=== PATIENT | female | born 1980 | race Caucasian/White ===

== ENCOUNTER 2020-03-20 11:45 | Emergency (ER) | payer OTHER ==
[2020-03-20 12:39] VITALS: BP 147/91; PULSE 81; RESP 18; TEMP 97.9
--- NOTE | 2020-03-20 13:10 | ED ---
General Adult HPI - General Chief complaint: Fall Stated complaint: fall, rib/chest pain Time Seen by Provider: 03/20/20 12:45 Source: patient, RN notes reviewed Mode of arrival: ambulatory Limitations: no limitations - History of Present Illness Initial comments: Patient is a pleasant 39-year-old female presenting to the emergency department following a fall. Incident occurred 2 days ago. Patient states she was walking her dog he went to chasing a squirrel and pulled her. Patient then fell down on her left lateral chest and anterior shoulder. Patient has discomfort since that time. No shortness of breath. Patient states she does not think she can work secondary to the discomfort. No history of chronic pain in these areas. Discomfort is moderate to severe at this time. - Related Data Allergies Allergy/AdvReac Type Severity Reaction Status Date / Time No Known Allergies Allergy Verified 03/20/20 12:39 Review of Systems ROS Statement: Those systems with pertinent positive or pertinent negative responses have been documented in the HPI. ROS Other: All systems not noted in ROS Statement are negative. Constitutional: Denies: fever Eyes: Denies: eye pain ENT: Denies: ear pain Respiratory: Denies: cough, dyspnea Cardiovascular: Reports: as per HPI Endocrine: Denies: fatigue Gastrointestinal: Denies: abdominal pain Genitourinary: Denies: dysuria Musculoskeletal: Reports: as per HPI Skin: Denies: rash Neurological: Denies: weakness Past Medical History Past Medical History: GERD/Reflux Additional Past Medical History / Comment(s): anemia History of Any Multi-Drug Resistant Organisms: None Reported Past Surgical History: No Surgical Hx Reported Past Psychological History: Anxiety, Depression Smoking Status: Current every day smoker Past Alcohol Use History: Occasional Past Drug Use History: None Reported General Exam Limitations: no limitations General appearance: alert, in no apparent distress Head exam: Present: normocephalic Eye exam: Present: normal appearance, PERRL ENT exam: Present: normal oropharynx Neck exam: Present: normal inspection. Absent: tenderness Respiratory exam: Present: normal lung sounds bilaterally, chest wall tenderness (Left lateral mid ribs, lateral to the breast) Cardiovascular Exam: Present: regular rate, normal rhythm GI/Abdominal exam: Present: soft. Absent: tenderness Extremities exam: Present: full ROM, tenderness (Left anterior shoulder. Distally the extremity is neurovascular intact.). Absent: pedal edema, calf tenderness Neurological exam: Present: alert. Absent: motor sensory deficit Psychiatric exam: Present: normal affect, normal mood Skin exam: Present: normal color Course Vital Signs 03/20/20 12:36 Temperature 97.9 F Pulse Rate 81 Respiratory 18 Rate Blood Pressure 147/91 O2 Sat by Pulse 98 Oximetry Medical Decision Making - Medical Decision Making Patient reevaluated and updated. Patient explained limitations of rib x-rays. - Radiology Data Radiology results: image reviewed (X-rays left shoulder and ribs and chest show no acute abnormality) Disposition Clinical Impression: Fall, Rib contusion Disposition: HOME SELF-CARE Condition: Stable Instructions (If sedation given, give patient instructions): Rib Contusion (ED) Additional Instructions: Please follow-up with primary care physician in the next couple days for recheck. Return for difficulty breathing, uncontrolled pain, worsening symptoms or other concerns. Is patient prescribed a controlled substance at d/c from ED?: No Referrals: Raul Patel MD [Primary Care Provider] - 1-2 days Time of Disposition: 13:46
--- NOTE | 2020-03-20 13:31 | XR ---
Chest x-ray and left RIBS HISTORY: Trauma and pain Frontal view of the chest and 4 views of the left ribs There is no pneumothorax or pleural effusion. Cardiac mediastinal silhouette is within normal limits. There is mild spinal curvature. Degenerative disc changes present in the visualized spine. No eviden t displaced rib fracture. IMPRESSION: No acute abnormality. Bone scan may be of benefit to assess for occult fracture should it be suspected clinically.
--- NOTE | 2020-03-20 13:34 | XR ---
Left shoulder HISTORY: Trauma and pain 3 views left shoulder There is overlying artifact. Left lung apex as visualized is normal. Bone mineralization, joint space s and alignment are maintained. IMPRESSION: No fracture or dislocation.
[2020-03-20] MEDS ORDERED: ACET/COD 300 MG/30 MG STARTER PACK 6 TAB BTL PO STA (13:45)
== END 2020-03-20 13:55 | disposition home or self-care (01) ==
LOC: EC 11:45
DX: S20.212A Contusion of left front wall of thorax, initial encounter (principal); F17.200 Nicotine dependence, unspecified, uncomplicated; W19.XXXA Unspecified fall, initial encounter; Y93.K1 Activity, walking an animal
CPT/HCPCS: 99283

== ENCOUNTER 2020-06-26 14:48 | Emergency (ER) | payer OTHER ==
[2020-06-26 14:59] VITALS: RESP 18; TEMP 98.9
[2020-06-26] MEDS ORDERED: HYDROmorphone 0.5 MG/0.5 ML SYRINGE IVP STA (15:25)
--- NOTE | 2020-06-26 15:28 | ED ---
General Adult HPI - General Chief complaint: Fall Stated complaint: IHS, Head injury Time Seen by Provider: 06/26/20 14:55 Source: patient, RN notes reviewed, old records reviewed Mode of arrival: EMS Limitations: no limitations - History of Present Illness Initial comments: This is a 39-year-old female presents emergency Department stating that she wal ked into a machine hit the right side of her head on the machine. Patient states she did lose consciousness. Patient complains of right-sided temporal pain as well as pain on the left side of her neck. Patient also complains of slight upper right-sided back pain. Patient denies any difficulty breathing first breath per patient denies any chest pain. Patient denies any abdominal pain patient denies nausea vomiting diarrhea per patient has any extremity pain. - Related Data Home Medications Medication Instructions Recorded Confirmed Aspirin/Caffeine [Anacin 400-32 mg 2 tab PO ONCE PRN 06/26/20 06/26/20 Tablet] FLUoxetine HCL [PROzac] 20 mg PO DAILY 06/26/20 06/26/20 Famotidine [Pepcid] 20 mg PO BID 06/26/20 06/26/20 Ferrous Sulfate [Feosol] 325 mg PO DAILY 06/26/20 06/26/20 Multivitamins, Thera [Multivitamin 1 tab PO DAILY 06/26/20 06/26/20 (formulary)] Venlafaxine HCl [Effexor XR] 150 mg PO DAILY 06/26/20 06/26/20 Allergies Allergy/AdvReac Type Severity Reaction Status Date / Time No Known Allergies Allergy Verified 06/26/20 16:13 Review of Systems ROS Statement: Those systems with pertinent positive or pertinent negative responses have been documented in the HPI. ROS Other: All systems not noted in ROS Statement are negative. Past Medical History Past Medical History: GERD/Reflux Additional Past Medical History / Comment(s): anemia History of Any Multi-Drug Resistant Organisms: None Reported Past Surgical History: No Surgical Hx Reported Past Psychological History: Anxiety, Depression Smoking Status: Current every day smoker Past Alcohol Use History: Occasional Past Drug Use History: None Reported General Exam - General Exam Comments Initial Comments: GENERAL: Patient is well-developed and well-nourished. Patient is nontoxic and well- hydrated and is in mild distress. Patient has tenderness in the right temporal region ENT: Neck is soft and supple. No significant lymphadenopathy is noted. Oropharynx is clear. Moist mucous membranes. Neck has full range of motion without eliciting any pain. EYES: The sclera were anicteric and conjunctiva were pink and moist. Extraocular movements were intact and pupils were equal round and reactive to light. Eyelids were unremarkable. PULMONARY: Unlabored respirations. Good breath sounds bilaterally. No audible rales rhonchi or wheezing was noted. CARDIOVASCULAR: There is a regular rate and rhythm without any murmurs gallops or rubs. Patient has slight tenderness in the right upper thoracic region ABDOMEN: Soft and nontender with normal bowel sounds. SKIN: Skin is clear with no lesions or rashes and otherwise unremarkable. NEUROLOGIC: Patient is alert and oriented x3. Cranial nerves II through XII are grossly intact. Motor and sensory are also intact. Normal speech, volume and content. Symmetrical smile. MUSCULOSKELETAL: Normal extremities with adequate strength and full range of motion. Patient has slight tenderness in the right upper thoracic region LYMPHATICS: No significant lymphadenopathy is noted PSYCHIATRIC: Normal psychiatric evaluation. Limitations: no limitations Course Vital Signs 06/26/20 14:55 Temperature 98.9 F Pulse Rate 85 Respiratory 18 Rate Blood Pressure 147/96 O2 Sat by Pulse 98 Oximetry Medical Decision Making - Medical Decision Making EKG shows normal sinus rhythm at 80 bpm [place] interval is on a 46 QRS 106 QT interval 422 QTC is 510. Patient's EKG shows no ST segment elevation or depression. CT of the head and C-spine showed no acute abnormality. Patient was feeling better after she had a shot of Dilaudid. Patient will follow-up with primary medical care doctor. Disposition Clinical Impression: Head trauma, Concussion with brief loss of consciousness Disposition: HOME SELF-CARE Instructions (If sedation given, give patient instructions): Concussion (ED) Is patient prescribed a controlled substance at d/c from ED?: No Referrals: Raul Patel MD [Primary Care Provider] - 1-2 days Time of Disposition: 17:38
--- NOTE | 2020-06-26 16:05 | CT ---
EXAMINATION TYPE: CT brain pauloine wo con DATE OF EXAM: 06/26/2020 COMPARISON: NONE HISTORY: Injury with headache and neck pain. CT DLP: 1334.3 mGycm. Automated Exposure Control for Dose Reduction was Utilized. TECHNIQUE: CT scan of the head and cervical spine are performed without contrast. FINDINGS: There is no acute intracranial hemorrhage, mass effect, or midline shift identified. The ventricles and sulci are within normal limits in size. Beltran-white matter differentiation is maintai valerie. The calvarium is intact. Mild to moderate mucosal thickening involving ethmoid sinuses bilateral ly. Small mucous retention cyst or polyp in the medial right frontal sinus. Globes are intact bilater ally. Cervical spine is visualized in its entirety from C1 through upper thoracic levels and demonstrates s atisfactory alignment without evidence of acute fracture or dislocation. Prevertebral soft tissue ap pears within normal limits. The C1-C2 articulation is within normal limits on the coronal images. V ertebral body heights and disc space heights are fairly well-maintained. Nonspecific tiny sclerotic l esion T1 vertebral coronal image 50 favored benign bone island in patient this age. Spinal canal laci sly preserved. Thyroid gland is within normal limits. Lung apices show no pneumothorax . IMPRESSION: 1. There is no acute fracture or dislocation evident in the cervical spine. 2. No acute intracranial hemorrhage or midline shift is seen.
--- NOTE | 2020-06-26 17:18 | XR ---
EXAMINATION TYPE: XR chest 2V DATE OF EXAM: 06/26/2020 COMPARISON: NONE HISTORY: Pain and dizziness. TECHNIQUE: Frontal and lateral views of the chest are obtained. FINDINGS: There is no focal air space opacity, pleural effusion, or pneumothorax seen. The cardiac silhouette size is within normal limits. The osseous structures are intact. IMPRESSION: No acute cardiopulmonary process.
[2020-06-26 18:24] VITALS: BP 124/68; PULSE 78
== END 2020-06-26 18:24 | disposition home or self-care (01) ==
LOC: EC 14:48
DX: S06.0X1A Concussion with loss of consciousness of 30 minutes or less, initial encounter (principal); K21.9 Gastro-esophageal reflux disease without esophagitis; F32.9 Major depressive disorder, single episode, unspecified; F41.9 Anxiety disorder, unspecified; F17.200 Nicotine dependence, unspecified, uncomplicated; Z79.82 Long term (current) use of aspirin; Z79.899 Other long term (current) drug therapy; W19.XXXA Unspecified fall, initial encounter
CPT/HCPCS: 93005; 71046; 72125; 70450; 99284; 96374; J1170

== ENCOUNTER → 2020-06-28 | Outpatient (CLI) | payer OTHER ==
--- NOTE | 2020-06-28 10:53 | XR ---
EXAMINATION TYPE: XR lumbar spine 2 or 3V DATE OF EXAM: 06/28/2020 CLINICAL HISTORY: Chronic low back pain. TECHNIQUE: Frontal and lateral images of the lumbar spine are obtained. COMPARISON: None. FINDINGS: There are 5 lumbar type vertebral bodies identified. The lumbar spine shows satisfactory alignment without evidence of acute fracture or dislocation. Mild to moderate disc space narrowing L5 -S1 level with mild anterior spurring. Vertebral body heights and disc space heights are otherwise wi thin normal limits. The overlying soft tissue appears unremarkable. IMPRESSION: As above.
== END | disposition home or self-care (01) ==
LOC: RADXRMAIN 10:04
PROVIDERS: ATTEND Emergency Medicine
DX: M51.37 Other intervertebral disc degeneration, lumbosacral region (principal)
CPT/HCPCS: 72100

== ENCOUNTER 2020-10-08 15:49 | Emergency (ER) | payer OTHER ==
[2020-10-08 15:57] VITALS: RESP 18
[2020-10-08] MEDS ORDERED: SODIUM CHLORIDE 0.9% 1,000 ML IV STA (16:06)
[2020-10-08] MEDS ORDERED: IPRATROPIUM-ALBUTEROL 3 ML NEB INHALATION STA ×2 (16:07→17:23)
[2020-10-08] MEDS ORDERED: methylPREDNISolone SOD SUCCI 125 MG/2 ML VIAL IV STA (16:07)
[2020-10-08] MEDS ORDERED: ONDANSETRON 4 MG/2 ML VIAL IVP STA (16:07)
[2020-10-08 16:17] LABS: Glucose,Whole Blood 93 mg/dL (75-99)
--- NOTE | 2020-10-08 16:17 | ED ---
General Adult HPI - General Chief complaint: Syncope Stated complaint: syncope Time Seen by Provider: 10/08/20 15:57 Source: patient, EMS, RN notes reviewed, old records reviewed Mode of arrival: EMS Limitations: no limitations - History of Present Illness Initial comments: Patient is a 39-year-old female with past medical history remarkable for asthma, GERD, acid reflux, iron deficiency anemia who presents emergency Department following a syncopal episode while at work. Patient states that she has been feeling fatigued all day. She also has been complaining of mild shortness of breath over this time as well. She denies any chest pain, headache, numbness, abdominal pain. She does endorse nausea without any episodes of emesis. She is currently on her menstrual cycle which she stated is heavier than normal. She denies . She denies any dysuria or hematuria. Denies any other vaginal discharge. Denies any change in bowel movements. Patient states that while at work, she stood from a seated position which is when she expenses syncopal episode. Per coworkers, she slowly collapsed to the ground. She was uninjured after falling. She denies any neck pain, back pain, headache. She states when she awoke, there was no confusion. She presents in the department for evaluation. She does state that she has a brother who has early onset cardiac disease. She has no known history but it is positive and family members. Denies any hemoptysis or hormonal therapies. Denies any history of pulmonary embolisms and DVTs. She states for asthma she rarely uses her inhaler. She is no other acute complaints at this time. She denies any known sick contacts, fevers, chills. She denies any cough. She is not acute complaints. The patient states she does have a history of syncopal episodes,, however it is been multiple months since this last occurred. - Related Data Home Medications Medication Instructions Recorded Confirmed FLUoxetine HCL [PROzac] 40 mg PO DAILY 06/26/20 10/08/20 Famotidine [Pepcid] 20 mg PO BID PRN 06/26/20 10/08/20 Ferrous Sulfate [Feosol] 325 mg PO DAILY 06/26/20 10/08/20 Venlafaxine HCl [Effexor XR] 150 mg PO DAILY 06/26/20 10/08/20 ALPRAZolam [Xanax] 0.5 mg PO BID PRN 10/08/20 10/08/20 Ibuprofen [Motrin] 800 mg PO TID PRN 10/08/20 10/08/20 amLODIPine [Norvasc] 2.5 mg PO DAILY 10/08/20 10/08/20 Previous Rx's Medication Instructions Recorded Albuterol Inhaler [Ventolin Hfa 2 puff INHALATION RT-TID #1 inhaler 10/08/20 Inhaler] predniSONE [Deltasone] 40 mg PO DAILY 5 Days #10 tab 10/08/20 Allergies Allergy/AdvReac Type Severity Reaction Status Date / Time No Known Allergies Allergy Verified 10/08/20 17:09 Review of Systems ROS Statement: Those systems with pertinent positive or pertinent negative responses have been documented in the HPI. Review of Systems: CONST: Denies fever EYES: Denies blurry vision ENT: Denies nasal congestion C/V: Denies Chest pain RESP: Endorses mild shortness of breath GI: Denies abdominal pain : Denies dysuria SKIN: Denies rash. MSK: Denies joint pain. NEURO: Denies headache ROS Other: All systems not noted in ROS Statement are negative. Past Medical History Past Medical History: GERD/Reflux Additional Past Medical History / Comment(s): anemia History of Any Multi-Drug Resistant Organisms: None Reported Past Surgical History: No Surgical Hx Reported Past Psychological History: Anxiety, Depression Smoking Status: Current every day smoker Past Alcohol Use History: Occasional Past Drug Use History: Marijuana General Exam - General Exam Comments Initial Comments: General: Appears in no acute distress. HEAD: Normal with no signs of head trauma. EYES: PERRLA, EOMI, conjunctiva normal, no discharge. Pupils are 3 mm bilaterally and equal. ENT: Hearing grossly intact, normal oropharynx. RESPIRATORY: Patient has bilateral end expiratory wheezing without any obvious rales or rhonchi. There is no tachypnea. No retractions. C/V: Regular rate and rhythm. S1 and S2 auscultated, no edema, peripheral pulses 2+ and intact throughout ABD: Abd is soft, nontender, nondistended EXT: Normal range of motion, no obvious deformity SKIN: No rashes or lesions observed on exposed skin. NEURO: Alert and oriented 4. Cranial nerves II-12 intact. No focal sensory strength deficits. Patient's cerebellar function is intact as evident by normal finger to nose testing. Patient is able to ambulate. Limitations: no limitations Course Vital Signs 10/08/20 10/08/20 10/08/20 15:52 15:57 16:38 Temperature 97.5 F L Pulse Rate 81 87 95 Respiratory 18 18 18 Rate Blood Pressure 147/95 141/87 O2 Sat by Pulse 97 99 Oximetry 10/08/20 10/08/20 10/08/20 16:45 16:57 17:00 Temperature Pulse Rate 87 90 90 Respiratory 18 18 18 Rate Blood Pressure 134/84 134/84 O2 Sat by Pulse 99 99 Oximetry 10/08/20 10/08/20 10/08/20 18:00 18:05 18:12 Temperature Pulse Rate 90 88 90 Respiratory 18 18 18 Rate Blood Pressure O2 Sat by Pulse Oximetry 10/08/20 10/08/20 18:46 18:51 Temperature 97.6 F 97.6 F Pulse Rate 94 94 Respiratory 18 18 Rate Blood Pressure 153/89 153/89 O2 Sat by Pulse 99 99 Oximetry Medical Decision Making - Medical Decision Making Based on the patient's presentation and physical exam, I'm concerned for possible cardiac etiology for the patient's syncopal episode. She does have a family member with early onset cardiac disease, a brother who has been diagnosed with heart problems at age 40. I cannot rule out a pulmonary embolism as the cause either. Patient's well's score is low so screening D-dimer will be obtained in addition to cardiac workup including troponin, EKG, chest x-ray and basic laboratory studies. She will be connected to continuous cardiac monitoring will she is here in the department. Patient may be dehydrated, can also not rule out the possibly of anemia for the patient. She does appear to have a mild asthma exacerbation as will be treated with steroids as well as duoneb breathing treatments. The patient was in agreement this plan. Patient's EKG shows no signs of acute ischemia. Was read as prolonged QT, however I believe this is miscalculated by the machine and correct calculation is in my EKG interpretation.Patient's chest xray shows no acute cardiopulmonary process. Laboratory studies are remarkable for a normal d-dimer. Patient is hypokalemic to 2.9. Patient also has mild hypomagnesemia of 1.6. Troponin is negative. COVID-19 swab is negative. Remainder of his labs are unremarkable. Patient received supplementation for hypo-kalemia and hypomagnesemia. On repeat evaluation, patient states that her breathing is improved and she is no longer short of breath after 2 breathing treatments. She otherwise has no acute complaints at this time and requests to go home. Patient is able to ambulate and stand without difficulty. Patient's heart score is 1. Patient's [place] syncope rules are is also low risk. I do believe it is safe for her to be discharged home at this time. She will be discharged home with a prescription of prednisone as well as albuterol for her asthma exacerbation. I will provide the patient with a prescription for prednisone 40 mg daily for 5 days, albuterol inhaler. I instructed the patient to follow up with their PCP in the next 3 days . I explained that the patient should return to the emergency department if they experience any worsening symptoms. Strict return precautions were discussed with the patient. The patient expressed understanding of these instructions. I answered all questions that the patient had. The patient was discharged home in good condition with their prescriptions and follow up information. - Lab Data Result diagrams: 10/08/20 16:23 10/08/20 16:23 Lab Results 10/08/20 10/08/20 10/08/20 Range/Units 16:15 16:23 16:23 WBC 6.9 (3.8-10.6) k/uL RBC 4.42 (3.80-5.40) m/uL Hgb 14.6 (11.4-16.0) gm/dL Hct 42.8 (34.0-46.0) % MCV 96.9 (80.0-100.0) fL MCH 33.1 (25.0-35.0) pg MCHC 34.1 (31.0-37.0) g/dL RDW 13.3 (11.5-15.5) % Plt Count 203 (150-450) k/uL MPV 9.0 Neutrophils % 68 % Lymphocytes % 23 % Monocytes % 6 % Eosinophils % 2 % Basophils % 0 % Neutrophils # 4.7 (1.3-7.7) k/uL Lymphocytes # 1.6 (1.0-4.8) k/uL Monocytes # 0.4 (0-1.0) k/uL Eosinophils # 0.2 (0-0.7) k/uL Basophils # 0.0 (0-0.2) k/uL PT 10.1 (9.0-12.0) sec INR 0.9 (<1.2) APTT 21.1 L (22.0-30.0) sec D-Dimer 0.25 (<0.60) mg/L FEU Sodium (137-145) mmol/L Potassium (3.5-5.1) mmol/L Chloride (98-107) mmol/L Carbon Dioxide (22-30) mmol/L Anion Gap mmol/L BUN (7-17) mg/dL Creatinine (0.52-1.04) mg/dL Est GFR (CKD-EPI)AfAm (>60 ml/min/1.73 sqM) Est GFR (CKD-EPI)NonAf (>60 ml/min/1.73 sqM) Glucose (74-99) mg/dL POC Glucose (mg/dL) 93 (75-99) mg/dL POC Glu Tube Room Supervisor ID Juan, Tamanna Calcium (8.4-10.2) mg/dL Magnesium (1.6-2.3) mg/dL Troponin I (0.000-0.034) ng/mL Coronavirus (PCR) (Not Detectd) 10/08/20 10/08/20 10/08/20 Range/Units 16:23 16:23 16:23 WBC (3.8-10.6) k/uL RBC (3.80-5.40) m/uL Hgb (11.4-16.0) gm/dL Hct (34.0-46.0) % MCV (80.0-100.0) fL MCH (25.0-35.0) pg MCHC (31.0-37.0) g/dL RDW (11.5-15.5) % Plt Count (150-450) k/uL MPV Neutrophils % % Lymphocytes % % Monocytes % % Eosinophils % % Basophils % % Neutrophils # (1.3-7.7) k/uL Lymphocytes # (1.0-4.8) k/uL Monocytes # (0-1.0) k/uL Eosinophils # (0-0.7) k/uL Basophils # (0-0.2) k/uL PT (9.0-12.0) sec INR (<1.2) APTT (22.0-30.0) sec D-Dimer (<0.60) mg/L FEU Sodium 135 L (137-145) mmol/L Potassium 2.9 L (3.5-5.1) mmol/L Chloride 103 (98-107) mmol/L Carbon Dioxide 26 (22-30) mmol/L Anion Gap 6 mmol/L BUN 11 (7-17) mg/dL Creatinine 0.60 (0.52-1.04) mg/dL Est GFR (CKD-EPI)AfAm >90 (>60 ml/min/1.73 sqM) Est GFR (CKD-EPI)NonAf >90 (>60 ml/min/1.73 sqM) Glucose 94 (74-99) mg/dL POC Glucose (mg/dL) (75-99) mg/dL POC Glu Tube Room Supervisor ID Calcium 9.0 (8.4-10.2) mg/dL Magnesium 1.6 (1.6-2.3) mg/dL Troponin I <0.012 (0.000-0.034) ng/mL Coronavirus (PCR) Not Detected (Not Detectd) - EKG Data -: EKG Interpreted by Me EKG Comments: 12-lead Electrocardiogram Interpretation Note EKG was reviewed and interpreted by myself. 12-lead ECG performed at 1557 is interpreted by me as revealing normal sinus rhythm at a rate of 74 beats per minute. [place] is normal. DC interval is undetectable 6 ms, [place] is 104 ms. QTC listed on the EKG is 510, however believe this is incorrectly calc ulated. QT interval measured by the machine is 460, however based on my measurements appears closer to 400-420, which equates to a QTC of approx 444. There were no ST or T wave abnormalities to suggest myocardial ischemia or injury. R wave progression across the precordium was satisfactory. By my interpretation this EKG is non-diagnostic for acute ischemia. The corrected QTc measurement is within normal limits. Disposition Clinical Impression: Syncope, Asthma exacerbation, Hypokalemia, Hypomagnesemia Disposition: HOME SELF-CARE Condition: Good Instructions (If sedation given, give patient instructions): Asthma (ED), Syncope (ED) Prescriptions: predniSONE [Deltasone] 40 mg PO DAILY 5 Days #10 tab Albuterol Inhaler [Ventolin Hfa Inhaler] 2 puff INHALATION RT-TID #1 inhaler Is patient prescribed a controlled substance at d/c from ED?: No Referrals: Raul Patel MD [Primary Care Provider] - 1-2 days
[2020-10-08 16:30] LABS: Basophils % (A) 0 %; Eosinophils # (A) 0.2 k/uL (0-0.7); Eosinophils % (A) 2 %; HCT 42.8 % (34.0-46.0); HGB 14.6 gm/dL (11.4-16.0); Lymphocytes # (A) 1.6 k/uL (1.0-4.8); Lymphocytes % (A) 23 %; MCH 33.1 pg (25.0-35.0); MCHC 34.1 g/dL (31.0-37.0); MCV 96.9 fL (80.0-100.0); Monocytes # (A) 0.4 k/uL (0-1.0); Monocytes % (A) 6 %; Neutrophils # (A) 4.7 k/uL (1.3-7.7); Neutrophils % (A) 68 %; Platelet Count 203 k/uL (150-450); RBC 4.42 m/uL (3.80-5.40); RDW 13.3 % (11.5-15.5); WBC 6.9 k/uL (3.8-10.6)
[2020-10-08 16:42] LABS: African American GFR (CKD) >90 (>60 ml/min/1.73 sqM); Anion Gap 6 mmol/L; Blood Urea Nitrogen 11 mg/dL (7-17); Carbon Dioxide 26 mmol/L (22-30); Chloride 103 mmol/L (98-107); Glucose 94 mg/dL (74-99); Magnesium 1.6 mg/dL (1.6-2.3); Non-African American GFR(CKD) >90 (>60 ml/min/1.73 sqM); Potassium 2.9 mmol/L (3.5-5.1); Sodium 135 mmol/L (137-145)
--- NOTE | 2020-10-08 16:43 | XR ---
EXAMINATION TYPE: XR chest 2V DATE OF EXAM: 10/08/2020 COMPARISON: 06/26/2020 HISTORY: Syncope TECHNIQUE: FINDINGS: Heart and mediastinum are normal. Lungs are clear. Diaphragm is normal. Bony thorax is inta ct. IMPRESSION: Normal chest. No adverse change.
[2020-10-08 16:54] LABS: INR 0.9 (<1.2); Partial Thromboplastin Time 21.1 sec (22.0-30.0); Prothrombin Time 10.1 sec (9.0-12.0)
[2020-10-08] MEDS ORDERED: POTASSIUM CHLORIDE ER 20 MEQ TAB.ER PO STA (17:08)
[2020-10-08] MEDS ORDERED: MAGNESIUM SULFATE-D5W PMX 1 GM in DEXTROSE/WATER 1 100ML.BAG IVPB ONE (17:09)
[2020-10-08 18:47] VITALS: BP 153/89; PULSE 94; TEMP 97.6
== END 2020-10-08 18:51 | disposition home or self-care (01) ==
LOC: EC 15:49
DX: E87.6 Hypokalemia (principal); E83.42 Hypomagnesemia; J45.901 Unspecified asthma with (acute) exacerbation; F32.9 Major depressive disorder, single episode, unspecified; F41.9 Anxiety disorder, unspecified; K21.9 Gastro-esophageal reflux disease without esophagitis; F17.200 Nicotine dependence, unspecified, uncomplicated; F12.90 Cannabis use, unspecified, uncomplicated; Z20.822 Contact with and (suspected) exposure to COVID-19; Z79.1 Long term (current) use of non-steroidal anti-inflammatories (NSAID); Z79.52 Long term (current) use of systemic steroids; Z79.899 Other long term (current) drug therapy
CPT/HCPCS: 36415; 94640 ×2; 93005; 85379; 80048; 83735; 84484; 85025; 85610; 85730; 87635; 71046; 99285; 96365; 96375 ×2; 96361; J2930; J2405; J3475

== ENCOUNTER 2021-01-17 08:29 | Emergency (ER) | payer OTHER ==
[2021-01-17 08:51] VITALS: BP 154/92; PULSE 82; RESP 18; TEMP 98.1
--- NOTE | 2021-01-17 09:12 | ED ---
General Adult HPI - General Chief complaint: ENT Stated complaint: Eye Inflammation Time Seen by Provider: 01/17/21 08:57 Source: patient, RN notes reviewed, old records reviewed Mode of arrival: ambulatory Limitations: no limitations - History of Present Illness Initial comments: 40-year-old female otherwise healthy woke with swelling of her right upper eyelid. She noticed some minimal pain and erythema. She had no symptoms yesterday. No vision changes. No fever. She is a nondiabetic otherwise healthy. - Related Data Home Medications Medication Instructions Recorded Confirmed FLUoxetine HCL [PROzac] 40 mg PO DAILY 06/26/20 10/08/20 Famotidine [Pepcid] 20 mg PO BID PRN 06/26/20 10/08/20 Ferrous Sulfate [Feosol] 325 mg PO DAILY 06/26/20 10/08/20 Venlafaxine HCl [Effexor XR] 150 mg PO DAILY 06/26/20 10/08/20 ALPRAZolam [Xanax] 0.5 mg PO BID PRN 10/08/20 10/08/20 Ibuprofen [Motrin] 800 mg PO TID PRN 10/08/20 10/08/20 amLODIPine [Norvasc] 2.5 mg PO DAILY 10/08/20 10/08/20 Previous Rx's Medication Instructions Recorded Albuterol Inhaler [Ventolin Hfa 2 puff INHALATION RT-TID #1 inhaler 10/08/20 Inhaler] predniSONE [Deltasone] 40 mg PO DAILY 5 Days #10 tab 10/08/20 Erythromycin Ophth Oint [Romycin 1 applic RIGHT EYE QID #3.5 gm 01/17/21 Ophth Oint] Allergies Allergy/AdvReac Type Severity Reaction Status Date / Time No Known Allergies Allergy Verified 01/17/21 08:51 Review of Systems ROS Statement: Those systems with pertinent positive or pertinent negative responses have been documented in the HPI. ROS Other: All systems not noted in ROS Statement are negative. Past Medical History Past Medical History: GERD/Reflux Additional Past Medical History / Comment(s): anemia History of Any Multi-Drug Resistant Organisms: None Reported Past Surgical History: No Surgical Hx Reported Past Psychological History: Anxiety, Depression Smoking Status: Current every day smoker Past Alcohol Use History: Occasional Past Drug Use History: None Reported General Exam Limitations: no limitations General appearance: alert, in no apparent distress Head exam: Present: atraumatic, normocephalic Eye exam: Present: PERRL, EOMI, other (Soft tissue swelling and mild erythema of the upper lid, pustule on the lid margin). Absent: scleral icterus, conjunctival injection, nystagmus, periorbital swelling ENT exam: Present: normal exam Neck exam: Present: normal inspection. Absent: tenderness, meningismus Respiratory exam: Present: normal lung sounds bilaterally. Absent: respiratory distress, wheezes Cardiovascular Exam: Present: regular rate, normal rhythm GI/Abdominal exam: Present: soft. Absent: distended Course Vital Signs 01/17/21 08:49 Temperature 98.1 F Pulse Rate 82 Respiratory 18 Rate Blood Pressure 154/92 O2 Sat by Pulse 98 Oximetry Medical Decision Making - Medical Decision Making 40-year-old female with stye of the right upper eyelid. Patient is instructed on warm compresses. She is prescribed erythromycin ointment. Strict return pa rameters were discussed. She's given ophthalmology follow-up if symptoms persist. Disposition Clinical Impression: Hordeolum externum (stye) Disposition: HOME SELF-CARE Condition: Good Instructions (If sedation given, give patient instructions): Stye (ED) Additional Instructions: If symptoms do not improve within one week. Please follow up with ophthalmology. Prescriptions: Erythromycin Ophth Oint [Romycin Ophth Oint] 1 applic RIGHT EYE QID #3.5 gm Is patient prescribed a controlled substance at d/c from ED?: No Referrals: Raul Patel MD [Primary Care Provider] - 1-2 days Nicolas Justice MD [STAFF PHYSICIAN] - 1-2 days Time of Disposition: 09:11
== END 2021-01-17 09:34 | disposition home or self-care (01) ==
LOC: EC 08:29
DX: H00.011 Hordeolum externum right upper eyelid (principal); K21.9 Gastro-esophageal reflux disease without esophagitis; F41.9 Anxiety disorder, unspecified; F32.A Depression, unspecified; F17.200 Nicotine dependence, unspecified, uncomplicated
CPT/HCPCS: 99283

== ENCOUNTER 2021-01-26 14:34 | Emergency (ER) | payer OTHER ==
[2021-01-26] MEDS ORDERED: SODIUM CHLORIDE 0.9% 1,000 ML IV STA (15:15)
--- NOTE | 2021-01-26 15:39 | XR ---
EXAMINATION TYPE: XR chest 2V DATE OF EXAM: 01/26/2021 COMPARISON: 10/08/2020 TECHNIQUE: PA and lateral views submitted. HISTORY: Syncopal episode FINDINGS: The lungs are clear and there is no pneumothorax, pleural effusion, or focal pneumonia. Heart is en larged and there is prominence of the thoracic aortic arch. Coarsened interstitium likely in the basi s of chronic interstitial lung disease. Hypertrophic and degenerative change of the spine. IMPRESSION: 1. Cardiomegaly with findings suggestive of chronic interstitial pulmonary fibrosis. 2. Prominence of the ascending aorta short-term follow-up CT of the chest could be obtained.
--- NOTE | 2021-01-26 16:42 | ED ---
Dizziness HPI - General Source: EMS, RN notes reviewed Mode of arrival: EMS Limitations: no limitations <Frankei Maldonado - Last Filed: 01/26/21 16:39> <Butch Larose - Last Filed: 01/26/21 19:13> - General Chief Complaint: Syncope Stated Complaint: syncope Time Seen by Provider: 01/26/21 14:48 - History of Present Illness Initial Comments: Patient is a 40-year-old female that presents to the emergency department complaining of dizziness and a syncopal episode at work. Patient notes that she does have a history of syncope. 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 Patient notes that she'll he drinks approximately 8 ounces of water per day while working in a hot environment. Patient was otherwise well-appearing. She denied any specialist. She denied any chest pain shortness of breath headache nausea vomiting diarrhea constipation fever fatigue chills change in vision decreased vision. (Frankie Maldonado) - Related Data Home Medications Medication Instructions Recorded Confirmed FLUoxetine HCL [PROzac] 20 mg PO BID 06/26/20 01/26/21 Famotidine [Pepcid] 20 mg PO BID 06/26/20 01/26/21 Venlafaxine HCl [Effexor XR] 150 mg PO DAILY 06/26/20 01/26/21 amLODIPine [Norvasc] 2.5 mg PO DAILY 10/08/20 01/26/21 Allergies Allergy/AdvReac Type Severity Reaction Status Date / Time No Known Allergies Allergy Verified 01/26/21 15:16 Review of Systems ROS Other: All systems not noted in ROS Statement are negative. <Frankie Maldonado - Last Filed: 01/26/21 16:39> ROS Other: All systems not noted in ROS Statement are negative. <Butch Larose - Last Filed: 01/26/21 19:13> ROS Statement: Those systems with pertinent positive or pertinent negative responses have been documented in the HPI. Past Medical History Past Medical History: GERD/Reflux Additional Past Medical History / Comment(s): anemia History of Any Multi-Drug Resistant Organisms: None Reported Past Surgical History: No Surgical Hx Reported Past Psychological History: Anxiety, Depression Smoking Status: Current every day smoker Past Alcohol Use History: Occasional Past Drug Use History: None Reported <Frankie Maldonado - Last Filed: 01/26/21 16:39> General Exam Limitations: no limitations General appearance: alert, in no apparent distress, obese Head exam: Present: atraumatic, normocephalic, normal inspection Eye exam: Present: normal appearance, PERRL, EOMI. Absent: scleral icterus, conjunctival injection, periorbital swelling ENT exam: Present: normal exam, mucous membranes moist Neck exam: Present: normal inspection Respiratory exam: Present: normal lung sounds bilaterally. Absent: respiratory distress, wheezes, rales, rhonchi, stridor Cardiovascular Exam: Present: regular rate, normal rhythm, normal heart sounds. Absent: systolic murmur, diastolic murmur, rubs, gallop, clicks GI/Abdominal exam: Present: soft, normal bowel sounds. Absent: distended, tenderness, guarding, rebound, rigid Extremities exam: Present: normal inspection, full ROM, normal capillary refill. Absent: tenderness, pedal edema, joint swelling, calf tenderness Neurological exam: Present: alert, oriented X3 Expanded Patient oriented to: Present: person, place, time Speech: Present: fluid speech Cranial nerves: EOM's Intact: Normal, Tongue Deviation: Normal, Facial Sensation: Normal Cerebellar function: Finger to Nose: Normal Motor strength exam: RUE: 5, LUE: 5, RLE: 5, LLE: 5 Psychiatric exam: Present: normal affect, normal mood Skin exam: Present: warm, dry, intact, normal color. Absent: rash <Frankie Maldonado - Last Filed: 01/26/21 16:39> Course Vital Signs 01/26/21 01/26/21 01/26/21 14:37 14:43 15:00 Temperature 97.6 F Pulse Rate 84 Respiratory 20 Rate Blood Pressure 142/94 142/94 142/94 O2 Sat by Pulse 100 97 95 Oximetry 01/26/21 01/26/21 01/26/21 15:20 16:00 17:00 Temperature Pulse Rate 66 Respiratory Rate Blood Pressure 145/101 151/114 O2 Sat by Pulse 98 98 Oximetry 01/26/21 18:27 Temperature Pulse Rate 68 Respiratory 18 Rate Blood Pressure 156/96 O2 Sat by Pulse 100 Oximetry EKG Findings - EKG Comments: EKG Findings:: Ventricular rate 82 bpm, RI interval 136 ms, QRS duration 104 ms, QTC 504 ms, PRT axes 58/68/26. Normal sinus rhythm, possible left atrial enlargement, prolonged QT, abnormal ECG. <Frankie Maldonado - Last Filed: 01/26/21 16:39> Medical Decision Making - EKG Data -: EKG Interpreted by Me EKG shows normal: sinus rhythm Rate: normal When compared to previous EKG there are: no significant change - Radiology Data Radiology results: report reviewed, image reviewed <Frankie Maldonado - Last Filed: 01/26/21 16:39> - Lab Data Result diagrams: 01/26/21 15:20 01/26/21 15:20 <Butch Larose - Last Filed: 01/26/21 19:13> - Medical Decision Making 40-year-old female with a syncopal episode at work. Labs, EKG, gambling monitor, chest x-ray, 1 L normal saline ordered. X-ray shows a more prominent aortic arch. This changes new compared to old x- rays. CT angio of the chest was ordered. (Frankie Maldonado) CT angiogram of the chest is negative. I did perform CT of the brain with CT angiography as well given the headache complaint and syncope. This was negative for intracranial hemorrhage or mass effect. Patient feeling better on reevaluation. Laboratory studies unremarkable. (Butch Larose) - Lab Data Lab Results 01/26/21 01/26/21 01/26/21 Range/Units 14:55 14:55 14:55 WBC (3.8-10.6) k/uL RBC (3.80-5.40) m/uL Hgb (11.4-16.0) gm/dL Hct (34.0-46.0) % MCV (80.0-100.0) fL MCH (25.0-35.0) pg MCHC (31.0-37.0) g/dL RDW (11.5-15.5) % Plt Count (150-450) k/uL MPV Neutrophils % % Lymphocytes % % Monocytes % % Eosinophils % % Basophils % % Neutrophils # (1.3-7.7) k/uL Lymphocytes # (1.0-4.8) k/uL Monocytes # (0-1.0) k/uL Eosinophils # (0-0.7) k/uL Basophils # (0-0.2) k/uL PT (9.0-12.0) sec INR (<1.2) APTT (22.0-30.0) sec Sodium (137-145) mmol/L Potassium (3.5-5.1) mmol/L Chloride (98-107) mmol/L Carbon Dioxide (22-30) mmol/L Anion Gap mmol/L BUN (7-17) mg/dL Creatinine (0.52-1.04) mg/dL Est GFR (CKD-EPI)AfAm (>60 ml/min/1.73 sqM) Est GFR (CKD-EPI)NonAf (>60 ml/min/1.73 sqM) Glucose (74-99) mg/dL Calcium (8.4-10.2) mg/dL Magnesium 1.9 (1.6-2.3) mg/dL Total Bilirubin (0.2-1.3) mg/dL AST (14-36) U/L ALT (4-34) U/L Alkaline Phosphatase (38-126) U/L Troponin I (0.000-0.034) ng/mL Total Protein (6.3-8.2) g/dL Albumin (3.5-5.0) g/dL Urine Color Light Yellow Urine Appearance Clear (Clear) Urine pH 7.0 (5.0-8.0) Ur Specific [place] 1.022 (1.001-1.035) Urine Protein Negative (Negative) Urine Glucose (UA) Negative (Negative) Urine Ketones Negative (Negative) Urine Blood Negative (Negative) Urine Nitrite Negative (Negative) Urine Bilirubin Negative (Negative) Urine Urobilinogen <2.0 (<2.0) mg/dL Ur Leukocyte Esterase Negative (Negative) Urine HCG, Qual Not Detected (Not Detectd) 01/26/21 01/26/21 01/26/21 Range/Units 15:20 15:20 15:20 WBC 9.1 (3.8-10.6) k/uL RBC 4.28 (3.80-5.40) m/uL Hgb 13.8 (11.4-16.0) gm/dL Hct 39.7 (34.0-46.0) % MCV 92.7 (80.0-100.0) fL MCH 32.3 (25.0-35.0) pg MCHC 34.9 (31.0-37.0) g/dL RDW 12.3 (11.5-15.5) % Plt Count 187 (150-450) k/uL MPV 8.8 Neutrophils % 70 % Lymphocytes % 21 % Monocytes % 5 % Eosinophils % 3 % Basophils % 0 % Neutrophils # 6.4 (1.3-7.7) k/uL Lymphocytes # 2.0 (1.0-4.8) k/uL Monocytes # 0.4 (0-1.0) k/uL Eosinophils # 0.3 (0-0.7) k/uL Basophils # 0.0 (0-0.2) k/uL PT 9.9 (9.0-12.0) sec INR 0.9 (<1.2) APTT 23.3 (22.0-30.0) sec Sodium 136 L (137-145) mmol/L Potassium 3.5 (3.5-5.1) mmol/L Chloride 105 (98-107) mmol/L Carbon Dioxide 24 (22-30) mmol/L Anion Gap 7 mmol/L BUN 13 (7-17) mg/dL Creatinine 0.62 (0.52-1.04) mg/dL Est GFR (CKD-EPI)AfAm >90 (>60 ml/min/1.73 sqM) Est GFR (CKD-EPI)NonAf >90 (>60 ml/min/1.73 sqM) Glucose 91 (74-99) mg/dL Calcium 9.0 (8.4-10.2) mg/dL Magnesium (1.6-2.3) mg/dL Total Bilirubin 0.2 (0.2-1.3) mg/dL AST 23 (14-36) U/L ALT 20 (4-34) U/L Alkaline Phosphatase 77 (38-126) U/L Troponin I (0.000-0.034) ng/mL Total Protein 6.9 (6.3-8.2) g/dL Albumin 3.9 (3.5-5.0) g/dL Urine Color Urine Appearance (Clear) Urine pH (5.0-8.0) Ur Specific [place] (1.001-1.035) Urine Protein (Negative) Urine Glucose (UA) (Negative) Urine Ketones (Negative) Urine Blood (Negative) Urine Nitrite (Negative) Urine Bilirubin (Negative) Urine Urobilinogen (<2.0) mg/dL Ur Leukocyte Esterase (Negative) Urine HCG, Qual (Not Detectd) 01/26/21 Range/Units 15:20 WBC (3.8-10.6) k/uL RBC (3.80-5.40) m/uL Hgb (11.4-16.0) gm/dL Hct (34.0-46.0) % MCV (80.0-100.0) fL MCH (25.0-35.0) pg MCHC (31.0-37.0) g/dL RDW (11.5-15.5) % Plt Count (150-450) k/uL MPV Neutrophils % % Lymphocytes % % Monocytes % % Eosinophils % % Basophils % % Neutrophils # (1.3-7.7) k/uL Lymphocytes # (1.0-4.8) k/uL Monocytes # (0-1.0) k/uL Eosinophils # (0-0.7) k/uL Basophils # (0-0.2) k/uL PT (9.0-12.0) sec INR (<1.2) APTT (22.0-30.0) sec Sodium (137-145) mmol/L Potassium (3.5-5.1) mmol/L Chloride (98-107) mmol/L Carbon Dioxide (22-30) mmol/L Anion Gap mmol/L BUN (7-17) mg/dL Creatinine (0.52-1.04) mg/dL Est GFR (CKD-EPI)AfAm (>60 ml/min/1.73 sqM) Est GFR (CKD-EPI)NonAf (>60 ml/min/1.73 sqM) Glucose (74-99) mg/dL Calcium (8.4-10.2) mg/dL Magnesium (1.6-2.3) mg/dL Total Bilirubin (0.2-1.3) mg/dL AST (14-36) U/L ALT (4-34) U/L Alkaline Phosphatase (38-126) U/L Troponin I <0.012 (0.000-0.034) ng/mL Total Protein (6.3-8.2) g/dL Albumin (3.5-5.0) g/dL Urine Color Urine Appearance (Clear) Urine pH (5.0-8.0) Ur Specific [place] (1.001-1.035) Urine Protein (Negative) Urine Glucose (UA) (Negative) Urine Ketones (Negative) Urine Blood (Negative) Urine Nitrite (Negative) Urine Bilirubin (Negative) Urine Urobilinogen (<2.0) mg/dL Ur Leukocyte Esterase (Negative) Urine HCG, Qual (Not Detectd) - EKG Data EKG Comments: Ventricular rate 82 bpm, RI interval 136 ms, QRS duration 104 ms, QTC 504 ms, PRT axes 58/68/26. Normal sinus rhythm, possible left atrial enlargement, prolonged QT, abnormal ECG. (Frankie Maldonado) - Radiology Data Chest x-ray: Cardiomegaly with findings suggestive of chronic interstitial pulmonary fibrosis. Prominence of the ascending aorta short-term follow-up CT of the chest could be obtained. (Frankie Maldonado) Disposition <Frankie Maldonado - Last Filed: 01/26/21 16:39> Is patient prescribed a controlled substance at d/c from ED?: No Time of Disposition: 19:13 <Butch Larose - Last Filed: 01/26/21 19:13> Clinical Impression: Syncope Disposition: HOME SELF-CARE Condition: Fair Instructions (If sedation given, give patient instructions): Syncope (ED) Referrals: Raul Patel MD [Primary Care Provider] - 1-2 days
--- NOTE | 2021-01-26 17:07 | CT ---
EXAMINATION TYPE: CT angio chest DATE OF EXAM: 01/26/2021 COMPARISON: None HISTORY: Syncope, chest pain, difficulty breathing. CT DLP: 390.8 mGycm CONTRAST: CT chest with contrast and 3D reconstruction with MIP imaging is performed with IV Contrast, patient injected with 100 mL of Isovue 370. Contrast-enhanced CT of the chest was performed through the course of the pulmonary arteries with abdiaziz g and mediastinal window settings submitted. 3D reconstruction with MIP imaging was also performed. PULMONARY ARTERIES: The pulmonary arteries and their major tributaries are patent. I do not see sheyla dence for sizable filling defect to suggest pulmonary embolic process. LUNGS: The lungs are clear and free of infiltrate. No evidence for atelectasis. No pulmonary nodule or mass is detected. No pleural effusion. MEDIASTINUM: Thoracic aorta is of normal caliber. Azygous continuation of the IVC. The heart is not enlarged. No evidence for mediastinal mass. No mediastinal lymph nodes greater than 1cm. HILAR STRUCTURES: No evidence for mass. No hilar lymph nodes greater than 1 cm. UPPER ABDOMEN: No significant abnormality is seen. IMPRESSION: 1. No evidence for Pulmonary embolism at this time.
[2021-01-26 17:27] LABS: Basophils % (A) 0 %; Eosinophils # (A) 0.3 k/uL (0-0.7); Eosinophils % (A) 3 %; HCT 39.7 % (34.0-46.0); HGB 13.8 gm/dL (11.4-16.0); Lymphocytes % (A) 21 %; MCH 32.3 pg (25.0-35.0); MCHC 34.9 g/dL (31.0-37.0); MCV 92.7 fL (80.0-100.0); Mean Platelet Volume 8.8; Monocytes # (A) 0.4 k/uL (0-1.0); Monocytes % (A) 5 %; Neutrophils # (A) 6.4 k/uL (1.3-7.7); Neutrophils % (A) 70 %; Platelet Count 187 k/uL (150-450); RBC 4.28 m/uL (3.80-5.40); RDW 12.3 % (11.5-15.5); WBC 9.1 k/uL (3.8-10.6)
[2021-01-26 17:29] LABS: Appearance,Urine Clear (Clear); Bilirubin,Urine Negative (Negative); Blood,Urine Negative (Negative); Color,Urine Light Yellow; Glucose,Urine (UA) Negative (Negative); Ketones,Urine Negative (Negative); Leukocyte Esterase,Urine Negative (Negative); Nitrite,Urine Negative (Negative); Protein,Urine Negative (Negative); Specific Gravity,Urine 1.022 (1.001-1.035); Urobilinogen,Urine <2.0 mg/dL (<2.0)
[2021-01-26 17:38] LABS: ALT 20 U/L (4-34); AST 23 U/L (14-36); African American GFR (CKD) >90 (>60 ml/min/1.73 sqM); Albumin 3.9 g/dL (3.5-5.0); Alkaline Phosphatase 77 U/L (38-126); Anion Gap 7 mmol/L; Blood Urea Nitrogen 13 mg/dL (7-17); Carbon Dioxide 24 mmol/L (22-30); Chloride 105 mmol/L (98-107); Glucose 91 mg/dL (74-99); Non-African American GFR(CKD) >90 (>60 ml/min/1.73 sqM); Potassium 3.5 mmol/L (3.5-5.1); Sodium 136 mmol/L (137-145); Total Bilirubin 0.2 mg/dL (0.2-1.3); Total Protein 6.9 g/dL (6.3-8.2)
[2021-01-26 17:44] LABS: INR 0.9 (<1.2); Partial Thromboplastin Time 23.3 sec (22.0-30.0); Prothrombin Time 9.9 sec (9.0-12.0)
[2021-01-26 18:29] VITALS: RESP 18
--- NOTE | 2021-01-26 18:43 | CT ---
EXAMINATION TYPE: CT brain wo con DATE OF EXAM: 01/26/2021 COMPARISON: None HISTORY: DURÁN, concern for brain bleed CT DLP: 1146.[address] of the brain was performed. The ventricles, basal cisterns and sulci overlying the cerebral convexities demonstrate a normal appe arance. There is no evidence for intracranial hemorrhage or sulcal effacement. No mass effects are seen. Osseous calvarium is intact. If symptoms persist consider MRI as clinically warranted. IMPRESSION: 1. No acute intracranial process is seen at this time.
[2021-01-26] MEDS ORDERED: SODIUM CHLORIDE 0.9% 1,000 ML IV ONE (18:54)
--- NOTE | 2021-01-26 19:03 | CT ---
EXAMINATION TYPE: CT angio COW [place] DATE OF EXAM: 01/26/2021 COMPARISON: HISTORY: Sudden DURÁN CT DLP: 961.6 mGycm CONTRAST: CTA [place] with 3-D reconstruction is performed and with IV Contrast, patient injected with 100 mL of Isovue 370. Contrast CTA of the [place] was performed 3-D reconstruction imaging obtained at a separate workstation. Vertebrobasilar system as well as intracranial portions of the internal carotid arterie s and their major tributaries are patent. I do not see evidence for sizable aneurysm or vascular mal formation. Please note MRI provides greater sensitivity and specificity. Visualized brain appears g rossly unremarkable. IMPRESSION: No evidence for sizable aneurysm or vascular malformation.
[2021-01-26 19:27] VITALS: BP 142/97; PULSE 67; TEMP 97.9
== END 2021-01-26 19:27 | disposition home or self-care (01) ==
LOC: EC 14:34
DX: R55 Syncope and collapse (principal); K21.9 Gastro-esophageal reflux disease without esophagitis; F41.9 Anxiety disorder, unspecified; F32.A Depression, unspecified; F17.200 Nicotine dependence, unspecified, uncomplicated
CPT/HCPCS: 99285; 96360; 36415; 93005; 80053; 83735; 84484; 85025; 85610; 85730; 81003; 81025; 71046; 70496; 70450; 71275; Q9967

== ENCOUNTER 2021-08-13 13:34 | Emergency (ER) | payer OTHER ==
[2021-08-13 14:07] VITALS: BP 143/93; PULSE 82; RESP 18; TEMP 97.9
== END 2021-08-13 16:11 | disposition left against medical advice (07) ==
LOC: EC 13:34
DX: I20.9 Angina pectoris, unspecified (principal); R06.02 Shortness of breath; R11.10 Vomiting, unspecified; Z53.21 Procedure and treatment not carried out due to patient leaving prior to being seen by health care provider
CPT/HCPCS: 93005

== ENCOUNTER 2021-08-31 11:38 | Inpatient (IN) | payer OTHER ==
[2021-08-31] MEDS ORDERED: IPRATROPIUM-ALBUTEROL 3 ML NEB INHALATION STA (11:45)
--- NOTE | 2021-08-31 11:48 | ED ---
General Adult HPI - General Stated complaint: SHAYNA Time Seen by Provider: 08/31/21 11:39 Source: patient, EMS, RN notes reviewed Mode of arrival: EMS Limitations: no limitations - History of Present Illness Initial comments: Patient is a pleasant 40-year-old female presenting to the emergency department with difficulty breathing. Patient states she started with cold symptoms a couple of days ago. Patient does have history of asthma. Patient has had some chills and fatigue. Patient does have cough and dyspnea. Patient does have nasal congestion. Patient does have some improvement with symptoms with DuoNeb and Solu-Medrol by EMS. Patient was having some increased difficulty breathing at work today and did become unresponsive. - Related Data Home Medications Medication Instructions Recorded Confirmed FLUoxetine HCL [PROzac] 20 mg PO BID 06/26/20 05/08/21 Famotidine [Pepcid] 20 mg PO BID 06/26/20 05/08/21 Venlafaxine HCl [Effexor XR] 150 mg PO DAILY 06/26/20 05/08/21 amLODIPine [Norvasc] 2.5 mg PO DAILY 10/08/20 05/08/21 Cholecalciferol [Vitamin D3 (125 125 mcg PO DAILY 05/08/21 05/08/21 Mcg = 5000 Iu)] Ibuprofen [Motrin] 800 mg PO Q8H PRN 05/08/21 05/08/21 methocarbamoL [Robaxin] 500 mg PO TID 05/08/21 05/08/21 Allergies Allergy/AdvReac Type Severity Reaction Status Date / Time No Known Allergies Allergy Verified 05/08/21 20:05 Review of Systems ROS Statement: Those systems with pertinent positive or pertinent negative responses have been documented in the HPI. ROS Other: All systems not noted in ROS Statement are negative. Constitutional: Reports: as per HPI, chills Eyes: Denies: eye pain ENT: Reports: congestion. Denies: ear pain Respiratory: Reports: as per HPI, cough, dyspnea Cardiovascular: Denies: chest pain Endocrine: Reports: fatigue Gastrointestinal: Denies: abdominal pain Genitourinary: Denies: dysuria Musculoskeletal: Denies: back pain Skin: Denies: rash Neurological: Denies: weakness Past Medical History Past Medical History: GERD/Reflux Additional Past Medical History / Comment(s): anemia History of Any Multi-Drug Resistant Organisms: None Reported Past Surgical History: No Surgical Hx Reported Past Anesthesia/Blood Transfusion Reactions: No Reported Reaction Additional Past Anesthesia/Blood Transfusion Reaction / Comment(s): unknown Past Psychological History: Anxiety, Depression Smoking Status: Current every day smoker Past Alcohol Use History: Occasional Past Drug Use History: None Reported General Exam Limitations: no limitations General appearance: alert Head exam: Present: normocephalic Eye exam: Present: normal appearance ENT exam: Present: normal oropharynx Neck exam: Present: normal inspection Respiratory exam: Present: wheezes, decreased breath sounds Cardiovascular Exam: Present: regular rate, normal rhythm GI/Abdominal exam: Present: soft. Absent: tenderness Extremities exam: Present: normal inspection. Absent: pedal edema, calf tende rness Neurological exam: Present: alert, oriented X3, CN II-XII intact. Absent: motor sensory deficit Psychiatric exam: Present: normal affect, normal mood Skin exam: Present: normal color Course Vital Signs 08/31/21 08/31/21 08/31/21 11:41 12:09 12:17 Temperature 98.3 F Pulse Rate 94 79 84 Respiratory 24 Rate Blood Pressure 141/87 O2 Sat by Pulse 95 Oximetry - Reevaluation(s) Reevaluation #1: 08/31/21 12:58 Patient meet sepsis criteria diagnosed at 1258. Blood culture and lactic acid and IV antibiotics will be ordered. Medical Decision Making - Medical Decision Making Patient reevaluated and resting comfortably in bed. Patient no longer in respiratory distress. Lung sounds still with significant wheezing. Patient and family updated on results and plan. Dr. Emerson has been paged for admission covering for Dr. Patel. - Lab Data Result diagrams: 08/31/21 11:30 08/31/21 11:30 Lab Results 08/31/21 08/31/21 08/31/21 Range/Units 11:30 11:30 11:30 WBC 8.3 (3.8-10.6) k/uL RBC 3.82 (3.80-5.40) m/uL Hgb 12.1 (11.4-16.0) gm/dL Hct 35.7 (34.0-46.0) % MCV 93.5 (80.0-100.0) fL MCH 31.8 (25.0-35.0) pg MCHC 34.0 (31.0-37.0) g/dL RDW 12.5 (11.5-15.5) % Plt Count 190 (150-450) k/uL MPV 9.1 Neutrophils % 75 % Lymphocytes % 14 % Monocytes % 4 % Eosinophils % 4 % Basophils % 1 % Neutrophils # 6.2 (1.3-7.7) k/uL Lymphocytes # 1.2 (1.0-4.8) k/uL Monocytes # 0.4 (0-1.0) k/uL Eosinophils # 0.3 (0-0.7) k/uL Basophils # 0.1 (0-0.2) k/uL PT 10.1 (9.0-12.0) sec INR 0.9 (<1.2) APTT 22.2 (22.0-30.0) sec D-Dimer 0.37 (<0.60) mg/L FEU Sodium 136 L (137-145) mmol/L Potassium 2.7 L* (3.5-5.1) mmol/L Chloride 105 (98-107) mmol/L Carbon Dioxide 23 (22-30) mmol/L Anion Gap 8 mmol/L BUN 11 (7-17) mg/dL Creatinine 0.62 (0.52-1.04) mg/dL Est GFR (CKD-EPI)AfAm >90 (>60 ml/min/1.73 sqM) Est GFR (CKD-EPI)NonAf >90 (>60 ml/min/1.73 sqM) Glucose 96 (74-99) mg/dL Plasma Lactic Acid Ottoniel (0.7-2.0) mmol/L Calcium 8.8 (8.4-10.2) mg/dL Magnesium 1.7 (1.6-2.3) mg/dL Total Bilirubin 0.4 (0.2-1.3) mg/dL AST 22 (14-36) U/L ALT 20 (4-34) U/L Alkaline Phosphatase 88 (38-126) U/L Troponin I (0.000-0.034) ng/mL Total Protein 6.7 (6.3-8.2) g/dL Albumin 3.7 (3.5-5.0) g/dL HCG, Qual Not Detected Coronavirus (PCR) (Not Detectd) Influenza Type A RNA (Not Detectd) Influenza Type B (PCR) (Not Detectd) 07/08/22 07/08/22 07/08/22 Range/Units 11:30 11:30 11:30 WBC (3.8-10.6) k/uL RBC (3.80-5.40) m/uL Hgb (11.4-16.0) gm/dL Hct (34.0-46.0) % MCV (80.0-100.0) fL MCH (25.0-35.0) pg MCHC (31.0-37.0) g/dL RDW (11.5-15.5) % Plt Count (150-450) k/uL MPV Neutrophils % % Lymphocytes % % Monocytes % % Eosinophils % % Basophils % % Neutrophils # (1.3-7.7) k/uL Lymphocytes # (1.0-4.8) k/uL Monocytes # (0-1.0) k/uL Eosinophils # (0-0.7) k/uL Basophils # (0-0.2) k/uL PT (9.0-12.0) sec INR (<1.2) APTT (22.0-30.0) sec D-Dimer (<0.60) mg/L FEU Sodium (137-145) mmol/L Potassium (3.5-5.1) mmol/L Chloride (98-107) mmol/L Carbon Dioxide (22-30) mmol/L Anion Gap mmol/L BUN (7-17) mg/dL Creatinine (0.52-1.04) mg/dL Est GFR (CKD-EPI)AfAm (>60 ml/min/1.73 sqM) Est GFR (CKD-EPI)NonAf (>60 ml/min/1.73 sqM) Glucose (74-99) mg/dL Plasma Lactic Acid Ottoniel 1.1 (0.7-2.0) mmol/L Calcium (8.4-10.2) mg/dL Magnesium (1.6-2.3) mg/dL Total Bilirubin (0.2-1.3) mg/dL AST (14-36) U/L ALT (4-34) U/L Alkaline Phosphatase (38-126) U/L Troponin I <0.012 (0.000-0.034) ng/mL Total Protein (6.3-8.2) g/dL Albumin (3.5-5.0) g/dL HCG, Qual Coronavirus (PCR) (Not Detectd) Influenza Type A RNA Not Detected (Not Detectd) Influenza Type B (PCR) Not Detected (Not Detectd) 08/31/21 Range/Units 11:30 WBC (3.8-10.6) k/uL RBC (3.80-5.40) m/uL Hgb (11.4-16.0) gm/dL Hct (34.0-46.0) % MCV (80.0-100.0) fL MCH (25.0-35.0) pg MCHC (31.0-37.0) g/dL RDW (11.5-15.5) % Plt Count (150-450) k/uL MPV Neutrophils % % Lymphocytes % % Monocytes % % Eosinophils % % Basophils % % Neutrophils # (1.3-7.7) k/uL Lymphocytes # (1.0-4.8) k/uL Monocytes # (0-1.0) k/uL Eosinophils # (0-0.7) k/uL Basophils # (0-0.2) k/uL PT (9.0-12.0) sec INR (<1.2) APTT (22.0-30.0) sec D-Dimer (<0.60) mg/L FEU Sodium (137-145) mmol/L Potassium (3.5-5.1) mmol/L Chloride (98-107) mmol/L Carbon Dioxide (22-30) mmol/L Anion Gap mmol/L BUN (7-17) mg/dL Creatinine (0.52-1.04) mg/dL Est GFR (CKD-EPI)AfAm (>60 ml/min/1.73 sqM) Est GFR (CKD-EPI)NonAf (>60 ml/min/1.73 sqM) Glucose (74-99) mg/dL Plasma Lactic Acid Ottoniel (0.7-2.0) mmol/L Calcium (8.4-10.2) mg/dL Magnesium (1.6-2.3) mg/dL Total Bilirubin (0.2-1.3) mg/dL AST (14-36) U/L ALT (4-34) U/L Alkaline Phosphatase (38-126) U/L Troponin I (0.000-0.034) ng/mL Total Protein (6.3-8.2) g/dL Albumin (3.5-5.0) g/dL HCG, Qual Coronavirus (PCR) Not Detected (Not Detectd) Influenza Type A RNA (Not Detectd) Influenza Type B (PCR) (Not Detectd) - Radiology Data Radiology results: image reviewed (Chest x-ray does show new multifocal bilateral opacities.) Critical Care Time Critical Care Time: Yes Total Critical Care Time: 32 Disposition Clinical Impression: Syncope, Multifocal pneumonia, Sepsis, Hypokalemia Disposition: ADMITTED IP TO THIS [facility] Condition: Serious Is patient prescribed a controlled substance at d/c from ED?: No Referrals: Raul Patel MD [Primary Care Provider] - 1-2 days Time of Disposition: 12:57
[2021-08-31 12:09] LABS: Basophils # (A) 0.1 k/uL (0-0.2); Basophils % (A) 1 %; Eosinophils # (A) 0.3 k/uL (0-0.7); Eosinophils % (A) 4 %; HCT 35.7 % (34.0-46.0); HGB 12.1 gm/dL (11.4-16.0); Lymphocytes # (A) 1.2 k/uL (1.0-4.8); Lymphocytes % (A) 14 %; MCH 31.8 pg (25.0-35.0); MCV 93.5 fL (80.0-100.0); Mean Platelet Volume 9.1; Monocytes # (A) 0.4 k/uL (0-1.0); Monocytes % (A) 4 %; Neutrophils # (A) 6.2 k/uL (1.3-7.7); Neutrophils % (A) 75 %; Platelet Count 190 k/uL (150-450); RBC 3.82 m/uL (3.80-5.40); RDW 12.5 % (11.5-15.5); WBC 8.3 k/uL (3.8-10.6)
[2021-08-31 12:20] LABS: HCG,Qualitative Serum Not Detected
[2021-08-31 12:21] LABS: ALT 20 U/L (4-34); AST 22 U/L (14-36); African American GFR (CKD) >90 (>60 ml/min/1.73 sqM); Albumin 3.7 g/dL (3.5-5.0); Alkaline Phosphatase 88 U/L (38-126); Anion Gap 8 mmol/L; Blood Urea Nitrogen 11 mg/dL (7-17); Calcium 8.8 mg/dL (8.4-10.2); Carbon Dioxide 23 mmol/L (22-30); Chloride 105 mmol/L (98-107); Glucose 96 mg/dL (74-99); Magnesium 1.7 mg/dL (1.6-2.3); Non-African American GFR(CKD) >90 (>60 ml/min/1.73 sqM); Sodium 136 mmol/L (137-145); Total Bilirubin 0.4 mg/dL (0.2-1.3); Total Protein 6.7 g/dL (6.3-8.2)
[2021-08-31 12:33] LABS: INR 0.9 (<1.2); Partial Thromboplastin Time 22.2 sec (22.0-30.0); Prothrombin Time 10.1 sec (9.0-12.0)
[2021-08-31 12:36] LABS: Potassium 2.7 mmol/L (3.5-5.1)
--- NOTE | 2021-08-31 12:37 | XR ---
EXAMINATION TYPE: XR chest 2V DATE OF EXAM: 08/31/2021 COMPARISON: Chest x-ray January 08, 2022. CTA chest January 26, 2021. HISTORY: Difficulty in breathing. TECHNIQUE: Frontal and lateral views of the chest are obtained. FINDINGS: There are new bilateral multifocal areas of opacities. Diminished inspiration is present. No pleural effusion or pneumothorax is seen The cardiac silhouette size is upper limits of normal on current study. The osseous structures are intact. IMPRESSION: There are new bilateral multifocal opacities, covid-19 infection needs to be considered.
[2021-08-31] MEDS ORDERED: POTASSIUM CHLORIDE ER 20 MEQ TAB.ER PO STA ×2 (12:45→15:16)
[2021-08-31] MEDS ORDERED: POTASSIUM CHLORIDE 10 MEQ in WATER FOR INJECTION 1 100ML.BAG IVPB STA ×2 (12:46→15:16)
[2021-08-31] MEDS ORDERED: IPRATROPIUM-ALBUTEROL 3 ML NEB INHALATION PRN (13:00)
[2021-08-31] MEDS ORDERED: PNEUMONIA PROTOCOL UTILIZED 1 EACH MISC PO PRN (13:00)
[2021-08-31] MEDS ORDERED: AZITHROMYCIN 500 MG in SODIUM CHLORIDE 0.9% 250 ML IVPB STA (13:00)
[2021-08-31] MEDS ORDERED: NALOXONE 0.4 MG/ML 1 ML VIAL IV PRN (15:04)
[2021-08-31] MEDS: IPRATROPIUM-ALBUTEROL 3 ML NEB INHALATION SCH ×2 (15:06→19:38)
--- NOTE | 2021-08-31 15:15 | CT ---
EXAMINATION TYPE: CT chest wo con DATE OF EXAM: 08/31/2021 COMPARISON: None HISTORY: Bilateral pneumonia CT DLP: 359.4 mGycm. Automated Exposure Control for Dose Reduction was Utilized. TECHNIQUE: CT scan of the thorax is performed without IV contrast. FINDINGS: There are moderate diffuse groundglass densities scattered throughout both lungs greatest in the righ t upper lobe and in the bilateral lower lobes. There is no pleural effusion, pleural thickening or pneumothorax. The great vessels the chest are normal and there is no mediastinal, hilar or axillary adenopathy. Limited scanning through the upper abdomen reveals no gross abnormality. The osseous structures are intact. IMPRESSION: Diffuse scattered bilateral groundglass opacities suspicious for acute pneumonia possibly Covid pneum onia. Clinical correlation is recommended.
--- NOTE | 2021-08-31 15:15 | P.HPIM ---
History of Present Illness H&P Date: 08/31/21 Chief Complaint: sob 40-year-old female with hx of asthma and hypokalemia presenting to the emergency department with difficulty breathing. Patient states she started with cold symptoms, nasal congestion a couple of days ago. Patient does have cough productive of green and yellow phlegm. Patient was having some increased difficulty breathing at work today, then felt dizzy and passed out in front of her coworker. States that she fell onto her right side. No head trauma, she is not sure how long she passed out for. Denied focal weakness or numbness. No fevers or chills. No n/v/d. In the emergency department she tested negative for covid and influenza. Chest x-ray showed bilateral infiltrates consistent with pneumonia. Labs showed hypokalemia with potassium 2.7. Review of Systems Complete review of system performed, pertinent positives per HPI, otherwise negative Past Medical History Past Medical History: GERD/Reflux Additional Past Medical History / Comment(s): Irregular heart beat at times, past syncope, hypokalemia, orthostatic hypotension, bronchitis, anemia, vitamin D deficiency, UTIs, R shoulder pain d/t tendonitis R rotator cuff. History of Any Multi-Drug Resistant Organisms: None Reported Past Surgical History: Tubal Ligation Additional Past Surgical History / Comment(s): TTT, cyst removed from L knee Past Anesthesia/Blood Transfusion Reactions: No Reported Reaction Additional Past Anesthesia/Blood Transfusion Reaction / Comment(s): unknown Past Psychological History: Anxiety, Depression Additional Psychological History / Comment(s): Pt resides with her significant other. She is independent. Smoking Status: Current every day smoker Past Alcohol Use History: None Reported Additional Past Alcohol Use History / Comment(s): Pt started smoking in 2003 and is a half a ppd smoker. Past Drug Use History: Marijuana Additional Drug Use History / Comment(s): Pt states she smokes 3-4 joints a day. - Past Family History Mother Family Medical History: No Reported History Additional Family Medical History / Comment(s): Mother is healthy Father Additional Family Medical History / Comment(s): Vitamin D deficiency. Medications and Allergies Home Medications Medication Instructions Recorded Confirmed Type FLUoxetine HCL [PROzac] 40 mg PO DAILY 06/26/20 08/31/21 History Famotidine [Pepcid] 20 mg PO BID 06/26/20 08/31/21 History Venlafaxine HCl [Effexor XR] 150 mg PO DAILY 06/26/20 08/31/21 History amLODIPine [Norvasc] 2.5 mg PO DAILY 10/08/20 08/31/21 History Ibuprofen [Motrin] 800 mg PO Q8H PRN 05/08/21 08/31/21 History Cholecalciferol [Vitamin D3 (25 25 mcg PO DAILY 08/31/21 08/31/21 History Mcg = 1000 Iu)] Allergies Allergy/AdvReac Type Severity Reaction Status Date / Time No Known Allergies Allergy Verified 08/31/21 13:26 Physical Exam Vitals: Vital Signs Temp Pulse Resp BP Pulse Ox 08/31/21 12:17 84 08/31/21 12:09 79 08/31/21 11:41 98.3 F 94 24 141/87 95 Intake and Output 08/30/21 08/31/21 08/31/21 22:59 06:59 14:59 Other: Weight 114.759 kg Constitutional: No acute distress, conversant, pleasant Eyes:Anicteric sclerae, moist conjunctiva, no lid-lag, PERRLA, ENMT: Oropharynx clear, no erythema, exudates Neck: Supple, FROM, no masses, or JVD, No carotid bruits, No thyromegaly Lungs: Bilateral rhonchi and wheezes, Clear to percussion, Normal respiratory effort, no accessory muscle use Cardiovascular: Heart regular in rate and rhythm, No murmurs, gallops, or rubs, No peripheral edema Abdominal: Soft, Nontender, no guarding, rebound or rigidity, Normoactive bowel sounds, No hepatomegaly, No splenomegaly, No palpable mass Skin: Normal temperature, tone, texture, turgor, no induration, No subcutaneous nodules, No rash, lesions, No ulcers Extremities: No digital cyanosis, No clubbing, Pedal pulses intact and symmetrical, Radial pulses intact and symmetrical, No calf tenderness Psychiatric: Alert and oriented to person, place and time, appropriate affect, intact judgement Neuro: Muscles Strength 5/5 in all 4 extremities, Sensation to light touch grossly present throughout, Cranial nerves II-XII grossly intact, no focal sensory deficits Results CBC & Chem 7: 08/31/21 11:30 08/31/21 11:30 Labs: Abnormal Lab Results - Last 24 Hours (Table) 08/31/21 Range/Units 11:30 Sodium 136 L (137-145) mmol/L Potassium 2.7 L* (3.5-5.1) mmol/L Assessment and Plan Plan: Acute hypoxic respiratory failure Acute asthma exacerbation Community-acquired pneumonia Blood cultures Start bronchodilators, O2 as needed, antibiotics ceftriaxone and azithromycin as well as steroids. Pulmonary consult Monitor O2 sats Hypokalemia Replace and monitor. HTN Depression/anxiety Stable resume meds DVT prophylaxis Lovenox Admit to inpatient expected length of stay more than 2 midnights.
--- NOTE | 2021-08-31 15:20 | P.CNPUL ---
History of Present Illness Consult date: 08/31/21 Requesting physician: Delfina Curtis Reason for consult: dyspnea, pneumonia, abnormal CXR/CT Chief complaint: Shortness of breath, cough, congestion History of present illness: This is a very pleasant 40-year-old female patient who follows with Dr. Patel as her primary care provider. She has a history of anxiety/depression, gastroesophageal reflux disease, hypertension, obesity, chronic and ongoing tobacco dependence, recent vaping. Approximately 6 days ago she developed increasing shortness of breath cough congestion runny nose and night sweats. As the past several days and gone on she her symptoms have been getting worse. She had been using DayQuil [id number] medication without much improvement. She presented here to the emergency room this morning with worsening symptoms. Chest x-ray revealed bilateral multifocal opacities suspicious for COVID-19 pneumonia however her PCR test today is negative. Influenza screen negative. White count 8.3. Hemoglobin 12.1. D-dimer 0.37. Sodium 136. Potassium 2.7. Chloride 105. BUN 11. Creatinine 0.62. AST 22. ALT 20. She was initiated on ceftriaxone and azithromycin. Maintaining O2 saturations in the 90s on 2 L/m per nasal cannula. She's afebrile. Hemodynamically stable. Review of Systems REVIEW OF SYSTEMS: CONSTITUTIONAL: Denies any recent significant weight loss or weight gain. EYES: Denies change in vision. EARS, NOSE, MOUTH, THROAT: Positive for rhinitis. CARDIOVASCULAR: Denies chest pain, palpitations or syncopal episodes. RESPIRATORY: Positive for shortness of breath, cough, congestion no hemoptysis. GASTROINTESTINAL: Denies change in appetite, denies abdominal pain GENITOURINARY: Denies hematuria, denies infections. MUSKULOSKELETAL: Denies pain, denies swelling. INTEGUMENTARY: Denies rash, denies eczema. NEUROLOGICAL: Denies recent memory loss, no recent seizure activity. PSYCHIATRIC: Denies anxiety, denies depression. HEMATOLOGIC/LYMPHATIC: Denies anemia, denies enlarged lymph nodes. Past Medical History Past Medical History: GERD/Reflux Additional Past Medical History / Comment(s): Irregular heart beat at times, past syncope, hypokalemia, orthostatic hypotension, bronchitis, anemia, vitamin D deficiency, UTIs, R shoulder pain d/t tendonitis R rotator cuff. History of Any Multi-Drug Resistant Organisms: None Reported Past Surgical History: Tubal Ligation Additional Past Surgical History / Comment(s): TTT, cyst removed from L knee Past Anesthesia/Blood Transfusion Reactions: No Reported Reaction Additional Past Anesthesia/Blood Transfusion Reaction / Comment(s): unknown Past Psychological History: Anxiety, Depression Additional Psychological History / Comment(s): Pt resides with her significant other. She is independent. Smoking Status: Current every day smoker Past Alcohol Use History: None Reported Additional Past Alcohol Use History / Comment(s): Pt started smoking in 2003 and is a half a ppd smoker. Past Drug Use History: Marijuana Additional Drug Use History / Comment(s): Pt states she smokes 3-4 joints a day. - Past Family History Mother Family Medical History: No Reported History Additional Family Medical History / Comment(s): Mother is healthy Father Additional Family Medical History / Comment(s): Vitamin D deficiency. Medications and Allergies Home Medications Medication Instructions Recorded Confirmed Type FLUoxetine HCL [PROzac] 40 mg PO DAILY 06/26/20 08/31/21 History Famotidine [Pepcid] 20 mg PO BID 06/26/20 08/31/21 History Venlafaxine HCl [Effexor XR] 150 mg PO DAILY 06/26/20 08/31/21 History amLODIPine [Norvasc] 2.5 mg PO DAILY 10/08/20 08/31/21 History Ibuprofen [Motrin] 800 mg PO Q8H PRN 05/08/21 08/31/21 History Cholecalciferol [Vitamin D3 (25 25 mcg PO DAILY 08/31/21 08/31/21 History Mcg = 1000 Iu)] Allergies Allergy/AdvReac Type Severity Reaction Status Date / Time No Known Allergies Allergy Verified 08/31/21 13:26 Physical Exam Vitals: Vital Signs Temp Pulse Resp BP Pulse Ox 08/31/21 13:50 97.7 F 88 20 136/84 97 08/31/21 12:17 84 08/31/21 12:09 79 08/31/21 11:41 98.3 F 94 24 141/87 95 Intake and Output 08/31/21 08/31/21 08/31/21 06:59 14:59 22:59 Other: Weight 114.759 kg GENERAL EXAM: Alert, pleasant obese 40-year-old female patient, on 2 L nasal cannula, fairly comfortable in no apparent distress. HEAD: Normocephalic. EYES: Normal reaction of pupils, equal size. NOSE: Clear with pink turbinates. THROAT: No erythema or exudates. NECK: No masses, no JVD. CHEST: No chest wall deformity. LUNGS: Equal air entry with bilateral scattered rhonchi, crackles and wheeze. CVS: S1 and S2 normal with no audible murmur, regular rhythm. ABDOMEN: No hepatosplenomegaly, normal bowel sounds, no guarding or rigidity. SPINE: No scoliosis or deformity SKIN: No rashes CENTRAL NERVOUS SYSTEM: No focal deficits, tone is normal in all 4 extremities. EXTREMITIES: There is no peripheral edema. No clubbing, no cyanosis. Peripheral pulses are intact. Results - Laboratory Findings CBC and BMP: 08/31/21 11:30 08/31/21 11:30 PT/INR, D-dimer PT 10.1 sec (9.0-12.0) 08/31/21 11:30 INR 0.9 (<1.2) 08/31/21 11:30 D-Dimer 0.37 mg/L FEU (<0.60) 08/31/21 11:30 Abnormal lab findings: Abnormal Labs 08/31/21 11:30 Sodium 136 L Potassium 2.7 L* - Diagnostic Findings Chest x-ray: image reviewed Assessment and Plan Assessment: 1 Acute hypoxemic respiratory failure secondary to acute bilateral multifocal pneumonia. Possible COVID-19 pneumonia however PCR is negative. She is not vaccinated. 2 Chronic and ongoing tobacco dependence, as well as vaping 2 days ago 3 Hypokalemia 4 Obesity 5 History of anxiety/depression 6 Hypertension 7 Gastroesophageal reflux disease Plan: The patient was seen and evaluated Chest x-ray, labs and medications reviewed Obtain a high-resolution computed tomography scan without contrast Continue DuoNeb inhalations, add Symbicort Check for CoVID antibodies Obtain a sputum culture Check for legionella antigen Continue antibiotics Check pro calcitonin Educated regarding the importance of complete smoking cessation Educated regarding the importance of vaping cessation Titrate the FiO2 as tolerated We will continue to follow and make further recommendations based on her clinical status I have personally seen and examined the patient, performed the documentation and the assessment and plan as written. Number of minutes spent on the visit: 20.
[2021-08-31] MEDS: SODIUM CHLORIDE 0.9% 1,000 ML IV SCH (15:44)
[2021-08-31] MEDS: methylPREDNISolone SOD SUCCI 125 MG/2 ML VIAL IV SCH (17:34)
[2021-08-31] MEDS: SYMBICORT 160-4.5 MCG INHALER INHALATION SCH (19:37)
[2021-08-31] MEDS: FAMOTIDINE 20 MG TAB PO SCH (20:09)
[2021-08-31] MEDS ORDERED: SODIUM CHLORIDE 0.9% 1,000 ML IV ONE (22:24)
[2021-09-01] MEDS: methylPREDNISolone SOD SUCCI 125 MG/2 ML VIAL IV SCH ×4 (00:07→17:45)
[2021-09-01] MEDS: SODIUM CHLORIDE 0.9% 1,000 ML IV SCH ×3 (00:08→20:03)
--- NOTE | 2021-09-01 06:51 | XR ---
EXAMINATION TYPE: XR chest 2V DATE OF EXAM: 09/01/2021 COMPARISON: Chest x-ray and CT chest from 1 day earlier HISTORY: Pneumonia progress study. TECHNIQUE: Frontal and lateral views of the chest are obtained. FINDINGS: Bilateral multifocal groundglass opacities remain present. No pleural effusion or pneumotho rax seen bilaterally. Cardiac silhouette size is stable and upper limits of normal. Osseous structure s are intact. IMPRESSION: Stable bilateral multifocal opacities. Correlate to exclude covid-19 infection. No signi ficant change from one day earlier.
[2021-09-01] MEDS: ENOXAPARIN 40 MG/0.4 ML SYRINGE SQ SCH (07:20)
[2021-09-01] MEDS: FLUoxetine HCL 20 MG CAP PO SCH (07:21)
[2021-09-01] MEDS: FAMOTIDINE 20 MG TAB PO SCH ×2 (07:22→20:03)
[2021-09-01] MEDS: VENLAFAXINE HCL ER 150 MG CAP PO SCH (07:22)
[2021-09-01] MEDS: AZITHROMYCIN 500 MG TAB PO SCH (08:23)
[2021-09-01] MEDS: SYMBICORT 160-4.5 MCG INHALER INHALATION SCH ×2 (08:39→19:54)
[2021-09-01] MEDS: IPRATROPIUM-ALBUTEROL 3 ML NEB INHALATION SCH ×4 (08:39→19:54)
[2021-09-01 08:41] LABS: Basophils # (A) 0 X 10*3/uL (0.00-0.10); Basophils % (A) 0 %; Eosinophils # (A) 0 X 10*3/uL (0.04-0.35); Eosinophils % (A) 0 %; HCT 35.5 % (37.2-46.3); HGB 11.7 g/dL (12.0-15.0); Immature Grans, Automated 0.4 %; Lymphocytes # (A) 0.59 X 10*3/uL (0.90-5.00); Lymphocytes % (A) 7.6 %; MCH 30.8 pg (27.0-32.0); MCV 93.4 fL (80.0-97.0); Mean Platelet Volume 12.3 fL (9.5-12.2); Monocytes # (A) 0.13 X 10*3/uL (0.20-1.00); Monocytes % (A) 1.7 %; NRBC Per 100 WBC 0 /100 WBCS (0.0-0.0); Neutrophils # (A) 7.05 X 10*3/uL (1.80-7.70); Neutrophils % (A) 90.3 %; Platelet Count 182 X 10*3/uL (140-440)
[2021-09-01] MEDS ORDERED: amLODIPine 2.5 MG TAB PO SCH (09:00)
[2021-09-01] MEDS: guaiFENesin-DM 100-10MG/5ML 10 ML CUP PO PRN ×2 (09:16→17:47)
[2021-09-01 09:26] LABS: ALT 19 U/L (8-44); AST 14 U/L (13-35); African American GFR (CKD) 139.3 (60.0-200.0); Albumin 3.5 g/dL (3.8-4.9); Albumin/Globulin Ratio 1.33 (1.60-3.17); Alkaline Phosphatase 79 U/L (41-126); BUN/Creat Ratio 11.76 Ratio (12.00-20.00); Blood Urea Nitrogen 5.8 mg/dL (9.0-27.0); Calcium 9.1 mg/dL (8.7-10.3); Carbon Dioxide 21.9 mmol/L (20.0-27.5); Chloride 107 mmol/L (96-109); Globulin 2.7 g/dL (1.6-3.3); Glucose 144 mg/dL (70-110); Magnesium 1.9 mg/dL (1.5-2.4); Non-African American GFR(CKD) 120.2 (60.0-200.0); Phosphorus 3.2 mg/dL (2.4-5.1); Potassium 3.9 mmol/L (3.5-5.5); Sodium 140 mmol/L (135-145); Total Bilirubin <0.15 mg/dL (0.30-1.20); Total Protein 6.2 g/dL (6.2-8.2)
--- NOTE | 2021-09-01 10:00 | P.NPCON ---
History of Present Illness - Reason for Consult hypokalemia - History of Present Illness Reason for consultation: Hypokalemia History of present illness: Patient is a 40-year-old female seen in consultation for hypokalemia. Patient presented to the hospital with worsening shortness of breath. Patient states she has history of asthma and shortness of breath was worsening over the last few days. Potassium was 2.7 on admission and was replaced. This morning it is 3.9. Patient does have a history of hypertension and is maintained on low-dose amlodipine. Her blood pressure has been fairly well controlled this admission. No evidence of alkalosis. She does admit to diarrhea for the last 3 days. Oral intake has been poor and she hasn't been feeling well. Patient states she was also using pro-air due to her shortness of breath on an hourly basis. She denies use of nonsteroidals. No vomiting. Denies any family history of hemorrhagic stroke. Denies chest pain or palpitations. Denies family history of hypokalemia. No history of kidney disease. No gross hematuria. Vital signs are stable. General: Awake. No acute distress. HEENT: Head exam is unremarkable. LUNGS: Breath sounds decreased. HEART: Rate and Rhythm are regular. ABDOMEN: Soft, no distention. Obese. EXTREMITITES: No edema. Past Medical History Past Medical History: GERD/Reflux Additional Past Medical History / Comment(s): Irregular heart beat at times, past syncope, hypokalemia, orthostatic hypotension, bronchitis, anemia, vitamin D deficiency, UTIs, R shoulder pain d/t tendonitis R rotator cuff. History of Any Multi-Drug Resistant Organisms: None Reported Past Surgical History: Tubal Ligation Additional Past Surgical History / Comment(s): TTT, cyst removed from L knee Past Anesthesia/Blood Transfusion Reactions: No Reported Reaction Additional Past Anesthesia/Blood Transfusion Reaction / Comment(s): unknown Past Psychological History: Anxiety, Depression Additional Psychological History / Comment(s): Pt resides with her significant other. She is independent. Smoking Status: Current every day smoker Past Alcohol Use History: None Reported Additional Past Alcohol Use History / Comment(s): Pt started smoking in 2003 and is a half a ppd smoker. Past Drug Use History: Marijuana Additional Drug Use History / Comment(s): Pt states she smokes 3-4 joints a day. - Past Family History Mother Family Medical History: No Reported History Additional Family Medical History / Comment(s): Mother is healthy Father Additional Family Medical History / Comment(s): Vitamin D deficiency. Medications and Allergies Home Medications Medication Instructions Recorded Confirmed Type FLUoxetine HCL [PROzac] 40 mg PO DAILY 06/26/20 08/31/21 History Famotidine [Pepcid] 20 mg PO BID 06/26/20 08/31/21 History Venlafaxine HCl [Effexor XR] 150 mg PO DAILY 06/26/20 08/31/21 History amLODIPine [Norvasc] 2.5 mg PO DAILY 10/08/20 08/31/21 History Ibuprofen [Motrin] 800 mg PO Q8H PRN 05/08/21 08/31/21 History Cholecalciferol [Vitamin D3 (25 25 mcg PO DAILY 08/31/21 08/31/21 History Mcg = 1000 Iu)] Allergies Allergy/AdvReac Type Severity Reaction Status Date / Time No Known Allergies Allergy Verified 08/31/21 13:26 Physical Exam Vitals: Vital Signs Temp Pulse Pulse Resp BP BP Pulse Ox 09/01/21 08:50 84 09/01/21 08:39 88 09/01/21 07:00 97.6 F 79 16 155/90 96 09/01/21 02:00 98.1 F 85 22 135/79 96 08/31/21 20:00 97.9 F 103 H 20 125/77 95 08/31/21 19:49 102 H 08/31/21 19:39 99 08/31/21 16:07 90 18 132/81 95 08/31/21 15:18 90 08/31/21 15:07 87 94 L 08/31/21 15:00 98.9 F 98 18 162/78 94 L 08/31/21 13:50 97.7 F 88 20 136/84 97 08/31/21 13:00 20 08/31/21 12:17 84 08/31/21 12:09 79 08/31/21 11:41 98.3 F 94 24 141/87 95 Intake and Output 08/31/21 09/01/21 09/01/21 22:59 06:59 14:59 Other: Voiding Method Toilet # Voids 2 5 Results - Lab Results Most recent lab results Calcium 9.1 mg/dL (8.7-10.3) 09/01/21 05:49 Phosphorus 3.2 mg/dL (2.4-5.1) 09/01/21 05:49 Magnesium 1.9 mg/dL (1.5-2.4) 09/01/21 05:49 09/01/21 05:49 09/01/21 05:49 Assessment and Plan Plan: Assessment: 1. Hypokalemia from poor intake, intracellular shifting from beta agonist as well as GI losses. Replace. Better. Doubt hyperaldosteronism state as patient's blood pressure is fairly stable on low-dose amlodipine. 2. Benign hypertension. Blood pressure higher this morning. Partially due to steroids. 3. Pneumonia on antibiotics. Pulmonology following. 4. Obesity. Plan: Encourage oral intake. Decrease rate of normal saline to 70 mL an hour. I will order renin and aldosterone as well as plasma metanephrines; doubt hyperaldosteronism state. Check cortisol level as well. Increase dose of amlodipine to 5 mg once daily. Thank you for the consultation. I will continue to follow the patient with you during her hospital stay.
--- NOTE | 2021-09-01 11:56 | P.PN ---
Subjective Progress Note Date: 09/01/21 Principal diagnosis: Shortness of breath, cough This is a very pleasant 40-year-old female patient who follows with Dr. Patel as her primary care provider. She has a history of anxiety/depression, gastroesophageal reflux disease, hypertension, obesity, chronic and ongoing tob acco dependence, recent vaping. Approximately 6 days ago she developed increasing shortness of breath cough congestion runny nose and night sweats. As the past several days and gone on she her symptoms have been getting worse. She had been using DayQuil [id number] medication without much improvement. She presented here to the emergency room this morning with worsening symptoms. Chest x-ray revealed bilateral multifocal opacities suspicious for COVID-19 pneumonia however her PCR test today is negative. Influenza screen negative. White count 8.3. Hemoglobin 12.1. D-dimer 0.37. Sodium 136. Potassium 2.7. Chloride 105. BUN 11. Creatinine 0.62. AST 22. ALT 20. She was initiated on ceftriaxone and azithromycin. Maintaining O2 saturations in the 90s on 2 L/m per nasal cannula. She's afebrile. Hemodynamically stable. On 09/01/2021 patient is seen in follow-up. She is awake and alert, still has a congested cough, exertional dyspnea, but no acute distress, room air pulse ox is 96%, she remains on IV Solu-Medrol, azithromycin and Rocephin for empiric antibiotic coverage, her COVID 19 PCR was negative however the antibiotic test came back positive suggesting possibility of recent COVID-19 infection. Room air pulse ox is 96%, afebrile, hemodynamically stable. Chest x-ray today show stable bilateral multifocal opacities. No significant change compared to previo us chest x-ray. Today's labs have been reviewed, white blood cell count 7.8, hemoglobin is 11.7, d-dimer on yesterday's labs was 0.37, electrolytes were within normal limits, B1 is 5.8, creatinine 0.5, progesterone level was negative at 0.12, test was negative, repeat COVID-19 PCR was again negative, influenza A and B test was negative Objective - Vital Signs Vital signs: Vital Signs Temp 97.6 F 09/01/21 07:00 Pulse 100 09/01/21 11:37 Resp 18 09/01/21 08:30 BP 155/90 09/01/21 07:00 Pulse Ox 96 09/01/21 07:00 FiO2 Intake & Output 08/31/21 09/01/21 09/01/21 18:59 06:59 18:59 Weight 114.759 kg Other: Voiding Method Toilet Toilet # Voids 2 5 - Exam GENERAL EXAM: Alert, very pleasant, 40-year-old white female on room air with pulse ox of 96% comfortable in no apparent distress. HEAD: Normocephalic/atraumatic. EYES: Normal reaction of pupils, equal size. Conjunctiva pink, sclera white. NOSE: Clear with pink turbinates. THROAT: No erythema or exudates. NECK: No masses, no JVD, no thyroid enlargement, no adenopathy. CHEST: No chest wall deformity. Symmetrical expansion. LUNGS: Equal air entry with scattered rhonchi and wheezing CVS: Regular rate and rhythm, normal S1 and S2, no gallops, no murmurs, no rubs ABDOMEN: Soft, nontender. No hepatosplenomegaly, normal bowel sounds, no guarding or rigidity. EXTREMITIES: No clubbing, no edema, no cyanosis, 2+ pulses and upper and lower extremities. MUSCULOSKELETAL: Muscle strength and tone normal. SPINE: No scoliosis or deformity SKIN: No rashes CENTRAL NERVOUS SYSTEM: Alert and oriented -3. No focal deficits, tone is normal in all 4 extremities. PSYCHIATRIC: Alert and oriented -3. Appropriate affect. Intact judgment and insight. - Labs CBC & Chem 7: 09/01/21 05:49 09/01/21 05:49 Labs: Abnormal Lab Results - Last 24 Hours (Table) 08/31/21 08/31/21 08/31/21 Range/Units 11:30 11:30 11:30 RBC (4.10-5.20) X 10*6/uL Hgb (12.0-15.0) g/dL Hct (37.2-46.3) % MPV (9.5-12.2) fL Lymphocytes # (0.90-5.00) X 10*3/uL Monocytes # (0.20-1.00) X 10*3/uL Eosinophils # (0.04-0.35) X 10*3/uL Sodium 136 L (137-145) mmol/L Potassium 2.7 L* (3.5-5.1) mmol/L BUN (9.0-27.0) mg/dL Creatinine (0.6-1.5) mg/dL BUN/Creatinine Ratio (12.00-20.00) Ratio Glucose (70-110) mg/dL Plasma Lactic Acid Ottoniel (0.7-2.0) mmol/L Total Bilirubin (0.30-1.20) mg/dL Albumin (3.8-4.9) g/dL Albumin/Globulin Ratio (1.60-3.17) g/dL Procalcitonin 0.12 H (0.02-0.09) ng/mL SARS-CoV-2 Ab,Total Positive A (Negative) 08/31/21 09/01/21 09/01/21 Range/Units 19:00 05:49 05:49 RBC 3.80 L (4.10-5.20) X 10*6/uL Hgb 11.7 L (12.0-15.0) g/dL Hct 35.5 L (37.2-46.3) % MPV 12.3 H (9.5-12.2) fL Lymphocytes # 0.59 L (0.90-5.00) X 10*3/uL Monocytes # 0.13 L (0.20-1.00) X 10*3/uL Eosinophils # 0 L (0.04-0.35) X 10*3/uL Sodium (137-145) mmol/L Potassium (3.5-5.1) mmol/L BUN 5.8 L (9.0-27.0) mg/dL Creatinine 0.5 L (0.6-1.5) mg/dL BUN/Creatinine Ratio 11.76 L (12.00-20.00) Ratio Glucose 144 H (70-110) mg/dL Plasma Lactic Acid Ottoniel 2.5 H* (0.7-2.0) mmol/L Total Bilirubin <0.15 L (0.30-1.20) mg/dL Albumin 3.5 L (3.8-4.9) g/dL Albumin/Globulin Ratio 1.33 L (1.60-3.17) g/dL Procalcitonin (0.02-0.09) ng/mL SARS-CoV-2 Ab,Total (Negative) Microbiology - Last 24 Hours (Table) 08/31/21 19:50 Gram Stain - Preliminary Sputum Sputum Culture - Preliminary Assessment and Plan Plan: Assessment: #1. Acute hypoxic respiratory failure secondary to acute bilateral multifocal pneumonia, likely related to recent history of COVID-19 infection, patient had 2 negative COVID-19 test via PCR, and antibiotic test was positive #2. Chronic and ongoing tobacco dependence, as well as vaping a few days ago #3. Hypokalemia, corrected #4. Mild lactic acidosis, corrected #5. Marijuana use #6. History of anxiety and depression #7. Obesity with BMI of 39.6 kg/m #8. Hypertension Plan: Continue current medical treatment COVID 19 Antibody test was positive with 2 negative COVID-19 PCR test suggesting recent infection with COVID-19 virus Continue with IV steroids, empiric antibiotics and nebulized bronchodilators D-dimer and inflammatory markers have been noted Continue prophylactic anticoagulation I have personally seen and examined the patient, performed the documentation and the assessment and plan as written. Number of minutes spent on the visit: [10] Time with Patient: Less than 30
--- NOTE | 2021-09-01 14:55 | P.PN ---
Subjective Progress Note Date: 09/01/21 Principal diagnosis: sob sob is improved but still there. Has cough that is productive. No fevers. Objective - Vital Signs Vital signs: Vital Signs Temp 97.7 F 09/01/21 14:44 Pulse 104 H 09/01/21 14:44 Resp 18 09/01/21 14:44 BP 132/68 09/01/21 14:44 Pulse Ox 96 09/01/21 14:44 FiO2 Intake & Output 08/31/21 09/01/21 09/01/21 18:59 06:59 18:59 Intake Total 300 Balance 300 Weight 114.759 kg Intake: Oral 300 Other: Voiding Method Toilet Toilet # Voids 2 5 2 - Exam Constitutional: No acute distress, conversant, pleasant Eyes:Anicteric sclerae, moist conjunctiva, no lid-lag, PERRLA, ENMT: Oropharynx clear, no erythema, exudates Neck: Supple, FROM, no masses, or JVD, No carotid bruits, No thyromegaly Lungs: Bilateral rhonchi and wheezes, Clear to percussion, Normal respiratory effort, no accessory muscle use Cardiovascular: Heart regular in rate and rhythm, No murmurs, gallops, or rubs, No peripheral edema Abdominal: Soft, Nontender, no guarding, rebound or rigidity, Normoactive bowel sounds, No hepatomegaly, No splenomegaly, No palpable mass Skin: Normal temperature, tone, texture, turgor, no induration, No subcutaneous nodules, No rash, lesions, No ulcers Extremities: No digital cyanosis, No clubbing, Pedal pulses intact and symmetrical, Radial pulses intact and symmetrical, No calf tenderness Psychiatric: Alert and oriented to person, place and time, appropriate affect, intact judgement Neuro: Muscles Strength 5/5 in all 4 extremities, Sensation to light touch grossly present throughout, Cranial nerves II-XII grossly intact, no focal sensory deficits - Labs CBC & Chem 7: 09/01/21 05:49 09/01/21 05:49 Labs: Abnormal Lab Results - Last 24 Hours (Table) 08/31/21 08/31/21 08/31/21 Range/Units 11:30 11:30 19:00 RBC (4.10-5.20) X 10*6/uL Hgb (12.0-15.0) g/dL Hct (37.2-46.3) % MPV (9.5-12.2) fL Lymphocytes # (0.90-5.00) X 10*3/uL Monocytes # (0.20-1.00) X 10*3/uL Eosinophils # (0.04-0.35) X 10*3/uL BUN (9.0-27.0) mg/dL Creatinine (0.6-1.5) mg/dL BUN/Creatinine Ratio (12.00-20.00) Ratio Glucose (70-110) mg/dL Plasma Lactic Acid Ottoniel 2.5 H* (0.7-2.0) mmol/L Total Bilirubin (0.30-1.20) mg/dL Albumin (3.8-4.9) g/dL Albumin/Globulin Ratio (1.60-3.17) g/dL Procalcitonin 0.12 H (0.02-0.09) ng/mL SARS-CoV-2 Ab,Total Positive A (Negative) 09/01/21 09/01/21 Range/Units 05:49 05:49 RBC 3.80 L (4.10-5.20) X 10*6/uL Hgb 11.7 L (12.0-15.0) g/dL Hct 35.5 L (37.2-46.3) % MPV 12.3 H (9.5-12.2) fL Lymphocytes # 0.59 L (0.90-5.00) X 10*3/uL Monocytes # 0.13 L (0.20-1.00) X 10*3/uL Eosinophils # 0 L (0.04-0.35) X 10*3/uL BUN 5.8 L (9.0-27.0) mg/dL Creatinine 0.5 L (0.6-1.5) mg/dL BUN/Creatinine Ratio 11.76 L (12.00-20.00) Ratio Glucose 144 H (70-110) mg/dL Plasma Lactic Acid Ottoniel (0.7-2.0) mmol/L Total Bilirubin <0.15 L (0.30-1.20) mg/dL Albumin 3.5 L (3.8-4.9) g/dL Albumin/Globulin Ratio 1.33 L (1.60-3.17) g/dL Procalcitonin (0.02-0.09) ng/mL SARS-CoV-2 Ab,Total (Negative) Microbiology - Last 24 Hours (Table) 08/31/21 19:50 Gram Stain - Preliminary Sputum Sputum Culture - Preliminary Assessment and Plan Plan: Acute hypoxic respiratory failure Acute asthma exacerbation Community-acquired pneumonia with recent covid based on positive antibody test Blood cultures NGTD Continue bronchodilators, O2 as needed, antibiotics ceftriaxone and azithromycin as well as steroids. Pulmonary consulted Monitor O2 sats Hypokalemia Replaced D/w nephro, don't feel she has hyperaldosteronism based on aldosterone level done few months ago. Syncope Likely sec to hypoxia Treat pneumonia as above HTN Depression/anxiety Stable resume meds DVT prophylaxis Lovenox
[2021-09-01] MEDS: ACETAMINOPHEN TAB 325 MG TAB PO PRN (20:02)
[2021-09-01] MEDS: amLODIPine 2.5 MG TAB PO SCH (20:03)
[2021-09-02] MEDS: methylPREDNISolone SOD SUCCI 125 MG/2 ML VIAL IV SCH ×4 (00:32→17:32)
[2021-09-02 07:30] LABS: African American GFR (CKD) >90 (>60 ml/min/1.73 sqM); Anion Gap 10 mmol/L; Blood Urea Nitrogen 13 mg/dL (7-17); Calcium 9.3 mg/dL (8.4-10.2); Carbon Dioxide 27 mmol/L (22-30); Chloride 102 mmol/L (98-107); Glucose 115 mg/dL (74-99); LDH 473 U/L (313-618); Magnesium 1.9 mg/dL (1.6-2.3); Non-African American GFR(CKD) >90 (>60 ml/min/1.73 sqM); Potassium 4.1 mmol/L (3.5-5.1); Sodium 139 mmol/L (137-145)
[2021-09-02] MEDS: AZITHROMYCIN 500 MG TAB PO SCH (07:40)
[2021-09-02] MEDS: FAMOTIDINE 20 MG TAB PO SCH ×2 (07:40→21:58)
[2021-09-02] MEDS: VENLAFAXINE HCL ER 150 MG CAP PO SCH (07:41)
[2021-09-02] MEDS: FLUoxetine HCL 20 MG CAP PO SCH (07:41)
[2021-09-02] MEDS: amLODIPine 2.5 MG TAB PO SCH ×2 (07:41→21:58)
[2021-09-02] MEDS: ENOXAPARIN 40 MG/0.4 ML SYRINGE SQ SCH (07:46)
[2021-09-02 08:18] LABS: C Reactive Protein 5.9 mg/dL (<1.0)
[2021-09-02] MEDS: SYMBICORT 160-4.5 MCG INHALER INHALATION SCH ×2 (08:23→20:17)
[2021-09-02] MEDS: IPRATROPIUM-ALBUTEROL 3 ML NEB INHALATION SCH ×4 (08:23→20:17)
[2021-09-02] MEDS: guaiFENesin-DM 100-10MG/5ML 10 ML CUP PO PRN (08:36)
--- NOTE | 2021-09-02 12:05 | P.PN ---
Subjective Progress Note Date: 09/02/21 Principal diagnosis: sob Doing well overall, still wheezing according to her. She is feeling about 50% better compared to when she came in. No fevers or chills. No pain. Objective - Vital Signs Vital signs: Vital Signs Temp 97.5 F L 09/02/21 07:00 Pulse 92 09/02/21 08:36 Resp 18 09/02/21 08:00 BP 147/94 09/02/21 07:00 Pulse Ox 95 09/02/21 07:00 FiO2 Intake & Output 09/01/21 09/02/21 09/02/21 18:59 06:59 18:59 Intake Total 300 Balance 300 Intake: Oral 300 Other: Voiding Method Toilet Toilet Toilet # Voids 2 1 # Bowel Movements 2 - Exam Constitutional: No acute distress, conversant, pleasant Eyes:Anicteric sclerae, moist conjunctiva, no lid-lag, PERRLA, ENMT: Oropharynx clear, no erythema, exudates Neck: Supple, FROM, no masses, or JVD, No carotid bruits, No thyromegaly Lungs: Bilateral rhonchi and wheezes, Clear to percussion, Normal respiratory effort, no accessory muscle use Cardiovascular: Heart regular in rate and rhythm, No murmurs, gallops, or rubs, No peripheral edema Abdominal: Soft, Nontender, no guarding, rebound or rigidity, Normoactive bowel sounds, No hepatomegaly, No splenomegaly, No palpable mass Skin: Normal temperature, tone, texture, turgor, no induration, No subcutaneous nodules, No rash, lesions, No ulcers Extremities: No digital cyanosis, No clubbing, Pedal pulses intact and symmetrical, Radial pulses intact and symmetrical, No calf tenderness Psychiatric: Alert and oriented to person, place and time, appropriate affect, intact judgement Neuro: Muscles Strength 5/5 in all 4 extremities, Sensation to light touch grossly present throughout, Cranial nerves II-XII grossly intact, no focal sensory deficits - Labs CBC & Chem 7: 09/01/21 05:49 09/02/21 06:33 Labs: Abnormal Lab Results - Last 24 Hours (Table) 09/02/21 Range/Units 06:33 Glucose 115 H (74-99) mg/dL C-Reactive Protein 5.9 H (<1.0) mg/dL Microbiology - Last 24 Hours (Table) 08/31/21 19:50 Gram Stain - Final Sputum Sputum Culture - Final 08/31/21 12:30 Blood Culture - Preliminary Blood No Growth after 24 hours 08/31/21 12:45 Blood Culture - Preliminary Blood No Growth after 24 hours Assessment and Plan Plan: Acute hypoxic respiratory failure Acute asthma exacerbation Community-acquired pneumonia with recent covid based on positive antibody test Blood cultures NGTD Continue bronchodilators, O2 as needed, antibiotics ceftriaxone and azithromycin as well as steroids. Pulmonary consulted Monitor O2 sats Hypokalemia Replaced D/w nephro, don't feel she has hyperaldosteronism based on aldosterone level done few months ago. Syncope Likely sec to hypoxia Treat pneumonia as above HTN Depression/anxiety Stable resume meds DVT prophylaxis Lovenox Dispo: home in 1-2 days
--- NOTE | 2021-09-02 12:34 | P.PN ---
Subjective Progress Note Date: 09/02/21 Principal diagnosis: Shortness of breath, cough This is a very pleasant 40-year-old female patient who follows with Dr. Patel as her primary care provider. She has a history of anxiety/depression, gastroesophageal reflux disease, hypertension, obesity, chronic and ongoing tob acco dependence, recent vaping. Approximately 6 days ago she developed increasing shortness of breath cough congestion runny nose and night sweats. As the past several days and gone on she her symptoms have been getting worse. She had been using DayQuil [id number] medication without much improvement. She presented here to the emergency room this morning with worsening symptoms. Chest x-ray revealed bilateral multifocal opacities suspicious for COVID-19 pneumonia however her PCR test today is negative. Influenza screen negative. White count 8.3. Hemoglobin 12.1. D-dimer 0.37. Sodium 136. Potassium 2.7. Chloride 105. BUN 11. Creatinine 0.62. AST 22. ALT 20. She was initiated on ceftriaxone and azithromycin. Maintaining O2 saturations in the 90s on 2 L/m per nasal cannula. She's afebrile. Hemodynamically stable. On 09/01/2021 patient is seen in follow-up. She is awake and alert, still has a congested cough, exertional dyspnea, but no acute distress, room air pulse ox is 96%, she remains on IV Solu-Medrol, azithromycin and Rocephin for empiric antibiotic coverage, her COVID 19 PCR was negative however the antibiotic test came back positive suggesting possibility of recent COVID-19 infection. Room air pulse ox is 96%, afebrile, hemodynamically stable. Chest x-ray today show stable bilateral multifocal opacities. No significant change compared to previo us chest x-ray. Today's labs have been reviewed, white blood cell count 7.8, hemoglobin is 11.7, d-dimer on yesterday's labs was 0.37, electrolytes were within normal limits, B1 is 5.8, creatinine 0.5, progesterone level was negative at 0.12, test was negative, repeat COVID-19 PCR was again negative, influenza A and B test was negative On 09/02/2021 patient seen in follow-up on medical surgical floor. She is still quite congested, bronchospastic, her cough is becoming productive. No complaints of hemoptysis no chest pain, continues on IV Solu-Medrol 60 mg every 6 hours, continues on empiric antibiotics with Rocephin, she is on Symbicort and nebulized DuoNeb. She is awake and alert, oriented 3. She tested negative for legionella urine antigen, COVID-19 PCR was negative 2, however antibiotic test for COVID-19 was positive suggesting recent history of COVID-19 infection. His labs have been reviewed, electrolytes and renal profile are within normal limits. LDH i is within normal limits at 473, and CRP is 5.9. Patient remains on cough syrup, and she is also receiving prophylactic anticoagulation with Lovenox. Objective - Vital Signs Vital signs: Vital Signs Temp 97.5 F L 09/02/21 07:00 Pulse 96 09/02/21 12:26 Resp 18 09/02/21 08:00 BP 147/94 09/02/21 07:00 Pulse Ox 95 09/02/21 07:00 FiO2 Intake & Output 09/01/21 09/02/21 09/02/21 18:59 06:59 18:59 Intake Total 300 Balance 300 Intake: Oral 300 Other: Voiding Method Toilet Toilet Toilet # Voids 2 1 # Bowel Movements 2 - Exam GENERAL EXAM: Alert, very pleasant, 40-year-old white female on room air with pulse ox of 96% comfortable in no apparent distress. HEAD: Normocephalic/atraumatic. EYES: Normal reaction of pupils, equal size. Conjunctiva pink, sclera white. NOSE: Clear with pink turbinates. THROAT: No erythema or exudates. NECK: No masses, no JVD, no thyroid enlargement, no adenopathy. CHEST: No chest wall deformity. Symmetrical expansion. LUNGS: Equal air entry with scattered rhonchi and wheezing CVS: Regular rate and rhythm, normal S1 and S2, no gallops, no murmurs, no rubs ABDOMEN: Soft, nontender. No hepatosplenomegaly, normal bowel sounds, no guarding or rigidity. EXTREMITIES: No clubbing, no edema, no cyanosis, 2+ pulses and upper and lower extremities. MUSCULOSKELETAL: Muscle strength and tone normal. SPINE: No scoliosis or deformity SKIN: No rashes CENTRAL NERVOUS SYSTEM: Alert and oriented -3. No focal deficits, tone is normal in all 4 extremities. PSYCHIATRIC: Alert and oriented -3. Appropriate affect. Intact judgment and insight. - Labs CBC & Chem 7: 09/01/21 05:49 09/02/21 06:33 Labs: Abnormal Lab Results - Last 24 Hours (Table) 09/02/21 Range/Units 06:33 Glucose 115 H (74-99) mg/dL C-Reactive Protein 5.9 H (<1.0) mg/dL Microbiology - Last 24 Hours (Table) 08/31/21 19:50 Gram Stain - Final Sputum Sputum Culture - Final 08/31/21 12:30 Blood Culture - Preliminary Blood No Growth after 24 hours 08/31/21 12:45 Blood Culture - Preliminary Blood No Growth after 24 hours Assessment and Plan Plan: Assessment: #1. Acute hypoxic respiratory failure secondary to acute bilateral multifocal pneumonia, likely related to recent history of COVID-19 infection, patient had 2 negative COVID-19 test via PCR, and SARS COVID-19 antibody test was positive #2. Chronic and ongoing tobacco dependence, as well as vaping a few days ago #3. Hypokalemia, corrected #4. Mild lactic acidosis, corrected #5. Marijuana use #6. History of anxiety and depression #7. Obesity with BMI of 39.6 kg/m #8. Hypertension Plan: Continue current medical treatment Continue current antibiotic coverage Continue IV steroids and nebulized bronchodilators Increase activity as tolerated We'll continue to follow I have personally seen and examined the patient, performed the documentation and the assessment and plan as written. Number of minutes spent on the visit: [10] Time with Patient: Less than 30
[2021-09-02] MEDS: SODIUM CHLORIDE 0.9% 1,000 ML IV SCH (13:45)
[2021-09-02] MEDS: guaiFENesin-Coden 100-10MG/5ML 10 ML CUP PO PRN ×2 (14:03→21:58)
[2021-09-02] MEDS: ACETAMINOPHEN TAB 325 MG TAB PO PRN (18:20)
[2021-09-03] MEDS: methylPREDNISolone SOD SUCCI 125 MG/2 ML VIAL IV SCH ×4 (01:13→18:12)
[2021-09-03] MEDS: SODIUM CHLORIDE 0.9% 1,000 ML IV SCH ×2 (01:15→18:12)
[2021-09-03] MEDS: SYMBICORT 160-4.5 MCG INHALER INHALATION SCH (07:59)
[2021-09-03] MEDS: IPRATROPIUM-ALBUTEROL 3 ML NEB INHALATION SCH ×4 (07:59→20:31)
[2021-09-03] MEDS: FLUoxetine HCL 20 MG CAP PO SCH (08:01)
[2021-09-03] MEDS: VENLAFAXINE HCL ER 150 MG CAP PO SCH (08:01)
[2021-09-03] MEDS: ENOXAPARIN 40 MG/0.4 ML SYRINGE SQ SCH (08:01)
[2021-09-03] MEDS: FAMOTIDINE 20 MG TAB PO SCH ×2 (08:02→21:54)
[2021-09-03] MEDS: amLODIPine 2.5 MG TAB PO SCH ×2 (08:02→21:54)
[2021-09-03] MEDS: guaiFENesin-Coden 100-10MG/5ML 10 ML CUP PO PRN (11:29)
--- NOTE | 2021-09-03 13:01 | P.PN ---
Subjective Progress Note Date: 09/03/21 Principal diagnosis: Shortness of breath, cough This is a very pleasant 40-year-old female patient who follows with Dr. Patel as her primary care provider. She has a history of anxiety/depression, gastroesophageal reflux disease, hypertension, obesity, chronic and ongoing tob acco dependence, recent vaping. Approximately 6 days ago she developed increasing shortness of breath cough congestion runny nose and night sweats. As the past several days and gone on she her symptoms have been getting worse. She had been using DayQuil [id number] medication without much improvement. She presented here to the emergency room this morning with worsening symptoms. Chest x-ray revealed bilateral multifocal opacities suspicious for COVID-19 pneumonia however her PCR test today is negative. Influenza screen negative. White count 8.3. Hemoglobin 12.1. D-dimer 0.37. Sodium 136. Potassium 2.7. Chloride 105. BUN 11. Creatinine 0.62. AST 22. ALT 20. She was initiated on ceftriaxone and azithromycin. Maintaining O2 saturations in the 90s on 2 L/m per nasal cannula. She's afebrile. Hemodynamically stable. On 09/01/2021 patient is seen in follow-up. She is awake and alert, still has a congested cough, exertional dyspnea, but no acute distress, room air pulse ox is 96%, she remains on IV Solu-Medrol, azithromycin and Rocephin for empiric antibiotic coverage, her COVID 19 PCR was negative however the antibiotic test came back positive suggesting possibility of recent COVID-19 infection. Room air pulse ox is 96%, afebrile, hemodynamically stable. Chest x-ray today show stable bilateral multifocal opacities. No significant change compared to previo us chest x-ray. Today's labs have been reviewed, white blood cell count 7.8, hemoglobin is 11.7, d-dimer on yesterday's labs was 0.37, electrolytes were within normal limits, B1 is 5.8, creatinine 0.5, progesterone level was negative at 0.12, test was negative, repeat COVID-19 PCR was again negative, influenza A and B test was negative On 09/02/2021 patient seen in follow-up on medical surgical floor. She is still quite congested, bronchospastic, her cough is becoming productive. No complaints of hemoptysis no chest pain, continues on IV Solu-Medrol 60 mg every 6 hours, continues on empiric antibiotics with Rocephin, she is on Symbicort and nebulized DuoNeb. She is awake and alert, oriented 3. She tested negative for legionella urine antigen, COVID-19 PCR was negative 2, however antibiotic test for COVID-19 was positive suggesting recent history of COVID-19 infection. His labs have been reviewed, electrolytes and renal profile are within normal limits. LDH i is within normal limits at 473, and CRP is 5.9. Patient remains on cough syrup, and she is also receiving prophylactic anticoagulation with Lovenox. On 09/03/2021 patient seen in follow-up on medical surgical floor. She continues to sound quite congested, bronchospastic, and short of breath with exertion. She is on 2 L of oxygen pulse ox is 95%, afebrile, blood pressure stable. Her last chest x-ray from 09/01/2021 showed stable bilateral multifocal opacities. Patient is suspected to have recent COVID-19 pneumonia with post viral cough, and postviral exacerbation of COPD. Legionella urine antigen is negative, blood and sputum cultures have been negative. Procalcitonin level was low at 0.12, patient continues on Rocephin for empiric antibiotic coverage, she is on Symbicort, cough syrup, and IV steroids in the form of Solu-Medrol 60 g every 6 hours Objective - Vital Signs Vital signs: Vital Signs Temp 98.0 F 09/03/21 07:00 Pulse 82 09/03/21 12:08 Resp 16 09/03/21 07:00 BP 132/68 09/03/21 07:00 Pulse Ox 95 09/03/21 08:00 FiO2 Intake & Output 09/02/21 09/03/21 09/03/21 18:59 06:59 18:59 Intake Total 2610 Balance 2610 Intake: Oral 2610 Other: Voiding Method Toilet Toilet # Voids 4 - Exam GENERAL EXAM: Alert, very pleasant, 40-year-old white female on room air with pulse ox of 96% comfortable in no apparent distress. HEAD: Normocephalic/atraumatic. EYES: Normal reaction of pupils, equal size. Conjunctiva pink, sclera white. NOSE: Clear with pink turbinates. THROAT: No erythema or exudates. NECK: No masses, no JVD, no thyroid enlargement, no adenopathy. CHEST: No chest wall deformity. Symmetrical expansion. LUNGS: Equal air entry with scattered rhonchi and wheezing CVS: Regular rate and rhythm, normal S1 and S2, no gallops, no murmurs, no rubs ABDOMEN: Soft, nontender. No hepatosplenomegaly, normal bowel sounds, no guarding or rigidity. EXTREMITIES: No clubbing, no edema, no cyanosis, 2+ pulses and upper and lower extremities. MUSCULOSKELETAL: Muscle strength and tone normal. SPINE: No scoliosis or deformity SKIN: No rashes CENTRAL NERVOUS SYSTEM: Alert and oriented -3. No focal deficits, tone is normal in all 4 extremities. PSYCHIATRIC: Alert and oriented -3. Appropriate affect. Intact judgment and insight. - Labs CBC & Chem 7: 09/01/21 05:49 09/02/21 06:33 Labs: Abnormal Lab Results - Last 24 Hours (Table) 09/01/21 Range/Units 05:49 C-Reactive Protein 12.00 H (0.00-0.80) mg/dL Microbiology - Last 24 Hours (Table) 08/31/21 12:45 Blood Culture - Preliminary Blood No Growth after 48 hours 08/31/21 12:30 Blood Culture - Preliminary Blood No Growth after 48 hours 08/31/21 19:50 Gram Stain - Final Sputum Sputum Culture - Final Assessment and Plan Plan: Assessment: #1. Acute hypoxic respiratory failure secondary to acute bilateral multifocal pneumonia, likely related to recent history of COVID-19 infection, patient had 2 negative COVID-19 test via PCR, and SARS COVID-19 antibody test was positive #2. Post viral cough, and acute exacerbation of COPD #3. Chronic and ongoing tobacco dependence, as well as vaping a few days ago #4. Hypokalemia, corrected #5. Mild lactic acidosis, corrected #6. Marijuana use #7. History of anxiety and depression #8. Obesity with BMI of 39.6 kg/m #9. Hypertension Plan: Continue current medical treatment Continue IV Solu-Medrol at 60 mg every 6 hours We'll switch Symbicort to nebulized Pulmicort and Perforomist Patient is on prophylactic Lovenox Cultures remain negative Patient's COPD is active We will continue with current treatment, patient is not ready for discharge I have personally seen and examined the patient, performed the documentation and the assessment and plan as written. Number of minutes spent on the visit: [10] Time with Patient: Less than 30
--- NOTE | 2021-09-03 13:33 | P.PN ---
Subjective Progress Note Date: 09/03/21 Principal diagnosis: sob Still patient having severe cough with sob as well as wheezing. No fevers or chills. No chest pain. Objective - Vital Signs Vital signs: Vital Signs Temp 98.0 F 09/03/21 07:00 Pulse 82 09/03/21 12:08 Resp 16 09/03/21 07:00 BP 132/68 09/03/21 07:00 Pulse Ox 95 09/03/21 08:00 FiO2 Intake & Output 09/02/21 09/03/21 09/03/21 18:59 06:59 18:59 Intake Total 2610 Balance 2610 Intake: Oral 2610 Other: Voiding Method Toilet Toilet # Voids 4 - Exam Constitutional: No acute distress, conversant, pleasant Eyes:Anicteric sclerae, moist conjunctiva, no lid-lag, PERRLA, ENMT: Oropharynx clear, no erythema, exudates Neck: Supple, FROM, no masses, or JVD, No carotid bruits, No thyromegaly Lungs: Bilateral rhonchi and wheezes, Clear to percussion, Normal respiratory effort, no accessory muscle use Cardiovascular: Heart regular in rate and rhythm, No murmurs, gallops, or rubs, No peripheral edema Abdominal: Soft, Nontender, no guarding, rebound or rigidity, Normoactive bowel sounds, No hepatomegaly, No splenomegaly, No palpable mass Skin: Normal temperature, tone, texture, turgor, no induration, No subcutaneous nodules, No rash, lesions, No ulcers Extremities: No digital cyanosis, No clubbing, Pedal pulses intact and symmetrical, Radial pulses intact and symmetrical, No calf tenderness Psychiatric: Alert and oriented to person, place and time, appropriate affect, intact judgement Neuro: Muscles Strength 5/5 in all 4 extremities, Sensation to light touch grossly present throughout, Cranial nerves II-XII grossly intact, no focal sensory deficits - Labs CBC & Chem 7: 09/01/21 05:49 09/02/21 06:33 Labs: Abnormal Lab Results - Last 24 Hours (Table) 09/01/21 Range/Units 05:49 C-Reactive Protein 12.00 H (0.00-0.80) mg/dL Microbiology - Last 24 Hours (Table) 08/31/21 12:45 Blood Culture - Preliminary Blood No Growth after 48 hours 08/31/21 12:30 Blood Culture - Preliminary Blood No Growth after 48 hours 08/31/21 19:50 Gram Stain - Final Sputum Sputum Culture - Final Assessment and Plan Plan: Acute hypoxic respiratory failure Acute asthma exacerbation Community-acquired pneumonia with recent covid based on positive antibody test Blood cultures NGTD Continue bronchodilators, O2 as needed, antibiotics ceftriaxone and azithromycin as well as steroids. Pulmonary following. Monitor O2 sats Hypokalemia Replaced D/w nephro, don't feel she has hyperaldosteronism based on aldosterone level done few months ago. Syncope Likely sec to hypoxia Treat pneumonia as above HTN Depression/anxiety Stable resume meds DVT prophylaxis Lovenox Dispo: home in 1-2 days
[2021-09-03] MEDS: BUDESONIDE 1 MG/2 ML NEBU INHALATION SCH (20:31)
[2021-09-03] MEDS: FORMOTEROL FUMARATE 20 MCG/2 ML NEBU INHALATION SCH (20:31)
[2021-09-04] MEDS: methylPREDNISolone SOD SUCCI 125 MG/2 ML VIAL IV SCH ×4 (00:05→18:00)
[2021-09-04] MEDS: IPRATROPIUM-ALBUTEROL 3 ML NEB INHALATION SCH ×4 (08:07→19:34)
[2021-09-04] MEDS: BUDESONIDE 1 MG/2 ML NEBU INHALATION SCH ×2 (08:07→19:34)
[2021-09-04] MEDS: FORMOTEROL FUMARATE 20 MCG/2 ML NEBU INHALATION SCH ×2 (08:07→19:47)
[2021-09-04] MEDS: guaiFENesin-Coden 100-10MG/5ML 10 ML CUP PO PRN (08:28)
[2021-09-04] MEDS: ENOXAPARIN 40 MG/0.4 ML SYRINGE SQ SCH (09:36)
[2021-09-04] MEDS: FAMOTIDINE 20 MG TAB PO SCH ×2 (09:36→21:00)
[2021-09-04] MEDS: VENLAFAXINE HCL ER 150 MG CAP PO SCH (09:37)
[2021-09-04] MEDS: amLODIPine 2.5 MG TAB PO SCH ×2 (09:37→21:00)
[2021-09-04] MEDS: FLUoxetine HCL 20 MG CAP PO SCH (09:37)
--- NOTE | 2021-09-04 09:57 | XR ---
EXAMINATION TYPE: XR chest 1V portable DATE OF EXAM: 09/04/2021 9:44 AM COMPARISON: Chest radiographs from 09/01/2021 TECHNIQUE: XR chest 1V portable Frontal view of the chest. CLINICAL INDICATION:Female, 40 years old with history of dyspnea; FINDINGS: Lungs/Pleura: Scattered subtle reticular and hazy opacities. No evidence of pneumothorax, focal conso lidation or pleural effusion. Pulmonary vascularity: Unremarkable. Heart/mediastinum: Cardiomediastinal silhouette is unremarkable. Musculoskeletal: No acute osseous pathology. IMPRESSION: Persistent subtle scattered opacities which may represent an atypical pneumonia.
--- NOTE | 2021-09-04 12:18 | P.PN ---
Subjective Progress Note Date: 09/04/21 Principal diagnosis: Shortness of breath. On 09/02/2021 patient seen in follow-up on medical surgical floor. She is still quite congested, bronchospastic, her cough is becoming productive. No complaints of hemoptysis no chest pain, continues on IV Solu-Medrol 60 mg every 6 hours, continues on empiric antibiotics with Rocephin, she is on Symbicort and nebulized DuoNeb. She is awake and alert, oriented 3. She tested negative for legionella urine antigen, COVID-19 PCR was negative 2, however antibiotic test for COVID-19 was positive suggesting recent history of COVID-19 infection. His labs have been reviewed, electrolytes and renal profile are within normal limits. LDH i is within normal limits at 473, and CRP is 5.9. Patient remains on cough syrup, and she is also receiving prophylactic anticoagulation with Lovenox. On 09/03/2021 patient seen in follow-up on medical surgical floor. She continues to sound quite congested, bronchospastic, and short of breath with exertion. She is on 2 L of oxygen pulse ox is 95%, afebrile, blood pressure stable. Her last chest x-ray from 09/01/2021 showed stable bilateral multifocal opacities. Patient is suspected to have recent COVID-19 pneumonia with post viral cough, and postviral exacerbation of COPD. Legionella urine antigen is negative, blood and sputum cultures have been negative. Procalcitonin level was low at 0.12, patient continues on Rocephin for empiric antibiotic coverage, she is on Symbicort, cough syrup, and IV steroids in the form of Solu-Medrol 60 g every 6 hours Progress note dated 09/04/2021. The patient is again seen today in room or 56. She's now been in the hospital for 4 days. She's currently on 2 L nasal cannula. She's not receiving any IV fluids. We did order a chest x-ray for today. The patient states that she is feeling better, and is less short of breath. She is still bronchospastic though. Not quite ready for discharge. No new labs today. The patient's chest x-ray shows persistent subtle scattered opacities. Objective - Vital Signs Vital signs: Vital Signs Temp 97.9 F 09/04/21 08:00 Pulse 85 09/04/21 12:03 Resp 16 09/04/21 11:24 BP 135/82 09/04/21 08:00 Pulse Ox 94 L 09/04/21 08:07 FiO2 21 09/04/21 08:07 Intake & Output 09/03/21 09/04/21 09/04/21 18:59 06:59 18:59 Intake Total 0 Balance 0 Intake: Intake, IV Titration 0 Amount cefTRIAXone 2 gm In 0 Sodium Chloride 0.9% 50 ml @ 100 mls/hr IVPB Q24HR [facility] Rx#:[id number] Other: Voiding Method Toilet # Voids 5 - Exam No acute distress, oriented 3. Currently on 2 L nasal cannula. No conversational dyspnea. Her cough is quite bronchospastic. HEENT examination is grossly unremarkable. Neck supple. Full range of motion. No adenopathy thyromegaly or neck vein distention. Cardiovascular examination reveals regular rhythm rate. S1-S2 normal. No S3 or S4. No discernible murmur noted. Heart rate 85 bpm. Lungs reveal bilateral coarse rhonchi and expiratory wheezes. No crackles. Breath sounds are equal bilaterally. Breath sounds are improved. Abdomen soft bowel sounds are heard. No masses or tenderness. Extremities are intact. No cyanosis clubbing or edema. Skin is without rash or lesion. Neurologic examination is brief but nonfocal. - Labs CBC & Chem 7: 09/01/21 05:49 09/02/21 06:33 Labs: Abnormal Lab Results - Last 24 Hours (Table) 09/02/21 Range/Units 06:33 Renin Direct <2.1 L (3.1 - 57.1) pg/mL Microbiology - Last 24 Hours (Table) 08/31/21 12:45 Blood Culture - Preliminary Blood No Growth after 72 hours 08/31/21 12:30 Blood Culture - Preliminary Blood No Growth after 72 hours Assessment and Plan Assessment: Acute hypoxemic respiratory failure secondary to acute bilateral pneumonia, likely related to underlying coronavirus infection. COPD exacerbation, with ongoing tobacco and nicotine dependence. Hypokalemia, corrected. Mild lactic acidosis, resolved. Chronic marijuana use. History of anxiety/depression. Obesity. History of hypertension. Plan: Plan dated 09/04/2021. The patient is on appropriate medications. She remains on systemic corticosteroids, Pulmicort, formoterol, and duo nebs. We will continue to f caroline. The patient's overall prognosis remains guarded. No additional recommendations are made. The patient is counseled about the importance of smoking cessation. We will continue to follow and make recommendations. Time with Patient: Less than 30
[2021-09-04] MEDS: SODIUM CHLORIDE 0.9% 1,000 ML IV SCH ×2 (12:22→22:09)
--- NOTE | 2021-09-04 12:48 | P.PN ---
Subjective Progress Note Date: 09/04/21 Principal diagnosis: sob Patient still having cough, with purulent phlegm production as well as shortness of breath. She is feeling better overall compared to admission. Objective - Vital Signs Vital signs: Vital Signs Temp 97.9 F 09/04/21 08:00 Pulse 85 09/04/21 12:03 Resp 16 09/04/21 11:24 BP 135/82 09/04/21 08:00 Pulse Ox 94 L 09/04/21 08:07 FiO2 21 09/04/21 08:07 Intake & Output 09/03/21 09/04/21 09/04/21 18:59 06:59 18:59 Intake Total 0 Balance 0 Intake: Intake, IV Titration 0 Amount cefTRIAXone 2 gm In 0 Sodium Chloride 0.9% 50 ml @ 100 mls/hr IVPB Q24HR [facility] Rx#:[id number] Other: Voiding Method Toilet # Voids 5 - Exam Constitutional: No acute distress, conversant, pleasant Eyes:Anicteric sclerae, moist conjunctiva, no lid-lag, PERRLA, ENMT: Oropharynx clear, no erythema, exudates Neck: Supple, FROM, no masses, or JVD, No carotid bruits, No thyromegaly Lungs: Bilateral rhonchi and wheezes, Clear to percussion, Normal respiratory effort, no accessory muscle use Cardiovascular: Heart regular in rate and rhythm, No murmurs, gallops, or rubs, No peripheral edema Abdominal: Soft, Nontender, no guarding, rebound or rigidity, Normoactive bowel sounds, No hepatomegaly, No splenomegaly, No palpable mass Skin: Normal temperature, tone, texture, turgor, no induration, No subcutaneous nodules, No rash, lesions, No ulcers Extremities: No digital cyanosis, No clubbing, Pedal pulses intact and symmetrical, Radial pulses intact and symmetrical, No calf tenderness Psychiatric: Alert and oriented to person, place and time, appropriate affect, intact judgement Neuro: Muscles Strength 5/5 in all 4 extremities, Sensation to light touch grossly present throughout, Cranial nerves II-XII grossly intact, no focal sensory deficits - Labs CBC & Chem 7: 09/01/21 05:49 09/02/21 06:33 Labs: Abnormal Lab Results - Last 24 Hours (Table) 09/02/21 Range/Units 06:33 Renin Direct <2.1 L (3.1 - 57.1) pg/mL Microbiology - Last 24 Hours (Table) 08/31/21 12:45 Blood Culture - Preliminary Blood No Growth after 72 hours 08/31/21 12:30 Blood Culture - Preliminary Blood No Growth after 72 hours Assessment and Plan Plan: Acute hypoxic respiratory failure Acute asthma exacerbation Community-acquired pneumonia with recent covid based on positive antibody test Blood cultures NGTD Continue bronchodilators, O2 as needed, antibiotics ceftriaxone and azithromycin as well as steroids. Pulmonary following. Monitor O2 sats Hypokalemia Replaced D/w nephro, don't feel she has hyperaldosteronism based on aldosterone level done few months ago. Syncope Likely sec to hypoxia Treat pneumonia as above HTN Depression/anxiety Stable resume meds DVT prophylaxis Lovenox Dispo: home tomorrow
--- NOTE | 2021-09-04 14:13 | P.PN ---
Subjective Patient is seen for follow-up for hypokalemia. Serum potassium has improved to about 4.1. No concern for hyperaldosteronism. Blood pressure has not been significantly uncontrolled. Patient is maintained on one antihypertensive medication which is Norvasc. Patient is maintained on steroids Serum aldosterone was less than 3 with direct renin less than 2.1 on 09/02/2021. Cortisone was noted to be low however patient is maintained on Solu-Medrol. Objective - Vital Signs Vital signs: Vital Signs Temp 97.9 F 09/04/21 08:00 Pulse 85 09/04/21 12:03 Resp 16 09/04/21 11:24 BP 135/82 09/04/21 08:00 Pulse Ox 94 L 09/04/21 08:07 FiO2 21 09/04/21 08:07 Intake & Output 09/03/21 09/04/21 09/04/21 18:59 06:59 18:59 Intake Total 0 Balance 0 Intake: Intake, IV Titration 0 Amount cefTRIAXone 2 gm In 0 Sodium Chloride 0.9% 50 ml @ 100 mls/hr IVPB Q24HR [facility] Rx#:[id number] Other: Voiding Method Toilet # Voids 5 - Exam Awake, comfortable, not in any acute distress Examination of the heart S1 and S2 Examination of the lungs bilateral breath sounds are heard Abdomen is soft nontender Examination of the lower extremities shows no evidence of edema HAND CLERICAL VERIFIER exam is grossly intact - Labs CBC & Chem 7: 09/01/21 05:49 09/02/21 06:33 Labs: Abnormal Lab Results - Last 24 Hours (Table) 09/02/21 Range/Units 06:33 Renin Direct <2.1 L (3.1 - 57.1) pg/mL Microbiology - Last 24 Hours (Table) 08/31/21 12:45 Blood Culture - Preliminary Blood No Growth after 72 hours 08/31/21 12:30 Blood Culture - Preliminary Blood No Growth after 72 hours Assessment and Plan Assessment: 1. Hypokalemia secondary to intracellular shifting with beta agonists as well as some degree of GI fluid loss. Status post replacement. No evidence of hyperaldosteronism. 2. Pneumonia maintained on antibiotics 3. Obesity 4. Mild hypertension mostly secondary to steroids maintained on low-dose Norvasc. Plan: No evidence of hyperaldosteronism. Continue to monitor potassium and replace especially while patient is maintained on beta agonists We will sign off
[2021-09-05] MEDS: methylPREDNISolone SOD SUCCI 125 MG/2 ML VIAL IV SCH ×2 (00:30→05:31)
[2021-09-05] MEDS: FORMOTEROL FUMARATE 20 MCG/2 ML NEBU INHALATION SCH (08:18)
[2021-09-05] MEDS: IPRATROPIUM-ALBUTEROL 3 ML NEB INHALATION SCH ×4 (08:18→19:30)
[2021-09-05] MEDS: BUDESONIDE 1 MG/2 ML NEBU INHALATION SCH (08:18)
[2021-09-05] MEDS: predniSONE 20 MG TAB PO SCH (09:01)
[2021-09-05] MEDS: guaiFENesin-Coden 100-10MG/5ML 10 ML CUP PO PRN ×2 (09:01→20:58)
[2021-09-05] MEDS: amLODIPine 2.5 MG TAB PO SCH ×2 (09:01→20:55)
[2021-09-05] MEDS: FLUoxetine HCL 20 MG CAP PO SCH (09:01)
[2021-09-05] MEDS: FAMOTIDINE 20 MG TAB PO SCH ×2 (09:01→20:55)
[2021-09-05] MEDS: VENLAFAXINE HCL ER 150 MG CAP PO SCH (09:01)
[2021-09-05] MEDS: ENOXAPARIN 40 MG/0.4 ML SYRINGE SQ SCH (09:01)
--- NOTE | 2021-09-05 12:38 | P.PN ---
Subjective Progress Note Date: 09/05/21 Principal diagnosis: Shortness of breath, cough This is a very pleasant 40-year-old female patient who follows with Dr. Patel as her primary care provider. She has a history of anxiety/depression, gastroesophageal reflux disease, hypertension, obesity, chronic and ongoing tob acco dependence, recent vaping. Approximately 6 days ago she developed increasing shortness of breath cough congestion runny nose and night sweats. As the past several days and gone on she her symptoms have been getting worse. She had been using DayQuil [id number] medication without much improvement. She presented here to the emergency room this morning with worsening symptoms. Chest x-ray revealed bilateral multifocal opacities suspicious for COVID-19 pneumonia however her PCR test today is negative. Influenza screen negative. White count 8.3. Hemoglobin 12.1. D-dimer 0.37. Sodium 136. Potassium 2.7. Chloride 105. BUN 11. Creatinine 0.62. AST 22. ALT 20. She was initiated on ceftriaxone and azithromycin. Maintaining O2 saturations in the 90s on 2 L/m per nasal cannula. She's afebrile. Hemodynamically stable. On 09/01/2021 patient is seen in follow-up. She is awake and alert, still has a congested cough, exertional dyspnea, but no acute distress, room air pulse ox is 96%, she remains on IV Solu-Medrol, azithromycin and Rocephin for empiric antibiotic coverage, her COVID 19 PCR was negative however the antibiotic test came back positive suggesting possibility of recent COVID-19 infection. Room air pulse ox is 96%, afebrile, hemodynamically stable. Chest x-ray today show stable bilateral multifocal opacities. No significant change compared to previo us chest x-ray. Today's labs have been reviewed, white blood cell count 7.8, hemoglobin is 11.7, d-dimer on yesterday's labs was 0.37, electrolytes were within normal limits, B1 is 5.8, creatinine 0.5, progesterone level was negative at 0.12, test was negative, repeat COVID-19 PCR was again negative, influenza A and B test was negative On 09/02/2021 patient seen in follow-up on medical surgical floor. She is still quite congested, bronchospastic, her cough is becoming productive. No complaints of hemoptysis no chest pain, continues on IV Solu-Medrol 60 mg every 6 hours, continues on empiric antibiotics with Rocephin, she is on Symbicort and nebulized DuoNeb. She is awake and alert, oriented 3. She tested negative for legionella urine antigen, COVID-19 PCR was negative 2, however antibiotic test for COVID-19 was positive suggesting recent history of COVID-19 infection. His labs have been reviewed, electrolytes and renal profile are within normal limits. LDH i is within normal limits at 473, and CRP is 5.9. Patient remains on cough syrup, and she is also receiving prophylactic anticoagulation with Lovenox. On 09/03/2021 patient seen in follow-up on medical surgical floor. She continues to sound quite congested, bronchospastic, and short of breath with exertion. She is on 2 L of oxygen pulse ox is 95%, afebrile, blood pressure stable. Her last chest x-ray from 09/01/2021 showed stable bilateral multifocal opacities. Patient is suspected to have recent COVID-19 pneumonia with post viral cough, and postviral exacerbation of COPD. Legionella urine antigen is negative, blood and sputum cultures have been negative. Procalcitonin level was low at 0.12, patient continues on Rocephin for empiric antibiotic coverage, she is on Symbicort, cough syrup, and IV steroids in the form of Solu-Medrol 60 g every 6 hours On 09/05/2021 patient seen in follow-up on medical surgical floor, patient is on room air, pulse ox is 98%, she is still coughing, has a congested cough, no hemoptysis. Clinically she is improving, although does have persistent cough, and exertional dyspnea. She remains on IV Solu-Medrol at 60 mg every 6 hours, she is on Symbicort, DuoNeb, and GI and DVT prophylaxis, prophylactic dose Lovenox 40 mg daily. No new labs or chest x-ray. Today's chest x-ray was done yesterday showing persistent scattered opacities representing atypical pneumonia likely recent history of COVID-19 pneumonia based on positive antibody test and negative PCR test Objective - Vital Signs Vital signs: Vital Signs Temp 98.0 F 09/05/21 07:00 Pulse 84 09/05/21 11:48 Resp 18 09/05/21 07:00 BP 153/92 09/05/21 07:00 Pulse Ox 98 09/05/21 07:00 FiO2 21 09/04/21 08:07 Intake & Output 09/04/21 09/05/21 09/05/21 18:59 06:59 18:59 Other: Voiding Method Toilet # Voids 5 1 - Exam GENERAL EXAM: Alert, very pleasant, 40-year-old white female on room air with pulse ox of 96% comfortable in no apparent distress. HEAD: Normocephalic/atraumatic. EYES: Normal reaction of pupils, equal size. Conjunctiva pink, sclera white. NOSE: Clear with pink turbinates. THROAT: No erythema or exudates. NECK: No masses, no JVD, no thyroid enlargement, no adenopathy. CHEST: No chest wall deformity. Symmetrical expansion. LUNGS: Equal air entry with scattered rhonchi and wheezing CVS: Regular rate and rhythm, normal S1 and S2, no gallops, no murmurs, no rubs ABDOMEN: Soft, nontender. No hepatosplenomegaly, normal bowel sounds, no guarding or rigidity. EXTREMITIES: No clubbing, no edema, no cyanosis, 2+ pulses and upper and lower extremities. MUSCULOSKELETAL: Muscle strength and tone normal. SPINE: No scoliosis or deformity SKIN: No rashes CENTRAL NERVOUS SYSTEM: Alert and oriented -3. No focal deficits, tone is normal in all 4 extremities. PSYCHIATRIC: Alert and oriented -3. Appropriate affect. Intact judgment and insight. - Labs CBC & Chem 7: 09/01/21 05:49 09/02/21 06:33 Labs: Microbiology - Last 24 Hours (Table) 08/31/21 12:45 Blood Culture - Preliminary Blood No Growth after 96 hours 08/31/21 12:30 Blood Culture - Preliminary Blood No Growth after 96 hours Assessment and Plan Plan: Assessment: #1. Acute hypoxic respiratory failure secondary to acute bilateral multifocal pneumonia, likely related to recent history of COVID-19 infection, patient had 2 negative COVID-19 test via PCR, and SARS COVID-19 antibody test was positive #2. Post viral cough, and acute exacerbation of COPD #3. Chronic and ongoing tobacco dependence, as well as vaping a few days ago #4. Hypokalemia, corrected #5. Mild lactic acidosis, corrected #6. Marijuana use #7. History of anxiety and depression #8. Obesity with BMI of 39.6 kg/m #9. Hypertension Plan: Clinical patient is improving Still has a persistent cough and exertional dyspnea Vital signs stable Maintaining stable O2 saturations on room air We'll transition IV Solu-Medrol to oral prednisone Continue DuoNeb, and Symbicort Yesterday chest x-ray showed no significant change in the appearance of scat tered opacities likely representing recent history of COVID-19 related pneumonia Sputum blood cultures have been negative Patient has completed course of antibiotics From pulmonary perspective she could be considered for discharge home tomorrow I have personally seen and examined the patient, performed the documentation and the assessment and plan as written. Number of minutes spent on the visit: [10] Time with Patient: Less than 30
--- NOTE | 2021-09-05 14:49 | P.PN ---
Subjective Progress Note Date: 09/05/21 Principal diagnosis: Atypical PNA Patient was seen and examined. No acute events overnight. Currently not on supplemental oxygen. Patient reports continued improvement in her breathing. Reports occasional cough. Denies any chest pain or palpitations. No nausea or vomiting. No fever or chills. Objective - Vital Signs Vital signs: Vital Signs Temp 98.1 F 09/05/21 14:22 Pulse 81 09/05/21 14:22 Resp 17 09/05/21 14:22 BP 127/80 09/05/21 14:22 Pulse Ox 96 09/05/21 14:22 FiO2 21 09/04/21 08:07 Intake & Output 09/04/21 09/05/21 09/05/21 18:59 06:59 18:59 Other: Voiding Method Toilet # Voids 5 1 - Exam General: [non toxic], [no distress], [appears at stated age] Derm: [warm], [dry] Head: [atraumatic], [normocephalic], [symmetric] Eyes: [EOMI], [no lid lag], [anicteric sclera] Mouth: [no lip lesion], [mucus membranes moist] Cardiovascular: [S1S2 reg], [no murmur] Lungs: [CTA bilateral], [no rhonchi, no rales] , [no accessory muscle use] Ext: [no gross muscle atrophy], [no edema], [no contractures] Neuro: [no focal neuro deficits] Psych: [Alert], [oriented], [appropriate affect] - Labs CBC & Chem 7: 09/01/21 05:49 09/02/21 06:33 Labs: Microbiology - Last 24 Hours (Table) 08/31/21 12:45 Blood Culture - Preliminary Blood No Growth after 96 hours 08/31/21 12:30 Blood Culture - Preliminary Blood No Growth after 96 hours Assessment and Plan Assessment: Acute hypoxic respiratory failure Acute asthma exacerbation Community-acquired pneumonia with recent COVID based on positive antibody test Blood and sputum cultures negative Continue DuoNeb scheduled and as needed for shortness of breath and wheezing. Continue Symbicort. Continue prednisone. Pulmonary following Monitor O2 sats Syncope Likely secondary to hypoxia Treat pneumonia as above HTN Depression/anxiety History of smoking Obesity Stable resume meds Resolved: Hypokalemia, Lactic acidosis DVT prophylaxis Lovenox Dispo: home tomorrow
[2021-09-05] MEDS: SYMBICORT 160-4.5 MCG INHALER INHALATION SCH (19:30)
[2021-09-06] MEDS: FAMOTIDINE 20 MG TAB PO SCH (07:38)
[2021-09-06] MEDS: amLODIPine 2.5 MG TAB PO SCH (07:38)
[2021-09-06] MEDS: FLUoxetine HCL 20 MG CAP PO SCH (07:38)
[2021-09-06] MEDS: VENLAFAXINE HCL ER 150 MG CAP PO SCH (07:38)
[2021-09-06] MEDS: predniSONE 20 MG TAB PO SCH (07:38)
[2021-09-06] MEDS: ENOXAPARIN 40 MG/0.4 ML SYRINGE SQ SCH (07:39)
[2021-09-06] MEDS: SYMBICORT 160-4.5 MCG INHALER INHALATION SCH (07:43)
[2021-09-06] MEDS: IPRATROPIUM-ALBUTEROL 3 ML NEB INHALATION SCH ×2 (07:43→11:11)
[2021-09-06 07:54] VITALS: BP 143/95; RESP 17; TEMP 98.4
--- NOTE | 2021-09-06 10:48 | P.DS ---
Providers Date of admission: 08/31/21 15:04 Expected date of discharge: 09/06/21 Attending physician: Delfina Curtis MD Consults: 08/31/21 13:00 Consult Physician Routine Consulting Provider: Hiram Yeh Consult Reason/Comments: Multifocal pneumonia with syncope Do you want consulting provider notified?: Yes 08/31/21 13:54 Consult Physician Routine Consulting Provider: Serg Winter Consult Reason/Comments: hypokalemia Do you want consulting provider notified?: Yes Primary care physician: Raul Hicks [facility] Course: 40-year-old female with hx of asthma and hypokalemia presenting to the emergency department with difficulty breathing. Patient states she started with cold symptoms, nasal congestion a couple of days ago. Patient does have cough product mary of green and yellow phlegm. Patient was having some increased difficulty breathing at work today, then felt dizzy and passed out in front of her coworker. States that she fell onto her right side. No head trauma, she is not sure how long she passed out for. Denied focal weakness or numbness. No fevers or chills. No n/v/d. In the emergency department she tested negative for COVID19 and influenza. Chest x-ray showed bilateral infiltrates consistent with pneumonia. Labs showed hypokalemia with potassium 2.7. Her syncope was thought to be related to hypoxia from pneumonia. Nephrology was consulted with regard to her hypokalemia. Hyperaldosteronism was ruled out. Her hypokalemia was thought to be related to poor intake and intracellular shifting from beta agonist as well as GI loss. Her potassium was replaced and was within normal limits at the time of discharge. With regard to her atypical pneumonia, COVID-19 was negative, though her antibodies were positive. Influenza was negative. Chest CT showed diffuse scattered bilateral groundglass opacities. She completed a course of Rocephin and azithromycin. Sputum culture was negative. Legionella antigen was negative. Pro-calcitonin was elevated at 0.12. Her lactic acidosis resolved with IV hydration. She was continued on DuoNeb scheduled and as needed along with Symbicort during her hospitalization. Prednisone was also added to her medication regimen. She was initially on supplemental O2 to maintain O2 saturation greater than 92%. Oxygen was weaned off and she was discharged on room air. Patient was seen and examined on 09/06/2021. She reported considerable improvement in her symptoms. She denies any chest pain, shortness of breath, palpitations or lightheadedness. She was saturating mid to high 90s on room air. Patient was requesting to be discharged home. She was cleared from a pulmonology standpoint. She was advised to follow-up with her PCP within 1-2 days of discharge. She was advised follow-up with pulmonology within 1 week of discharge. She was discharged home on Medrol Dosepak, Robitussin-DM as needed, albuterol and Symbicort inhaler. Patient verbalized understanding of the plan. General: [non toxic], [no distress], [appears at stated age] Derm: [warm], [dry] Head: [atraumatic], [normocephalic], [symmetric] Eyes: [EOMI], [no lid lag], [anicteric sclera] Mouth: [no lip lesion], [mucus membranes moist] Cardiovascular: [S1S2 reg], [no murmur], [positive DP pulse bilateral] Lungs: [CTA bilateral], [no rhonchi, no rales] , [no accessory muscle use] Ext: [no gross muscle atrophy], [no edema], [no contractures] Neuro: [no focal neuro deficits] Psych: [Alert], [oriented], [appropriate affect] Discharge diagnosis: Acute hypoxic respiratory failure Atypical pneumonia Syncopal episode Lactic acidosis, resolved Hypokalemia, resolved Chronic conditions: Hypertension, depression/anxiety, history of smoking, obesity This complex discharge took about 45 minutes to complete. Pertinent Studies: Chest XRay Chest CT Patient Condition at Discharge: Stable Plan - Discharge Summary Discharge Rx Participant: No New Discharge Prescriptions: New methylPREDNISolone Dose Pack [Medrol Dose Pack] 4 mg PO DIRECTED #1 packet guaiFENesin-DM 100-10MG/5ML [Robitussin DM] 10 ml PO Q4H PRN #120 ml PRN Reason: Cough Budesonide-Formot 160-4.5 Mcg [Symbicort 160-4.5 Mcg Inhaler] 2 puff INHALATION RT-BID #1 each Albuterol Inhaler [Ventolin Hfa Inhaler] 1 - 2 puff INHALATION RT-Q6H PRN #1 PRN Reason: Shortness Of Breath Continue Ibuprofen [Motrin] 800 mg PO Q8H PRN PRN Reason: Pain FLUoxetine HCL [PROzac] 40 mg PO DAILY Famotidine [Pepcid] 20 mg PO BID Venlafaxine HCl [Effexor XR] 150 mg PO DAILY amLODIPine [Norvasc] 2.5 mg PO DAILY Cholecalciferol [Vitamin D3 (25 Mcg = 1000 Iu)] 25 mcg PO DAILY Discharge Medication List FLUoxetine HCL [PROzac] 40 mg PO DAILY 06/26/20 [History] Famotidine [Pepcid] 20 mg PO BID 06/26/20 [History] Venlafaxine HCl [Effexor XR] 150 mg PO DAILY 06/26/20 [History] amLODIPine [Norvasc] 2.5 mg PO DAILY 10/08/20 [History] Ibuprofen [Motrin] 800 mg PO Q8H PRN 05/08/21 [History] Cholecalciferol [Vitamin D3 (25 Mcg = 1000 Iu)] 25 mcg PO DAILY 08/31/21 [History] Albuterol Inhaler [Ventolin Hfa Inhaler] 1 - 2 puff INHALATION RT-Q6H PRN #1 09/06/21 [Rx] Budesonide-Formot 160-4.5 Mcg [Symbicort 160-4.5 Mcg Inhaler] 2 puff INHALATION RT-BID #1 each 09/06/21 [Rx] guaiFENesin-DM 100-10MG/5ML [Robitussin DM] 10 ml PO Q4H PRN #120 ml 09/06/21 [Rx] methylPREDNISolone Dose Pack [Medrol Dose Pack] 4 mg PO DIRECTED #1 packet 09/06/21 [Rx] Follow up Appointment(s)/Referral(s): Raul Patel MD [Primary Care Provider] - 1-2 days Hiram Yeh MD [STAFF PHYSICIAN] - 1 Week Activity/Diet/Wound Care/Special Instructions: Diet: Regular Follow-up with your PCP within 1-2 days of discharge. Follow-up with pulmonology within 1 week of discharge. Take all medications as advised. Come back to the ED for worsening chest pain, shortness of breath, palpitations or lightheadedness. Discharge Disposition: HOME SELF-CARE
[2021-09-06 11:13] VITALS: PULSE 86
--- NOTE | 2021-09-06 11:57 | P.PN ---
Subjective Progress Note Date: 09/06/21 Principal diagnosis: Shortness of breath. On 09/02/2021 patient seen in follow-up on medical surgical floor. She is still quite congested, bronchospastic, her cough is becoming productive. No complaints of hemoptysis no chest pain, continues on IV Solu-Medrol 60 mg every 6 hours, continues on empiric antibiotics with Rocephin, she is on Symbicort and nebulized DuoNeb. She is awake and alert, oriented 3. She tested negative for legionella urine antigen, COVID-19 PCR was negative 2, however antibiotic test for COVID-19 was positive suggesting recent history of COVID-19 infection. His labs have been reviewed, electrolytes and renal profile are within normal limits. LDH i is within normal limits at 473, and CRP is 5.9. Patient remains on cough syrup, and she is also receiving prophylactic anticoagulation with Lovenox. On 09/03/2021 patient seen in follow-up on medical surgical floor. She continues to sound quite congested, bronchospastic, and short of breath with exertion. She is on 2 L of oxygen pulse ox is 95%, afebrile, blood pressure stable. Her last chest x-ray from 09/01/2021 showed stable bilateral multifocal opacities. Patient is suspected to have recent COVID-19 pneumonia with post viral cough, and postviral exacerbation of COPD. Legionella urine antigen is negative, blood and sputum cultures have been negative. Procalcitonin level was low at 0.12, patient continues on Rocephin for empiric antibiotic coverage, she is on Symbicort, cough syrup, and IV steroids in the form of Solu-Medrol 60 g every 6 hours Progress note dated 09/04/2021. The patient is again seen today in room or 56. She's now been in the hospital for 4 days. She's currently on 2 L nasal cannula. She's not receiving any IV fluids. We did order a chest x-ray for today. The patient states that she is feeling better, and is less short of breath. She is still bronchospastic though. Not quite ready for discharge. No new labs today. The patient's chest x-ray shows persistent subtle scattered opacities. Progress note dated 09/06/2021. The patient is again seen today in room 456. Patient is doing much better and is ready for discharge in my opinion. She is currently on room air. Wheezing, and coughing is much improved. She will need outpatient follow-up. No new laboratory data today. Objective - Vital Signs Vital signs: Vital Signs Temp 98.4 F 09/06/21 07:00 Pulse 86 09/06/21 11:23 Resp 17 09/06/21 07:00 BP 143/95 09/06/21 07:00 Pulse Ox 95 09/06/21 07:00 FiO2 21 09/04/21 08:07 Intake & Output 09/05/21 09/06/21 09/06/21 18:59 06:59 18:59 Output Total 1350 Balance -1350 Output: Urine 1350 Other: Voiding Method Toilet # Voids 4 - Exam No acute distress, oriented 3. Currently on room air. Saturations are 96%. No respiratory distress. HEENT examination is grossly unremarkable. Neck supple. Full range of motion. No adenopathy thyromegaly or neck vein distention. Cardiovascular examination reveals regular rhythm rate. S1-S2 normal. No S3 or S4. No discernible murmur noted. Heart rate 86 bpm. Lungs reveal much improved bilateral breath sounds. Mild scattered rhonchi. Minimal wheezes. No crackles. Breath sounds are equal bilaterally. Abdomen soft bowel sounds are heard. No masses or tenderness. Extremities are intact. No cyanosis clubbing or edema. Skin is without rash or lesion. Neurologic examination is brief but nonfocal. - Labs CBC & Chem 7: 09/01/21 05:49 09/02/21 06:33 Labs: Microbiology - Last 24 Hours (Table) 08/31/21 12:30 Blood Culture - Preliminary Blood No Growth after 120 hours 08/31/21 12:45 Blood Culture - Preliminary Blood No Growth after 120 hours Assessment and Plan Assessment: Acute hypoxemic respiratory failure secondary to acute bilateral pneumonia, likely related to underlying coronavirus infection. COPD exacerbation, with ongoing tobacco and nicotine dependence. Hypokalemia, corrected. Mild lactic acidosis, resolved. Chronic marijuana use. History of anxiety/depression. Obesity. History of hypertension. Plan: Plan dated 09/04/2021. The patient is on appropriate medications. She remains on systemic corticosteroids, Pulmicort, formoterol, and duo nebs. We will continue to follow. The patient's overall prognosis remains guarded. No additional recommendations are made. The patient is counseled about the importance of smoking cessation. We will continue to follow and make recommendations. Plan dated 09/06/2021. The patient's doing much better. She's been weaned down to room air. Addit ional recommendations and suggestions are forthcoming. The patient could be considered for possible discharge today. We'll leave that up to the primary service. We will be happy to see her in the office, for outpatient follow-up. Time with Patient: Less than 30
[2021-09-06 13:05] VITALS: BMI 39.6
== END 2021-09-06 12:55 | disposition home or self-care (01) | DRG 177 ==
LOC: EC 11:38 → 6NMEDSUR 13:00 → OBSVTOIN 15:04 → 4SSUR 15:21
PROVIDERS: ADMIT Internal Medicine; ATTEND Internal Medicine
DX: U07.1 COVID-19 (principal); J12.82 Pneumonia due to coronavirus disease 2019; J96.01 Acute respiratory failure with hypoxia; E87.2 Acidosis; J45.901 Unspecified asthma with (acute) exacerbation; J44.0 Chronic obstructive pulmonary disease with (acute) lower respiratory infection; J44.1 Chronic obstructive pulmonary disease with (acute) exacerbation; E66.9 Obesity, unspecified; Z68.39 Body mass index [BMI] 39.0-39.9, adult; T38.0X5A Adverse effect of glucocorticoids and synthetic analogues, initial encounter; K21.9 Gastro-esophageal reflux disease without esophagitis; R19.7 Diarrhea, unspecified; R55 Syncope and collapse; I10 Essential (primary) hypertension; E55.9 Vitamin D deficiency, unspecified; D64.9 Anemia, unspecified; E87.6 Hypokalemia; E86.9 Volume depletion, unspecified; F17.210 Nicotine dependence, cigarettes, uncomplicated; F17.290 Nicotine dependence, other tobacco product, uncomplicated; F32.A Depression, unspecified; F41.9 Anxiety disorder, unspecified; Z87.440 Personal history of urinary (tract) infections; Z79.899 Other long term (current) drug therapy
CPT/HCPCS: 36415; 71045; 71046; 71250; 80048; 80053; 82088; 82533; 82570; 83605; 83615; 83735; 83835; 84100; 84133; 84145; 84244; 84484; 84703; 85025; 85379; 85610; 85730; 86140; 86403; 86769; 87040; 87070; 87205; 87449; 87502; 87635; 94640; 94760; 96361; 96365; 99291

== ENCOUNTER → 2022-05-16 | Outpatient (CLI) | payer OTHER ==
--- NOTE | 2022-05-16 12:26 | MR ---
EXAMINATION TYPE: MR knee LT wo con DATE OF EXAM: 05/16/2022 COMPARISON: NONE HISTORY: Left knee outer pain with locking and swelling TECHNIQUE: Multiplanar, multisequence images of the knee is performed without IV contrast. FINDINGS: MEDIAL MENISCUS: Triangular-shaped increased signal posterior horn does not definitively extend to ar ticular surface. LATERAL MENISCUS: Anterior and posterior horns are intact without tear. CRUCIATE LIGAMENTS: The anterior and posterior cruciate ligaments are intact and unremarkable. COLLATERAL LIGAMENTS: The medial collateral ligament and lateral collateral ligament complex are inta ct and unremarkable. EXTENSOR MECHANISM: Visualized quadriceps and patellar tendons are intact. EFFUSION: No significant suprapatellar joint effusion. POPLITEAL CYST: There is moderate size multiseptated popliteal/shelley cyst measuring 5.5 cm long axis sagittal image 27. TRICOMPARTMENT SPACES: Mild/moderate narrowing and mild spurring patellofemoral compartment. Mild to minimal narrowing and spurring medial and lateral tibiofemoral compartments. CARTILAGE: Some chondromalacia patella with thinning of articular cartilage along the superior latera l aspect of the posterior patellar pole. BONE MARROW SIGNAL: Focus of increased signal posterior aspect of the distal medial femur over roughl y 1.5 cm rounded area. Adjacent medial knee gastrocnemius muscle shows increased signal and focal par tial tear sagittal image 31 and axial image 20 for reference involving the most medial fibers. OTHER: No additional significant abnormality is appreciated. IMPRESSION: 1. Partial tear of the proximal insertion of the medial head gastrocnemius muscle posterior distal me dial femur level with adjacent osseous contusion injury. 2. Intrasubstance tear posterior horn medial meniscus, no definitive full-thickness meniscal tear. 3. Mild to moderate patellofemoral joint arthropathy as detailed above. 4. Moderate size multiseptated popliteal cyst.
== END | disposition home or self-care (01) ==
LOC: RADMRIMAIN 08:22
PROVIDERS: ATTEND Family Medicine
DX: S80.02XA Contusion of left knee, initial encounter (principal); S83.242A Other tear of medial meniscus, current injury, left knee, initial encounter; M17.12 Unilateral primary osteoarthritis, left knee; M71.22 Synovial cyst of popliteal space [Baker], left knee; X58.XXXA Exposure to other specified factors, initial encounter

== ENCOUNTER 2022-09-20 00:11 | Emergency (ER) | payer OTHER ==
[2022-09-20] MEDS ORDERED: KETOROLAC 15 MG/ML 1 ML VIAL IVP STA (01:04)
--- NOTE | 2022-09-20 01:08 | ED ---
Extremity Problem HPI - General Chief complaint: Syncope Stated complaint: Syncope Time Seen by Provider: 09/20/22 00:15 Source: patient, EMS, RN notes reviewed, old records reviewed Mode of arrival: EMS Limitations: no limitations - History of Present Illness Initial comments: This is a 41-year-old female to the ER today. Patient prior to arrival did have a syncopal event. Patient presents complaining of right shoulder pain. Patient got stuck in her camper between the bed and the wall. Patient states when it did show closed on her and she was between the bed and the wall she may have lost consciousness unsure of how long. Did not hit her head or had no significant injury to her head but had some significant right shoulder pain and presents with right shoulder pain right now. Patient has no other complaints no headache chest pain shortness breath or abdominal pain. MD Complaint: extremity pain, joint pain, other (Right shoulder pain) -: hour(s) Location: right, upper extremity History of Same: Yes -: Yes arthralgia Radiation: proximal Severity scale (1-10): 4 Quality: stabbing Consistency: constant Improves with: nothing Worsens with: nothing Associated Symptoms: denies other symptoms - Related Data Home Medications Medication Instructions Recorded Confirmed FLUoxetine HCL [PROzac] 40 mg PO DAILY 06/26/20 08/31/21 Famotidine [Pepcid] 20 mg PO BID 06/26/20 08/31/21 Venlafaxine HCl [Effexor XR] 150 mg PO DAILY 06/26/20 08/31/21 amLODIPine [Norvasc] 2.5 mg PO DAILY 10/08/20 08/31/21 Ibuprofen [Motrin] 800 mg PO Q8H PRN 05/08/21 08/31/21 Cholecalciferol [Vitamin D3 (25 25 mcg PO DAILY 08/31/21 08/31/21 Mcg = 1000 Iu)] Previous Rx's Medication Instructions Recorded Albuterol Inhaler [Ventolin Hfa 1 - 2 puff INHALATION RT-Q6H PRN #1 09/06/21 Inhaler] Budesonide-Formot 160-4.5 Mcg 2 puff INHALATION RT-BID #1 each 09/06/21 [Symbicort 160-4.5 Mcg Inhaler] guaiFENesin-DM 100-10MG/5ML 10 ml PO Q4H PRN #120 ml 09/06/21 [Robitussin DM] methylPREDNISolone Dose Pack 4 mg PO DIRECTED #1 packet 09/06/21 [Medrol Dose Pack] Azithromycin [Zithromax Z Pack] 1 tab PO DIRECTED #6 tab 04/12/22 methylPREDNISolone Dose Pack 4 mg PO DIRECTED #21 tab 04/12/22 [Medrol Dose Pack] Allergies Allergy/AdvReac Type Severity Reaction Status Date / Time No Known Allergies Allergy Verified 04/12/22 06:44 Review of Systems ROS Statement: Those systems with pertinent positive or pertinent negative responses have been documented in the HPI. ROS Other: All systems not noted in ROS Statement are negative. Past Medical History Past Medical History: Asthma, GERD/Reflux Additional Past Medical History / Comment(s): Irregular heart beat at times, past syncope, hypokalemia, orthostatic hypotension, bronchitis, anemia, vitamin D deficiency, UTIs, R shoulder pain d/t tendonitis R rotator cuff. History of Any Multi-Drug Resistant Organisms: None Reported Past Surgical History: Tubal Ligation Additional Past Surgical History / Comment(s): TTT, cyst removed from L knee Past Anesthesia/Blood Transfusion Reactions: No Reported Reaction Additional Past Anesthesia/Blood Transfusion Reaction / Comment(s): unknown Past Psychological History: Anxiety, Depression Smoking Status: Current every day smoker Past Alcohol Use History: None Reported Past Drug Use History: Marijuana - Past Family History Mother Family Medical History: No Reported History Additional Family Medical History / Comment(s): Mother is healthy Father Additional Family Medical History / Comment(s): Vitamin D deficiency. General Exam Limitations: no limitations General appearance: alert, in no apparent distress Head exam: Present: atraumatic, normocephalic, normal inspection Eye exam: Present: normal appearance, PERRL, EOMI. Absent: scleral icterus, conjunctival injection, periorbital swelling ENT exam: Present: normal exam, mucous membranes moist Neck exam: Present: normal inspection. Absent: tenderness, meningismus, lymphadenopathy Respiratory exam: Present: normal lung sounds bilaterally. Absent: respiratory distress, wheezes, rales, rhonchi, stridor Cardiovascular Exam: Present: regular rate, normal rhythm, normal heart sounds. Absent: systolic murmur, diastolic murmur, rubs, gallop, clicks GI/Abdominal exam: Present: soft, normal bowel sounds. Absent: distended, tenderness, guarding, rebound, rigid Extremities exam: Present: normal inspection, full ROM, normal capillary refill. Absent: tenderness, pedal edema, joint swelling, calf tenderness Back exam: Present: normal inspection Neurological exam: Present: alert, oriented X3, CN II-XII intact Psychiatric exam: Present: normal affect, normal mood Skin exam: Present: warm, dry, intact, normal color. Absent: rash Course Vital Signs 09/20/22 09/20/22 09/20/22 00:17 01:20 03:51 Temperature 98.3 F 98.4 F Pulse Rate 93 82 82 Respiratory 16 14 16 Rate Blood Pressure 147/98 129/88 135/86 O2 Sat by Pulse 98 94 L 98 Oximetry - Reevaluation(s) Reevaluation #1: 09/20/22 01:07 Medical record is reviewed Reevaluation #2: 09/20/22 01:07 Patient symptoms are improved Patient has no recurrent syncope here in the ER Reevaluation #3: Patient informed results and questions have been answered Reevaluation #4: 09/20/22 01:08 Was pt. sent in by a medical professional or institution (, PA, THERAPIST RRT, urgent care, hospital, or [place] [facility]...) When possible be specific @ -no Did you speak to anyone other than the patient for history (EMS, parent, family, police, friend...)? What history was obtained from this source @ -no Did you review nursing and triage notes (agree or disagree)? Why? @ -agree Are old charts reviewed (outside hosp., previous admission, EMS record, old EKG, old radiological studies, urgent care reports/EKG's, [place] [facility] records)? Report findings @ -yes Differential Diagnosis (chest pain, altered mental status, abdominal pain women, abdominal pain men, vaginal bleeding, weakness, fever, dyspnea, syncope, headache, dizziness, GI bleed, back pain, seizure, CVA, palpatations, mental health, musculoskeletal)? @ -prior EKG interpreted by me (3pts min.). @ -no X-rays interpreted by me (1pt min.). @ -yes CT interpreted by me (1pt min.). @ -no U/S interpreted by me (1pt. min.). @ -no What testing was considered but not performed or refused? (CT, X-rays, U/S, labs)? Why? @ -none What meds were considered but not given or refused? Why? @ -none Did you discuss the management of the patient with other professionals (professionals i.e. , PA, THERAPIST RRT, lab, RT, psych nurse, high school social studies teacher, product support technician, teacher, loan officer, case picker)? Give summary @ -no Was smoking cessation discussed for >3mins.? @ -no Was critical care preformed (if so, how long)? @ -no Were there social determinants of health that impacted care today? How? (Homelessness, low income, unemployed, alcoholism, drug addiction, transportation, low edu. Level, literacy, decrease access to med. care, [facility]pc, rehab)? @ -none Was there de-escalation of care discussed even if they declined (Discuss DNR or withdrawal of care, Hospice)? DNR status @ -no What co-morbidities impacted this encounter? (DM, HTN, Smoking, COPD, CAD, Cancer, CVA, ARF, Chemo, Hep., AIDS, mental health diagnosis, sleep apnea, morbid obesity)? @ -none Was patient admitted / discharged? Hospital course, mention meds given and route, prescriptions, significant lab abnormalities, going to OR and other pertinent info. @ - 41 female to the emergency department for evaluation of right shoulder pain and right shoulder strain after will could've been a possible syncopal event and getting stuck in between her bed and the wall. No acute findings here in the ER patient feels well and feels good for discharge home Discharge Undiagnosed new problem with uncertain prognosis? @ -no Drug Therapy requiring intensive monitoring for toxicity (Heparin, Nitro, Insulin, Cardizem)? @ -no Were any procedures done? @ -no Diagnosis/symptom? @ -Syncope, right shoulder strain pain Acute, or Chronic, or Acute on Chronic? @ -Acute Uncomplicated (without systemic symptoms) or Complicated (systemic symptoms)? @ -Complicated Side effects of treatment? @ -no Exacerbation, Progression, or Severe Exacerbation? @ -exacerbation Poses a threat to life or bodily function? How? (Chest pain, [place], [place], pneumonia, PE, COPD, DKA, ARF, appy, cholecystitis, CVA, Diverticulitis, Homicidal, Suicidal, threat to staff... and all critical care pts) @ -no Medical Decision Making - Medical Decision Making 41 female to the emergency department for evaluation of right shoulder pain and right shoulder strain after will could've been a possible syncopal event and getting stuck in between her bed and the wall. No acute findings here in the ER patient feels well and feels good for discharge home - Radiology Data Radiology results: report reviewed (chest x-ray shoulder x-ray right is negative for traumatic injury), image reviewed Disposition Clinical Impression: Syncope, Right shoulder pain, Right shoulder strain Disposition: HOME SELF-CARE Condition: Good Instructions (If sedation given, give patient instructions): Shoulder Sprain ( ED) Is patient prescribed a controlled substance at d/c from ED?: No Referrals: Raul Patel MD [Primary Care Provider] - 1-2 days Time of Disposition: 03:35
[2022-09-20 01:32] VITALS: PULSE 82
--- NOTE | 2022-09-20 03:40 | XR ---
EXAM: XR Chest, 1 View CLINICAL HISTORY: XR Reason: pain TECHNIQUE: Frontal view of the chest. COMPARISON: April 12, 2022 FINDINGS: Lungs: Unremarkable. No consolidation. Pleural space: Unremarkable. No pneumothorax. Heart: The cardiac silhouette is upper normal in size. Mediastinum: Unremarkable. Bones/joints: Unremarkable. Upper abdomen: There is no pneumoperitoneum under the diaphragm. Other findings: There is a large body habitus. IMPRESSION: No acute findings in the chest.
--- NOTE | 2022-09-20 03:40 | XR ---
EXAM: XR Right Shoulder Complete, 2 or More Views CLINICAL HISTORY: XR Reason: pain TECHNIQUE: Two or more views of the right shoulder. COMPARISON: No relevant prior studies available. FINDINGS: Bones/joints: Unremarkable. No acute fracture. No dislocation. Soft tissues: Unremarkable. IMPRESSION: Normal right shoulder x-rays.
[2022-09-20 03:52] VITALS: BP 135/86; RESP 16; TEMP 98.4
== END 2022-09-20 04:07 | disposition home or self-care (01) ==
LOC: EC 00:11
DX: S46.911A Strain of unspecified muscle, fascia and tendon at shoulder and upper arm level, right arm, initial encounter (principal); R55 Syncope and collapse; J45.909 Unspecified asthma, uncomplicated; F41.9 Anxiety disorder, unspecified; F32.A Depression, unspecified; K21.9 Gastro-esophageal reflux disease without esophagitis; F17.200 Nicotine dependence, unspecified, uncomplicated; F12.90 Cannabis use, unspecified, uncomplicated; Z79.899 Other long term (current) drug therapy; W22.8XXA Striking against or struck by other objects, initial encounter
CPT/HCPCS: 73030; 71045; 99285; 96374; J1885

== ENCOUNTER 2022-10-03 13:38 | Emergency (ER) | payer OTHER ==
[2022-10-03 13:43] VITALS: BP 124/80; PULSE 83; RESP 20; TEMP 98.3
--- NOTE | 2022-10-03 13:54 | ED ---
General Adult HPI - General Chief complaint: Animal Bite Stated complaint: allergic reaction bee Time Seen by Provider: 10/03/22 13:43 Source: patient, RN notes reviewed Mode of arrival: ambulatory Limitations: no limitations - History of Present Illness Initial comments: 41-year-old female presents emergency Department with chief complaint of bee sting to her left leg. She states that she was stung twice. Patient states never any issues his happened 2 days ago and there is increasing redness and irritation. He states is very itchy. She denies any difficulty breathing from her baseline with her asthma. Patient states she has not taken any medications for this other than applying topical steroid cream. - Related Data Home Medications Medication Instructions Recorded Confirmed FLUoxetine HCL [PROzac] 40 mg PO DAILY 06/26/20 08/31/21 Famotidine [Pepcid] 20 mg PO BID 06/26/20 08/31/21 Venlafaxine HCl [Effexor XR] 150 mg PO DAILY 06/26/20 08/31/21 amLODIPine [Norvasc] 2.5 mg PO DAILY 10/08/20 08/31/21 Ibuprofen [Motrin] 800 mg PO Q8H PRN 05/08/21 08/31/21 Cholecalciferol [Vitamin D3 (25 25 mcg PO DAILY 08/31/21 08/31/21 Mcg = 1000 Iu)] Previous Rx's Medication Instructions Recorded Albuterol Inhaler [Ventolin Hfa 1 - 2 puff INHALATION RT-Q6H PRN #1 09/06/21 Inhaler] Budesonide-Formot 160-4.5 Mcg 2 puff INHALATION RT-BID #1 each 09/06/21 [Symbicort 160-4.5 Mcg Inhaler] guaiFENesin-DM 100-10MG/5ML 10 ml PO Q4H PRN #120 ml 09/06/21 [Robitussin DM] methylPREDNISolone Dose Pack 4 mg PO DIRECTED #1 packet 09/06/21 [Medrol Dose Pack] Azithromycin [Zithromax Z Pack] 1 tab PO DIRECTED #6 tab 04/12/22 methylPREDNISolone Dose Pack 4 mg PO DIRECTED #21 tab 04/12/22 [Medrol Dose Pack] predniSONE 50 mg PO DAILY #5 tab 10/03/22 Allergies Allergy/AdvReac Type Severity Reaction Status Date / Time No Known Allergies Allergy Verified 10/03/22 13:43 Review of Systems ROS Statement: Those systems with pertinent positive or pertinent negative responses have been documented in the HPI. ROS Other: All systems not noted in ROS Statement are negative. Past Medical History Past Medical History: Asthma, GERD/Reflux Additional Past Medical History / Comment(s): Irregular heart beat at times, past syncope, hypokalemia, orthostatic hypotension, bronchitis, anemia, vitamin D deficiency, UTIs, R shoulder pain d/t tendonitis R rotator cuff. History of Any Multi-Drug Resistant Organisms: None Reported Past Surgical History: Tubal Ligation Additional Past Surgical History / Comment(s): TTT, cyst removed from L knee Past Anesthesia/Blood Transfusion Reactions: No Reported Reaction Additional Past Anesthesia/Blood Transfusion Reaction / Comment(s): unknown Past Psychological History: Anxiety, Depression Smoking Status: Current every day smoker Past Alcohol Use History: None Reported Past Drug Use History: Marijuana - Past Family History Mother Family Medical History: No Reported History Additional Family Medical History / Comment(s): Mother is healthy Father Additional Family Medical History / Comment(s): Vitamin D deficiency. General Exam Limitations: no limitations General appearance: alert, in no apparent distress Head exam: Present: atraumatic, normocephalic, normal inspection Eye exam: Present: normal appearance, PERRL, EOMI. Absent: scleral icterus, conjunctival injection, periorbital swelling ENT exam: Present: normal exam, mucous membranes moist Neck exam: Present: normal inspection. Absent: tenderness, meningismus, lymphadenopathy Respiratory exam: Present: normal lung sounds bilaterally. Absent: respiratory distress, wheezes, rales, rhonchi, stridor Cardiovascular Exam: Present: regular rate, normal rhythm, normal heart sounds. Absent: systolic murmur, diastolic murmur, rubs, gallop, clicks Extremities exam: Present: other (Left leg there is erythema of the left thigh) Course Vital Signs 10/03/22 13:39 Temperature 98.3 F Pulse Rate 83 Respiratory 20 Rate Blood Pressure 124/80 O2 Sat by Pulse 99 Oximetry Medical Decision Making - Medical Decision Making Was pt. sent in by a medical professional or institution (, PA, SENIOR DIRECTOR MARKETING, urgent care, hospital, or care home...) When possible be specific @ -No Did you speak to anyone other than the patient for history (EMS, parent, family, police, friend...)? What history was obtained from this source @ -No Did you review nursing and triage notes (agree or disagree)? Why? @ -I reviewed and agree with nursing and triage notes Were old charts reviewed (outside hosp., previous admission, EMS record, old EKG, old radiological studies, urgent care reports/EKG's, care home records)? Report findings @ -No old charts were reviewed Differential Diagnosis (chest pain, altered mental status, abdominal pain women, abdominal pain men, vaginal bleeding, weakness, fever, dyspnea, syncope, headache, dizziness, GI bleed, back pain, seizure, CVA, palpatations, mental health, musculoskeletal)? @ -Bee sting, localized reaction, anaphylaxis EKG interpreted by me (3pts min.). @ -None X-rays interpreted by me (1pt min.). @ -None done CT interpreted by me (1pt min.). @ -None done U/S interpreted by me (1pt. min.). @ -None done What testing was considered but not performed or refused? (CT, X-rays, U/S, labs)? Why? @ -None What meds were considered but not given or refused? Why? @ -None Did you discuss the management of the patient with other professionals (professionals i.e. , PA, SENIOR DIRECTOR MARKETING, lab, RT, psych nurse, oncology social worker, documentation consultant, teacher, operations officer afloat, case management manager)? Give summary @ -No Was smoking cessation discussed for >3mins.? @ -No Was critical care preformed (if so, how long)? @ -No Were there social determinants of health that impacted care today? How? (Homelessness, low income, unemployed, alcoholism, drug addiction, transportation, low edu. Level, literacy, decrease access to med. care, [place] [facility], rehab)? @ -No Was there de-escalation of care discussed even if they declined (Discuss DNR or withdrawal of care, Hospice)? DNR status @ -No What co-morbidities impacted this encounter? (DM, HTN, Smoking, COPD, CAD, Cancer, CVA, ARF, Chemo, Hep., AIDS, mental health diagnosis, sleep apnea, morbid obesity)? @ -None Was patient admitted / discharged? Hospital course, mention meds given and route, prescriptions, significant lab abnormalities, going to OR and other pertinent info. @ -Discharged Patient has localized reaction to bee sting patient will continue antihistamines as home along with prednisone. Return parameters discussed. Undiagnosed new problem with uncertain prognosis? @ -No Drug Therapy requiring intensive monitoring for toxicity (Heparin, Nitro, Insulin, Cardizem)? @ -No Were any procedures done? @ -No Diagnosis/symptom? @ -Localized bee sting reaction Acute, or Chronic, or Acute on Chronic? @ -Acute Uncomplicated (without systemic symptoms) or Complicated (systemic symptoms)? @ -Uncomplicated Side effects of treatment? @ -No Exacerbation, Progression, or Severe Exacerbation? @ -No Poses a threat to life or bodily function? How? (Chest pain, USA, [place], pneumonia, PE, COPD, DKA, ARF, appy, cholecystitis, CVA, Diverticulitis, Homicidal, Suicidal, threat to staff... and all critical care pts) @ -No Disposition Clinical Impression: Local reaction to bee sting Disposition: HOME SELF-CARE Condition: Stable Instructions (If sedation given, give patient instructions): Insect Bite or Sting (ED) Additional Instructions: Please return to the Emergency Department if symptoms worsen or any other concerns. Prescriptions: predniSONE 50 mg PO DAILY #5 tab Is patient prescribed a controlled substance at d/c from ED?: No Referrals: Raul Patel MD [Primary Care Provider] - 1-2 days Time of Disposition: 13:54
== END 2022-10-03 14:05 | disposition home or self-care (01) ==
LOC: EC 13:38
DX: T63.441A Toxic effect of venom of bees, accidental (unintentional), initial encounter (principal); J45.909 Unspecified asthma, uncomplicated; F41.9 Anxiety disorder, unspecified; F32.A Depression, unspecified; F12.90 Cannabis use, unspecified, uncomplicated; F17.200 Nicotine dependence, unspecified, uncomplicated; Z79.899 Other long term (current) drug therapy
CPT/HCPCS: 99283

== ENCOUNTER 2022-12-04 10:10 | Emergency (ER) | payer OTHER ==
[2022-12-04 10:25] VITALS: TEMP 97.4
[2022-12-04 10:42] VITALS: RESP 18
--- NOTE | 2022-12-04 10:53 | ED ---
URI HPI - General Chief Complaint: Upper Respiratory Infection Stated Complaint: congestion Time Seen by Provider: 12/04/22 10:33 Source: patient Mode of arrival: ambulatory Limitations: no limitations - History of Present Illness Initial Comments: Patient is a 42-year-old female history of asthma in was a past smoker presents emergency room with complaints of upper respiratory symptoms. She complains of a cough, congestion and nasal drainage that started 3 days ago. She's been taking [id number] medications without improvement. Patient states she has had multiple coworkers who have been out sick as well. She states that she had coughed so much that a few time she had blood in the sputum. Patient denies any fevers. She denies any vomiting or diarrhea. - Related Data Home Medications Medication Instructions Recorded Confirmed FLUoxetine HCL [PROzac] 40 mg PO DAILY 06/26/20 08/31/21 Famotidine [Pepcid] 20 mg PO BID 06/26/20 08/31/21 Venlafaxine HCl [Effexor XR] 150 mg PO DAILY 06/26/20 08/31/21 amLODIPine [Norvasc] 2.5 mg PO DAILY 10/08/20 08/31/21 Ibuprofen [Motrin] 800 mg PO Q8H PRN 05/08/21 08/31/21 Cholecalciferol [Vitamin D3 (25 25 mcg PO DAILY 08/31/21 08/31/21 Mcg = 1000 Iu)] Previous Rx's Medication Instructions Recorded Albuterol Inhaler [Ventolin Hfa 1 - 2 puff INHALATION RT-Q6H PRN #1 09/06/21 Inhaler] Budesonide-Formot 160-4.5 Mcg 2 puff INHALATION RT-BID #1 each 09/06/21 [Symbicort 160-4.5 Mcg Inhaler] guaiFENesin-DM 100-10MG/5ML 10 ml PO Q4H PRN #120 ml 09/06/21 [Robitussin DM] methylPREDNISolone Dose Pack 4 mg PO DIRECTED #1 packet 09/06/21 [Medrol Dose Pack] Azithromycin [Zithromax Z Pack] 1 tab PO DIRECTED #6 tab 04/12/22 methylPREDNISolone Dose Pack 4 mg PO DIRECTED #21 tab 04/12/22 [Medrol Dose Pack] predniSONE 50 mg PO DAILY #5 tab 10/03/22 Albuterol Inhaler [Ventolin Hfa 1 puff INHALATION QID #8 gm 12/04/22 Inhaler] guaiFENesin-Coden 100-10MG/5ML 5 ml PO Q6H PRN 3 Days #60 ml 12/04/22 [Robitussin AC] predniSONE 10 mg PO DIRECTED #12 tab 12/04/22 Allergies Allergy/AdvReac Type Severity Reaction Status Date / Time No Known Allergies Allergy Verified 12/04/22 10:15 Review of Systems ROS Statement: Those systems with pertinent positive or pertinent negative responses have been documented in the HPI. ROS Other: All systems not noted in ROS Statement are negative. Past Medical History Past Medical History: Asthma, GERD/Reflux Additional Past Medical History / Comment(s): Irregular heart beat at times, past syncope, hypokalemia, orthostatic hypotension, bronchitis, anemia, vitamin D deficiency, UTIs, R shoulder pain d/t tendonitis R rotator cuff. History of Any Multi-Drug Resistant Organisms: None Reported Past Surgical History: Tubal Ligation Additional Past Surgical History / Comment(s): TTT, cyst removed from L knee Past Anesthesia/Blood Transfusion Reactions: No Reported Reaction Additional Past Anesthesia/Blood Transfusion Reaction / Comment(s): unknown Past Psychological History: Anxiety, Depression Smoking Status: Current every day smoker Past Alcohol Use History: None Reported Past Drug Use History: Marijuana - Past Family History Mother Family Medical History: No Reported History Additional Family Medical History / Comment(s): Mother is healthy Father Additional Family Medical History / Comment(s): Vitamin D deficiency. General Exam Limitations: no limitations General appearance: alert, in no apparent distress Head exam: Present: atraumatic Eye exam: Present: normal appearance ENT exam: Present: normal exam Respiratory exam: Present: normal lung sounds bilaterally, respiratory distress Cardiovascular Exam: Present: regular rate, normal rhythm GI/Abdominal exam: Present: soft Extremities exam: Present: full ROM Back exam: Present: full ROM Neurological exam: Present: alert, oriented X3, CN II-XII intact Psychiatric exam: Present: normal affect, normal mood Skin exam: Present: warm, dry Course Vital Signs 12/04/22 12/04/22 10:15 10:24 Temperature 97.4 F L Pulse Rate 71 Respiratory 16 18 Rate Blood Pressure 134/89 O2 Sat by Pulse 97 Oximetry - Reevaluation(s) Reevaluation #1: 12/04/22 12:10 Patient's well appearing in the emergency room. She is in no respiratory distress. Lungs are clear to auscultation no wheezing rales or rhonchi heard. Discussed lab and imaging results with patient. Patient's labs are negative for Covid, flu or RSV. Chest x-ray shows some inflammation but no pneumonia or pneumothorax or other acute changes. I discussed management with symptomatic management. She understands and agrees to treatment disrespect. Medical Decision Making - Medical Decision Making Was pt. sent in by a medical professional or institution (, [facility], [employer]PA EXPERIENCE COORDINATOR, urgent care, hospital, or shelter...) When possible be specific @ -[No] Did you speak to anyone other than the patient for history (EMS, parent, family, police, friend...)? What history was obtained from this source @ -[No] Did you review nursing and triage notes (agree or disagree)? Why? @ -[I reviewed and agree with nursing and triage notes] Were old charts reviewed (outside hosp., previous admission, EMS record, old EKG, old radiological studies, urgent care reports/EKG's, shelter records)? Report findings @ -[No old charts were reviewed] Differential Diagnosis (chest pain, altered mental status, abdominal pain women, abdominal pain men, vaginal bleeding, weakness, fever, dyspnea, syncope, headache, dizziness, GI bleed, back pain, seizure, CVA, palpatations, mental health, musculoskeletal)? @ -Bronchitis, URI, pneumonia, COVID-19, influenza, RSV EKG interpreted by me (3pts min.). @ -[As above] X-rays interpreted by me (1pt min.). @ -Mild inflammation no obvious pneumonia pneumothorax or other acute changes. Radiology report pending for confirmation of changes. CT interpreted by me (1pt min.). @ -[None done] U/S interpreted by me (1pt. min.). @ -[None done] What testing was considered but not performed or refused? (CT, X-rays, U/S, labs)? Why? @ -[None] What meds were considered but not given or refused? Why? @ -[None] Did you discuss the management of the patient with other professionals (professionals i.e. , PA, [employer] EXPERIENCE COORDINATOR, lab, RT, psych nurse, social insurance specialist, custom ski maker, teacher, air control/anti air warfare officer, manager case)? Give summary @ -Discussed patient's symptoms are Management with attending ED physician Dr. Rose today. Was smoking cessation discussed for >3mins.? @ -[No] Was critical care preformed (if so, how long)? @ -[No] Were there social determinants of health that impacted care today? How? (Homelessness, low income, unemployed, alcoholism, drug addiction, transportation, low edu. Level, literacy, decrease access to med. care, assisted, rehab)? @ -[No] Was there de-escalation of care discussed even if they declined (Discuss DNR or withdrawal of care, Hospice)? DNR status @ -[No] What co-morbidities impacted this encounter? (DM, HTN, Smoking, COPD, CAD, Cancer, CVA, ARF, Chemo, Hep., AIDS, mental health diagnosis, sleep apnea, morbid obesity)? @ -[None] Was patient admitted / discharged? Hospital course, mention meds given and route, prescriptions, significant lab abnormalities, going to OR and other pertinent info. @ -Patient is in no respiratory distress. Vital signs are stable. She is stable to follow up as an outpatient in the continue [id number] symptomatic management for the upper respiratory infection. Undiagnosed new problem with uncertain prognosis? @ -[No] Drug Therapy requiring intensive monitoring for toxicity (Heparin, Nitro, Insulin, Cardizem)? @ -[No] Were any procedures done? @ -[No] Diagnosis/symptom? @ -[URI, Bronchitis Acute, or Chronic, or Acute on Chronic? @ -[Acute Uncomplicated (without systemic symptoms) or Complicated (systemic symptoms)? @ -[Uncomplicated Side effects of treatment? @ -[No] Exacerbation, Progression, or Severe Exacerbation? @ -[No] Poses a threat to life or bodily function? How? (Chest pain, [place], [place], pneumonia, PE, COPD, DKA, ARF, appy, cholecystitis, CVA, Diverticulitis, Homicidal, Suicidal, threat to staff... and all critical care pts) @ -[No] - Lab Data Lab Results 12/04/22 Range/Units 10:45 Influenza Type A (PCR) Not Detected (Not Detectd) Influenza Type B (PCR) Not Detected (Not Detectd) RSV (PCR) Not Detected (Not Detectd) SARS-CoV-2 (PCR) Not Detected (Not Detectd) - Radiology Data Radiology results: report reviewed, image reviewed Disposition Clinical Impression: Bronchitis, URI (upper respiratory infection) Disposition: HOME SELF-CARE Condition: Good Is patient prescribed a controlled substance at d/c from ED?: No If prescribed controlled substance>3 days was MAPS reviewed?: No Referrals: Raul Patel MD [Primary Care Provider] - 1-2 days Time of Disposition: 12:16
--- NOTE | 2022-12-04 11:39 | XR ---
EXAMINATION TYPE: XR chest 2V DATE OF EXAM: 12/04/2022 COMPARISON: 09/20/2022 HISTORY: 42-year-old female cough and congestion TECHNIQUE: PA and lateral views FINDINGS: Heart normal size. Aorta and pulmonary vasculature within normal limits. Mild interstitial prominence without consolidation or pleural effusion. IMPRESSION: Mild interstitial prominence could reflect bronchitis or asthma. No focal infiltrate seen.
[2022-12-04 12:49] VITALS: BP 156/75; PULSE 66
== END 2022-12-04 12:33 | disposition home or self-care (01) ==
LOC: EC 10:10
DX: J40 Bronchitis, not specified as acute or chronic (principal); J06.9 Acute upper respiratory infection, unspecified; F41.9 Anxiety disorder, unspecified; F32.A Depression, unspecified; F12.90 Cannabis use, unspecified, uncomplicated; F17.200 Nicotine dependence, unspecified, uncomplicated; Z79.899 Other long term (current) drug therapy; Z20.822 Contact with and (suspected) exposure to COVID-19
CPT/HCPCS: 71046; 87636; 99283

== ENCOUNTER 2023-01-21 12:56 | Emergency (ER) | payer OTHER ==
[2023-01-21] MEDS ORDERED: DIPH,PERTUS(ACELL)TETVAC-LF 0.5 ML VIAL IM ONE (13:02)
--- NOTE | 2023-01-21 13:02 | ED ---
General Adult HPI - General Source: patient, RN notes reviewed Mode of arrival: ambulatory Limitations: no limitations <Micky Crews - Last Filed: 01/21/23 13:01> <Marguerite Vo - Last Filed: 01/21/23 18:59> - General Stated complaint: dog bit on left earlobe Time Seen by Provider: 01/21/23 13:01 - History of Present Illness Initial comments: 42-year-old male presents emergency Department with chief complaint of right ear dog bite. Patient states she was bit by her niece's dog yesterday. Patient has a laceration of her right ear that is healing. Patient states her last tetanus was around 10 years ago. (Micky Crews) Quick note reviewed: This is a 42-year-old female with no significant past medical history who presents the emergency department with a chief complaint of dog bite. Patient reports that she was bit by her niece's before yesterday. It is approximately 3 PM. She reports that she did not look at at the time of injury and noticed that it was worse today than she thought. She is not up-to-date on her tetanus. (Marguerite Vo) - Related Data Home Medications Medication Instructions Recorded Confirmed FLUoxetine HCL [PROzac] 40 mg PO DAILY 06/26/20 08/31/21 Famotidine [Pepcid] 20 mg PO BID 06/26/20 08/31/21 Venlafaxine HCl [Effexor XR] 150 mg PO DAILY 06/26/20 08/31/21 amLODIPine [Norvasc] 2.5 mg PO DAILY 10/08/20 08/31/21 Ibuprofen [Motrin] 800 mg PO Q8H PRN 05/08/21 08/31/21 Cholecalciferol [Vitamin D3 (25 25 mcg PO DAILY 08/31/21 08/31/21 Mcg = 1000 Iu)] Previous Rx's Medication Instructions Recorded Albuterol Inhaler [Ventolin Hfa 1 - 2 puff INHALATION RT-Q6H PRN #1 09/06/21 Inhaler] Budesonide-Formot 160-4.5 Mcg 2 puff INHALATION RT-BID #1 each 09/06/21 [Symbicort 160-4.5 Mcg Inhaler] guaiFENesin-DM 100-10MG/5ML 10 ml PO Q4H PRN #120 ml 09/06/21 [Robitussin DM] methylPREDNISolone Dose Pack 4 mg PO DIRECTED #1 packet 09/06/21 [Medrol Dose Pack] Azithromycin [Zithromax Z Pack] 1 tab PO DIRECTED #6 tab 04/12/22 methylPREDNISolone Dose Pack 4 mg PO DIRECTED #21 tab 04/12/22 [Medrol Dose Pack] predniSONE 50 mg PO DAILY #5 tab 10/03/22 Albuterol Inhaler [Ventolin Hfa 1 puff INHALATION QID #8 gm 12/04/22 Inhaler] guaiFENesin-Coden 100-10MG/5ML 5 ml PO Q6H PRN 3 Days #60 ml 12/04/22 [Robitussin AC] predniSONE 10 mg PO DIRECTED #12 tab 12/04/22 Amoxic-Pot Clav 875-125Mg 1 tab PO Q12HR #20 tab 01/21/23 [Augmentin 875-125] amLODIPine [Norvasc] 2.5 mg PO DAILY #30 tablet 01/21/23 Allergies Allergy/AdvReac Type Severity Reaction Status Date / Time No Known Allergies Allergy Verified 01/21/23 13:34 Review of Systems ROS Other: All systems not noted in ROS Statement are negative. <Micky Crews - Last Filed: 01/21/23 13:01> ROS Other: All systems not noted in ROS Statement are negative. <Marguerite Vo - Last Filed: 01/21/23 18:59> ROS Statement: Those systems with pertinent positive or pertinent negative responses have been documented in the HPI. Past Medical History Past Medical History: Asthma, GERD/Reflux Additional Past Medical History / Comment(s): Irregular heart beat at times, past syncope, hypokalemia, orthostatic hypotension, bronchitis, anemia, vitamin D deficiency, UTIs, R shoulder pain d/t tendonitis R rotator cuff. History of Any Multi-Drug Resistant Organisms: None Reported Past Surgical History: Tubal Ligation Additional Past Surgical History / Comment(s): TTT, cyst removed from L knee Past Anesthesia/Blood Transfusion Reactions: No Reported Reaction Additional Past Anesthesia/Blood Transfusion Reaction / Comment(s): unknown Past Psychological History: Anxiety, Depression Smoking Status: Current every day smoker Past Alcohol Use History: None Reported Past Drug Use History: Marijuana - Past Family History Mother Family Medical History: No Reported History Additional Family Medical History / Comment(s): Mother is healthy Father Additional Family Medical History / Comment(s): Vitamin D deficiency. <Micky Crews - Last Filed: 01/21/23 13:01> General Exam <Micky Crews - Last Filed: 01/21/23 13:01> <Marguerite Vo - Last Filed: 01/21/23 18:59> - General Exam Comments Initial Comments: Visual Physical Exam Vital signs reviewed General: Well-appearing, nontoxic, no acute distress. Head: Normocephalic, atraumatic Eyes: PERRLA, EOMI ENT: Airway patent Chest: Nonlabored breathing Skin: No visual rash, normal skin tone Neuro: Alert and oriented 3 Musculoskeletal: No gross abnormalities (Micky Crews) General: Alert, in no acute distress Head: atraumatic normocephalic. Eyes PERRL, EOMI intact, mucous membranes moist, right ear small piece of skin missing in, with dried blood and scabbing present. Respiratory: Lungs clear to auscultation bilaterally Cardiovascular: Heart rate regular rate and rhythm Abdominal: Soft without guarding or rebound Extremities: Normal inspection with full range of motion and normal capillary refill Neuroogic: alert and oriented 3, CN II-XII intact, able to ambulate with steady gait Skin: warm dry and intact with normal color (Marguerite Vo) Course Vital Signs 01/21/23 01/21/23 13:27 16:28 Temperature 98.3 F 97.9 F Pulse Rate 87 72 Respiratory 18 16 Rate Blood Pressure 143/97 167/104 O2 Sat by Pulse 95 98 Oximetry Medical Decision Making <Micky Crews - Last Filed: 01/21/23 13:01> <Marguerite Vo - Last Filed: 01/21/23 18:59> - Medical Decision Making I completed the quick note portion of this chart signed Micky Crews PA-C (Micky Crews) Was pt. sent in by a medical professional or institution ([facility], [facility], urgent care, hospital, or correction...) When possible be specific @ -[No] Did you speak to anyone other than the patient for history (EMS, parent, family, police, friend...)? What history was obtained from this source @ -[No] Did you review nursing and triage notes (agree or disagree)? Why? @ -[I reviewed and agree with nursing and triage notes] Were old charts reviewed (outside hosp., previous admission, EMS record, old EKG, old radiological studies, urgent care reports/EKG's, correction records)? Report findings @ -[No old charts were reviewed] Differential Diagnosis (chest pain, altered mental status, abdominal pain women, abdominal pain men, vaginal bleeding, weakness, fever, dyspnea, syncope, headache, dizziness, GI bleed, back pain, seizure, CVA, palpatations, mental health, musculoskeletal)? @ -[not applicable] EKG interpreted by me (3pts min.). @ -[As above] X-rays interpreted by me (1pt min.). @ -[None done] CT interpreted by me (1pt min.). @ -[None done] U/S interpreted by me (1pt. min.). @ -[None done] What testing was considered but not performed or refused? (CT, X-rays, U/S, labs)? Why? @ -[None] What meds were considered but not given or refused? Why? @ -[None] Did you discuss the management of the patient with other professionals (professionals i.e. , PA, CHAPLAINCY, lab, RT, psych nurse, social science manager, driller machine, teacher, dental officer, porter sample case)? Give summary @ -[No] Was smoking cessation discussed for >3mins.? @ -[No] Was critical care preformed (if so, how long)? @ -[No] Were there social determinants of health that impacted care today? How? (Homelessness, low income, unemployed, alcoholism, drug addiction, transportation, low edu. Level, literacy, decrease access to med. care, nursing home, rehab)? @ -[No] Was there de-escalation of care discussed even if they declined (Discuss DNR or withdrawal of care, Hospice)? DNR status @ -[No] What co-morbidities impacted this encounter? (DM, HTN, Smoking, COPD, CAD, Cancer, CVA, ARF, Chemo, Hep., AIDS, mental health diagnosis, sleep apnea, morbid obesity)? @ -[None] Was patient admitted / discharged? Hospital course, mention meds given and route, prescriptions, significant lab abnormalities, going to OR and other pertinent info. @ Discharged. This is a 42-year-old female who presents emergency Department with dog bite. In original injury occurred approximately over 24 hours prior to the time of evaluation. SHe was updated on tetanus and given Augmentin. Return precautions discussed at length. Patient discharged in stable condition. Case discussed with [facility]. mauricio [facility] who agrees with plan of care Undiagnosed new problem with uncertain prognosis? @ -[No] Drug Therapy requiring intensive monitoring for toxicity (Heparin, Nitro, Insulin, Cardizem)? @ -[No] Were any procedures done? @ -[No] Diagnosis/symptom? @ -Dog bite Acute, or Chronic, or Acute on Chronic? @ -Acute Uncomplicated (without systemic symptoms) or Complicated (systemic symptoms)? @ -Uncomplicated Side effects of treatment? @ -[No] Exacerbation, Progression, or Severe Exacerbation? @ -[No] Poses a threat to life or bodily function? How? (Chest pain, [place], [place], pneumonia, PE, COPD, DKA, ARF, appy, cholecystitis, CVA, Diverticulitis, Homicidal, Suicidal, threat to staff... and all critical care pts) @ -Low likelihood (Marguerite Vo) Disposition <Micky Crews - Last Filed: 01/21/23 13:01> Is patient prescribed a controlled substance at d/c from ED?: No Time of Disposition: 14:45 <Marguerite Vo - Last Filed: 01/21/23 18:59> Clinical Impression: Dog bite Disposition: HOME SELF-CARE Condition: Stable Instructions (If sedation given, give patient instructions): Animal Bite (ED) Additional Instructions: Take antibiotics as prescribed Please return to the nearest emergency department if any worsening symptoms or redness or purulent discharge at THE site Prescriptions: Amoxic-Pot Clav 875-125Mg [Augmentin 875-125] 1 tab PO Q12HR #20 tab amLODIPine [Norvasc] 2.5 mg PO DAILY #30 tablet Referrals: Raul Patel MD [Primary Care Provider] - 1-2 days
[2023-01-21] MEDS ORDERED: AMOXIC-POT CLAV 875-125MG 1 EACH TAB PO STA (14:46)
[2023-01-21] MEDS ORDERED: LIDOCAINE 1% INJ 10MG/ML (20 ML MDV) SQ ONE (14:52)
[2023-01-21] MEDS ORDERED: amLODIPine 5 MG TAB PO STA (16:00)
[2023-01-21 16:40] VITALS: BP 167/104; PULSE 72; RESP 16; TEMP 97.9
== END 2023-01-21 16:35 | disposition home or self-care (01) ==
LOC: EC 12:56
DX: S01.351A Open bite of right ear, initial encounter (principal); J45.909 Unspecified asthma, uncomplicated; F17.200 Nicotine dependence, unspecified, uncomplicated; F12.90 Cannabis use, unspecified, uncomplicated; Z86.59 Personal history of other mental and behavioral disorders; Z23 Encounter for immunization; W54.0XXA Bitten by dog, initial encounter
CPT/HCPCS: 90715; 99283; 90471; J2001

== ENCOUNTER 2023-04-15 10:56 | Emergency (ER) | payer OTHER ==
[2023-04-15] MEDS: KETOROLAC 15 MG/ML 1 ML VIAL IM STA (11:22)
--- NOTE | 2023-04-15 11:22 | ED ---
Lower Extremity Injury HPI - General Chief Complaint: Extremity Injury, Lower Stated Complaint: R foot injury Time Seen by Provider: 04/15/23 11:02 Source: patient, RN notes reviewed Mode of arrival: ambulatory Limitations: no limitations - History of Present Illness Initial Comments: This is a 42 year old female who presents to the emergency department for an injury to the toes on her right foot. States that she injured this on a baby gait last night. She didn't think much of it last night, but when she woke up this morning the pain was much more severe. The pain is around toes 4 and 5 on the right foot as well as the bottom of the foot. She took ibuprofen without much relief in symptoms. She had a lot of difficulty ambulating this morning due to the pain as well. Denies sustaining any other injuries. - Related Data Home Medications Medication Instructions Recorded Confirmed FLUoxetine HCL [PROzac] 40 mg PO DAILY 06/26/20 04/15/23 Venlafaxine HCl [Effexor XR] 150 mg PO DAILY 06/26/20 04/15/23 amLODIPine [Norvasc] 2.5 mg PO DIRECTED 10/08/20 04/15/23 Lasix (Unknown Dose) 1 dose PO DAILY 04/15/23 04/15/23 Previous Rx's Medication Instructions Recorded Albuterol Inhaler [Ventolin Hfa 1 - 2 puff INHALATION RT-Q6H PRN #1 09/06/21 Inhaler] Budesonide-Formot 160-4.5 Mcg 2 puff INHALATION RT-BID #1 each 09/06/21 [Symbicort 160-4.5 Mcg Inhaler] HYDROcodone/APAP 5-325MG [Taylor 1 tab PO Q6HR PRN 3 Days #12 tab 04/15/23 5-325] Ibuprofen [Motrin] 800 mg PO Q8H PRN #30 tab 04/15/23 Allergies Allergy/AdvReac Type Severity Reaction Status Date / Time No Known Allergies Allergy Verified 04/15/23 12:33 Review of Systems ROS Statement: Those systems with pertinent positive or pertinent negative responses have been documented in the HPI. ROS Other: All systems not noted in ROS Statement are negative. Past Medical History Past Medical History: Asthma, GERD/Reflux Additional Past Medical History / Comment(s): Irregular heart beat at times, past syncope, hypokalemia, orthostatic hypotension, bronchitis, anemia, vitamin D deficiency, UTIs, R shoulder pain d/t tendonitis R rotator cuff. History of Any Multi-Drug Resistant Organisms: None Reported Past Surgical History: Tubal Ligation Additional Past Surgical History / Comment(s): TTT, cyst removed from L knee Past Anesthesia/Blood Transfusion Reactions: No Reported Reaction Additional Past Anesthesia/Blood Transfusion Reaction / Comment(s): unknown Past Psychological History: Anxiety, Depression Smoking Status: Current every day smoker, Vaper Past Alcohol Use History: None Reported Past Drug Use History: Marijuana - Past Family History Mother Family Medical History: No Reported History Additional Family Medical History / Comment(s): Mother is healthy Father Additional Family Medical History / Comment(s): Vitamin D deficiency. General Exam Limitations: no limitations General appearance: alert, in no apparent distress Head exam: Present: atraumatic, normocephalic, normal inspection Respiratory exam: Present: normal lung sounds bilaterally. Absent: respiratory distress, wheezes, rales, rhonchi, stridor Cardiovascular Exam: Present: regular rate, normal rhythm, normal heart sounds. Absent: systolic murmur, diastolic murmur, rubs, gallop, clicks Extremities exam: Present: other (Tenderness, swelling, and ecchymosis along toes 4 and 5 on the right foot. Full range of motion.) Psychiatric exam: Present: normal affect, normal mood Skin exam: Present: warm, dry, intact, normal color. Absent: rash Course Vital Signs 04/15/23 04/15/23 04/15/23 10:59 11:14 12:30 Temperature 97.9 F 97.7 F 98.0 F Pulse Rate 71 69 63 Respiratory 20 12 12 Rate Blood Pressure 121/85 132/81 128/83 O2 Sat by Pulse 97 97 96 Oximetry Medical Decision Making - Medical Decision Making This is a 42-year-old female who presents to the emergency department for an injury to the toes on her right foot. Was pt. sent in by a medical professional or institution? @ -No Did you speak to anyone other than the patient for history? @ -No Did you review nursing and triage notes? @ -Yes, and I agree, it is accurate with regards to the patient's symptoms. Were old charts reviewed? @ -No Differential Diagnosis? @ -Differential Musculoskeletal: Muscular strain, contusion, ligament sprain, fracture, arthritis, septic arthritis, bursitis, cellulitis, muscle spasm, nerve compression, DVT, arterial occlusion, herpes zoster, electrolyte abnormality, tumor.... This is not meant to be in all inclusive list EKG interpreted by me (3pts min.)? @ -Not obtained X-rays interpreted by me (1pt min.)? @ -X-ray of the right fourth and fifth toes obtained. My interpretation identifies a fracture of the fifth phalanx. CT interpreted by me (1pt min.)? @ -Not obtained U/S interpreted by me (1pt. min.)? @ -Not obtained What testing was considered but not performed? (CT, X-rays, U/S, labs)? Why? @ -None What meds were considered but not given? Why? @ -None Did you discuss the management of the patient with other professionals? @ -No Did you reconcile home meds? @ -No Was smoking cessation discussed for >3mins.? @ -No Was critical care preformed (if so, how long)? @ -No Were there social determinants of health that impacted care today? How? (Homelessness, low income, unemployed, alcoholism, drug addiction, transportation, low edu. Level, literacy, decrease access to med. care, halfway, rehab)? @ -No Was there de-escalation of care discussed even if they declined? (Discuss DNR or withdrawal of care, Hospice)? @ -No What co-morbidities impacted this encounter? (DM, HTN, Smoking, COPD, CAD, Cancer, CVA, Hep., AIDS, mental health diagnosis, sleep apnea, morbid obesity)? @ -None Was patient admitted / discharged? @ -Discharged. X-ray of the right toes obtained demonstrating a mildly displaced fracture at the base of the proximal phalanx fifth digit. Toes were anselmo taped and she was given a postoperative shoe. Rx for Ibuprofen provided and I advised she take this with Tylenol for additional relief. Also advised applying ice and following up with orthopedics. Patient discharged home in stable condition. Undiagnosed new problem with uncertain prognosis? @ -None Drug Therapy requiring intensive monitoring for toxicity (Heparin, Nitro, Insulin, Cardizem)? @ -None Were any procedures done? @ -None Diagnosis/symptom? @ -Proximal phalanx fracture of right fifth toe Acute, or Chronic, or Acute on Chronic? @ -Acute Uncomplicated (without systemic symptoms) or Complicated (systemic symptoms)? @ -Uncomplicated Side effects of treatment? @ -None Exacerbation, Progression, or Severe Exacerbation] @ -Not applicable Poses a threat to life or bodily function? @ -This may limit her ability to ambulate for the mean time. Return precautions reviewed in depth, the patient is instructed to return to the emergency department with any new, worsening, or concerning symptoms. Patient verbalized understanding. This case was discussed in detail with the attending ED physician, Dr. Rose. Presentation, findings, and treatment plan discussed in detail as well. - Radiology Data Radiology results: report reviewed, image reviewed Disposition Clinical Impression: Closed fracture of phalanx of fifth toe Disposition: HOME SELF-CARE Instructions (If sedation given, give patient instructions): Toe Fracture (ED) Additional Instructions: Return to the emergency department with any new, worsening, or concerning symptoms. Alternate with Ibuprofen and Tylenol as needed for pain relief. Take the Taylor sparingly when your pain is the most severe and be aware that it may make you drowsy. Apply ice for 10-15 minutes every 2-3 hours for the first 2-3 days. Contact orthopedics as listed below for a follow up appointment. Prescriptions: Ibuprofen [Motrin] 800 mg PO Q8H PRN #30 tab PRN Reason: Pain HYDROcodone/APAP 5-325MG [Taylor 5-325] 1 tab PO Q6HR PRN 3 Days #12 tab PRN Reason: Pain Is patient prescribed a controlled substance at d/c from ED?: Yes When asked, does pt state using other controlled substances?: No If prescribed controlled substance>3 days was MAPS reviewed?: Prescribed <3 Days Referrals: Raul Patel MD [Primary Care Provider] - 1-2 days Donna Anderson DO [Doctor of Osteopathic Medicine] - 1-2 days Time of Disposition: 12:17
[2023-04-15] MEDS: HYDROcodone/APAP 5-325MG 1 EACH TAB PO STA (11:23)
[2023-04-15 11:41] VITALS: RESP 12
--- NOTE | 2023-04-15 12:00 | XR ---
EXAMINATION TYPE: XR toes RT DATE OF EXAM: 04/15/2023 COMPARISON: NONE HISTORY: Pain in the fourth and fifth toe TECHNIQUE: Three views right fourth and fifth toe are submitted. FINDINGS: There is a mildly displaced fracture base proximal phalanx fifth digit. Remaining osseous structures intact. No erosive changes. IMPRESSION: 1. Mildly displaced fracture base proximal phalanx fifth digit.
[2023-04-15 12:44] VITALS: BP 128/83; PULSE 63; TEMP 98
== END 2023-04-15 12:42 | disposition home or self-care (01) ==
LOC: EC 10:56
DX: S92.411A Displaced fracture of proximal phalanx of right great toe, initial encounter for closed fracture (principal); J45.909 Unspecified asthma, uncomplicated; F17.290 Nicotine dependence, other tobacco product, uncomplicated; F12.90 Cannabis use, unspecified, uncomplicated; F41.9 Anxiety disorder, unspecified; F32.A Depression, unspecified; Z79.899 Other long term (current) drug therapy
CPT/HCPCS: 73660; 99283; 96372; J1885

== ENCOUNTER 2023-05-19 22:17 | Emergency (ER) | payer OTHER ==
--- NOTE | 2023-05-19 22:44 | ED ---
Dizziness HPI - General Chief Complaint: Syncope Stated Complaint: Syncope Time Seen by Provider: 05/19/23 22:29 Source: patient, EMS Mode of arrival: EMS - History of Present Illness Initial Comments: 42-year-old female presenting with chief complaint of syncopal episode. Patient was at work when this occurred. She states that last thing she remembers is turning around and then she woke up on the floor with people standing over her. She states that today she started to feel like she was coming down with a cold, she complains of cough, shortness of breath, fatigue. She does have history of asthma, she is a current smoker. No blood thinners. Fevers. No lower extremity swelling. No nausea, vomiting, abdominal pain. - Related Data Home Medications Medication Instructions Recorded Confirmed FLUoxetine HCL [PROzac] 40 mg PO DAILY 06/26/20 04/15/23 Venlafaxine HCl [Effexor XR] 150 mg PO DAILY 06/26/20 04/15/23 amLODIPine [Norvasc] 2.5 mg PO DIRECTED 10/08/20 04/15/23 Lasix (Unknown Dose) 1 dose PO DAILY 04/15/23 04/15/23 Previous Rx's Medication Instructions Recorded Albuterol Inhaler [Ventolin Hfa 1 - 2 puff INHALATION RT-Q6H PRN #1 09/06/21 Inhaler] Budesonide-Formot 160-4.5 Mcg 2 puff INHALATION RT-BID #1 each 09/06/21 [Symbicort 160-4.5 Mcg Inhaler] HYDROcodone/APAP 5-325MG [Angela 1 tab PO Q6HR PRN 3 Days #12 tab 04/15/23 5-325] Ibuprofen [Motrin] 800 mg PO Q8H PRN #30 tab 04/15/23 Albuterol Nebulized [Ventolin 2.5 mg INHALATION Q4H PRN 8 Days 05/20/23 Nebulized] #150 ml Oseltamivir [Tamiflu] 75 mg PO Q12HR 5 Days #10 cap 05/20/23 predniSONE [Deltasone] 60 mg PO DAILY 5 Days #15 tab 05/20/23 Allergies Allergy/AdvReac Type Severity Reaction Status Date / Time No Known Allergies Allergy Verified 05/19/23 22:25 Review of Systems ROS Statement: Those systems with pertinent positive or pertinent negative responses have been documented in the HPI. ROS Other: All systems not noted in ROS Statement are negative. Past Medical History Past Medical History: Asthma, GERD/Reflux Additional Past Medical History / Comment(s): Irregular heart beat at times, past syncope, hypokalemia, orthostatic hypotension, bronchitis, anemia, vitamin D deficiency, UTIs, R shoulder pain d/t tendonitis R rotator cuff. History of Any Multi-Drug Resistant Organisms: None Reported Past Surgical History: Tubal Ligation Additional Past Surgical History / Comment(s): TTT, cyst removed from L knee Past Anesthesia/Blood Transfusion Reactions: No Reported Reaction Additional Past Anesthesia/Blood Transfusion Reaction / Comment(s): unknown Past Psychological History: Anxiety, Depression Smoking Status: Current every day smoker, Vaper Past Alcohol Use History: None Reported Past Drug Use History: Marijuana - Past Family History Mother Family Medical History: No Reported History Additional Family Medical History / Comment(s): Mother is healthy Father Additional Family Medical History / Comment(s): Vitamin D deficiency. General Exam Limitations: no limitations General appearance: alert, in no apparent distress Head exam: Present: atraumatic, normocephalic Eye exam: Present: normal appearance, EOMI Neck exam: Present: normal inspection. Absent: meningismus Respiratory exam: Present: wheezes. Absent: rales, rhonchi, stridor Cardiovascular Exam: Present: regular rate, normal rhythm, normal heart sounds. Absent: systolic murmur, diastolic murmur, rubs, gallop, clicks Extremities exam: Present: normal inspection. Absent: pedal edema Neurological exam: Present: alert, oriented X3 Psychiatric exam: Present: normal affect, normal mood Skin exam: Present: warm, dry Course Vital Signs 05/19/23 05/19/23 05/19/23 22:22 23:11 23:17 Temperature 98.4 F Pulse Rate 76 77 79 Respiratory 16 Rate Blood Pressure 143/96 O2 Sat by Pulse 98 Oximetry 05/19/23 05/20/23 05/20/23 23:52 00:49 00:52 Temperature Pulse Rate 151 H 77 84 Respiratory 18 Rate Blood Pressure 151/97 O2 Sat by Pulse 96 Oximetry 05/20/23 01:59 Temperature Pulse Rate 811 H Respiratory 18 Rate Blood Pressure 160/102 O2 Sat by Pulse 98 Oximetry EKG Findings - EKG Comments: EKG Findings:: EKG shows sinus rhythm ventricular rate 70. ME interval 158. QRS 104. QT 425. QTc 447. No ST deviation or T wave inversion. Medical Decision Making - Medical Decision Making Was pt. sent in by a medical professional or institution (, [place], [facility], urgent care, hospital, or intermediate...) When possible be specific @ -No Did you speak to anyone other than the patient for history (EMS, parent, family, police, friend...)? What history was obtained from this source @ -No Did you review nursing and triage notes (agree or disagree)? Why? @ -I reviewed and agree with nursing and triage notes Were old charts reviewed (outside hosp., previous admission, EMS record, old EKG, old radiological studies, urgent care reports/EKG's, intermediate records)? Report findings @ -No old charts were reviewed Differential Diagnosis (chest pain, altered mental status, abdominal pain women, abdominal pain men, vaginal bleeding, weakness, fever, dyspnea, syncope, headache, dizziness, GI bleed, back pain, seizure, CVA, palpatations, mental health, musculoskeletal)? @ -MDM Differential Syncope: Valvular disease, hypertrophic cardiomyopathy, pulmonary embolism, tamponade, tachycardia, bradycardia, MN, hypovolemia, hemorrhage, dissection, anemia, intracranial hemorrhage, seizure, hypoglycemia, carbon monoxide poisoning this is not meant to be an all-inclusive list. EKG interpreted by me (3pts min.). @ -As above X-rays interpreted by me (1pt min.). @ -Chest x-ray shows no acute process. CT interpreted by me (1pt min.). @ -None done U/S interpreted by me (1pt. min.). @ -None done What testing was considered but not performed or refused? (CT, X-rays, U/S, labs)? Why? @ -None What meds were considered but not given or refused? Why? @ -None Did you discuss the management of the patient with other professionals (professionals i.e. JELANI Chirinos, [facility], lab, RT, psych nurse, social media strategist, change management facilitator, teacher, enforcement officer, caseworker protective services)? Give summary @ -No Was smoking cessation discussed for >3mins.? @ -No Was critical care preformed (if so, how long)? @ -No Were there social determinants of health that impacted care today? How? (Homelessness, low income, unemployed, alcoholism, drug addiction, transportation, low edu. Level, literacy, decrease access to med. care, residential, rehab)? @ -No Was there de-escalation of care discussed even if they declined (Discuss DNR or withdrawal of care, Hospice)? DNR status @ -No What co-morbidities impacted this encounter? (DM, HTN, Smoking, COPD, CAD, Cancer, CVA, ARF, Chemo, Hep., AIDS, mental health diagnosis, sleep apnea, morbid obesity)? @ -None Was patient admitted / discharged? Hospital course, mention meds given and route, prescriptions, significant lab abnormalities, going to OR and other pertinent info. @ -42-year-old female presenting with chief complaint of syncope. This occurred at work this evening. She states that today she felt like she was getting a cold and she admits to shortness of breath at this time. History of asthma. On exam she has diffuse expiratory wheezes. GCS is 15. She is given Solu-Medrol 125 mg and 2 DuoNeb breathing treatments. She is positive for influenza B. Chest x-ray shows no acute process and EKG shows sinus rhythm. There have been some vital signs charted by nursing staff that have been inaccurate. The patient did not have a heart rate of 151 or 811. On each of my reassessments her heart rate maintained in the 70s to 80s. She denies any palpitations or chest pain. She reports improvement in her breathing. She is started on prednisone 60 mg daily for 5 days. Provided with refill for albuterol nebulizer at home. She does not require a refill for albuterol inhaler. She is started on Tamiflu. Discharged home. Follow-up with PCP. Report back to ER with any new or worsening symptoms. Discussed return maría eters and answered all questions. Patient conveyed verbal understanding and agreed to the plan. I discussed this case in detail with my attending Dr. Cristina Undiagnosed new problem with uncertain prognosis? @ -No Drug Therapy requiring intensive monitoring for toxicity (Heparin, Nitro, Insulin, Cardizem)? @ -No Were any procedures done? @ -No Diagnosis/symptom? @ -Influenza Acute, or Chronic, or Acute on Chronic? @ -Acute Uncomplicated (without systemic symptoms) or Complicated (systemic symptoms)? @ -Complicated Side effects of treatment? @ -No Exacerbation, Progression, or Severe Exacerbation? @ -No Poses a threat to life or bodily function? How? (Chest pain, USA, MN, pneumonia, PE, COPD, DKA, ARF, appy, cholecystitis, CVA, Diverticulitis, Homicidal, Suicidal, threat to staff... and all critical care pts) @ -Low likelihood Diagnosis/symptom? @Asthma exacerbation Acute, or Chronic, or Acute on Chronic? @Acute Uncomplicated (without systemic symptoms) or Complicated (systemic symptoms)? @Uncomplicated Side effects of treatment? @None Exacerbation, Progression, or Severe Exacerbation] @Exacerbation Poses a threat to life or bodily function? @Low likelihood Diagnosis/symptom? @Syncope Acute, or Chronic, or Acute on Chronic? @Acute Uncomplicated (without systemic symptoms) or Complicated (systemic symptoms)? @Uncomplicated Side effects of treatment? @None Exacerbation, Progression, or Severe Exacerbation] @No Poses a threat to life or bodily function? @Low likelihood - Lab Data Result diagrams: 05/19/23 23:24 05/19/23 23:24 Lab Results 05/19/23 05/19/23 05/19/23 Range/Units 23:24 23:24 23:24 WBC 5.2 (3.8-10.6) k/uL RBC 4.49 (3.80-5.40) m/uL Hgb 13.6 (11.4-16.0) gm/dL Hct 41.4 (34.0-46.0) % MCV 92.2 (80.0-100.0) fL MCH 30.3 (25.0-35.0) pg MCHC 32.9 (31.0-37.0) g/dL RDW 12.8 (11.5-15.5) % Plt Count 161 (150-450) k/uL MPV 8.9 Neutrophils % 59 % Lymphocytes % 27 % Monocytes % 6 % Eosinophils % 5 % Basophils % 0 % Neutrophils # 3.1 (1.3-7.7) k/uL Lymphocytes # 1.4 (1.0-4.8) k/uL Monocytes # 0.3 (0-1.0) k/uL Eosinophils # 0.3 (0-0.7) k/uL Basophils # 0.0 (0-0.2) k/uL PT 10.1 (10.0-12.5) sec INR 0.9 (<1.2) APTT 23.2 (22.0-30.0) sec Sodium 139 (137-145) mmol/L Potassium 3.2 L (3.5-5.1) mmol/L Chloride 109 H (98-107) mmol/L Carbon Dioxide 23 (22-30) mmol/L Anion Gap 7 mmol/L BUN 20 H (7-17) mg/dL Creatinine 0.84 (0.52-1.04) mg/dL Est GFR (CKD-EPI)AfAm >90 (>60 ml/min/1.73 sqM) Est GFR (CKD-EPI)NonAf 85 (>60 ml/min/1.73 sqM) Glucose 88 (74-99) mg/dL Calcium 9.3 (8.4-10.2) mg/dL Magnesium 2.0 (1.6-2.3) mg/dL Total Bilirubin 0.3 (0.2-1.3) mg/dL AST 25 (14-36) U/L ALT 20 (4-34) U/L Alkaline Phosphatase 78 (38-126) U/L Troponin I (0.000-0.034) ng/mL Total Protein 6.8 (6.3-8.2) g/dL Albumin 3.9 (3.5-5.0) g/dL Influenza Type A (PCR) (Not Detectd) Influenza Type B (PCR) (Not Detectd) RSV (PCR) (Not Detectd) SARS-CoV-2 (PCR) (Not Detectd) 05/19/23 05/19/23 Range/Units 23:24 23:24 WBC (3.8-10.6) k/uL RBC (3.80-5.40) m/uL Hgb (11.4-16.0) gm/dL Hct (34.0-46.0) % MCV (80.0-100.0) fL MCH (25.0-35.0) pg MCHC (31.0-37.0) g/dL RDW (11.5-15.5) % Plt Count (150-450) k/uL MPV Neutrophils % % Lymphocytes % % Monocytes % % Eosinophils % % Basophils % % Neutrophils # (1.3-7.7) k/uL Lymphocytes # (1.0-4.8) k/uL Monocytes # (0-1.0) k/uL Eosinophils # (0-0.7) k/uL Basophils # (0-0.2) k/uL PT (10.0-12.5) sec INR (<1.2) APTT (22.0-30.0) sec Sodium (137-145) mmol/L Potassium (3.5-5.1) mmol/L Chloride (98-107) mmol/L Carbon Dioxide (22-30) mmol/L Anion Gap mmol/L BUN (7-17) mg/dL Creatinine (0.52-1.04) mg/dL Est GFR (CKD-EPI)AfAm (>60 ml/min/1.73 sqM) Est GFR (CKD-EPI)NonAf (>60 ml/min/1.73 sqM) Glucose (74-99) mg/dL Calcium (8.4-10.2) mg/dL Magnesium (1.6-2.3) mg/dL Total Bilirubin (0.2-1.3) mg/dL AST (14-36) U/L ALT (4-34) U/L Alkaline Phosphatase (38-126) U/L Troponin I <0.012 (0.000-0.034) ng/mL Total Protein (6.3-8.2) g/dL Albumin (3.5-5.0) g/dL Influenza Type A (PCR) Not Detected (Not Detectd) Influenza Type B (PCR) Detected A (Not Detectd) RSV (PCR) Not Detected (Not Detectd) SARS-CoV-2 (PCR) Not Detected (Not Detectd) Disposition Clinical Impression: Influenza, Asthma exacerbation, Syncope Disposition: HOME SELF-CARE Condition: Fair Instructions (If sedation given, give patient instructions): Asthma (ED), Syncope (ED), Influenza (ED) Additional Instructions: Follow-up with PCP. Report back to ER with any new or worsening symptoms. Take medication as prescribed. Prescriptions: predniSONE [Deltasone] 60 mg PO DAILY 5 Days #15 tab Oseltamivir [Tamiflu] 75 mg PO Q12HR 5 Days #10 cap Albuterol Nebulized [Ventolin Nebulized] 2.5 mg INHALATION Q4H PRN 8 Days #150 ml PRN Reason: Shortness Of Breath Is patient prescribed a controlled substance at d/c from ED?: No Referrals: Raul Patel MD [Primary Care Provider] - 1-2 days Time of Disposition: 01:21
[2023-05-19 22:49] VITALS: TEMP 98.4
--- NOTE | 2023-05-19 23:02 | XR ---
EXAMINATION TYPE: XR chest 2V DATE OF EXAM: 05/19/2023 COMPARISON: Prior chest x-ray December 04, 2022 HISTORY: Syncope. TECHNIQUE: Frontal and lateral views of the chest are obtained. FINDINGS: Mild bilateral interstitial prominence redemonstrated. There is no suspicious new focal ai r space opacity, pleural effusion, or pneumothorax seen. The cardiac silhouette size is stable and w ithin normal limits. The osseous structures are intact. IMPRESSION: No new acute process.
[2023-05-19] MEDS: IPRATROPIUM-ALBUTEROL 3 ML NEB INHALATION STA (23:09)
[2023-05-19] MEDS: methylPREDNISolone SOD SUCCI 125 MG/2 ML VIAL IV ONE (23:10)
[2023-05-19] MEDS: SODIUM CHLORIDE 0.9% 1,000 ML IV STA (23:10)
[2023-05-19 23:35] LABS: Basophils % (A) 0 %; Eosinophils # (A) 0.3 k/uL (0-0.7); Eosinophils % (A) 5 %; HCT 41.4 % (34.0-46.0); HGB 13.6 gm/dL (11.4-16.0); Lymphocytes # (A) 1.4 k/uL (1.0-4.8); Lymphocytes % (A) 27 %; MCH 30.3 pg (25.0-35.0); MCHC 32.9 g/dL (31.0-37.0); MCV 92.2 fL (80.0-100.0); Mean Platelet Volume 8.9; Monocytes # (A) 0.3 k/uL (0-1.0); Monocytes % (A) 6 %; Neutrophils # (A) 3.1 k/uL (1.3-7.7); Neutrophils % (A) 59 %; Platelet Count 161 k/uL (150-450); RBC 4.49 m/uL (3.80-5.40); RDW 12.8 % (11.5-15.5); WBC 5.2 k/uL (3.8-10.6)
[2023-05-19 23:44] LABS: ALT 20 U/L (4-34); AST 25 U/L (14-36); African American GFR (CKD) >90 (>60 ml/min/1.73 sqM); Albumin 3.9 g/dL (3.5-5.0); Alkaline Phosphatase 78 U/L (38-126); Anion Gap 7 mmol/L; Blood Urea Nitrogen 20 mg/dL (7-17); Calcium 9.3 mg/dL (8.4-10.2); Carbon Dioxide 23 mmol/L (22-30); Chloride 109 mmol/L (98-107); Glucose 88 mg/dL (74-99); Non-African American GFR(CKD) 85 (>60 ml/min/1.73 sqM); Potassium 3.2 mmol/L (3.5-5.1); Sodium 139 mmol/L (137-145); Total Bilirubin 0.3 mg/dL (0.2-1.3); Total Protein 6.8 g/dL (6.3-8.2)
[2023-05-20 00:02] LABS: INR 0.9 (<1.2); Partial Thromboplastin Time 23.2 sec (22.0-30.0); Prothrombin Time 10.1 sec (10.0-12.5)
[2023-05-20 00:38] VITALS: RESP 18
[2023-05-20] MEDS: IPRATROPIUM-ALBUTEROL 3 ML NEB INHALATION STA (00:48)
[2023-05-20 02:29] VITALS: BP 160/102; PULSE 811
== END 2023-05-20 02:08 | disposition home or self-care (01) ==
LOC: EC 22:17
DX: J10.1 Influenza due to other identified influenza virus with other respiratory manifestations (principal); J45.901 Unspecified asthma with (acute) exacerbation; R55 Syncope and collapse; F17.290 Nicotine dependence, other tobacco product, uncomplicated
CPT/HCPCS: 36415; 94640; 80053; 83735; 84484; 85025; 85610; 85730; 87636; 71046; 99285; 96374; 96361; J2930; 93005

== ENCOUNTER 2023-06-16 10:24 | Emergency (ER) | payer OTHER ==
[2023-06-16 10:51] LABS: Basophils % (A) 0 %; Eosinophils # (A) 0.2 k/uL (0-0.7); Eosinophils % (A) 5 %; HCT 43.5 % (34.0-46.0); HGB 14.4 gm/dL (11.4-16.0); Lymphocytes # (A) 1.5 k/uL (1.0-4.8); Lymphocytes % (A) 35 %; MCHC 33.1 g/dL (31.0-37.0); MCV 90.8 fL (80.0-100.0); Mean Platelet Volume 8.7; Monocytes # (A) 0.3 k/uL (0-1.0); Monocytes % (A) 6 %; Neutrophils # (A) 2.3 k/uL (1.3-7.7); Neutrophils % (A) 53 %; Platelet Count 209 k/uL (150-450); RBC 4.79 m/uL (3.80-5.40); WBC 4.5 k/uL (3.8-10.6)
[2023-06-16 10:56] LABS: INR 0.9 (<1.2); Partial Thromboplastin Time 23.2 sec (22.0-30.0); Prothrombin Time 10.3 sec (10.0-12.5)
--- NOTE | 2023-06-16 10:56 | XR ---
EXAMINATION TYPE: XR chest 2V DATE OF EXAM: 06/16/2023 COMPARISON: 05/19/2023 HISTORY: 42-year-old female with chest pain TECHNIQUE: PA and lateral views FINDINGS: Heart normal size. Aorta and pulmonary vasculature within normal limits. Nodularity periphery of the right upper lung corresponds to some chronic rib sclerosis. Heart upper limits of normal in size. Int erstitial prominence. Patchy left basilar opacity. No pleural effusion. IMPRESSION: Persistent interstitial prominence, possible bronchitis or asthma. Unable to exclude subtle early dev eloping interstitial infiltrate at the left base.
[2023-06-16 10:59] LABS: ALT 22 U/L (4-34); AST 23 U/L (14-36); African American GFR (CKD) >90 (>60 ml/min/1.73 sqM); Albumin 3.9 g/dL (3.5-5.0); Alkaline Phosphatase 78 U/L (38-126); Anion Gap 4 mmol/L; Blood Urea Nitrogen 11 mg/dL (7-17); Calcium 8.9 mg/dL (8.4-10.2); Carbon Dioxide 26 mmol/L (22-30); Chloride 107 mmol/L (98-107); Glucose 100 mg/dL (74-99); Non-African American GFR(CKD) >90 (>60 ml/min/1.73 sqM); Potassium 3.6 mmol/L (3.5-5.1); Sodium 137 mmol/L (137-145); Total Bilirubin 0.6 mg/dL (0.2-1.3); Total Protein 6.9 g/dL (6.3-8.2)
--- NOTE | 2023-06-16 11:09 | ED ---
Chest Pain HPI - General Chief Complaint: Chest Pain Stated Complaint: chest pain Time Seen by Provider: 06/16/23 10:37 Source: patient, RN notes reviewed Mode of arrival: ambulatory Limitations: no limitations - History of Present Illness Initial Comments: 42-year-old female presents emergency department with chief complaint of left- sided chest, shoulder pain. Patient states that she started having some symptoms overnight states that she fell like she slept on it wrong woke up and has worsened. She states she has increasing pain with any movement of her shoulder. She states it is pretty diffuse in the shoulder blade denies any shortness of breath she has a history of hypertension denies any other cardiac history. No abdominal pain no neck or head pain. - Related Data Home Medications Medication Instructions Recorded Confirmed FLUoxetine HCL [PROzac] 40 mg PO DAILY 06/26/20 04/15/23 Venlafaxine HCl [Effexor XR] 150 mg PO DAILY 06/26/20 04/15/23 amLODIPine [Norvasc] 2.5 mg PO DIRECTED 10/08/20 04/15/23 Lasix (Unknown Dose) 1 dose PO DAILY 04/15/23 04/15/23 Previous Rx's Medication Instructions Recorded Albuterol Inhaler [Ventolin Hfa 1 - 2 puff INHALATION RT-Q6H PRN #1 09/06/21 Inhaler] Budesonide-Formot 160-4.5 Mcg 2 puff INHALATION RT-BID #1 each 09/06/21 [Symbicort 160-4.5 Mcg Inhaler] HYDROcodone/APAP 5-325MG [[place] 1 tab PO Q6HR PRN 3 Days #12 tab 04/15/23 5-325] Ibuprofen [Motrin] 800 mg PO Q8H PRN #30 tab 04/15/23 Albuterol Nebulized [Ventolin 2.5 mg INHALATION Q4H PRN 8 Days 05/20/23 Nebulized] #150 ml Oseltamivir [Tamiflu] 75 mg PO Q12HR 5 Days #10 cap 05/20/23 predniSONE [Deltasone] 60 mg PO DAILY 5 Days #15 tab 05/20/23 Cyclobenzaprine [Flexeril] 10 mg PO TID PRN #15 tab 06/16/23 Ketorolac [Toradol] 10 mg PO Q8HR #15 tab 06/16/23 Allergies Allergy/AdvReac Type Severity Reaction Status Date / Time No Known Allergies Allergy Verified 06/16/23 10:27 Review of Systems ROS Statement: Those systems with pertinent positive or pertinent negative responses have been documented in the HPI. ROS Other: All systems not noted in ROS Statement are negative. EKG Findings - EKG Comments: EKG Findings:: EKG performed at 10: 31 sinus rhythm with a rate of 82 PA 155 QRS 103 QT/QTc 402/440 - EKG Results: EKG: interpreted by LIZZY Past Medical History Past Medical History: Asthma, GERD/Reflux Additional Past Medical History / Comment(s): Irregular heart beat at times, past syncope, hypokalemia, orthostatic hypotension, bronchitis, anemia, vitamin D deficiency, UTIs, R shoulder pain d/t tendonitis R rotator cuff. History of Any Multi-Drug Resistant Organisms: None Reported Past Surgical History: Tubal Ligation Additional Past Surgical History / Comment(s): TTT, cyst removed from L knee Past Anesthesia/Blood Transfusion Reactions: No Reported Reaction Additional Past Anesthesia/Blood Transfusion Reaction / Comment(s): unknown Past Psychological History: Anxiety, Depression Smoking Status: Vaper Past Alcohol Use History: None Reported Past Drug Use History: Marijuana - Past Family History Mother Family Medical History: No Reported History Additional Family Medical History / Comment(s): Mother is healthy Father Additional Family Medical History / Comment(s): Vitamin D deficiency. General Exam Limitations: no limitations General appearance: alert, in no apparent distress Head exam: Present: atraumatic, normocephalic, normal inspection Eye exam: Present: normal appearance, PERRL, EOMI. Absent: scleral icterus, conjunctival injection, periorbital swelling Neck exam: Present: normal inspection, full ROM. Absent: tenderness, meningismus, lymphadenopathy Respiratory exam: Present: normal lung sounds bilaterally. Absent: respiratory distress, wheezes, rales, rhonchi, stridor Cardiovascular Exam: Present: regular rate, normal rhythm, normal heart sounds. Absent: systolic murmur, diastolic murmur, rubs, gallop, clicks Extremities exam: Present: other (Pain with left shoulder range of motion neurovascular intact, diffuse tenderness with palpation) Neurological exam: Present: alert, oriented X3, reflexes normal. Absent: motor sensory deficit Course Vital Signs 06/16/23 06/16/23 10:25 12:00 Temperature 97.5 F L 98.7 F Pulse Rate 70 57 L Respiratory 20 18 Rate Blood Pressure 121/77 144/90 O2 Sat by Pulse 97 97 Oximetry Chest Pain MDM - MDM Was pt. sent in by a medical professional or institution (JELANI Chirinos, [employer], urgent care, hospital, or correction...) When possible be specific @ -No Did you speak to anyone other than the patient for history (EMS, parent, family, police, friend...)? What history was obtained from this source @ -No Did you review nursing and triage notes (agree or disagree)? Why? @ -I reviewed and agree with nursing and triage notes Were old charts reviewed (outside hosp., previous admission, EMS record, old EKG, old radiological studies, urgent care reports/EKG's, correction records)? Report findings @ -No old charts were reviewed Differential Diagnosis (chest pain, altered mental status, abdominal pain women, abdominal pain men, vaginal bleeding, weakness, fever, dyspnea, syncope, headache, dizziness, GI bleed, back pain, seizure, CVA, palpatations, mental health, musculoskeletal)? @ -Differential Chest Pain: Stable Angina, Unstable Angina, STEMI, NSTEMI Aortic Dissection, Pneumothorax, Musculoskeletal, Esophageal Spasm GERD, Cholecystitis, Pancreatitis, Zoster, this is not meant to be an all-inclusive list. EKG interpreted by me (3pts min.). @ -As above X-rays interpreted by me (1pt min.). @ -Chest x-ray shows no acute cardiopulmonary process. CT interpreted by me (1pt min.). @ -None done U/S interpreted by me (1pt. min.). @ -None done What testing was considered but not performed or refused? (CT, X-rays, U/S, labs)? Why? @ -None What meds were considered but not given or refused? Why? @ -None Did you discuss the management of the patient with other professionals (professionals i.e. JELANI Chirinos, [employer], lab, RT, psych nurse, social worker school, auto polisher, teacher, employment security officer, case assistant)? Give summary @ -No Was smoking cessation discussed for >3mins.? @ -No Was critical care preformed (if so, how long)? @ -No Were there social determinants of health that impacted care today? How? (Homelessness, low income, unemployed, alcoholism, drug addiction, transportation, low edu. Level, literacy, decrease access to med. care, penitentiary, rehab)? @ -No Was there de-escalation of care discussed even if they declined (Discuss DNR or withdrawal of care, Hospice)? DNR status @ -No What co-morbidities impacted this encounter? (DM, HTN, Smoking, COPD, CAD, Cancer, CVA, ARF, Chemo, Hep., AIDS, mental health diagnosis, sleep apnea, morbid obesity)? @ -Hypertension Was patient admitted / discharged? Hospital course, mention meds given and route, prescriptions, significant lab abnormalities, going to OR and other pertinent info. @ -Discharged patient had full workup including labs, EKG and chest x-ray patient has chest wall shoulder discomfort with movement this is reproducible noncardiac in nature. Patient will be discharged in stable condition as she did have improvement after Toradol and Norflex. Undiagnosed new problem with uncertain prognosis? @ -No Drug Therapy requiring intensive monitoring for toxicity (Heparin, Nitro, Insulin, Cardizem)? @ -No Were any procedures done? @ -No Diagnosis/symptom? @ -[Chest wall pain, shoulder pain Acute, or Chronic, or Acute on Chronic? @ -Acute Uncomplicated (without systemic symptoms) or Complicated (systemic symptoms)? @ -Uncomplicated Side effects of treatment? @ -No Exacerbation, Progression, or Severe Exacerbation? @ -No Poses a threat to life or bodily function? How? (Chest pain, USA, HI, pneumonia, PE, COPD, DKA, ARF, appy, cholecystitis, CVA, Diverticulitis, Homicidal, Suicidal, threat to staff... and all critical care pts) @ -No Disposition Clinical Impression: Chest wall pain, Left shoulder pain Disposition: HOME SELF-CARE Condition: Stable Instructions (If sedation given, give patient instructions): Chest Wall Pain (ED) Additional Instructions: Please return to the Emergency Department if symptoms worsen or any other concerns. Prescriptions: Cyclobenzaprine [Flexeril] 10 mg PO TID PRN #15 tab PRN Reason: Muscle Spasm Ketorolac [Toradol] 10 mg PO Q8HR #15 tab Is patient prescribed a controlled substance at d/c from ED?: No Referrals: Raul Patel MD [Primary Care Provider] - 1-2 days Time of Disposition: :53
[2023-06-16] MEDS: ORPHENADRINE 30 MG/ML 2 ML VIAL IVP STA (11:22)
[2023-06-16] MEDS: KETOROLAC 15 MG/ML 1 ML VIAL IVP STA (11:22)
[2023-06-16 12:10] VITALS: BP 144/90; PULSE 57; RESP 18; TEMP 98.7
== END 2023-06-16 12:09 | disposition home or self-care (01) ==
LOC: EC 10:24
DX: M25.512 Pain in left shoulder (principal); R07.89 Other chest pain; I10 Essential (primary) hypertension; F17.290 Nicotine dependence, other tobacco product, uncomplicated; F12.90 Cannabis use, unspecified, uncomplicated
CPT/HCPCS: 36415; 93005; 80053; 83735; 84484; 85025; 85610; 85730; 71046; 99285; 96374; 96375; J2360; J1885

== ENCOUNTER 2024-02-10 09:42 | Emergency (ER) | payer OTHER ==
[2024-02-10 09:46] VITALS: RESP 20; TEMP 98.4
[2024-02-10] MEDS: SODIUM CHLORIDE 0.9% 1,000 ML IV STA (10:04)
[2024-02-10] MEDS: SODIUM CHLORIDE 0.9% 500 ML 500 ML IV STA (10:05)
[2024-02-10] MEDS: methylPREDNISolone SOD SUCCI 125 MG/2 ML VIAL IV STA (10:05)
[2024-02-10 10:06] LABS: Basophils % (A) 0 %; Eosinophils # (A) 0.3 k/uL (0-0.7); Eosinophils % (A) 4 %; HGB 13.7 gm/dL (11.4-16.0); Lymphocytes # (A) 1.9 k/uL (1.0-4.8); Lymphocytes % (A) 32 %; MCH 30.8 pg (25.0-35.0); MCHC 34.2 g/dL (31.0-37.0); Mean Platelet Volume 8.5; Monocytes # (A) 0.3 k/uL (0-1.0); Monocytes % (A) 6 %; Neutrophils # (A) 3.3 k/uL (1.3-7.7); Neutrophils % (A) 56 %; Platelet Count 195 k/uL (150-450); RBC 4.44 m/uL (3.80-5.40); RDW 13.3 % (11.5-15.5); WBC 5.9 k/uL (3.8-10.6)
[2024-02-10 10:20] LABS: ALT 22 U/L (4-34); AST 21 U/L (14-36); African American GFR (CKD) >90 (>60 ml/min/1.73 sqM); Albumin 4.2 g/dL (3.5-5.0); Alkaline Phosphatase 84 U/L (38-126); Anion Gap 10 mmol/L; Blood Urea Nitrogen 18 mg/dL (7-17); Calcium 9.6 mg/dL (8.4-10.2); Carbon Dioxide 19 mmol/L (22-30); Chloride 107 mmol/L (98-107); Glucose 88 mg/dL (74-99); Magnesium 1.9 mg/dL (1.6-2.3); Non-African American GFR(CKD) >90 (>60 ml/min/1.73 sqM); Potassium 3.2 mmol/L (3.5-5.1); Sodium 136 mmol/L (137-145); Total Bilirubin 0.6 mg/dL (0.2-1.3)
[2024-02-10 10:24] LABS: INR 0.9 (<1.2); Partial Thromboplastin Time 22.3 sec (22.0-30.0); Prothrombin Time 10.6 sec (10.0-12.5)
--- NOTE | 2024-02-10 10:29 | XR ---
EXAMINATION TYPE: XR chest 2V DATE OF EXAM: 02/10/2024 10:04 AM COMPARISON: Chest radiographs from 06/16/2023 CLINICAL INDICATION: Female, 43 years old with history of syncope; [facility] TECHNIQUE: XR chest 2V Frontal and lateral views of the chest. FINDINGS: Lungs/Pleura: There is no evidence of pleural effusion, focal consolidation, or pneumothorax. Pulmonary vascularity: Unremarkable. Heart/mediastinum: Cardiomediastinal silhouette is unremarkable. Musculoskeletal: No acute osseous pathology. IMPRESSION: No acute cardiopulmonary disease/process. [facility] Carissa Arndt, , 02/10/2024 10:27 AM
[2024-02-10] MEDS: POTASSIUM CHLORIDE ER 20 MEQ TAB.ER PO STA (10:47)
--- NOTE | 2024-02-10 10:58 | ED ---
Dizziness HPI - General Chief Complaint: Syncope Stated Complaint: Syncope Time Seen by Provider: 02/10/24 09:46 Source: patient, RN notes reviewed Mode of arrival: ambulatory Limitations: no limitations - History of Present Illness Initial Comments: This is a 43-year-old female presents emergency department via EMS chief complaint of syncopal episode. She states he became very hot flushed feeling felt dizzy and passed out and did pass out. She no severe head injury. She states that she been sick recently coughing, congestion concerned about possible pneumonia but states that her cough is productive with sputum and blood specks. Patient denies any chest pain no palpitations no nausea vomiting. Patient denies any other associated symptoms. - Related Data Home Medications Medication Instructions Recorded Confirmed FLUoxetine HCL [PROzac] 40 mg PO DAILY 06/26/20 02/10/24 Venlafaxine HCl [Effexor XR] 150 mg PO DAILY 06/26/20 02/10/24 amLODIPine [Norvasc] 2.5 mg PO DAILY 10/08/20 02/10/24 Albuterol Inhaler [Ventolin Hfa 2 puff INHALATION RT-Q4H PRN 02/10/24 02/10/24 Inhaler] Multivitamins, Thera [Multivitamin 1 tab PO DAILY 02/10/24 02/10/24 (formulary)] Previous Rx's Medication Instructions Recorded Azithromycin [Zithromax Z Pack] 0 tab PO DIRECTED #6 tab 02/10/24 Ipratropium-Albuterol Nebulize 3 ml INHALATION QID #25 each 02/10/24 [Duoneb 0.5 mg-3 mg/3 ml Soln] predniSONE 50 mg PO DAILY #5 tab 02/10/24 Allergies Allergy/AdvReac Type Severity Reaction Status Date / Time No Known Allergies Allergy Verified 02/10/24 10:42 Review of Systems ROS Statement: Those systems with pertinent positive or pertinent negative responses have been documented in the HPI. ROS Other: All systems not noted in ROS Statement are negative. Past Medical History Past Medical History: Asthma, GERD/Reflux Additional Past Medical History / Comment(s): Irregular heart beat at times, past syncope, hypokalemia, orthostatic hypotension, bronchitis, anemia, vitamin D deficiency, UTIs, R shoulder pain d/t tendonitis R rotator cuff. History of Any Multi-Drug Resistant Organisms: None Reported Past Surgical History: Tubal Ligation Additional Past Surgical History / Comment(s): TTT, cyst removed from L knee Past Anesthesia/Blood Transfusion Reactions: No Reported Reaction Additional Past Anesthesia/Blood Transfusion Reaction / Comment(s): unknown Past Psychological History: Anxiety, Depression Smoking Status: Vaper Past Alcohol Use History: None Reported Past Drug Use History: Marijuana - Past Family History Mother Family Medical History: No Reported History Additional Family Medical History / Comment(s): Mother is healthy Father Additional Family Medical History / Comment(s): Vitamin D deficiency. General Exam Limitations: no limitations General appearance: alert, in no apparent distress Head exam: Present: atraumatic, normocephalic, normal inspection Eye exam: Present: normal appearance, PERRL, EOMI. Absent: scleral icterus, conjunctival injection, periorbital swelling ENT exam: Present: normal exam, normal oropharynx, mucous membranes moist Neck exam: Present: normal inspection, full ROM. Absent: tenderness, meningismus, lymphadenopathy Respiratory exam: Present: wheezes, rhonchi. Absent: normal lung sounds bilaterally, respiratory distress, rales, stridor Cardiovascular Exam: Present: regular rate, normal rhythm, normal heart sounds. Absent: systolic murmur, diastolic murmur, rubs, gallop, clicks Back exam: Absent: CVA tenderness (R), CVA tenderness (L) Neurological exam: Present: alert Skin exam: Present: warm, dry, intact, normal color. Absent: rash Course Vital Signs 02/10/24 02/10/24 02/10/24 09:44 10:46 11:06 Temperature 98.4 F Pulse Rate 65 68 61 Respiratory 20 20 Rate Blood Pressure 157/102 169/98 O2 Sat by Pulse 96 99 Oximetry 02/10/24 11:13 Temperature Pulse Rate 64 Respiratory Rate Blood Pressure O2 Sat by Pulse Oximetry EKG Findings - EKG Comments: EKG Findings:: EKG performed at 9: 56 sinus bradycardia rate of 55 VT 163 QRS 106 QT/QTc 450/443 - EKG Results: EKG: interpreted by LIZZY Medical Decision Making - Medical Decision Making Was pt. sent in by a medical professional or institution (, [place], [employer], urgent care, hospital, or skilled nursing...) When possible be specific @ -No Did you speak to anyone other than the patient for history (EMS, parent, family, police, friend...)? What history was obtained from this source @ -No Did you review nursing and triage notes (agree or disagree)? Why? @ -I reviewed and agree with nursing and triage notes Were old charts reviewed (outside hosp., previous admission, EMS record, old EKG, old radiological studies, urgent care reports/EKG's, skilled nursing records)? Report findings @ -No old charts were reviewed Differential Diagnosis (chest pain, altered mental status, abdominal pain women, abdominal pain men, vaginal bleeding, weakness, fever, dyspnea, syncope, headache, dizziness, GI bleed, back pain, seizure, CVA, palpatations, mental health, musculoskeletal)? @ -Differential Syncope: Valvular disease, hypertrophic cardiomyopathy, pulmonary embolism, tamponade, tachycardia, bradycardia, HI, hypovolemia, hemorrhage, dissection, anemia, intracranial hemorrhage, seizure, hypoglycemia, carbon monoxide poisoning, this is not meant to be an all-inclusive list. EKG interpreted by me (3pts min.). @ -As above X-rays interpreted by me (1pt min.). @ -Chest x-ray 2 view shows no acute cardiopulmonary process CT interpreted by me (1pt min.). @ -None done U/S interpreted by me (1pt. min.). @ -None done What testing was considered but not performed or refused? (CT, X-rays, U/S, labs)? Why? @ -None What meds were considered but not given or refused? Why? @ -None Did you discuss the management of the patient with other professionals (professionals i.e. , PA, [employer], lab, RT, psych nurse, social studies teacher, carroting machine offbearer, teacher, low altitude air defense officer, case finishing machine adjuster)? Give summary @ -No Was smoking cessation discussed for >3mins.? @ -No Was critical care preformed (if so, how long)? @ -No Were there social determinants of health that impacted care today? How? (Homelessness, low income, unemployed, alcoholism, drug addiction, transportation, low edu. Level, literacy, decrease access to med. care, nursing home, rehab)? @ -No Was there de-escalation of care discussed even if they declined (Discuss DNR or withdrawal of care, Hospice)? DNR status @ -No What co-morbidities impacted this encounter? (DM, HTN, Smoking, COPD, CAD, Cancer, CVA, ARF, Chemo, Hep., AIDS, mental health diagnosis, sleep apnea, morbi d obesity)? @ -Asthma Was patient admitted / discharged? Hospital course, mention meds given and rou te, prescriptions, significant lab abnormalities, going to OR and other pertinent info. @ -Discharge patient presented after syncopal episode, vasovagal, coughing episode. Patient feels improved after DuoNeb treatment, steroids patient was discharged uncharged for acute asthma exacerbation patient did have mild dehydration, hypokalemia was given fluids and potassium replacement. Undiagnosed new problem with uncertain prognosis? @ -No Drug Therapy requiring intensive monitoring for toxicity (Heparin, Nitro, Insulin, Cardizem)? @ -No Were any procedures done? @ -No Diagnosis/symptom? @ -Syncope, hyperkalemia, tracheobronchitis, asthma exacerbation Acute, or Chronic, or Acute on Chronic? @ -Acute Uncomplicated (without systemic symptoms) or Complicated (systemic symptoms)? @ -Complicated Side effects of treatment? @ -No Exacerbation, Progression, or Severe Exacerbation? @ -No Poses a threat to life or bodily function? How? (Chest pain, USA, HI, pneumonia, PE, COPD, DKA, ARF, appy, cholecystitis, CVA, Diverticulitis, Homicidal, Suicidal, threat to staff... and all critical care pts) @ -No - Lab Data Result diagrams: 02/10/24 09:56 02/10/24 09:56 Lab Results 02/10/24 02/10/24 02/10/24 Range/Units 09:56 09:56 09:56 WBC 5.9 (3.8-10.6) k/uL RBC 4.44 (3.80-5.40) m/uL Hgb 13.7 (11.4-16.0) gm/dL Hct 40.0 (34.0-46.0) % MCV 90.0 (80.0-100.0) fL MCH 30.8 (25.0-35.0) pg MCHC 34.2 (31.0-37.0) g/dL RDW 13.3 (11.5-15.5) % Plt Count 195 (150-450) k/uL MPV 8.5 Neutrophils % 56 % Lymphocytes % 32 % Monocytes % 6 % Eosinophils % 4 % Basophils % 0 % Neutrophils # 3.3 (1.3-7.7) k/uL Lymphocytes # 1.9 (1.0-4.8) k/uL Monocytes # 0.3 (0-1.0) k/uL Eosinophils # 0.3 (0-0.7) k/uL Basophils # 0.0 (0-0.2) k/uL PT 10.6 (10.0-12.5) sec INR 0.9 (<1.2) APTT 22.3 (22.0-30.0) sec D-Dimer 0.32 (<0.60) mg/L FEU Sodium 136 L (137-145) mmol/L Potassium 3.2 L (3.5-5.1) mmol/L Chloride 107 (98-107) mmol/L Carbon Dioxide 19 L (22-30) mmol/L Anion Gap 10 mmol/L BUN 18 H (7-17) mg/dL Creatinine 0.65 (0.52-1.04) mg/dL Est GFR (CKD-EPI)AfAm >90 (>60 ml/min/1.73 sqM) Est GFR (CKD-EPI)NonAf >90 (>60 ml/min/1.73 sqM) Glucose 88 (74-99) mg/dL Calcium 9.6 (8.4-10.2) mg/dL Magnesium 1.9 (1.6-2.3) mg/dL Total Bilirubin 0.6 (0.2-1.3) mg/dL AST 21 (14-36) U/L ALT 22 (4-34) U/L Alkaline Phosphatase 84 (38-126) U/L Troponin I (0.000-0.034) ng/mL Total Protein 7.0 (6.3-8.2) g/dL Albumin 4.2 (3.5-5.0) g/dL Influenza Type A (PCR) (Not Detectd) Influenza Type B (PCR) (Not Detectd) RSV (PCR) (Not Detectd) SARS-CoV-2 (PCR) (Not Detectd) 02/10/24 02/10/24 Range/Units 09:56 09:56 WBC (3.8-10.6) k/uL RBC (3.80-5.40) m/uL Hgb (11.4-16.0) gm/dL Hct (34.0-46.0) % MCV (80.0-100.0) fL MCH (25.0-35.0) pg MCHC (31.0-37.0) g/dL RDW (11.5-15.5) % Plt Count (150-450) k/uL MPV Neutrophils % % Lymphocytes % % Monocytes % % Eosinophils % % Basophils % % Neutrophils # (1.3-7.7) k/uL Lymphocytes # (1.0-4.8) k/uL Monocytes # (0-1.0) k/uL Eosinophils # (0-0.7) k/uL Basophils # (0-0.2) k/uL PT (10.0-12.5) sec INR (<1.2) APTT (22.0-30.0) sec D-Dimer (<0.60) mg/L FEU Sodium (137-145) mmol/L Potassium (3.5-5.1) mmol/L Chloride (98-107) mmol/L Carbon Dioxide (22-30) mmol/L Anion Gap mmol/L BUN (7-17) mg/dL Creatinine (0.52-1.04) mg/dL Est GFR (CKD-EPI)AfAm (>60 ml/min/1.73 sqM) Est GFR (CKD-EPI)NonAf (>60 ml/min/1.73 sqM) Glucose (74-99) mg/dL Calcium (8.4-10.2) mg/dL Magnesium (1.6-2.3) mg/dL Total Bilirubin (0.2-1.3) mg/dL AST (14-36) U/L ALT (4-34) U/L Alkaline Phosphatase (38-126) U/L Troponin I <0.012 (0.000-0.034) ng/mL Total Protein (6.3-8.2) g/dL Albumin (3.5-5.0) g/dL Influenza Type A (PCR) Not Detected (Not Detectd) Influenza Type B (PCR) Not Detected (Not Detectd) RSV (PCR) Not Detected (Not Detectd) SARS-CoV-2 (PCR) Not Detected (Not Detectd) Disposition Clinical Impression: Hypokalemia, Syncope, Tracheobronchitis, Asthma exacerbation, mild Disposition: HOME SELF-CARE Condition: Stable Instructions (If sedation given, give patient instructions): Syncope (ED) Additional Instructions: Please return to the Emergency Department if symptoms worsen or any other concerns. Prescriptions: Ipratropium-Albuterol Nebulize [Duoneb 0.5 mg-3 mg/3 ml Soln] 3 ml INHALATION QID #25 each predniSONE 50 mg PO DAILY #5 tab Azithromycin [Zithromax Z Pack] 0 tab PO DIRECTED #6 tab Is patient prescribed a controlled substance at d/c from ED?: No Referrals: Raul Patel MD [Primary Care Provider] - 1-2 days Time of Disposition: 11:36
[2024-02-10] MEDS: IPRATROPIUM-ALBUTEROL 3 ML NEB INHALATION STA (11:06)
[2024-02-10 11:45] VITALS: BP 166/89; PULSE 68
== END 2024-02-10 11:44 | disposition home or self-care (01) ==
LOC: EC 09:42
DX: E87.6 Hypokalemia (principal); R55 Syncope and collapse; J40 Bronchitis, not specified as acute or chronic
CPT/HCPCS: 36415; 94640; 93005; 85379; 80053; 83735; 84484; 85025; 85610; 85730; 87636; 71046; 99285; 96374; 96361; J2919

== ENCOUNTER 2024-03-06 06:41 | Inpatient (IN) | payer OTHER ==
--- NOTE | 2024-03-06 07:09 | ED ---
General Adult HPI - General Chief complaint: Shortness of Breath Stated complaint: Difficulty Breathing Time Seen by Provider: 03/06/24 06:43 Source: patient, EMS, RN notes reviewed Mode of arrival: EMS Limitations: no limitations - History of Present Illness Initial comments: 43-year-old female presents to the emergency department for evaluation of abimbola rtness of breath. She notes that over the past 2 days she has been feeling sick and coughing frequently. She reports that yesterday she started feeling short of breath and having some discomfort in her chest. She states that it feels tight when she attempts to breathe. Patient notes that she was recently diagnosed with a pneumonia and was on antibiotics and steroids which she completed around 1.5 weeks ago. She denies recent fever, chills. Denies lower extremity edema. - Related Data Home Medications Medication Instructions Recorded Confirmed FLUoxetine HCL [PROzac] 40 mg PO DAILY 06/26/20 02/10/24 Venlafaxine HCl [Effexor XR] 150 mg PO DAILY 06/26/20 02/10/24 amLODIPine [Norvasc] 2.5 mg PO DAILY 10/08/20 02/10/24 Albuterol Inhaler [Ventolin Hfa 2 puff INHALATION RT-Q4H PRN 02/10/24 02/10/24 Inhaler] Multivitamins, Thera [Multivitamin 1 tab PO DAILY 02/10/24 02/10/24 (formulary)] Previous Rx's Medication Instructions Recorded Azithromycin [Zithromax Z Pack] 0 tab PO DIRECTED #6 tab 02/10/24 Ipratropium-Albuterol Nebulize 3 ml INHALATION QID #25 each 02/10/24 [Duoneb 0.5 mg-3 mg/3 ml Soln] predniSONE 50 mg PO DAILY #5 tab 02/10/24 Allergies Allergy/AdvReac Type Severity Reaction Status Date / Time No Known Allergies Allergy Verified 03/06/24 06:47 Review of Systems ROS Statement: Those systems with pertinent positive or pertinent negative responses have been documented in the HPI. ROS Other: All systems not noted in ROS Statement are negative. Past Medical History Past Medical History: Asthma, GERD/Reflux Additional Past Medical History / Comment(s): Irregular heart beat at times, past syncope, hypokalemia, orthostatic hypotension, bronchitis, anemia, vitamin D deficiency, UTIs, R shoulder pain d/t tendonitis R rotator cuff. History of Any Multi-Drug Resistant Organisms: None Reported Past Surgical History: Tubal Ligation Additional Past Surgical History / Comment(s): TTT, cyst removed from L knee Past Anesthesia/Blood Transfusion Reactions: No Reported Reaction Additional Past Anesthesia/Blood Transfusion Reaction / Comment(s): unknown Past Psychological History: Anxiety, Depression Smoking Status: Vaper Past Drug Use History: Marijuana - Past Family History Mother Family Medical History: No Reported History Additional Family Medical History / Comment(s): Mother is healthy Father Additional Family Medical History / Comment(s): Vitamin D deficiency. General Exam Limitations: no limitations General appearance: alert, in no apparent distress Head exam: Present: atraumatic, normocephalic, normal inspection Eye exam: Present: normal appearance, PERRL, EOMI. Absent: scleral icterus, conjunctival injection, periorbital swelling ENT exam: Present: normal exam, mucous membranes moist Neck exam: Present: normal inspection. Absent: tenderness, meningismus, lymphadenopathy Respiratory exam: Present: wheezes Cardiovascular Exam: Present: normal rhythm, tachycardia, normal heart sounds. Absent: systolic murmur, diastolic murmur, rubs, gallop, clicks Extremities exam: Present: normal inspection, full ROM, normal capillary refill. Absent: tenderness, pedal edema, joint swelling, calf tenderness Back exam: Present: normal inspection Neurological exam: Present: alert, oriented X3 Psychiatric exam: Present: normal affect, normal mood Skin exam: Present: warm, dry, intact, normal color. Absent: rash Course Vital Signs 03/06/24 03/06/24 03/06/24 06:42 06:50 08:00 Temperature 97.7 F Pulse Rate 108 H 94 Respiratory 24 24 26 H Rate Blood Pressure 112/72 125/79 O2 Sat by Pulse 90 L 91 L Oximetry 03/06/24 03/06/24 03/06/24 08:05 09:35 10:14 Temperature Pulse Rate 90 88 100 Respiratory 24 Rate Blood Pressure 135/89 O2 Sat by Pulse 92 L Oximetry 03/06/24 10:23 Temperature Pulse Rate 94 Respiratory Rate Blood Pressure O2 Sat by Pulse Oximetry Medical Decision Making - Medical Decision Making Was pt. sent in by a medical professional or institution (, PA, VISUAL INSPECTOR, urgent care, hospital, or [place] health care facility...) When possible be specific @ -No Did you speak to anyone other than the patient for history (EMS, parent, family, police, friend...)? What history was obtained from this source @ -No Did you review nursing and triage notes (agree or disagree)? Why? @ -I reviewed and agree with nursing and triage notes Were old charts reviewed (outside hosp., previous admission, EMS record, old EKG, old radiological studies, urgent care reports/EKG's, [place] health care facility records)? Report findings @ -No old charts were reviewed Differential Diagnosis (chest pain, altered mental status, abdominal pain women, abdominal pain men, vaginal bleeding, weakness, fever, dyspnea, syncope, headache, dizziness, GI bleed, back pain, seizure, CVA, palpatations, mental health, musculoskeletal)? @ -Differential Dyspnea: Coronary syndrome, arrhythmia, tamponade, asthma, COPD, pulmonary embolism, pneumonia, pneumothorax, pulmonary effusion, anaphylaxis, diabetic ketoacidosis, flailed chest, pulmonary contusion, diaphragmatic rupture, anemia, neuro muscular, this is not meant to be an all-inclusive list. EKG interpreted by me (3pts min.). @ -EKG at 1038 shows sinus rhythm, short MN interval with a rate of 98, MN 109, QRS 109, QTQTc [id number] X-rays interpreted by me (1pt min.). @ -Chest x-ray shows no acute process CT interpreted by me (1pt min.). @ -None done U/S interpreted by me (1pt. min.). @ -None done What testing was considered but not performed or refused? (CT, X-rays, U/S, labs)? Why? @ -None What meds were considered but not given or refused? Why? @ -None Did you discuss the management of the patient with other professionals (professionals i.e. Dr., PA, VISUAL INSPECTOR, lab, RT, psych nurse, social media marketing manager, lone lead lineman, teacher, commanding officer garage, clinical case manager)? Give summary @ -Discussed with Dr. Gandhi with [facility] was accepting of the admission Was smoking cessation discussed for >3mins.? @ -No Was critical care preformed (if so, how long)? @ -No Were there social determinants of health that impacted care today? How? (Homelessness, low income, unemployed, alcoholism, drug addiction, transportation, low edu. Level, literacy, decrease access to med. care, penitentiary, rehab)? @ -No Was there de-escalation of care discussed even if they declined (Discuss DNR or withdrawal of care, Hospice)? DNR status @ -No What co-morbidities impacted this encounter? (DM, HTN, Smoking, COPD, CAD, Cancer, CVA, ARF, Chemo, Hep., AIDS, mental health diagnosis, sleep apnea, morbid obesity)? @ -None Was patient admitted / discharged? Hospital course, mention meds given and route, prescriptions, significant lab abnormalities, going to OR and other pertinent info. @ -Admitted. Patient presented the emergency department for evaluation of shortness of breath. Patient was placed on 2 L of oxygen in the ED studies were obtained revealing no significant leukocytosis, hemoglobin stable. Negative D- dimer. CMP essentially unremarkable. Patient did test positive for influenza A. She was started on Tamiflu. Patient was also administered 2 DuoNeb piyush tments in the ED. Patient's oxygen saturations remain in the low 90s on 2 L of oxygen. Negative for patient will be admitted for further treatment. Case was discussed with Dr. Gandhi with [facility] was accepting of the admission and requesting Dr. Deras on consultation. Case discussed with Dr. Platt Undiagnosed new problem with uncertain prognosis? @ -No Drug Therapy requiring intensive monitoring for toxicity (Heparin, Nitro, Insulin, Cardizem)? @ -No Were any procedures done? @ -No Diagnosis/symptom? @ -Influenza A, dyspnea, requiring supplemental oxygen Acute, or Chronic, or Acute on Chronic? @ -Acute Uncomplicated (without systemic symptoms) or Complicated (systemic symptoms)? @ -Complicated Side effects of treatment? @ -No Exacerbation, Progression, or Severe Exacerbation? @ -No Poses a threat to life or bodily function? How? (Chest pain, [place], [place], pneumonia, PE, COPD, DKA, ARF, appy, cholecystitis, CVA, Diverticulitis, Homicidal, Suicidal, threat to staff... and all critical care pts) @ -No - Lab Data Result diagrams: 03/06/24 07:14 03/06/24 07:14 Lab Results 03/06/24 03/06/24 03/06/24 Range/Units 07:14 07:14 07:14 WBC 7.3 (3.8-10.6) k/uL RBC 4.77 (3.80-5.40) m/uL Hgb 14.7 (11.4-16.0) gm/dL Hct 43.0 (34.0-46.0) % MCV 90.1 (80.0-100.0) fL MCH 30.8 (25.0-35.0) pg MCHC 34.1 (31.0-37.0) g/dL RDW 12.8 (11.5-15.5) % Plt Count 165 (150-450) k/uL MPV 8.4 Neutrophils % 87 % Lymphocytes % 8 % Monocytes % 4 % Eosinophils % 1 % Basophils % 0 % Neutrophils # 6.3 (1.3-7.7) k/uL Lymphocytes # 0.5 L (1.0-4.8) k/uL Monocytes # 0.3 (0-1.0) k/uL Eosinophils # 0.1 (0-0.7) k/uL Basophils # 0.0 (0-0.2) k/uL PT 10.9 (10.0-12.5) sec INR 1.0 (<1.2) APTT 23.3 (22.0-30.0) sec D-Dimer 0.59 (<0.60) mg/L FEU Sodium 139 (137-145) mmol/L Potassium 3.3 L (3.5-5.1) mmol/L Chloride 105 (98-107) mmol/L Carbon Dioxide 23 (22-30) mmol/L Anion Gap 11 mmol/L BUN 16 (7-17) mg/dL Creatinine 0.72 (0.52-1.04) mg/dL Est GFR (CKD-EPI)AfAm >90 (>60 ml/min/1.73 sqM) Est GFR (CKD-EPI)NonAf >90 (>60 ml/min/1.73 sqM) Glucose 121 H (74-99) mg/dL Plasma Lactic Acid Ottoniel (0.7-2.0) mmol/L Calcium 9.4 (8.4-10.2) mg/dL Magnesium 2.0 (1.6-2.3) mg/dL Total Bilirubin 0.6 (0.2-1.3) mg/dL AST 25 (14-36) U/L ALT 29 (4-34) U/L Alkaline Phosphatase 81 (38-126) U/L Troponin I (0.000-0.034) ng/mL Total Protein 7.2 (6.3-8.2) g/dL Albumin 4.2 (3.5-5.0) g/dL Influenza Type A (PCR) (Not Detectd) Influenza Type B (PCR) (Not Detectd) RSV (PCR) (Not Detectd) SARS-CoV-2 (PCR) (Not Detectd) 03/06/24 03/06/24 03/06/24 Range/Units 07:14 07:14 08:05 WBC (3.8-10.6) k/uL RBC (3.80-5.40) m/uL Hgb (11.4-16.0) gm/dL Hct (34.0-46.0) % MCV (80.0-100.0) fL MCH (25.0-35.0) pg MCHC (31.0-37.0) g/dL RDW (11.5-15.5) % Plt Count (150-450) k/uL MPV Neutrophils % % Lymphocytes % % Monocytes % % Eosinophils % % Basophils % % Neutrophils # (1.3-7.7) k/uL Lymphocytes # (1.0-4.8) k/uL Monocytes # (0-1.0) k/uL Eosinophils # (0-0.7) k/uL Basophils # (0-0.2) k/uL PT (10.0-12.5) sec INR (<1.2) APTT (22.0-30.0) sec D-Dimer (<0.60) mg/L FEU Sodium (137-145) mmol/L Potassium (3.5-5.1) mmol/L Chloride (98-107) mmol/L Carbon Dioxide (22-30) mmol/L Anion Gap mmol/L BUN (7-17) mg/dL Creatinine (0.52-1.04) mg/dL Est GFR (CKD-EPI)AfAm (>60 ml/min/1.73 sqM) Est GFR (CKD-EPI)NonAf (>60 ml/min/1.73 sqM) Glucose (74-99) mg/dL Plasma Lactic Acid Ottoniel 1.1 (0.7-2.0) mmol/L Calcium (8.4-10.2) mg/dL Magnesium (1.6-2.3) mg/dL Total Bilirubin (0.2-1.3) mg/dL AST (14-36) U/L ALT (4-34) U/L Alkaline Phosphatase (38-126) U/L Troponin I <0.012 (0.000-0.034) ng/mL Total Protein (6.3-8.2) g/dL Albumin (3.5-5.0) g/dL Influenza Type A (PCR) Detected A (Not Detectd) Influenza Type B (PCR) Not Detected (Not Detectd) RSV (PCR) Not Detected (Not Detectd) SARS-CoV-2 (PCR) Not Detected (Not Detectd) Disposition Clinical Impression: Influenza A, Wheezing, Hypoxia Disposition: ADMITTED IP TO THIS HOSP Condition: Stable Is patient prescribed a controlled substance at d/c from ED?: No Referrals: None,Stated [Primary Care Provider] - 1-2 days
[2024-03-06 07:25] LABS: Basophils % (A) 0 %; Eosinophils # (A) 0.1 k/uL (0-0.7); Eosinophils % (A) 1 %; HGB 14.7 gm/dL (11.4-16.0); Lymphocytes # (A) 0.5 k/uL (1.0-4.8); Lymphocytes % (A) 8 %; MCH 30.8 pg (25.0-35.0); MCHC 34.1 g/dL (31.0-37.0); MCV 90.1 fL (80.0-100.0); Mean Platelet Volume 8.4; Monocytes # (A) 0.3 k/uL (0-1.0); Monocytes % (A) 4 %; Neutrophils # (A) 6.3 k/uL (1.3-7.7); Neutrophils % (A) 87 %; Platelet Count 165 k/uL (150-450); RBC 4.77 m/uL (3.80-5.40); RDW 12.8 % (11.5-15.5); WBC 7.3 k/uL (3.8-10.6)
[2024-03-06 07:34] LABS: ALT 29 U/L (4-34); AST 25 U/L (14-36); African American GFR (CKD) >90 (>60 ml/min/1.73 sqM); Albumin 4.2 g/dL (3.5-5.0); Alkaline Phosphatase 81 U/L (38-126); Anion Gap 11 mmol/L; Blood Urea Nitrogen 16 mg/dL (7-17); Calcium 9.4 mg/dL (8.4-10.2); Carbon Dioxide 23 mmol/L (22-30); Chloride 105 mmol/L (98-107); Glucose 121 mg/dL (74-99); Non-African American GFR(CKD) >90 (>60 ml/min/1.73 sqM); Potassium 3.3 mmol/L (3.5-5.1); Sodium 139 mmol/L (137-145); Total Bilirubin 0.6 mg/dL (0.2-1.3); Total Protein 7.2 g/dL (6.3-8.2)
[2024-03-06] MEDS: methylPREDNISolone SOD SUCCI 125 MG/2 ML VIAL IV STA (07:34)
[2024-03-06] MEDS: SODIUM CHLORIDE 0.9% 1,000 ML IV STA (07:35)
[2024-03-06 07:38] LABS: Partial Thromboplastin Time 23.3 sec (22.0-30.0); Prothrombin Time 10.9 sec (10.0-12.5)
[2024-03-06] MEDS: IPRATROPIUM-ALBUTEROL 3 ML NEB INHALATION STA ×2 (07:58→10:14)
--- NOTE | 2024-03-06 08:28 | XR ---
EXAMINATION TYPE: XR chest 2V DATE OF EXAM: 03/06/2024 8:11 AM COMPARISON: 02/09/2022 CLINICAL INDICATION: Female, 43 years old with history of difficulty breathing, TECHNIQUE: XR chest 2V view(s) obtained. FINDINGS: The heart size is normal. The pulmonary vasculature is somewhat prominent. The lungs are clear. IMPRESSION: 1. No acute pulmonary process. Some mild volume overload may be present. [facility], , 03/06/2024 8:26 AM
[2024-03-06 08:53] LABS: Influenza A Detected (Not Detectd); Influenza B Not Detected (Not Detectd); RSV Not Detected (Not Detectd)
[2024-03-06] MEDS: KETOROLAC 15 MG/ML 1 ML VIAL IVP STA (09:58)
[2024-03-06] MEDS: OSELTAMIVIR 75 MG CAP PO STA (09:59)
[2024-03-06] MEDS ORDERED: IBUPROFEN 400 MG TAB PO PRN (10:31)
[2024-03-06] MEDS ORDERED: ONDANSETRON 4 MG/2 ML VIAL IVP PRN (10:31)
[2024-03-06] MEDS ORDERED: NALOXONE 0.4 MG/ML 1 ML VIAL IV PRN (10:31)
[2024-03-06] MEDS ORDERED: IPRATROPIUM-ALBUTEROL 3 ML NEB INHALATION PRN (10:33)
[2024-03-06] MEDS ORDERED: NALOXONE 0.4 MG/ML 1 ML VIAL IVP PRN (10:33)
[2024-03-06] MEDS: methylPREDNISolone SOD SUCCI 125 MG/2 ML VIAL IV SCH (13:00)
[2024-03-06] MEDS: IPRATROPIUM-ALBUTEROL 3 ML NEB INHALATION SCH (13:10)
--- NOTE | 2024-03-06 13:20 | P.HPIM ---
History of Present Illness H&P Date: 03/06/24 History of present illness; patient is a 43-year-old lady with past medical history significant for asthma, vaping, hypertension who presented to the ER because of shortness of breath. Patient stated she was all right yesterday when started noticing increasing shortness of breath and cough. Patient had no fevers. There is no complaint of chills. Patient denies any chest pain. Shortness of breath of breath on rest as on exertion. Patient has history of asthma and normally uses albuterol frequently. Patient also stated that she recently completed a course of antibiotics for bronchitis/pneumonia per PCP. Patient had sick contact in the family in the form of who is also having similar symptoms. Patient also complain lethargic and weakness. Because of the symptoms, patient brought to the ER. Initial lab work done in the ER showed WBC 1.3, hemoglobin 14.7, platelet count 165, sodium 139, potassium 3.3, BUN 16, creatinine 0.72, glucose 121, lactate 1.1, calcium 9.4, troponin 0.012 Influenza A detected Influenza B not detected RSV not detected COVID-19 not detected EKG done in the ER showed heart rate of 98, no ST segment elevation or depression seen, no T-wave inversions seen. Chest x-ray done in the ER showed no acute pulmonary process Patient admitted to internal medicine service REVIEW OF SYSTEMS: CONSTITUTIONAL: No fever, no malaise, no fatigue. HEENT: No recent visual problems or hearing problems. Denied any sore throat. CARDIOVASCULAR: As mentioned above PULMONARY: As mentioned above GASTROINTESTINAL: No diarrhea, no nausea, no vomiting, no abdominal pain. NEUROLOGICAL: No headaches, no weakness, no numbness. HEMATOLOGICAL: Denies any bleeding or petechiae. GENITOURINARY: Denies any burning micturition, frequency, or urgency. MUSCULOSKELETAL/RHEUMATOLOGICAL: Denies any joint pain, swelling, or any muscle pain. ENDOCRINE: Denies any polyuria or polydipsia. The rest of the 14-point review of systems is negative. PHYSICAL EXAMINATION: GENERAL: The patient is alert and oriented x3, ill looking HEENT: Pupils are round and equally reacting to light. EOMI. No scleral icterus. No conjunctival pallor. Normocephalic, atraumatic. No pharyngeal erythema. No thyromegaly. CARDIOVASCULAR: S1 and S2 present. No murmurs, rubs, or gallops. PULMONARY: Good air entry bilaterally, expiratory wheeze audible, ABDOMEN: Soft, nontender, nondistended, normoactive bowel sounds. No palpable organomegaly. MUSCULOSKELETAL: No joint swelling or deformity. EXTREMITIES: No cyanosis, clubbing, or pedal edema. NEUROLOGICAL: Gross neurological examination did not reveal any focal deficits. SKIN: No rashes. Assessment and plan Acute hypoxic respiratory failure Acute influenza A infection Acute asthma exacerbation Current history of vaping Monitor vital signs Monitor CBC Monitor CMP Continue telemetry monitoring Ordered oxygen supplementation Ordered CRP, ESR, proBNP, D-dimer Ordered breathing treatments Ordered IV Solu-Medrol Ordered Tamiflu Resume home meds Patient counseled in detail regarding stopping vaping. Consult pulmonary Labs and medication were reviewed.. Continue same treatment. Continue with symptomatic treatment. Resume home medication. Monitor labs and vitals. DVT and GI prophylaxis. Further recommendations as per clinical course of the patient Dictation was produced using [employer] dictation software. please excuse any grammatical, word or spelling errors. Past Medical History Past Medical History: Asthma, GERD/Reflux Additional Past Medical History / Comment(s): Irregular heart beat at times, past syncope, hypokalemia, orthostatic hypotension, bronchitis, anemia, vitamin D deficiency, UTIs, R shoulder pain d/t tendonitis R rotator cuff. History of Any Multi-Drug Resistant Organisms: None Reported Past Surgical History: Tubal Ligation Additional Past Surgical History / Comment(s): TTT, cyst removed from L knee Past Anesthesia/Blood Transfusion Reactions: No Reported Reaction Additional Past Anesthesia/Blood Transfusion Reaction / Comment(s): unknown Past Psychological History: Anxiety, Depression Smoking Status: Vaper Past Drug Use History: Marijuana - Past Family History Mother Family Medical History: No Reported History Additional Family Medical History / Comment(s): Mother is healthy Father Additional Family Medical History / Comment(s): Vitamin D deficiency. Medications and Allergies Home Medications Medication Instructions Recorded Confirmed Type FLUoxetine HCL [PROzac] 40 mg PO DAILY 06/26/20 03/06/24 History Venlafaxine HCl [Effexor XR] 150 mg PO DAILY 06/26/20 03/06/24 History amLODIPine [Norvasc] 2.5 mg PO DAILY 08/15/21 01/11/25 History Albuterol Inhaler [Ventolin Hfa 2 puff INHALATION RT-Q4H PRN 02/10/24 03/06/24 History Inhaler] Allergies Allergy/AdvReac Type Severity Reaction Status Date / Time No Known Allergies Allergy Verified 03/06/24 06:47 Physical Exam Vitals: Vital Signs Temp Pulse Resp BP Pulse Ox 03/06/24 13:11 90 03/06/24 13:04 89 18 140/82 93 L 03/06/24 10:23 94 03/06/24 10:14 100 03/06/24 09:35 88 24 135/89 92 L 03/06/24 08:05 90 03/06/24 08:00 94 26 H 125/79 91 L 03/06/24 06:50 24 03/06/24 06:42 97.7 F 108 H 24 112/72 90 L Intake and Output 03/05/24 03/06/24 03/06/24 22:59 06:59 14:59 Other: Weight 97.522 kg Results CBC & Chem 7: 03/06/24 07:14 03/06/24 07:14 Labs: Abnormal Lab Results - Last 24 Hours (Table) 03/06/24 03/06/24 03/06/24 Range/Units 07:14 07:14 08:05 Lymphocytes # 0.5 L (1.0-4.8) k/uL Potassium 3.3 L (3.5-5.1) mmol/L Glucose 121 H (74-99) mg/dL Influenza Type A (PCR) Detected A (Not Detectd)
[2024-03-06] MEDS: ACETAMINOPHEN TAB 325 MG TAB PO PRN (13:51)
[2024-03-06 14:04] LABS: C Reactive Protein 5.9 mg/dL (<1.0)
--- NOTE | 2024-03-06 14:32 | P.CNPUL ---
History of Present Illness Consult date: 03/06/24 Reason for consult: dyspnea History of present illness: 43-year-old female patient, obese, history of bronchial asthma with an albuterol rescue inhaler, no maintenance medications. The patient does not smoke tobacco for the time being. She vapes. She presents to the hospital because of increased shortness of breath. + Ongoing cough, chest tightness, wheezing and some limited sputum production. She was in acute asthma exacerbation at the same time the patient tested +8. Chest x-ray showed no acute abnormalities. The patient was hypoxic and the patient was placed on 2 L of oxygen by nasal cannula. Started on Tamiflu. Started on IV Solu-Medrol and DuoNeb nebulized treatments [id number] and she was hospitalized. D-dimer is at 0.4. White cell count is at 7.3. Electrolytes are all within normal limits. LFTs are normal. CRP is at 5.9. Troponins are negative. No altered mentation. No nausea vomiting or diarrhea. No other extrapulmonary manifestations of influenza infection. Review of Systems CONSTITUTIONAL: Denies any recent significant weight loss or weight gain. EYES: Denies change in vision. EARS, NOSE, MOUTH, THROAT: Positive for rhinitis. CARDIOVASCULAR: Denies chest pain, palpitations or syncopal episodes. RESPIRATORY: Positive for shortness of breath, cough, congestion no hemoptysis. GASTROINTESTINAL: Denies change in appetite, denies abdominal pain GENITOURINARY: Denies hematuria, denies infections. MUSKULOSKELETAL: Denies pain, denies swelling. INTEGUMENTARY: Denies rash, denies eczema. NEUROLOGICAL: Denies recent memory loss, no recent seizure activity. PSYCHIATRIC: Denies anxiety, denies depression. HEMATOLOGIC/LYMPHATIC: Denies anemia, denies enlarged lymph nodes. Constitutional: Reports chills, Reports fatigue, Reports sweats, Reports weakness Eyes: denies as per HPI, denies blurred vision, denies bulging eye, denies decreased vision, denies diplopia, denies discharge, denies dry eye, denies irritation, denies itching, denies pain, denies photophobia, denies loss of peripheral vision, denies loss of vision, denies tunnel vision/blind spots Ears: deny: decreased hearing, ear discharge, earache, tinnitus Ears, nose, mouth and throat: Reports as per HPI Breasts: absent: as per HPI, change in shape, gynecomastia, masses, nipple discharge, pain, skin changes, swelling Cardiovascular: Reports as per HPI Respiratory: Reports congestion, Reports cough, Reports dyspnea, Reports wheezing Gastrointestinal: Reports as per HPI Genitourinary: Reports as per HPI Menstruation: Reports as per HPI Musculoskeletal: Reports as per HPI Musculoskeletal: absent: ankle pain, ankle stiffness, ankle swelling, as per HPI, elbow pain, elbow stiffness, elbow swelling, foot pain, foot stiffness, foot swelling, hand pain, hand stiffness, hand swelling, hip pain, hip stiffness, hip swelling, knee pain, knee stiffness, knee swelling, shoulder pain, shoulder stiffness, shoulder swelling, wrist pain, wrist stiffness, wrist swelling Integumentary: Reports as per HPI Neurological: Reports as per HPI Psychiatric: Reports as per HPI Endocrine: Reports as per HPI, Reports fatigue Hematologic/Lymphatic: Reports as per HPI Allergic/Immunologic: Reports as per HPI Past Medical History Past Medical History: Asthma, GERD/Reflux Additional Past Medical History / Comment(s): Irregular heart beat at times, past syncope, hypokalemia, orthostatic hypotension, bronchitis, anemia, vitamin D deficiency, UTIs, R shoulder pain d/t tendonitis R rotator cuff. History of Any Multi-Drug Resistant Organisms: None Reported Past Surgical History: Tubal Ligation Additional Past Surgical History / Comment(s): TTT, cyst removed from L knee Past Anesthesia/Blood Transfusion Reactions: No Reported Reaction Additional Past Anesthesia/Blood Transfusion Reaction / Comment(s): unknown Past Psychological History: Anxiety, Depression Smoking Status: Vaper Past Drug Use History: Marijuana - Past Family History Mother Family Medical History: No Reported History Additional Family Medical History / Comment(s): Mother is healthy Father Additional Family Medical History / Comment(s): Vitamin D deficiency. Medications and Allergies Home Medications Medication Instructions Recorded Confirmed Type FLUoxetine HCL [PROzac] 40 mg PO DAILY 06/26/20 03/06/24 History Venlafaxine HCl [Effexor XR] 150 mg PO DAILY 06/26/20 03/06/24 History amLODIPine [Norvasc] 2.5 mg PO DAILY 10/08/20 03/06/24 History Albuterol Inhaler [Ventolin Hfa 2 puff INHALATION RT-Q4H PRN 02/10/24 03/06/24 History Inhaler] Allergies Allergy/AdvReac Type Severity Reaction Status Date / Time No Known Allergies Allergy Verified 03/06/24 06:47 Physical Exam Vitals: Vital Signs Temp Pulse Resp BP Pulse Ox 03/06/24 14:07 96 20 129/75 94 L 03/06/24 13:52 93 20 92 L 03/06/24 13:19 92 03/06/24 13:11 90 03/06/24 13:04 89 18 140/82 93 L 03/06/24 10:23 94 03/06/24 10:14 100 03/06/24 09:35 88 24 135/89 92 L 03/06/24 08:05 90 03/06/24 08:00 94 26 H 125/79 91 L 03/06/24 06:50 24 03/06/24 06:42 97.7 F 108 H 24 112/72 90 L Intake and Output 03/05/24 03/06/24 03/06/24 22:59 06:59 14:59 Other: Weight 97.522 kg GENERAL EXAM: Alert, pleasant obese 40-year-old female patient, on 4 L nasal cannula, fairly comfortable in no apparent distress. HEAD: Normocephalic. EYES: Normal reaction of pupils, equal size. NOSE: Clear with pink turbinates. THROAT: No erythema or exudates. NECK: No masses, no JVD. CHEST: No chest wall deformity. LUNGS: Equal air entry with bilateral scattered rhonchi, crackles and wheeze. CVS: S1 and S2 normal with no audible murmur, regular rhythm. ABDOMEN: No hepatosplenomegaly, normal bowel sounds, no guarding or rigidity. SPINE: No scoliosis or deformity SKIN: No rashes CENTRAL NERVOUS SYSTEM: No focal deficits, tone is normal in all 4 extremities. EXTREMITIES: There is no peripheral edema. No clubbing, no cyanosis. Peripheral pulses are intact. Results - Laboratory Findings CBC and BMP: 03/06/24 07:14 03/06/24 07:14 PT/INR, D-dimer PT 10.9 sec (10.0-12.5) 03/06/24 07:14 INR 1.0 (<1.2) 03/06/24 07:14 D-Dimer 0.45 mg/L FEU (<0.60) 03/06/24 13:22 Abnormal lab findings: Abnormal Labs 03/06/24 03/06/24 03/06/24 07:14 07:14 08:05 Lymphocytes # 0.5 L Potassium 3.3 L Glucose 121 H C-Reactive Protein Influenza Type A (PCR) Detected A 03/06/24 13:22 Lymphocytes # Potassium Glucose C-Reactive Protein 5.9 H Influenza Type A (PCR) - Diagnostic Findings Chest x-ray: image reviewed Assessment and Plan Plan: Acute asthma exacerbation Acute hypoxic respiratory failure the patient is currently on 4 L of oxygen by nasal cannula Shortness of breath secondary to above Previous history of COVID-19 pneumonia back in 2021, requiring hospitalization Chronic and ongoing tobacco dependence Obesity anxiety/depression Hypertension Gastroesophageal reflux disease Plan: Titrate oxygen flow to maintain saturation above 90%, currently on 4 L DuoNeb nebulized treatments [id number] IV Solu-Medrol 60 mg every 6 hours Tamiflu 75 mg p.o. twice a day Educated regarding the importance of complete smoking cessation Educated regarding the importance of vaping cessation Titrate the FiO2 as tolerated Resume home medications We will continue to follow and make further recommendations based on her clinical status
[2024-03-06] MEDS: MORPHINE SULFATE 4 MG/ML SYRINGE IV PRN (16:27)
[2024-03-07] MEDS: amLODIPine 2.5 MG TAB PO SCH (08:52)
[2024-03-07] MEDS: VENLAFAXINE HCL ER 150 MG CAP PO SCH (08:52)
[2024-03-07] MEDS: FLUoxetine HCL 20 MG CAP PO SCH (08:52)
[2024-03-07 09:27] LABS: Basophils # (A) 0.01 X 10*3/uL (0.00-0.10); Basophils % (A) 0.1 %; Eosinophils # (A) 0 X 10*3/uL (0.04-0.35); Eosinophils % (A) 0 %; HCT 40.7 % (37.2-46.3); HGB 13.6 g/dL (12.0-15.0); Lymphocytes # (A) 0.59 X 10*3/uL (0.90-5.00); Lymphocytes % (A) 4.6 %; MCH 30.3 pg (27.0-32.0); MCHC 33.4 g/dL (32.0-37.0); MCV 90.6 FL (80.0-97.0); Mean Platelet Volume 12.6 FL (9.5-12.2); Monocytes % (A) 2.3 %; NRBC Per 100 WBC 0 X 10*3/uL (0.00-0.01); Neutrophils # (A) 11.84 X 10*3/uL (1.80-7.70); Neutrophils % (A) 92.5 %; Platelet Count 187 X 10*3/uL (140-440); RBC 4.49 X 10*6/uL (4.10-5.20); RDW 13.2 % (11.5-14.5)
[2024-03-07 09:46] LABS: ALT 31 U/L (8-44); AST 27 U/L (13-35); Albumin 4.1 g/dL (3.8-4.9); Albumin/Globulin Ratio 1.46 Ratio (1.60-3.17); Alkaline Phosphatase 75 U/L (41-126); BUN/Creat Ratio 22.67 Ratio (12.00-20.00); Blood Urea Nitrogen 13.6 mg/dL (9.0-27.0); Calcium 9.6 mg/dL (8.7-10.3); Carbon Dioxide 22.6 mmol/L (21.6-31.8); Chloride 107 mmol/L (96-109); Globulin 2.8 g/dL (1.6-3.3); Glucose 141 mg/dL (70-110); Potassium 3.7 mmol/L (3.5-5.5); Sodium 141 mmol/L (135-145); Total Bilirubin <0.2 mg/dL (0.3-1.2); Total Protein 6.9 g/dL (6.2-8.2)
[2024-03-07] MEDS: BENZONATATE 100 MG CAP PO PRN (11:22)
--- NOTE | 2024-03-07 12:39 | P.PN ---
Subjective Progress Note Date: 03/07/24 patient is a 43-year-old lady with past medical history significant for asthma, vaping, hypertension who presented to the ER because of shortness of breath. Patient stated she was all right yesterday when started noticing increasing shortness of breath and cough. Patient had no fevers. There is no complaint of chills. Patient denies any chest pain. Shortness of breath of breath on rest as on exertion. Patient has history of asthma and normally uses albuterol frequently. Patient also stated that she recently completed a course of antibiotics for bronchitis/pneumonia per PCP. Patient had sick contact in the family in the form of who is also having similar symptoms. Patient also complain lethargic and weakness. Because of the symptoms, patient brought to the ER. Initial lab work done in the ER showed WBC 1.3, hemoglobin 14.7, platelet count 165, sodium 139, potassium 3.3, BUN 16, creatinine 0.72, glucose 121, lactate 1.1, calcium 9.4, troponin 0.012 Influenza A detected Influenza B not detected RSV not detected COVID-19 not detected EKG done in the ER showed heart rate of 98, no ST segment elevation or depression seen, no T-wave inversions seen. Chest x-ray done in the ER showed no acute pulmonary process Patient admitted to internal medicine service 03/07. Patient seen and examined. Patient currently on 4 L of oxygen. Still complaining of shortness of breath on exertion. Patient still complaining of cough REVIEW OF SYSTEMS: CONSTITUTIONAL: No fever, no malaise,. CARDIOVASCULAR: No chest pain, no palpitations, no syncope. PULMONARY: As mentioned above GASTROINTESTINAL: No diarrhea, no nausea, no vomiting, no abdominal pain. NEUROLOGICAL: No headaches, no weakness, PHYSICAL EXAMINATION: GENERAL: The patient is alert and oriented x3, not in any acute distress. Well developed, well nourished. HEENT: Pupils are round and equally reacting to light. EOMI. No scleral icterus. No conjunctival pallor. Normocephalic, atraumatic. No pharyngeal erythema. No thyromegaly. CARDIOVASCULAR: S1 and S2 present. No murmurs, rubs, or gallops. PULMONARY: Diminished breath sounds at bases, expiratory wheeze audible, no crackles, ABDOMEN: Soft, nontender, nondistended, normoactive bowel sounds. No palpable organomegaly. MUSCULOSKELETAL: No joint swelling or deformity. EXTREMITIES: No cyanosis, clubbing, or pedal edema. NEUROLOGICAL: Gross neurological examination did not reveal any focal deficits. SKIN: No rashes. Assessment and plan Acute hypoxic respiratory failure Acute influenza A infection Acute asthma exacerbation Current history of vaping Monitor vital signs Monitor CBC Monitor CMP Aggressive bronchopulmonary hygiene Continue oxygen supplementation Continue IV Solu-Medrol Continue breathing treatment Continue Tamiflu Pulmonology following Labs and medication were reviewed.. Continue same treatment. Continue with symptomatic treatment. Resume home medication. Monitor labs and vitals. DVT and GI prophylaxis. Further recommendations as per clinical course of the patient Dictation was produced using [employer] dictation software. please excuse any grammatical, word or spelling errors. Objective - Vital Signs Vital signs: Vital Signs Temp 97.8 F 03/07/24 07:00 Pulse 96 03/07/24 11:34 Resp 16 03/07/24 07:00 BP 119/64 03/07/24 07:00 Pulse Ox 95 03/07/24 07:00 FiO2 Intake & Output 03/06/24 03/07/24 03/07/24 18:59 06:59 18:59 Intake Total 218 118 Balance 218 118 Weight 97.522 kg Intake: Oral 218 118 Other: Voiding Method Toilet # Voids 3 # Bowel Movements 1 - Labs CBC & Chem 7: 03/07/24 04:44 03/07/24 04:44 Labs: Abnormal Lab Results - Last 24 Hours (Table) 03/06/24 03/06/24 03/07/24 Range/Units 13:22 13:22 04:44 WBC 12.80 H (4.50-10.00) X 10*3/uL MPV 12.6 H (9.5-12.2) FL Immature Gran # 0.06 H (0.00-0.04) X 10*3/uL Neutrophils # 11.84 H (1.80-7.70) X 10*3/uL Lymphocytes # 0.59 L (0.90-5.00) X 10*3/uL Eosinophils # 0 L (0.04-0.35) X 10*3/uL ESR 34 H (0-20) mm/Hr BUN/Creatinine Ratio (12.00-20.00) Ratio Glucose (70-110) mg/dL Total Bilirubin (0.3-1.2) mg/dL C-Reactive Protein 5.9 H (<1.0) mg/dL Albumin/Globulin Ratio (1.60-3.17) Ratio 03/07/24 Range/Units 04:44 WBC (4.50-10.00) X 10*3/uL MPV (9.5-12.2) FL Immature Gran # (0.00-0.04) X 10*3/uL Neutrophils # (1.80-7.70) X 10*3/uL Lymphocytes # (0.90-5.00) X 10*3/uL Eosinophils # (0.04-0.35) X 10*3/uL ESR (0-20) mm/Hr BUN/Creatinine Ratio 22.67 H (12.00-20.00) Ratio Glucose 141 H (70-110) mg/dL Total Bilirubin <0.2 L (0.3-1.2) mg/dL C-Reactive Protein (<1.0) mg/dL Albumin/Globulin Ratio 1.46 L (1.60-3.17) Ratio
[2024-03-07] MEDS: OSELTAMIVIR 75 MG CAP PO SCH (13:04)
--- NOTE | 2024-03-07 13:40 | P.PN ---
Subjective Progress Note Date: 03/07/24 43-year-old female patient, obese, history of bronchial asthma with an albuter ol rescue inhaler, no maintenance medications. The patient does not smoke tobacco for the time being. She vapes. She presents to the hospital because of increased shortness of breath. + Ongoing cough, chest tightness, wheezing and some limited sputum production. She was in acute asthma exacerbation at the same time the patient tested +8. Chest x-ray showed no acute abnormalities. The patient was hypoxic and the patient was placed on 2 L of oxygen by nasal cannula. Started on Tamiflu. Sta rted on IV Solu-Medrol and DuoNeb nebulized treatments [id number] and she was hospitalized. D-dimer is at 0.4. White cell count is at 7.3. Electrolytes are all within normal limits. LFTs are normal. CRP is at 5.9. Troponins are negative. No altered mentation. No nausea vomiting or diarrhea. No other extrapulmonary manifestations of influenza infection. 03/07/2024, the patient is being seen for a follow-up. Slightly improved compared to yesterday. Remains on oxygen 4 L/min nasal cannula. Remains on bronchodilators and steroids. The patient remains on IV Solu-Medrol 60 mg every 6 hours. She is positive for influenza A and the patient is currently on Tamiflu. She is also on IV Solu-Medrol 60 mg every 6 hours and DuoNeb nebulized treatments [id number]. She is also on Tessalon Perles for cough and congestion. No pleurisy. No hemoptysis. No chest pain. Objective - Vital Signs Vital signs: Vital Signs Temp 97.8 F 03/07/24 07:00 Pulse 96 03/07/24 08:12 Resp 16 03/07/24 07:00 BP 119/64 03/07/24 07:00 Pulse Ox 95 03/07/24 07:00 FiO2 Intake & Output 03/06/24 03/07/24 03/07/24 18:59 06:59 18:59 Intake Total 218 118 Balance 218 118 Weight 97.522 kg Intake: Oral 218 118 Other: Voiding Method Toilet # Voids 3 # Bowel Movements 1 - Exam GENERAL EXAM: Alert, pleasant obese 40-year-old female patient, on 4 L nasal cannula, fairly comfortable in no apparent distress. HEAD: Normocephalic. EYES: Normal reaction of pupils, equal size. NOSE: Clear with pink turbinates. THROAT: No erythema or exudates. NECK: No masses, no JVD. CHEST: No chest wall deformity. LUNGS: Equal air entry with bilateral scattered rhonchi, crackles and wheeze. CVS: S1 and S2 normal with no audible murmur, regular rhythm. ABDOMEN: No hepatosplenomegaly, normal bowel sounds, no guarding or rigidity. SPINE: No scoliosis or deformity SKIN: No rashes CENTRAL NERVOUS SYSTEM: No focal deficits, tone is normal in all 4 extremities. EXTREMITIES: There is no peripheral edema. No clubbing, no cyanosis. Perip heral pulses are intact. - Labs CBC & Chem 7: 03/07/24 04:44 03/07/24 04:44 Labs: Abnormal Lab Results - Last 24 Hours (Table) 03/06/24 03/06/24 03/07/24 Range/Units 13:22 13:22 04:44 WBC 12.80 H (4.50-10.00) X 10*3/uL MPV 12.6 H (9.5-12.2) FL Immature Gran # 0.06 H (0.00-0.04) X 10*3/uL Neutrophils # 11.84 H (1.80-7.70) X 10*3/uL Lymphocytes # 0.59 L (0.90-5.00) X 10*3/uL Eosinophils # 0 L (0.04-0.35) X 10*3/uL ESR 34 H (0-20) mm/Hr BUN/Creatinine Ratio (12.00-20.00) Ratio Glucose (70-110) mg/dL Total Bilirubin (0.3-1.2) mg/dL C-Reactive Protein 5.9 H (<1.0) mg/dL Albumin/Globulin Ratio (1.60-3.17) Ratio 03/07/24 Range/Units 04:44 WBC (4.50-10.00) X 10*3/uL MPV (9.5-12.2) FL Immature Gran # (0.00-0.04) X 10*3/uL Neutrophils # (1.80-7.70) X 10*3/uL Lymphocytes # (0.90-5.00) X 10*3/uL Eosinophils # (0.04-0.35) X 10*3/uL ESR (0-20) mm/Hr BUN/Creatinine Ratio 22.67 H (12.00-20.00) Ratio Glucose 141 H (70-110) mg/dL Total Bilirubin <0.2 L (0.3-1.2) mg/dL C-Reactive Protein (<1.0) mg/dL Albumin/Globulin Ratio 1.46 L (1.60-3.17) Ratio Assessment and Plan Plan: Acute asthma exacerbation, remains symptomatic Acute hypoxic respiratory failure the patient is currently on 4 L of oxygen by nasal cannula Shortness of breath secondary to above Previous history of COVID-19 pneumonia back in 2021, requiring hospitalization Chronic and ongoing tobacco dependence Obesity anxiety/depression Hypertension Gastroesophageal reflux disease Plan: Limited improvement since yesterday. Will continue same management. Titrate oxygen flow to maintain saturation above 90%, currently on 4 L DuoNeb nebulized treatments [id number] IV Solu-Medrol 60 mg every 6 hours Tamiflu 75 mg p.o. twice a day Educated regarding the importance of complete smoking cessation Educated regarding the importance of vaping cessation Titrate the FiO2 as tolerated Resume home medications We will continue to follow and make further recommendations based on her clinical status
[2024-03-08] MEDS: KETOROLAC 15 MG/ML 1 ML VIAL IVP PRN (11:51)
--- NOTE | 2024-03-08 12:43 | P.PN ---
Subjective Progress Note Date: 03/08/24 43-year-old female patient, obese, history of bronchial asthma with an albuterol rescue inhaler, no maintenance medications. The patient does not smoke tobacco for the time being. She vapes. She presents to the hospital because of increased shortness of breath. + Ongoing cough, chest tightness, wheezing and some limited sputum production. She was in acute asthma exacerbation at the same time the patient tested +8. Chest x-ray showed no acute abnormalities. The patient was hypoxic and the patient was placed on 2 L of oxygen by nasal cannula. Started on Tamiflu. Started on IV Solu-Medrol and DuoNeb nebulized treatments [id number] and she was hospitalized. D-dimer is at 0.4. White cell count is at 7.3. Electrolytes are all within normal limits. LFTs are normal. CRP is at 5.9. Tr oponins are negative. No altered mentation. No nausea vomiting or diarrhea. No other extrapulmonary manifestations of influenza infection. 03/07/2024, the patient is being seen for a follow-up. Slightly improved compared to yesterday. Remains on oxygen 4 L/min nasal cannula. Remains on bronchodilators and steroids. The patient remains on IV Solu-Medrol 60 mg every 6 hours. She is positive for influenza A and the patient is currently on Tamiflu. She is also on IV Solu-Medrol 60 mg every 6 hours and DuoNeb nebulized treatments [id number]. She is also on Tessalon Perles for cough and congestion. No pleurisy. No hemoptysis. No chest pain. The patient is seen today March 08, 2024 in follow-up on the regular medical floor. She is sitting up at the bedside. Awake and alert in no acute distress. Still with some congestion and wheezing. She remains on DuoNeb inhalations, Solu-Medrol, Tamiflu. Procalcitonin was negative at 0.13. She is maintaining good O2 saturations in the mid 90s on 2 L/min per nasal cannula. She is afebrile. Hemodynamically stable. Objective - Vital Signs Vital signs: Vital Signs Temp 97.5 F L 03/08/24 07:00 Pulse 88 03/08/24 11:52 Resp 16 03/08/24 07:00 BP 138/87 03/08/24 07:00 Pulse Ox 96 01/13/25 08:51 FiO2 Intake & Output 03/07/24 03/08/24 03/08/24 18:59 06:59 18:59 Intake Total 354 118 Balance 354 118 Intake: Oral 354 118 Other: Voiding Method Toilet # Voids 4 2 - Exam GENERAL EXAM: Alert, 43-year-old female, on 2 L nasal cannula, comfortable in no apparent distress. HEAD: Normocephalic. EYES: Normal reaction of pupils, equal size. NOSE: Clear with pink turbinates. THROAT: No erythema or exudates. NECK: No masses, no JVD. CHEST: No chest wall deformity. LUNGS: Equal air entry with bilateral wheezing, diminished. CVS: S1 and S2 normal with no audible murmur, regular rhythm. ABDOMEN: No hepatosplenomegaly, normal bowel sounds, no guarding or rigidity. SPINE: No scoliosis or deformity SKIN: No rashes CENTRAL NERVOUS SYSTEM: No focal deficits, tone is normal in all 4 extremities. EXTREMITIES: There is no peripheral edema. No clubbing, no cyanosis. P eripheral pulses are intact. - Labs CBC & Chem 7: 03/07/24 04:44 03/07/24 04:44 Assessment and Plan Assessment: Acute asthma exacerbation, remains symptomatic Acute hypoxic respiratory failure the patient is currently on 2 L of oxygen by nasal cannula Shortness of breath secondary to above Previous history of COVID-19 pneumonia back in 2021, requiring hospitalization Chronic tobacco dependence, vaping Marijuana use Obesity Anxiety/depression Hypertension Gastroesophageal reflux disease Plan: The patient was seen and evaluated Medications reviewed Currently on 3 L nasal cannula Titrate down the FiO2 as tolerated Still bronchospastic and wheezing Continue DuoNeb and elations Continue Solu-Medrol Continue Tamiflu I have personally seen and examined the patient, performed the documentation and the assessment and plan as written. Number of minutes spent on the visit: 10 Dictation was produced using [employer] dictation software. Please excuse any grammatical, word or spelling errors.
--- NOTE | 2024-03-09 05:02 | P.PN ---
Subjective Progress Note Date: 03/08/24 patient is a 43-year-old lady with past medical history significant for asthma, vaping, hypertension who presented to the ER because of shortness of breath. Patient stated she was all right yesterday when started noticing increasing shortness of breath and cough. Patient had no fevers. There is no complaint of chills. Patient denies any chest pain. Shortness of breath of breath on rest as on exertion. Patient has history of asthma and normally uses albuterol frequently. Patient also stated that she recently completed a course of antibiotics for bronchitis/pneumonia per PCP. Patient had sick contact in the family in the form of who is also having similar symptoms. Patient also complain lethargic and weakness. Because of the symptoms, patient brought to the ER. Initial lab work done in the ER showed WBC 1.3, hemoglobin 14.7, platelet count 165, sodium 139, potassium 3.3, BUN 16, creatinine 0.72, glucose 121, lactate 1.1, calcium 9.4, troponin 0.012 Influenza A detected Influenza B not detected RSV not detected COVID-19 not detected EKG done in the ER showed heart rate of 98, no ST segment elevation or depression seen, no T-wave inversions seen. Chest x-ray done in the ER showed no acute pulmonary process Patient admitted to internal medicine service 03/07. Patient seen and examined. Patient currently on 4 L of oxygen. Still complaining of shortness of breath on exertion. Patient still complaining of cough 03/08/2024 Patient is seen in follow-up today with pulmonary following. Patient is continued on IV steroids along with breathing treatments and continues on 2 to 3 L of oxygen via nasal cannula. Weaning as tolerated although patient continues to be quite short of breath and bronchospastic with significant wheezing noted on exam. Patient reports does not wear oxygen outpatient and will wean as tolerated. Patient has been encouraged to increase activity as tolerated. Continue Tamiflu as well upon repeat labs REVIEW OF SYSTEMS: CONSTITUTIONAL: No fever, reports of malaise,. CARDIOVASCULAR: No chest pain, no palpitations, no syncope. PULMONARY: As mentioned above GASTROINTESTINAL: No diarrhea, no nausea, no vomiting, no abdominal pain. NEUROLOGICAL: No headaches, no weakness PHYSICAL EXAMINATION: GENERAL: The patient is alert and oriented x3, not in any acute distress. Well developed, obese HEENT: Pupils are round and equally reacting to light. EOMI. No scleral icterus. No conjunctival pallor. Normocephalic, atraumatic. No pharyngeal erythema. No thyromegaly. CARDIOVASCULAR: S1 and S2 present. No murmurs, rubs, or gallops. PULMONARY: Diminished breath sounds at bases, expiratory wheeze audible, no crackles, extremely bronchospastic on exam ABDOMEN: Soft, obese, nontender, nondistended, normoactive bowel sounds. No palp able organomegaly. MUSCULOSKELETAL: No joint swelling or deformity. EXTREMITIES: No cyanosis, clubbing, or pedal edema. NEUROLOGICAL: Gross neurological examination did not reveal any focal deficits. SKIN: No rashes. Assessment: Acute hypoxic respiratory failure secondary to acute influenza A infection Acute influenza A infection Acute asthma exacerbation Current history of vaping Obesity with a BMI of 34.7 GI prophylaxis DVT prophylaxis Full code Plan: Patient is currently maintained on 2 to 4 L via nasal cannula and recommend to wean FiO2 as tolerated as patient does not wear oxygen outpatient Continue on IV steroids and breathing treatments and encourage incentive spirometer Encourage increase activity as tolerated Patient to continue on Tamiflu Follow-up labs ordered for a.m. Pulmonary following and discussing possible discharge planning in the next 24 to 48 hours The impression and plan of care has been dictated by Maylin Alcantar, Nurse Practitioner as directed. Dr. Jim MD I have performed a history and examination and MDM of this patient, discussed the same with the dictator, and agree with the dictator's assessment and plan as written ,documented as a scribe. Based on total visit time, I have performed more than 50% of the visit. Objective - Vital Signs Vital signs: Vital Signs Temp 97.5 F L 03/08/24 07:00 Pulse 94 03/08/24 09:00 Resp 16 03/08/24 07:00 BP 138/87 03/08/24 07:00 Pulse Ox 96 03/08/24 08:51 FiO2 Intake & Output 03/07/24 03/08/24 03/08/24 18:59 06:59 18:59 Intake Total 354 118 Balance 354 118 Intake: Oral 354 118 Other: Voiding Method Toilet # Voids 4 2 - Labs CBC & Chem 7: 03/07/24 04:44 03/07/24 04:44 Labs: Abnormal Lab Results - Last 24 Hours (Table) 03/07/24 Range/Units 04:44 BUN/Creatinine Ratio 22.67 H (12.00-20.00) Ratio Glucose 141 H (70-110) mg/dL Total Bilirubin <0.2 L (0.3-1.2) mg/dL Albumin/Globulin Ratio 1.46 L (1.60-3.17) Ratio
--- NOTE | 2024-03-09 08:41 | XR ---
EXAMINATION TYPE: XR chest 1V portable DATE OF EXAM: 03/09/2024 8:32 AM COMPARISON: Chest radiographs from 03/09/2024 CLINICAL INDICATION: Female, 43 years old with history of Flu A, shortness of breath; [facility] TECHNIQUE: XR chest 1V portable Frontal view of the chest. FINDINGS: Lungs/Pleura: Scattered subtle reticular and hazy opacities. No evidence of pneumothorax, focal conso lidation or pleural effusion. Pulmonary vascularity: Unremarkable. Heart/mediastinum: Cardiomediastinal silhouette is unremarkable. Musculoskeletal: No acute osseous pathology. IMPRESSION: Subtle scattered opacities which may represent an atypical pneumonia. [facility], , 03/09/2024 8:38 AM
[2024-03-09 09:23] LABS: Magnesium 2.2 mg/dL (1.5-2.4)
[2024-03-09 09:33] LABS: ALT 47 U/L (8-44); AST 26 U/L (13-35); Albumin 4.1 g/dL (3.8-4.9); Albumin/Globulin Ratio 1.52 Ratio (1.60-3.17); Alkaline Phosphatase 65 U/L (41-126); BUN/Creat Ratio 24.17 Ratio (12.00-20.00); Blood Urea Nitrogen 14.5 mg/dL (9.0-27.0); Calcium 9.2 mg/dL (8.7-10.3); Carbon Dioxide 26.9 mmol/L (21.6-31.8); Chloride 100 mmol/L (96-109); Globulin 2.7 g/dL (1.6-3.3); Glucose 111 mg/dL (70-110); Potassium 3.6 mmol/L (3.5-5.5); Sodium 138 mmol/L (135-145); Total Bilirubin 0.2 mg/dL (0.3-1.2); Total Protein 6.8 g/dL (6.2-8.2)
[2024-03-09 10:39] LABS: Basophils # (A) 0.01 X 10*3/uL (0.00-0.10); Basophils % (A) 0.1 %; Eosinophils # (A) 0 X 10*3/uL (0.04-0.35); Eosinophils % (A) 0 %; HCT 41.5 % (37.2-46.3); HGB 13.9 g/dL (12.0-15.0); Lymphocytes # (A) 0.89 X 10*3/uL (0.90-5.00); Lymphocytes % (A) 10.1 %; MCHC 33.5 g/dL (32.0-37.0); MCV 89.6 FL (80.0-97.0); Mean Platelet Volume 12.2 FL (9.5-12.2); Monocytes # (A) 0.29 X 10*3/uL (0.20-1.00); Monocytes % (A) 3.3 %; NRBC Per 100 WBC 0 X 10*3/uL (0.00-0.01); Neutrophils # (A) 7.55 X 10*3/uL (1.80-7.70); Neutrophils % (A) 85.9 %; Platelet Count 189 X 10*3/uL (140-440); RBC 4.63 X 10*6/uL (4.10-5.20); RDW 13.5 % (11.5-14.5); WBC 8.79 X 10*3/uL (4.50-10.00)
--- NOTE | 2024-03-09 12:24 | P.PN ---
Subjective Progress Note Date: 03/09/24 43-year-old female patient, obese, history of bronchial asthma with an albuterol rescue inhaler, no maintenance medications. The patient does not smoke tobacco for the time being. She vapes. She presents to the hospital because of increased shortness of breath. + Ongoing cough, chest tightness, wheezing and some limited sputum production. She was in acute asthma exacerbation at the same time the patient tested +8. Chest x-ray showed no acute abnormalities. The patient was hypoxic and the patient was placed on 2 L of oxygen by nasal cannula. Started on Tamiflu. Started on IV Solu-Medrol and DuoNeb nebulized treatments [id number] and she was hospitalized. D-dimer is at 0.4. White cell count is at 7.3. Electrolytes are all within normal limits. LFTs are normal. CRP is at 5.9. Tr oponins are negative. No altered mentation. No nausea vomiting or diarrhea. No other extrapulmonary manifestations of influenza infection. 03/07/2024, the patient is being seen for a follow-up. Slightly improved compared to yesterday. Remains on oxygen 4 L/min nasal cannula. Remains on bronchodilators and steroids. The patient remains on IV Solu-Medrol 60 mg every 6 hours. She is positive for influenza A and the patient is currently on Tamiflu. She is also on IV Solu-Medrol 60 mg every 6 hours and DuoNeb nebulized treatments [id number]. She is also on Tessalon Perles for cough and congestion. No pleurisy. No hemoptysis. No chest pain. The patient is seen today March 08, 2024 in follow-up on the regular medical floor. She is sitting up at the bedside. Awake and alert in no acute distress. Still with some congestion and wheezing. She remains on DuoNeb inhalations, Solu-Medrol, Tamiflu. Procalcitonin was negative at 0.13. She is maintaining good O2 saturations in the mid 90s on 2 L/min per nasal cannula. She is afebrile. Hemodynamically stable. The patient is seen today March 09, 2024 in follow-up on the regular medical floor. She is currently sitting up in a chair. Awake and alert in no acute distress. Still not feeling back to her baseline. Still somewhat bronchospastic and wheezing. Maintaining O2 saturations in the 90s on room air. Her procalcitonin was 0.13. She is continued on DuoNeb inhalations, Solu- Medrol, Tessalon Perles. Continued on Tamiflu. Chest x-ray reveals subtle scattered opacities. Sodium 138. Potassium 3.6. Bicarb 27. BUN 15. Creatinine 0.6. Glucose 111. Objective - Vital Signs Vital signs: Vital Signs Temp 98.2 F 03/09/24 07:46 Pulse 68 03/09/24 12:10 Resp 16 03/09/24 12:10 BP 156/79 03/09/24 07:46 Pulse Ox 97 03/09/24 08:53 FiO2 Intake & Output 03/08/24 03/09/24 03/09/24 18:59 06:59 18:59 Intake Total 236 118 Balance 236 118 Intake: Oral 236 118 Other: Voiding Method Toilet # Voids 3 1 - Exam GENERAL EXAM: Alert, 43-year-old female, sitting up in a chair, on room air, comfortable in no apparent distress. HEAD: Normocephalic. EYES: Normal reaction of pupils, equal size. NOSE: Clear with pink turbinates. THROAT: No erythema or exudates. NECK: No masses, no JVD. CHEST: No chest wall deformity. LUNGS: Equal air entry with bilateral wheezing, diminished. CVS: S1 and S2 normal with no audible murmur, regular rhythm. ABDOMEN: No hepatosplenomegaly, normal bowel sounds, no guarding or rigidity. SPINE: No scoliosis or deformity SKIN: No rashes CENTRAL NERVOUS SYSTEM: No focal deficits, tone is normal in all 4 extremities. EXTREMITIES: There is no peripheral edema. No clubbing, no cyanosis. Peripheral pulses are intact. - Labs CBC & Chem 7: 03/09/24 05:46 03/09/24 05:46 Labs: Abnormal Lab Results - Last 24 Hours (Table) 03/09/24 03/09/24 Range/Units 05:46 05:46 Immature Gran # 0.05 H (0.00-0.04) X 10*3/uL Lymphocytes # 0.89 L (0.90-5.00) X 10*3/uL Eosinophils # 0 L (0.04-0.35) X 10*3/uL BUN/Creatinine Ratio 24.17 H (12.00-20.00) Ratio Glucose 111 H (70-110) mg/dL Total Bilirubin 0.2 L (0.3-1.2) mg/dL ALT 47 H (8-44) U/L Albumin/Globulin Ratio 1.52 L (1.60-3.17) Ratio Assessment and Plan Assessment: Acute asthma exacerbation secondary to an acute influenza A infection. Procalcitonin negative Acute hypoxic respiratory failure, the patient is improved and on room air Influenza A infection, receiving Tamiflu Previous history of COVID-19 pneumonia back in 2021, requiring hospitalization Chronic tobacco dependence, vaping Marijuana use Obesity Anxiety/depression Hypertension Gastroesophageal reflux disease Plan: The patient was seen and evaluated Chest x-ray, medications and labs reviewed Currently on room air Continue DuoNeb inhalations Continue Solu-Medrol Continue Tamiflu Not quite ready for discharge I have personally seen and examined the patient, performed the documentation and the assessment and plan as written. Number of minutes spent on the visit: 10 Dictation was produced using [employer] dictation software. Please excuse any grammatical, word or spelling errors.
[2024-03-09] MEDS: AZITHROMYCIN 500 MG TAB PO SCH (14:51)
[2024-03-10 04:29] VITALS: RESP 16
--- NOTE | 2024-03-10 06:18 | P.PN ---
Subjective Progress Note Date: 03/09/24 patient is a 43-year-old lady with past medical history significant for asthma, vaping, hypertension who presented to the ER because of shortness of breath. Patient stated she was all right yesterday when started noticing increasing shortness of breath and cough. Patient had no fevers. There is no complaint of chills. Patient denies any chest pain. Shortness of breath of breath on rest as on exertion. Patient has history of asthma and normally uses albuterol frequently. Patient also stated that she recently completed a course of antibiotics for bronchitis/pneumonia per PCP. Patient had sick contact in the family in the form of who is also having similar symptoms. Patient also complain lethargic and weakness. Because of the symptoms, patient brought to the ER. Initial lab work done in the ER showed WBC 1.3, hemoglobin 14.7, platelet count 165, sodium 139, potassium 3.3, BUN 16, creatinine 0.72, glucose 121, lactate 1.1, calcium 9.4, troponin 0.012 Influenza A detected Influenza B not detected RSV not detected COVID-19 not detected EKG done in the ER showed heart rate of 98, no ST segment elevation or depression seen, no T-wave inversions seen. Chest x-ray done in the ER showed no acute pulmonary process Patient admitted to internal medicine service 03/07. Patient seen and examined. Patient currently on 4 L of oxygen. Still complaining of shortness of breath on exertion. Patient still complaining of cough 03/08/2024 Patient is seen in follow-up today with pulmonary following. Patient is continued on IV steroids along with breathing treatments and continues on 2 to 3 L of oxygen via nasal cannula. Weaning as tolerated although patient continues to be quite short of breath and bronchospastic with significant wheezing noted on exam. Patient reports does not wear oxygen outpatient and will wean as tolerated. Patient has been encouraged to increase activity as tolerated. Continue Tamiflu as well upon repeat labs 03/09/2024 Patient is seen in follow-up today with pulmonary continuing to follow. Patient continues to be extremely bronchospastic with significant expiratory wheezing noted. Patient has been encouraged to increase activity and get out of the bed more often as patient has been laying in bed throughout most of the day. Encouraged increase activity with walking frequently. Patient has been weaned off oxygen currently maintaining oxygen saturations above 90% on room air. Patient will continue on IV steroids and breathing inhalational treatments. Will add Zithromax course as well. Will discuss further with pulmonary regardin g possible discharge planning in the next 24 to 48 hours REVIEW OF SYSTEMS: CONSTITUTIONAL: No fever, reports of malaise,. CARDIOVASCULAR: No chest pain, no palpitations, no syncope. PULMONARY: As mentioned above GASTROINTESTINAL: No diarrhea, no nausea, no vomiting, no abdominal pain. NEUROLOGICAL: No headaches, no weakness PHYSICAL EXAMINATION: GENERAL: The patient is alert and oriented x3, not in any acute distress. Well developed, obese HEENT: Pupils are round and equally reacting to light. EOMI. No scleral icterus. No conjunctival pallor. Normocephalic, atraumatic. No pharyngeal erythema. No thyromegaly. CARDIOVASCULAR: S1 and S2 present. No murmurs, rubs, or gallops. PULMONARY: Diminished breath sounds at bases, expiratory wheeze audible, no crackles, extremely bronchospastic on exam ABDOMEN: Soft, obese, nontender, nondistended, normoactive bowel sounds. No palpable organomegaly. MUSCULOSKELETAL: No joint swelling or deformity. EXTREMITIES: No cyanosis, clubbing, or pedal edema. NEUROLOGICAL: Gross neurological examination did not reveal any focal deficits. SKIN: No rashes. Assessment: Acute hypoxic respiratory failure secondary to acute influenza A infection, improved and currently on room air Acute influenza A infection, maintained on Tamiflu Acute asthma exacerbation Current history of vaping Obesity with a BMI of 34.7 GI prophylaxis DVT prophylaxis Full code Plan: Patient is currently maintained on IV steroids and breathing inhalational treatments with pulmonary following. Patient has been weaned from oxygen currently maintaining oxygen saturations above 90% on room air. Continue to encourage incentive spirometer use Continue on IV steroids and breathing treatments and encourage incentive spirometer. Will transition to oral prednisone taper on discharge and recommend outpatient follow-up with pulmonary. Per pulmonary not quite ready for discharge as of yet and will follow-up in 24 hours. Encourage increase activity as tolerated including getting up out of bed and sitting up in the chair more often and frequent walks Patient to continue on Tamiflu Pulmonary following and discussing possible discharge planning in the next 24 to 48 hours The impression and plan of care has been dictated by Maylin Alcantar Nurse Prac titioner as directed. Dr. Randee MD I have performed a history and examination and MDM of this patient, discussed the same with the dictator, and agree with the dictator's assessment and plan as written ,documented as a scribe. Based on total visit time, I have performed more than 50% of the visit. Objective - Vital Signs Vital signs: Vital Signs Temp 98.3 F 03/10/24 03:52 Pulse 72 03/10/24 03:52 Resp 16 03/10/24 03:52 BP 146/80 03/10/24 03:52 Pulse Ox 95 03/10/24 03:52 FiO2 Intake & Output 03/09/24 03/09/24 03/10/24 06:59 18:59 06:59 Intake Total 354 Balance 354 Intake: Oral 354 Other: Voiding Method Toilet Toilet # Voids 1 5 - Labs CBC & Chem 7: 03/09/24 05:46 03/09/24 05:46 Labs: Abnormal Lab Results - Last 24 Hours (Table) 03/09/24 03/09/24 Range/Units 05:46 05:46 Immature Gran # 0.05 H (0.00-0.04) X 10*3/uL Lymphocytes # 0.89 L (0.90-5.00) X 10*3/uL Eosinophils # 0 L (0.04-0.35) X 10*3/uL BUN/Creatinine Ratio 24.17 H (12.00-20.00) Ratio Glucose 111 H (70-110) mg/dL Total Bilirubin 0.2 L (0.3-1.2) mg/dL ALT 47 H (8-44) U/L Albumin/Globulin Ratio 1.52 L (1.60-3.17) Ratio
[2024-03-10 07:32] VITALS: BP 153/90; TEMP 98.2
[2024-03-10 08:42] VITALS: PULSE 68
[2024-03-10] MEDS: predniSONE 20 MG TAB PO SCH (09:04)
--- NOTE | 2024-03-10 13:58 | P.PN ---
Subjective Progress Note Date: 03/10/24 43-year-old female patient, obese, history of bronchial asthma with an albuterol rescue inhaler, no maintenance medications. The patient does not smoke tobacco for the time being. She vapes. She presents to the hospital because of increased shortness of breath. + Ongoing cough, chest tightness, wheezing and some limited sputum production. She was in acute asthma exacerbation at the same time the patient tested +8. Chest x-ray showed no acute abnormalities. The patient was hypoxic and the patient was placed on 2 L of oxygen by nasal cannula. Started on Tamiflu. Started on IV Solu-Medrol and DuoNeb nebulized treatments [id number] and she was hospitalized. D-dimer is at 0.4. White cell count is at 7.3. Electrolytes are all within normal limits. LFTs are normal. CRP is at 5.9. Tr oponins are negative. No altered mentation. No nausea vomiting or diarrhea. No other extrapulmonary manifestations of influenza infection. 03/07/2024, the patient is being seen for a follow-up. Slightly improved compared to yesterday. Remains on oxygen 4 L/min nasal cannula. Remains on bronchodilators and steroids. The patient remains on IV Solu-Medrol 60 mg every 6 hours. She is positive for influenza A and the patient is currently on Tamiflu. She is also on IV Solu-Medrol 60 mg every 6 hours and DuoNeb nebulized treatments [id number]. She is also on Tessalon Perles for cough and congestion. No pleurisy. No hemoptysis. No chest pain. The patient is seen today March 08, 2024 in follow-up on the regular medical floor. She is sitting up at the bedside. Awake and alert in no acute distress. Still with some congestion and wheezing. She remains on DuoNeb inhalations, Solu-Medrol, Tamiflu. Procalcitonin was negative at 0.13. She is maintaining good O2 saturations in the mid 90s on 2 L/min per nasal cannula. She is afebrile. Hemodynamically stable. The patient is seen today March 09, 2024 in follow-up on the regular medical floor. She is currently sitting up in a chair. Awake and alert in no acute distress. Still not feeling back to her baseline. Still somewhat bronchospastic and wheezing. Maintaining O2 saturations in the 90s on room air. Her procalcitonin was 0.13. She is continued on DuoNeb inhalations, Solu- Medrol, Tessalon Perles. Continued on Tamiflu. Chest x-ray reveals subtle scattered opacities. Sodium 138. Potassium 3.6. Bicarb 27. BUN 15. Creatinine 0.6. Glucose 111. The patient is seen today March 10, 2024 in follow-up on the regular medical floor. She is currently sitting up at the bedside. Awake and alert in no acute distress. Breathing quite a bit easier today compared to yesterday. She is maintaining good O2 saturations in the 90s on room air. She is continued on DuoNeb inhalations, Solu-Medrol, Tessalon Perles, Tamiflu. No new labs today. Objective - Vital Signs Vital signs: Vital Signs Temp 98.2 F 03/10/24 07:31 Pulse 68 03/10/24 12:01 Resp 16 03/10/24 12:01 BP 153/90 03/10/24 07:31 Pulse Ox 94 L 03/10/24 08:40 FiO2 Intake & Output 03/09/24 03/10/24 03/10/24 18:59 06:59 18:59 Intake Total 354 Balance 354 Intake: Oral 354 Other: Voiding Method Toilet # Voids 5 2 - Exam GENERAL EXAM: Alert, pleasant 43-year-old female, sitting up in bed, on room air, in no apparent distress. HEAD: Normocephalic. EYES: Normal reaction of pupils, equal size. NOSE: Clear with pink turbinates. THROAT: No erythema or exudates. NECK: No masses, no JVD. CHEST: No chest wall deformity. LUNGS: Equal air entry with faint end expiratory wheeze, diminished. CVS: S1 and S2 normal with no audible murmur, regular rhythm. ABDOMEN: No hepatosplenomegaly, normal bowel sounds, no guarding or rigidity. SPINE: No scoliosis or deformity SKIN: No rashes CENTRAL NERVOUS SYSTEM: No focal deficits, tone is normal in all 4 extremities. EXTREMITIES: There is no peripheral edema. No clubbing, no cyanosis. Peripheral pulses are intact. - Labs CBC & Chem 7: 03/09/24 05:46 03/09/24 05:46 Assessment and Plan Assessment: Acute asthma exacerbation secondary to an acute influenza A infection. Procalcitonin negative Acute hypoxic respiratory failure, the patient is improved and on room air Influenza A infection, receiving Tamiflu Previous history of COVID-19 pneumonia back in 2021, requiring hospitalization Chronic tobacco dependence, vaping Marijuana use Obesity Anxiety/depression Hypertension Gastroesophageal reflux disease Plan: The patient was seen and evaluated Medications reviewed Currently on room air Layered for discharge Complete a course of Tamiflu Complete a prednisone taper Continue her home albuterol as needed Follow-up in our office in 1 week This patient was seen independently by the pulmonary nurse practitioner addressing pulmonary issues I have personally seen and examined the patient, performed the documentation and the assessment and plan as written. Number of minutes spent on the visit: 25 Dictation was produced using [employer] dictation software. Please excuse any grammatical, word or spelling errors.
--- NOTE | 2024-03-14 18:12 | P.DS ---
Providers Date of admission: 03/06/24 11:04 Attending physician: Venkat Gandhi MD Consults: 03/06/24 10:31 Consult Physician Routine Consulting Provider: Sara Deras Consult Reason/Comments: influenza, dyspnea Do you want consulting provider notified?: Yes Primary care physician: Stated None Hospital Course: Final Diagnosis Acute hypoxic respiratory failure secondary to acute influenza A infection, improved and currently on room air Acute influenza A infection, maintained on Tamiflu Acute asthma exacerbation Current history of vaping Obesity with a BMI of 34.7 Discharge Disposition Patient is stable for discharge home. Recommending steroid taper on discharge, and complete 3 day course of oral azithromycin patient has 1 more dose left on discharge. Patient has 2 more days of tamiflu on discharge. Follow up with Pulmonology. Establish care with a PCP. Hospital Course patient is a 43-year-old lady with past medical history significant for asthma, vaping, hypertension who presented to the ER because of shortness of breath. Patient stated she was all right yesterday when started noticing increasing shortness of breath and cough. Patient had no fevers. There is no complaint of chills. Patient denies any chest pain. Shortness of breath of breath on rest as on exertion. Patient has history of asthma and normally uses albuterol frequently. Patient also stated that she recently completed a course of antibiotics for bronchitis/pneumonia per PCP. Patient had sick contact in the family in the form of who is also having similar symptoms. Patient also complain lethargic and weakness. Because of the symptoms, patient brought to the ER. Initial lab work done in the ER showed WBC 1.3, hemoglobin 14.7, platelet count 165, sodium 139, potassium 3.3, BUN 16, creatinine 0.72, glucose 121, lactate 1.1, calcium 9.4, troponin 0.012. Viral panel was positive for influenza A. Patient was admitted to the hospital under internal medicine with pulmonology consultation. Patient was started on IV steroids, was also requiring oxygen via nasal cannula at 3L. Patient had significant wheezing. Started on 5 day course of tamiflu. Patient was weaned off oxygen clinically improved. White blood cell count remains normal at 8.79. Electrolytes and renal function remain WNL. Patient has been up ambulating having some mild shortness of breath significantly improved since admission. Please see medication reconciliation for a list of current medications. Thank you for allowing us to participate in the care of this patient. The impression and plan of care has been dictated by Divine Silva, Nurse Practitioner as directed. Dr. Randee MD I have performed a history and physical examination and medical decision making of this patient, discussed the same with the dictator, and agree with the dictators assessment and plan as written, documented as a scribe. Based on total visit time, I have performed more than 50% of this visit. Patient Condition at Discharge: Stable Plan - Discharge Summary Discharge Rx Participant: Yes New Discharge Prescriptions: New methylPREDNISolone Dose Pack [Medrol Dose Pack] 4 mg PO DIRECTED #21 tab Azithromycin [Zithromax] 500 mg PO DAILY 1 Days #1 tab Oseltamivir [Tamiflu] 75 mg PO Q12HR 2 Days #4 cap Benzonatate [Tessalon Perles] 100 mg PO TID PRN #20 cap PRN Reason: Cough Continue Albuterol Inhaler [Ventolin Hfa Inhaler] 2 puff INHALATION RT-Q4H PRN PRN Reason: Shortness Of Breath FLUoxetine HCL [PROzac] 40 mg PO DAILY Venlafaxine HCl [Effexor XR] 150 mg PO DAILY amLODIPine [Norvasc] 2.5 mg PO DAILY Discharge Medication List FLUoxetine HCL [PROzac] 40 mg PO DAILY 06/26/20 [History] Venlafaxine HCl [Effexor XR] 150 mg PO DAILY 06/26/20 [History] amLODIPine [Norvasc] 2.5 mg PO DAILY 10/08/20 [History] Albuterol Inhaler [Ventolin Hfa Inhaler] 2 puff INHALATION RT-Q4H PRN 02/10/24 [History] Azithromycin [Zithromax] 500 mg PO DAILY 1 Days #1 tab 03/10/24 [Rx] Benzonatate [Tessalon Perles] 100 mg PO TID PRN #20 cap 03/10/24 [Rx] Oseltamivir [Tamiflu] 75 mg PO Q12HR 2 Days #4 cap 03/10/24 [Rx] methylPREDNISolone Dose Pack [Medrol Dose Pack] 4 mg PO DIRECTED #21 tab 03/10/24 [Rx] Follow up Appointment(s)/Referral(s): None,Stated [Primary Care Provider] - 1-2 days Sara Deras MD [STAFF PHYSICIAN] - 05/13/24 8:30 am Patient Instructions/Handouts: Influenza (DC) Discharge/Stand Alone Forms: Work/School Release, Area PCPs Discharge Disposition: HOME SELF-CARE
== END 2024-03-10 14:10 | disposition home or self-care (01) | DRG 193 ==
LOC: EC 06:41 → OBSVTOIN 11:04 → 6NMEDSUR 11:04
PROVIDERS: ADMIT Internal Medicine; ATTEND Internal Medicine
DX: J10.1 Influenza due to other identified influenza virus with other respiratory manifestations (principal); J96.01 Acute respiratory failure with hypoxia; J45.901 Unspecified asthma with (acute) exacerbation; F17.290 Nicotine dependence, other tobacco product, uncomplicated; K21.9 Gastro-esophageal reflux disease without esophagitis; F41.9 Anxiety disorder, unspecified; I10 Essential (primary) hypertension; F32.A Depression, unspecified; E66.9 Obesity, unspecified; Z68.34 Body mass index [BMI] 34.0-34.9, adult; Z79.899 Other long term (current) drug therapy; Z86.16 Personal history of COVID-19; Z87.01 Personal history of pneumonia (recurrent); Z87.440 Personal history of urinary (tract) infections
CPT/HCPCS: 36415; 71045; 71046; 80053; 83605; 83735; 83880; 84145; 84484; 85025; 85379; 85610; 85652; 85730; 86140; 87636; 93005; 94640; 94760; 96361; 96374; 96375; 96376; 99285

== ENCOUNTER 2024-05-28 06:27 | Emergency (ER) | payer SELFPAY ==
--- NOTE | 2024-05-28 06:41 | ED ---
URI HPI - General Chief Complaint: Upper Respiratory Infection Stated Complaint: SHAYNA Time Seen by Provider: 05/28/24 06:34 Source: patient, RN notes reviewed Mode of arrival: ambulatory - History of Present Illness Initial Comments: 43-year-old female history of asthma and hypertension presenting to emergency department for complaint of difficulty breathing over the past 3 days. Patient states that she has been using her albuterol rescue inhaler and albuterol nebulizer treatment at home with minimal relief in symptoms. States that she has been experiencing sinus pressure, postnasal drip and nasal congestion as well as right ear pain. She denies chest pain, heart palpitations, dizziness, lightheadedness. Denies history of DVT or PE. Denies hemoptysis, recent travel, peripheral edema or calf swelling or pain. She denies fevers. - Related Data Home Medications Medication Instructions Recorded Confirmed FLUoxetine HCL [PROzac] 40 mg PO DAILY 06/26/20 03/06/24 Venlafaxine HCl [Effexor XR] 150 mg PO DAILY 06/26/20 03/06/24 amLODIPine [Norvasc] 2.5 mg PO DAILY 10/08/20 03/06/24 Albuterol Inhaler [Ventolin Hfa 2 puff INHALATION RT-Q4H PRN 02/10/24 03/06/24 Inhaler] Previous Rx's Medication Instructions Recorded Azithromycin [Zithromax] 500 mg PO DAILY 1 Days #1 tab 03/10/24 Benzonatate [Tessalon Perles] 100 mg PO TID PRN #20 cap 03/10/24 Oseltamivir [Tamiflu] 75 mg PO Q12HR 2 Days #4 cap 03/10/24 methylPREDNISolone Dose Pack 4 mg PO DIRECTED #21 tab 03/10/24 [Medrol Dose Pack] Ipratropium-Albuterol Nebulize 3 ml INHALATION QID #25 each 05/28/24 [Duoneb 0.5 mg-3 mg/3 ml Soln] predniSONE 50 mg PO DAILY #5 tab 05/28/24 Allergies Allergy/AdvReac Type Severity Reaction Status Date / Time No Known Allergies Allergy Verified 05/28/24 06:34 Review of Systems ROS Statement: Those systems with pertinent positive or pertinent negative responses have been documented in the HPI. ROS Other: All systems not noted in ROS Statement are negative. Past Medical History Past Medical History: Asthma, GERD/Reflux, Hypertension Additional Past Medical History / Comment(s): Irregular heart beat at times, past syncope, hypokalemia, orthostatic hypotension, bronchitis, anemia, vitamin D deficiency, UTIs, R shoulder pain d/t tendonitis R rotator cuff. History of Any Multi-Drug Resistant Organisms: None Reported Past Surgical History: Tubal Ligation Additional Past Surgical History / Comment(s): TTT, cyst removed from L knee Past Anesthesia/Blood Transfusion Reactions: No Reported Reaction Additional Past Anesthesia/Blood Transfusion Reaction / Comment(s): unknown Past Psychological History: Anxiety, Depression Smoking Status: Vaper Past Alcohol Use History: None Reported Past Drug Use History: Marijuana - Past Family History Mother Family Medical History: No Reported History Additional Family Medical History / Comment(s): Mother is healthy Father Additional Family Medical History / Comment(s): Vitamin D deficiency. General Exam General appearance: alert, in no apparent distress ENT exam: Present: normal exam, mucous membranes moist Neck exam: Present: normal inspection. Absent: tenderness, meningismus, lymphadenopathy Respiratory exam: Present: wheezes. Absent: normal lung sounds bilaterally, respiratory distress, rales, decreased breath sounds Cardiovascular Exam: Present: regular rate, normal rhythm, normal heart sounds. Absent: systolic murmur, diastolic murmur, rubs, gallop, clicks GI/Abdominal exam: Present: soft, normal bowel sounds. Absent: distended, tenderness, guarding, rebound, rigid Extremities exam: Present: normal inspection, full ROM, normal capillary refill. Absent: tenderness, pedal edema, joint swelling, calf tenderness Back exam: Present: normal inspection Course Vital Signs 05/28/24 05/28/24 05/28/24 06:31 07:47 07:55 Temperature 97.4 F L Pulse Rate 83 84 88 Respiratory 22 Rate Blood Pressure 141/88 O2 Sat by Pulse 98 Oximetry 05/28/24 05/28/24 05/28/24 07:56 08:07 08:20 Temperature 97.9 F Pulse Rate 88 92 82 Respiratory 18 Rate Blood Pressure 138/79 O2 Sat by Pulse 98 Oximetry Medical Decision Making - Medical Decision Making Was pt. sent in by a medical professional or institution (, [place], ROAD FREIGHT CONDUCTOR, urgent care, hospital, or skilled nursing...) When possible be specific @ -No Did you speak to anyone other than the patient for history (EMS, parent, family, police, friend...)? What history was obtained from this source @ -No Did you review nursing and triage notes (agree or disagree)? Why? @ -I reviewed and agree with nursing and triage notes Were old charts reviewed (outside hosp., previous admission, EMS record, old EKG, old radiological studies, urgent care reports/EKG's, skilled nursing records)? Report findings @ -No old charts were reviewed Differential Diagnosis (chest pain, altered mental status, abdominal pain women, abdominal pain men, vaginal bleeding, weakness, fever, dyspnea, syncope, headache, dizziness, GI bleed, back pain, seizure, CVA, palpatations, mental health, musculoskeletal)? @ -Differential Dyspnea: Coronary syndrome, arrhythmia, tamponade, asthma, COPD, pulmonary embolism, pneumonia, pneumothorax, pulmonary effusion, anaphylaxis, diabetic ketoacidosis, flailed chest, pulmonary contusion, diaphragmatic rupture, anemia, neuromuscular, this is not meant to be an all-inclusive list. EKG interpreted by me (3pts min.). @ -None X-rays interpreted by me (1pt min.). @ -Chest x-ray completed with cardiomegaly noted, no signs of acute pulmonary process CT interpreted by me (1pt min.). @ -None done U/S interpreted by me (1pt. min.). @ -None done What testing was considered but not performed or refused? (CT, X-rays, U/S, labs)? Why? @ -None What meds were considered but not given or refused? Why? @ -None Did you discuss the management of the patient with other professionals (professionals i.e. , PA, ROAD FREIGHT CONDUCTOR, lab, RT, psych nurse, social media analyst, edi programmer analyst, teacher, admissions officer, caseworker intake)? Give summary @ -No Was smoking cessation discussed for >3mins.? @ -No Was critical care preformed (if so, how long)? @ -No Were there social determinants of health that impacted care today? How? (Homelessness, low income, unemployed, alcoholism, drug addiction, transportation, low edu. Level, literacy, decrease access to med. care, prison, rehab)? @ -No Was there de-escalation of care discussed even if they declined (Discuss DNR or withdrawal of care, Hospice)? DNR status @ -No What co-morbidities impacted this encounter? (DM, HTN, Smoking, COPD, CAD, Cancer, CVA, ARF, Chemo, Hep., AIDS, mental health diagnosis, sleep apnea, morbid obesity)? @ -asthma Was patient admitted / discharged? Hospital course, mention meds given and route, prescriptions, significant lab abnormalities, going to OR and other pertinent info. @ -Discharge. 43-year-old female presenting with shortness of breath and difficulty breathing. Vitals are stable on arrival no signs of respiratory distress however there is yun. Chest x-ray no signs of focal consolidation or pneumonia. Viral testing is negative. She is provided with dose of Solu- Medrol and 2 DuoNeb breathing treatments with concern for viral asthma exacerbation. Provided with outpatient prescription for prednisone and DuoNeb ampules. Recommend follow-up with primary care provider. Return parameters discussed. Case discussed with Dr. Whiting Undiagnosed new problem with uncertain prognosis? @ -No Drug Therapy requiring intensive monitoring for toxicity (Heparin, Nitro, Insulin, Cardizem)? @ -No Were any procedures done? @ -No Diagnosis/symptom? @ -asthma exacerbation Acute, or Chronic, or Acute on Chronic? @ -acute Uncomplicated (without systemic symptoms) or Complicated (systemic symptoms)? @ -uncomplicated Side effects of treatment? @ -No Exacerbation, Progression, or Severe Exacerbation? @ -No Poses a threat to life or bodily function? How? (Chest pain, [place], [place], pneumonia, PE, COPD, DKA, ARF, appy, cholecystitis, CVA, Diverticulitis, Homicidal, Suicidal, threat to staff... and all critical care pts) @ -No - Lab Data Lab Results 05/28/24 Range/Units 06:41 Influenza Type A (PCR) Not Detected (Not Detectd) Influenza Type B (PCR) Not Detected (Not Detectd) RSV (PCR) Not Detected (Not Detectd) SARS-CoV-2 (PCR) Not Detected (Not Detectd) Disposition Clinical Impression: Asthma exacerbation Disposition: HOME SELF-CARE Condition: Good Instructions (If sedation given, give patient instructions): Wheezing (ED) Additional Instructions: Please return to the Emergency Department if symptoms worsen or any other concerns. Prescriptions: Ipratropium-Albuterol Nebulize [Duoneb 0.5 mg-3 mg/3 ml Soln] 3 ml INHALATION QID #25 each predniSONE 50 mg PO DAILY #5 tab Is patient prescribed a controlled substance at d/c from ED?: No Referrals: None,Stated [Primary Care Provider] - 1-2 days Time of Disposition: 08:12
[2024-05-28] MEDS: methylPREDNISolone SOD SUCCI 125 MG/2 ML VIAL IM ONE (06:46)
--- NOTE | 2024-05-28 06:53 | XR ---
EXAMINATION TYPE: XR chest 2V DATE OF EXAM: 05/28/2024 CLINICAL INDICATION: Female, 43 years old with history of SHAYNA, TECHNIQUE: Frontal and lateral views of the chest are obtained. COMPARISON: Chest x-ray March 09, 2024 FINDINGS: There is no focal air space opacity, pleural effusion, or pneumothorax seen. Cardiomegaly is redemonstrated. The osseous structures are intact. IMPRESSION: Cardiomegaly without acute pulmonary process. [facility], , 05/28/2024 6:51 AM
[2024-05-28 07:25] LABS: Influenza A Not Detected (Not Detectd); Influenza B Not Detected (Not Detectd); RSV Not Detected (Not Detectd)
[2024-05-28] MEDS: IPRATROPIUM-ALBUTEROL 3 ML NEB INHALATION STA ×2 (07:46)
[2024-05-28 08:22] VITALS: BP 138/79; PULSE 82; RESP 18; TEMP 97.9
== END 2024-05-28 08:21 | disposition home or self-care (01) ==
LOC: EC 06:27
DX: J45.901 Unspecified asthma with (acute) exacerbation (principal); F17.290 Nicotine dependence, other tobacco product, uncomplicated
CPT/HCPCS: 94640 ×2; 87636; 71046; 99285; 96372; J2919

== ENCOUNTER 2024-06-24 11:40 | Emergency (ER) | payer OTHER ==
--- NOTE | 2024-06-24 12:16 | XR ---
EXAMINATION TYPE: XR chest 2V DATE OF EXAM: 06/24/2024 12:13 PM COMPARISON: 05/28/2024 CLINICAL INDICATION: Female, 43 years old with history of short of breath., TECHNIQUE: Frontal and lateral views of the chest are obtained. FINDINGS: There is no focal air space opacity, pleural effusion, or pneumothorax seen. The cardiac silhouette size is within normal limits. The osseous structures are intact. IMPRESSION: No acute cardiopulmonary process. [facility], , 06/24/2024 12:14 PM
--- NOTE | 2024-06-24 13:29 | ED ---
General Adult HPI - General Chief complaint: Shortness of Breath Stated complaint: cough Time Seen by Provider: 06/24/24 13:15 Source: patient, RN notes reviewed, old records reviewed Mode of arrival: ambulatory Limitations: no limitations - History of Present Illness Initial comments: This is a 43-year-old female who presents to the emergency department stating she has a past medical history significant for asthma. Patient comes in today complaining that she has worsening difficulty breathing over the last couple of days. Patient states she has been wheezing a lot more and coughing. Patient denies any fever chills. Patient denies any chest pain. Patient has any back pain. Patient denies any abdominal pain. Patient denies any swelling or tenderness to the legs. - Related Data Home Medications Medication Instructions Recorded Confirmed FLUoxetine HCL [PROzac] 40 mg PO DAILY 06/26/20 03/06/24 Venlafaxine HCl [Effexor XR] 150 mg PO DAILY 06/26/20 03/06/24 amLODIPine [Norvasc] 2.5 mg PO DAILY 10/08/20 03/06/24 Albuterol Inhaler [Ventolin Hfa 2 puff INHALATION RT-Q4H PRN 02/10/24 03/06/24 Inhaler] Previous Rx's Medication Instructions Recorded Azithromycin [Zithromax] 500 mg PO DAILY 1 Days #1 tab 03/10/24 Benzonatate [Tessalon Perles] 100 mg PO TID PRN #20 cap 03/10/24 Oseltamivir [Tamiflu] 75 mg PO Q12HR 2 Days #4 cap 03/10/24 methylPREDNISolone Dose Pack 4 mg PO DIRECTED #21 tab 03/10/24 [Medrol Dose Pack] Ipratropium-Albuterol Nebulize 3 ml INHALATION QID #25 each 05/28/24 [Duoneb 0.5 mg-3 mg/3 ml Soln] predniSONE 50 mg PO DAILY #5 tab 05/28/24 predniSONE [Deltasone] 60 mg PO DAILY #12 tab 06/24/24 Allergies Allergy/AdvReac Type Severity Reaction Status Date / Time No Known Allergies Allergy Verified 06/24/24 11:49 Review of Systems ROS Statement: Those systems with pertinent positive or pertinent negative responses have been documented in the HPI. ROS Other: All systems not noted in ROS Statement are negative. Past Medical History Past Medical History: Asthma, GERD/Reflux, Hypertension Additional Past Medical History / Comment(s): Irregular heart beat at times, past syncope, hypokalemia, orthostatic hypotension, bronchitis, anemia, vitamin D deficiency, UTIs, R shoulder pain d/t tendonitis R rotator cuff. History of Any Multi-Drug Resistant Organisms: None Reported Past Surgical History: Tubal Ligation Additional Past Surgical History / Comment(s): TTT, cyst removed from L knee Past Anesthesia/Blood Transfusion Reactions: No Reported Reaction Additional Past Anesthesia/Blood Transfusion Reaction / Comment(s): unknown Past Psychological History: Anxiety, Depression Smoking Status: Vaper Past Alcohol Use History: None Reported Past Drug Use History: Marijuana - Past Family History Mother Family Medical History: No Reported History Additional Family Medical History / Comment(s): Mother is healthy Father Additional Family Medical History / Comment(s): Vitamin D deficiency. General Exam - General Exam Comments Initial Comments: GENERAL: Patient is well-developed and well-nourished. Patient is nontoxic and well-hydrated and is in mild distress. ENT: Neck is soft and supple. No significant lymphadenopathy is noted. Oropharynx is clear. Moist mucous membranes. Neck has full range of motion without eliciting any pain. EYES: The sclera were anicteric and conjunctiva were pink and moist. Extraocular movements were intact and pupils were equal round and reactive to light. Eyelids were unremarkable. PULMONARY: Diffuse wheezing bilaterally CARDIOVASCULAR: There is a regular rate and rhythm without any murmurs gallops or rubs. ABDOMEN: Soft and nontender with normal bowel sounds. SKIN: Skin is clear with no lesions or rashes and otherwise unremarkable. NEUROLOGIC: Patient is alert and oriented x3. Cranial nerves II through XII are grossly intact. Motor and sensory are also intact. Normal speech, volume and content. Symmetrical smile. MUSCULOSKELETAL: Normal extremities with adequate strength and full range of motion. No lower extremity swelling or edema. No calf tenderness. LYMPHATICS: No significant lymphadenopathy is noted PSYCHIATRIC: Normal psychiatric evaluation. Limitations: no limitations Course Vital Signs 06/24/24 06/24/24 06/24/24 11:45 13:23 14:31 Temperature 97.8 F Pulse Rate 69 75 76 Respiratory 18 22 Rate Blood Pressure 124/44 147/93 O2 Sat by Pulse 94 L 95 Oximetry 06/24/24 14:48 Temperature Pulse Rate 80 Respiratory Rate Blood Pressure O2 Sat by Pulse Oximetry Medical Decision Making - Medical Decision Making Was pt. sent in by a medical professional or institution (JELANI Chirinos, SALES LEAD, urgent care, hospital, or shelter...) When possible be specific @ -No Did you speak to anyone other than the patient for history (EMS, parent, family, police, friend...)? What history was obtained from this source @ -No Did you review nursing and triage notes (agree or disagree)? Why? @ -I reviewed and agree with nursing and triage notes Were old charts reviewed (outside hosp., previous admission, EMS record, old EKG, old radiological studies, urgent care reports/EKG's, shelter records)? Report findings @ -No old charts were reviewed Differential Diagnosis? @ -Differential Dyspnea: Coronary syndrome, arrhythmia, tamponade, asthma, COPD, pulmonary embolism, pneumonia, pneumothorax, pulmonary effusion, anaphylaxis, diabetic ketoacidosis, flailed chest, pulmonary contusion, diaphragmatic rupture, anemia, neuromuscular, this is not meant to be an all-inclusive list. EKG interpreted by me (3pts min.). @ -As above X-rays interpreted by me (1pt min.). @ -Chest x-ray shows no acute abnormality CT interpreted by me (1pt min.). @ -None done U/S interpreted by me (1pt. min.). @ -None done What testing was considered but not performed or refused? (CT, X-rays, U/S, labs)? Why? @ -None What meds were considered but not given or refused? Why? @ -None Did you discuss the management of the patient with other professionals (professionals i.e. JELANI Chirinos, SALES LEAD, lab, RT, psych nurse, high school social science teacher, health information managers, teacher, corporate ethics officer, case aide)? Give summary @ -No Was smoking cessation discussed for >3mins.? @ -No Was critical care preformed (if so, how long)? @ -No Were there social determinants of health that impacted care today? How? (Homelessness, low income, unemployed, alcoholism, drug addiction, transportation, low edu. Level, literacy, decrease access to med. care, prison, rehab)? @ -No Was there de-escalation of care discussed even if they declined (Discuss DNR or withdrawal of care, Hospice)? DNR status @ -No What co-morbidities impacted this encounter? (DM, HTN, Smoking, COPD, CAD, Cancer, CVA, ARF, Chemo, Hep., AIDS, mental health diagnosis, sleep apnea, morbid obesity)? @ -None Was patient admitted / discharged? Hospital course, mention meds given and route, prescriptions, significant lab abnormalities, going to OR and other pertinent info. @ -Patient received albuterol and Atrovent treatment x 2. Patient also received prednisone. I went back to listen to the patient she was moving much more air but did continue to wheeze however she felt comfortable going home because she has a breathing issue at home and will be sent home on steroids. Patient's chest x-ray showed no acute normality. Patient's viral swabs were negative. Undiagnosed new problem with uncertain prognosis? @ -No Drug Therapy requiring intensive monitoring for toxicity (Heparin, Nitro, Insulin, Cardizem)? @ -No Were any procedures done? @ -No Diagnosis/symptom? @ -Exacerbation of asthma Acute, or Chronic, or Acute on Chronic? @ -Acute Uncomplicated (without systemic symptoms) or Complicated (systemic symptoms)? @ -Complicated Side effects of treatment? @ -No Exacerbation, Progression, or Severe Exacerbation? @ -No Poses a threat to life or bodily function? How? (Chest pain, [place], [place], pneumonia, PE, COPD, DKA, ARF, appy, cholecystitis, CVA, Diverticulitis, Homicidal, Suicidal, threat to staff... and all critical care pts) @ -No - Lab Data Lab Results 06/24/24 Range/Units 11:49 Influenza Type A (PCR) Not Detected (Not Detectd) Influenza Type B (PCR) Not Detected (Not Detectd) RSV (PCR) Not Detected (Not Detectd) SARS-CoV-2 (PCR) Not Detected (Not Detectd) Disposition Clinical Impression: Exacerbation of asthma Disposition: HOME SELF-CARE Instructions (If sedation given, give patient instructions): Asthma (ED) Prescriptions: predniSONE [Deltasone] 60 mg PO DAILY #12 tab Is patient prescribed a controlled substance at d/c from ED?: No Referrals: None,Stated [Primary Care Provider] - 1-2 days Time of Disposition: 15:07
[2024-06-24 14:03] LABS: Influenza A Not Detected (Not Detectd); Influenza B Not Detected (Not Detectd); RSV Not Detected (Not Detectd)
[2024-06-24] MEDS: predniSONE 50 MG TAB PO STA (14:04)
[2024-06-24] MEDS: IPRATROPIUM-ALBUTEROL 3 ML NEB INHALATION STA (14:28)
[2024-06-24 15:28] VITALS: BP 137/88; PULSE 78; RESP 20; TEMP 98.7
== END 2024-06-24 15:28 | disposition home or self-care (01) ==
LOC: EC 11:40
DX: J45.901 Unspecified asthma with (acute) exacerbation (principal); F17.290 Nicotine dependence, other tobacco product, uncomplicated
CPT/HCPCS: 94640; 93005; 87636; 71046; 99285; J7512

== ENCOUNTER 2024-07-22 07:41 | Inpatient (IN) | payer OTHER ==
--- NOTE | 2024-07-22 08:20 | ED ---
SOB HPI - General Chief Complaint: Shortness of Breath Stated Complaint: SOB Time Seen by Provider: 07/22/24 07:58 Source: patient Mode of arrival: ambulatory Limitations: no limitations - History of Present Illness Initial Comments: 43-year-old female with history of persistent asthma who presents emergency department with shortness of breath. States has been going on for the past 2 days. She admits to a productive cough. No fevers or bodyaches. No sick contacts. Denies any chest pain. She has been using her nebulizer at home without any relief of her symptoms. Patient recently on steroids at the beginning of this month after she was seen in the emergency department for an asthma exacerbation. Denies any recent antibiotic use. Patient does continue to vape. 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 No history of any cardiac conditions. No other alleviating, precipitating or modifying factors - Related Data Home Medications Medication Instructions Recorded Confirmed FLUoxetine HCL [PROzac] 40 mg PO DAILY 06/26/20 03/06/24 Venlafaxine HCl [Effexor XR] 150 mg PO DAILY 06/26/20 03/06/24 amLODIPine [Norvasc] 2.5 mg PO DAILY 10/08/20 03/06/24 Albuterol Inhaler [Ventolin Hfa 2 puff INHALATION RT-Q4H PRN 02/10/24 03/06/24 Inhaler] Previous Rx's Medication Instructions Recorded Azithromycin [Zithromax] 500 mg PO DAILY 1 Days #1 tab 03/10/24 Benzonatate [Tessalon Perles] 100 mg PO TID PRN #20 cap 03/10/24 Oseltamivir [Tamiflu] 75 mg PO Q12HR 2 Days #4 cap 03/10/24 methylPREDNISolone Dose Pack 4 mg PO DIRECTED #21 tab 03/10/24 [Medrol Dose Pack] Ipratropium-Albuterol Nebulize 3 ml INHALATION QID #25 each 05/28/24 [Duoneb 0.5 mg-3 mg/3 ml Soln] predniSONE 50 mg PO DAILY #5 tab 05/28/24 predniSONE [Deltasone] 60 mg PO DAILY #12 tab 06/24/24 Allergies Allergy/AdvReac Type Severity Reaction Status Date / Time No Known Allergies Allergy Verified 07/22/24 07:54 Review of Systems ROS Statement: Those systems with pertinent positive or pertinent negative responses have been documented in the HPI. ROS Other: All systems not noted in ROS Statement are negative. Past Medical History Past Medical History: Asthma, GERD/Reflux, Hypertension Additional Past Medical History / Comment(s): Irregular heart beat at times, past syncope, hypokalemia, orthostatic hypotension, bronchitis, anemia, vitamin D deficiency, UTIs, R shoulder pain d/t tendonitis R rotator cuff. History of Any Multi-Drug Resistant Organisms: None Reported Past Surgical History: Tubal Ligation Additional Past Surgical History / Comment(s): TTT, cyst removed from L knee Past Anesthesia/Blood Transfusion Reactions: No Reported Reaction Additional Past Anesthesia/Blood Transfusion Reaction / Comment(s): unknown Past Psychological History: Anxiety, Depression Smoking Status: Vaper Past Alcohol Use History: None Reported Past Drug Use History: Marijuana - Past Family History Mother Family Medical History: No Reported History Additional Family Medical History / Comment(s): Mother is healthy Father Additional Family Medical History / Comment(s): Vitamin D deficiency. General Exam Limitations: no limitations General appearance: alert, in no apparent distress Head exam: Present: atraumatic, normocephalic, normal inspection Eye exam: Present: normal appearance, PERRL, EOMI. Absent: scleral icterus, conjunctival injection, periorbital swelling ENT exam: Present: normal exam, mucous membranes moist Neck exam: Present: normal inspection. Absent: tenderness, meningismus, lymphadenopathy Respiratory exam: Present: wheezes (All lung yun). Absent: respiratory distress, rales, rhonchi, stridor Cardiovascular Exam: Present: regular rate, normal rhythm, normal heart sounds. Absent: systolic murmur, diastolic murmur, rubs, gallop, clicks GI/Abdominal exam: Present: soft, normal bowel sounds. Absent: distended, tenderness, guarding, rebound, rigid Extremities exam: Present: normal inspection, full ROM, normal capillary refill. Absent: tenderness, pedal edema, joint swelling, calf tenderness Back exam: Present: normal inspection Neurological exam: Present: alert, oriented X3, CN II-XII intact Psychiatric exam: Present: normal affect, normal mood Skin exam: Present: warm, dry, intact, normal color. Absent: rash Course Vital Signs 07/22/24 07/22/24 07/22/24 07:51 08:26 08:44 Temperature 97.2 F L Pulse Rate 82 75 88 Respiratory 24 Rate Blood Pressure 157/100 O2 Sat by Pulse 94 L Oximetry 07/22/24 07/22/24 08:59 09:04 Temperature Pulse Rate 73 Respiratory 18 18 Rate Blood Pressure 140/92 O2 Sat by Pulse 95 Oximetry Medical Decision Making - Medical Decision Making Was pt. sent in by a medical professional or institution (JELANI Chirinos, HEAD GREASE MAKER, urgent care, hospital, or care home...) When possible be specific @ -[No] Did you speak to anyone other than the patient for history (EMS, parent, family, police, friend...)? What history was obtained from this source @ -[No] Did you review nursing and triage notes (agree or disagree)? Why? @ -[I reviewed and agree with nursing and triage notes] Were old charts reviewed (outside hosp., previous admission, EMS record, old EKG, old radiological studies, urgent care reports/EKG's, care home records)? Report findings @ -[No old charts were reviewed] Differential Diagnosis (chest pain, altered mental status, abdominal pain women, abdominal pain men, vaginal bleeding, weakness, fever, dyspnea, syncope, headache, dizziness, GI bleed, back pain, seizure, CVA, palpatations, mental health, musculoskeletal)? @ -[not applicable] EKG interpreted by me (3pts min.). @ -Yes and demonstrates sinus rhythm with rate of 74. OH interval 149. QRS 110. QTc of 445. No acute ST segment elevations or depressions X-rays interpreted by me (1pt min.). @ -[None done] CT interpreted by me (1pt min.). @ -[None done] U/S interpreted by me (1pt. min.). @ -[None done] What testing was considered but not performed or refused? (CT, X-rays, U/S, labs)? Why? @ -[None] What meds were considered but not given or refused? Why? @ -[None] Did you discuss the management of the patient with other professionals (professionals i.e. JELANI Chirinos, HEAD GREASE MAKER, lab, RT, psych nurse, high school social studies tutor, registered art therapist, teacher, title officer, nurse outreach case manager)? Give summary @ -[No] Was smoking cessation discussed for >3mins.? @ -[No] Was critical care preformed (if so, how long)? @ -[No] Were there social determinants of health that impacted care today? How? (Homelessness, low income, unemployed, alcoholism, drug addiction, transportation, low edu. Level, literacy, decrease access to med. care, snf, rehab)? @ -[No] Was there de-escalation of care discussed even if they declined (Discuss DNR or withdrawal of care, Hospice)? DNR status @ -[No] What co-morbidities impacted this encounter? (DM, HTN, Smoking, COPD, CAD, Cancer, CVA, ARF, Chemo, Hep., AIDS, mental health diagnosis, sleep apnea, morbid obesity)? @ -[None] Was patient admitted / discharged? Hospital course, mention meds given and route, prescriptions, significant lab abnormalities, going to OR and other pertinent info. @ -[hospital course] Undiagnosed new problem with uncertain prognosis? @ -[No] Drug Therapy requiring intensive monitoring for toxicity (Heparin, Nitro, Insulin, Cardizem)? @ -[No] Were any procedures done? @ -[No] Diagnosis/symptom? @ -[default] Acute, or Chronic, or Acute on Chronic? @ -[default] Uncomplicated (without systemic symptoms) or Complicated (systemic symptoms)? @ -[default] Side effects of treatment? @ -[No] Exacerbation, Progression, or Severe Exacerbation? @ -[No] Poses a threat to life or bodily function? How? (Chest pain, USA, VT, pneumonia, PE, COPD, DKA, ARF, appy, cholecystitis, CVA, Diverticulitis, Homicidal, Suicidal, threat to staff... and all critical care pts) @ -[No] - Lab Data Result diagrams: 07/22/24 08:55 07/22/24 09:01 Lab Results 07/22/24 07/22/24 07/22/24 Range/Units 08:55 09:01 09:01 WBC 5.69 (4.50-10.00) 10*3/uL RBC 4.97 (4.10-5.20) 10*6/uL Hgb 15.3 H (12.0-15.0) g/dL Hct 43.1 (37.2-46.3) % MCV 86.7 (80.0-97.0) fL MCH 30.8 (27.0-32.0) pg MCHC 35.5 (32.0-37.0) g/dL Plt Count 199 (140-440) 10*3/uL MPV 11.1 (9.5-12.2) fL Immature Gran % (Auto) 0 % Neutrophils % 51.8 % Lymphocytes % 33.2 % Monocytes % 7.9 % Eosinophils % 6.7 % Basophils % 0.4 % Immature Gran # 0.00 (0.00-0.04) 10*3/uL Neutrophils # 2.95 (1.80-7.70) 10*3/uL Lymphocytes # 1.89 (0.90-5.00) 10*3/uL Monocytes # 0.45 (0.20-1.00) 10*3/uL Eosinophils # 0.38 H (0.04-0.35) 10*3/uL Basophils # 0.02 (0.00-0.10) 10*3/uL Sodium 138 (137-145) mmol/L Potassium 3.0 L (3.5-5.1) mmol/L Chloride 105 (98-107) mmol/L Carbon Dioxide 26 (22-30) mmol/L Anion Gap 7 mmol/L BUN 11 (7-17) mg/dL Creatinine 0.56 (0.52-1.04) mg/dL Est GFR (CKD-EPI)AfAm >90 (>60 ml/min/1.73 sqM) Est GFR (CKD-EPI)NonAf >90 (>60 ml/min/1.73 sqM) Glucose 100 H (74-99) mg/dL Plasma Lactic Acid Ottoniel 0.9 (0.7-2.0) mmol/L Calcium 9.1 (8.4-10.2) mg/dL Total Bilirubin 0.7 (0.2-1.3) mg/dL AST 33 (14-36) U/L ALT 39 H (4-34) U/L Alkaline Phosphatase 78 (38-126) U/L Total Protein 6.9 (6.3-8.2) g/dL Albumin 4.1 (3.5-5.0) g/dL Influenza Type A (PCR) (Not Detectd) Influenza Type B (PCR) (Not Detectd) RSV (PCR) (Not Detectd) SARS-CoV-2 (PCR) (Not Detectd) 07/22/24 Range/Units 09:01 WBC (4.50-10.00) 10*3/uL RBC (4.10-5.20) 10*6/uL Hgb (12.0-15.0) g/dL Hct (37.2-46.3) % MCV (80.0-97.0) fL MCH (27.0-32.0) pg MCHC (32.0-37.0) g/dL Plt Count (140-440) 10*3/uL MPV (9.5-12.2) fL Immature Gran % (Auto) % Neutrophils % % Lymphocytes % % Monocytes % % Eosinophils % % Basophils % % Immature Gran # (0.00-0.04) 10*3/uL Neutrophils # (1.80-7.70) 10*3/uL Lymphocytes # (0.90-5.00) 10*3/uL Monocytes # (0.20-1.00) 10*3/uL Eosinophils # (0.04-0.35) 10*3/uL Basophils # (0.00-0.10) 10*3/uL Sodium (137-145) mmol/L Potassium (3.5-5.1) mmol/L Chloride (98-107) mmol/L Carbon Dioxide (22-30) mmol/L Anion Gap mmol/L BUN (7-17) mg/dL Creatinine (0.52-1.04) mg/dL Est GFR (CKD-EPI)AfAm (>60 ml/min/1.73 sqM) Est GFR (CKD-EPI)NonAf (>60 ml/min/1.73 sqM) Glucose (74-99) mg/dL Plasma Lactic Acid Ottoniel (0.7-2.0) mmol/L Calcium (8.4-10.2) mg/dL Total Bilirubin (0.2-1.3) mg/dL AST (14-36) U/L ALT (4-34) U/L Alkaline Phosphatase (38-126) U/L Total Protein (6.3-8.2) g/dL Albumin (3.5-5.0) g/dL Influenza Type A (PCR) Not Detected (Not Detectd) Influenza Type B (PCR) Not Detected (Not Detectd) RSV (PCR) Not Detected (Not Detectd) SARS-CoV-2 (PCR) Not Detected (Not Detectd) Disposition Clinical Impression: Asthma with acute exacerbation, Hypokalemia Disposition: ADMITTED IP TO THIS HOSP Condition: Stable Is patient prescribed a controlled substance at d/c from ED?: No Referrals: None,Stated [Primary Care Provider] - 1-2 days Time of Disposition: 10:17 Decision to Admit Reason: Admit from EC Decision Date: 07/22/24 Decision Time: 10:17
[2024-07-22] MEDS: IPRATROPIUM-ALBUTEROL 3 ML NEB INHALATION STA (08:25)
[2024-07-22] MEDS: methylPREDNISolone SOD SUCCI 125 MG/2 ML VIAL IV STA (08:55)
[2024-07-22] MEDS: MAGNESIUM SULFATE-D5W PMX 1 GM in DEXTROSE/WATER 1 100ML.BAG IVPB STA (08:56)
[2024-07-22 09:06] LABS: Basophils # (A) 0.02 10*3/uL (0.00-0.10); Basophils % (A) 0.4 %; Eosinophils # (A) 0.38 10*3/uL (0.04-0.35); Eosinophils % (A) 6.7 %; HCT 43.1 % (37.2-46.3); HGB 15.3 g/dL (12.0-15.0); Lymphocytes # (A) 1.89 10*3/uL (0.90-5.00); Lymphocytes % (A) 33.2 %; MCH 30.8 pg (27.0-32.0); MCHC 35.5 g/dL (32.0-37.0); MCV 86.7 fL (80.0-97.0); Mean Platelet Volume 11.1 fL (9.5-12.2); Monocytes # (A) 0.45 10*3/uL (0.20-1.00); Monocytes % (A) 7.9 %; Neutrophils # (A) 2.95 10*3/uL (1.80-7.70); Neutrophils % (A) 51.8 %; Platelet Count 199 10*3/uL (140-440); RBC 4.97 10*6/uL (4.10-5.20); RDW 12.3 % (11.5-14.5); WBC 5.69 10*3/uL (4.50-10.00)
[2024-07-22 09:23] LABS: ALT 39 U/L (4-34); AST 33 U/L (14-36); African American GFR (CKD) >90 (>60 ml/min/1.73 sqM); Albumin 4.1 g/dL (3.5-5.0); Alkaline Phosphatase 78 U/L (38-126); Anion Gap 7 mmol/L; Blood Urea Nitrogen 11 mg/dL (7-17); Calcium 9.1 mg/dL (8.4-10.2); Carbon Dioxide 26 mmol/L (22-30); Chloride 105 mmol/L (98-107); Glucose 100 mg/dL (74-99); Non-African American GFR(CKD) >90 (>60 ml/min/1.73 sqM); Sodium 138 mmol/L (137-145); Total Bilirubin 0.7 mg/dL (0.2-1.3); Total Protein 6.9 g/dL (6.3-8.2)
--- NOTE | 2024-07-22 09:33 | XR ---
EXAMINATION TYPE: XR chest 2V DATE OF EXAM: 07/22/2024 9:19 AM COMPARISON: 06/24/2024 CLINICAL INDICATION: Female, 43 years old with history of difficulty breathing, TECHNIQUE: XR chest 2V view(s) obtained. FINDINGS: The heart size is normal. The pulmonary vasculature is normal. The lungs are clear. IMPRESSION: 1. No acute pulmonary process. [facility], , 07/22/2024 9:31 AM
[2024-07-22 09:47] LABS: Influenza A Not Detected (Not Detectd)
[2024-07-22 09:48] LABS: Influenza B Not Detected (Not Detectd); RSV Not Detected (Not Detectd)
[2024-07-22] MEDS ORDERED: NALOXONE 0.4 MG/ML 1 ML VIAL IV PRN (10:17)
[2024-07-22] MEDS: IPRATROPIUM-ALBUTEROL 3 ML NEB INHALATION SCH ×2 (10:31→19:41)
[2024-07-22] MEDS: POTASSIUM CHLORIDE ER 20 MEQ TAB.ER PO STA (11:20)
--- NOTE | 2024-07-22 11:29 | P.HPIM ---
History of Present Illness This is a pleasant 43 years old female with past medical history of multiple medical problems as below including her history of asthma. She presents because of worsening dyspnea over the last 2 to 3 days Associated with coughing and phlegm sometimes yellow sometimes clear or white She has chest pain with coughing No other specific GI/ symptoms, no dizziness weakness or numbness She has some headache She denies smoking but she vapes nicotine and she was counseled to quit and she agrees and request nicotine patch. No alcohol. 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 showing no acute cardiopulmonary process willow specialists reviewed by myself and agree Review of Systems Review of systems CONSTITUTIONAL: No fever, no malaise, no fatigue. HEENT: No recent visual problems or hearing problems. Denied any sore throat. CARDIOVASCULAR: No orthopnea, PND, no palpitations, no syncope. PULMONARY: No chest wall tenderness, no hemoptysis. GASTROINTESTINAL: No diarrhea, no nausea, no vomiting, no abdominal pain. N ormoactive bowel sounds. NEUROLOGICAL: No headaches, no weakness, no numbness. HEMATOLOGICAL: Denies any bleeding or petechiae. GENITOURINARY: Denies any burning micturition, frequency, or urgency. MUSCULOSKELETAL/RHEUMATOLOGICAL: Denies any joint pain, swelling, or any muscle pain. ENDOCRINE: Denies any polyuria or polydipsia. Past Medical History Past Medical History: Asthma, GERD/Reflux, Hypertension Additional Past Medical History / Comment(s): Irregular heart beat at times, past syncope, hypokalemia, orthostatic hypotension, bronchitis, anemia, vitamin D deficiency, UTIs, R shoulder pain d/t tendonitis R rotator cuff. History of Any Multi-Drug Resistant Organisms: None Reported Past Surgical History: Tubal Ligation Additional Past Surgical History / Comment(s): TTT, cyst removed from L knee Past Anesthesia/Blood Transfusion Reactions: No Reported Reaction Additional Past Anesthesia/Blood Transfusion Reaction / Comment(s): unknown Past Psychological History: Anxiety, Depression Smoking Status: Vaper Past Alcohol Use History: None Reported Past Drug Use History: Marijuana - Past Family History Mother Family Medical History: No Reported History Additional Family Medical History / Comment(s): Mother is healthy Father Additional Family Medical History / Comment(s): Vitamin D deficiency. Medications and Allergies Home Medications Medication Instructions Recorded Confirmed Type FLUoxetine HCL [PROzac] 40 mg PO DAILY 06/26/20 07/22/24 History Venlafaxine HCl [Effexor XR] 150 mg PO DAILY 06/26/20 07/22/24 History amLODIPine [Norvasc] 2.5 mg PO DAILY 10/08/20 07/22/24 History Albuterol Inhaler [Ventolin Hfa 2 puff INHALATION RT-Q4H PRN 02/10/24 07/22/24 History Inhaler] Omeprazole 20 mg PO DAILY 07/22/24 07/22/24 History Allergies Allergy/AdvReac Type Severity Reaction Status Date / Time No Known Allergies Allergy Verified 07/22/24 11:08 Physical Exam Vitals: Vital Signs Temp Pulse Resp BP Pulse Ox 07/22/24 10:39 80 07/22/24 10:32 78 07/22/24 09:04 18 07/22/24 08:59 73 18 140/92 95 07/22/24 08:44 88 07/22/24 08:26 75 07/22/24 07:51 97.2 F L 82 24 157/100 94 L Intake and Output 07/21/24 07/22/24 07/22/24 22:59 06:59 14:59 Other: Weight 97.522 kg -GENERAL: The patient is alert and oriented x3, not in any acute distress. Well developed, well nourished. Obese HEENT: Pupils are round and equally reacting to light. EOMI. No scleral icterus. No conjunctival pallor. Normocephalic, atraumatic. No pharyngeal erythema. No thyromegaly. CARDIOVASCULAR: S1 and S2 present. No murmurs, rubs, or gallops. -PULMONARY: Chest is clear to auscultation, n bilateral expiratory wheezing , no crackles. ABDOMEN: Soft, nontender, nondistended, normoactive bowel sounds. No palpable organomegaly. MUSCULOSKELETAL: No joint swelling or deformity. EXTREMITIES: No cyanosis, clubbing, or pedal edema. NEUROLOGICAL: Gross neurological examination did not reveal any focal deficits. SKIN: No rashes. no petechiae. Results CBC & Chem 7: 07/22/24 08:55 07/22/24 09:01 Labs: Abnormal Lab Results - Last 24 Hours (Table) 07/22/24 07/22/24 Range/Units 08:55 09:01 Hgb 15.3 H (12.0-15.0) g/dL Eosinophils # 0.38 H (0.04-0.35) 10*3/uL Potassium 3.0 L (3.5-5.1) mmol/L Glucose 100 H (74-99) mg/dL ALT 39 H (4-34) U/L Assessment and Plan Assessment: Acute asthma attack Acute hypoxic respiratory failure Obesity with BMI of 33.7 follow-up with Nicotine dependence Hypokalemia History of GERD Hypertension Anxiety and depression Plan: continue with the steroids IV Solu-Medrol Bronchodilator breathing treatments Pulmonary team consult Labs and medication were reviewed.. Continue same treatment. Continue with symptomatic treatment. Resume home medication. Monitor labs and vitals. DVT and GI prophylaxis. Further recommendations as per clinical course of the patient DVT prophylaxis: Subcutaneous heparin GI Prophylaxis: Pepcid Prognosis is fair
[2024-07-22] MEDS: ACETAMINOPHEN TAB 325 MG TAB PO PRN (14:57)
--- NOTE | 2024-07-22 15:03 | P.CNPUL ---
History of Present Illness Consult date: 07/22/24 Requesting physician: Dorian Velasquez Reason for consult: dyspnea, cough, asthma, COPD Chief complaint: Shortness of breath. History of present illness: Pulmonary consult dated July 22, 2024. 43-year-old female seen in the ER, room 25. The patient came into the emergency room complaining of 2 to 3 days worth of increasing shortness of breath, headache, and cough, occasionally productive of clear phlegm, white phlegm, or yellow phlegm. The patient apparently has a history of chronic lung disease, from smoking and vaping. She states that she does not have insurance, does not have a family doctor, does not see a student services director. She apparently is only on albuterol inhaler, as needed, and albuterol and a nebulizer machine, as needed. The patient states that she smoked tobacco for 8 years, has been vaping for 3 years. She apparently has a history of asthma/COPD, anxiety/depression, GERD, hypertension, vitamin D deficiency, and chronic and ongoing vaping. The patient was admitted to the hospital back in February 2024. She apparently gets her medications from the emergency department. Current labs include a white count of 5.7, hemoglobin 15.3, hematocrit 43.1, and a normal platelet count. Sodium 138, potassium 3, chlorides 105, CO2 26, BUN 11, creatinine 0.56. Viral studies are negative. Chest x-ray shows nothing acute. Review of Systems REVIEW OF SYSTEMS: CONSTITUTIONAL: [Negative.] NEUROLOGIC: Headache. HEENT: [ Negative.] CARDIAC: [Negative.] PULMONARY: Shortness of breath, cough, and occasional phlegm production. GI: [Negative.] : [Negative.] RHEUMATOLOGIC: [ Negative.] IMMUNOLOGIC: [ Negative.] ENDOCRINE: [Negative. ] DERMATOLOGIC: [Negative.] Past Medical History Past Medical History: Asthma, GERD/Reflux, Hypertension Additional Past Medical History / Comment(s): Irregular heart beat at times, past syncope, hypokalemia, orthostatic hypotension, bronchitis, anemia, vitamin D deficiency, UTIs, R shoulder pain d/t tendonitis R rotator cuff. History of Any Multi-Drug Resistant Organisms: None Reported Past Surgical History: Tubal Ligation Additional Past Surgical History / Comment(s): TTT, cyst removed from L knee Past Anesthesia/Blood Transfusion Reactions: No Reported Reaction Additional Past Anesthesia/Blood Transfusion Reaction / Comment(s): unknown Past Psychological History: Anxiety, Depression Smoking Status: Vaper Past Alcohol Use History: None Reported Past Drug Use History: Marijuana - Past Family History Mother Family Medical History: No Reported History Additional Family Medical History / Comment(s): Mother is healthy Father Additional Family Medical History / Comment(s): Vitamin D deficiency. Medications and Allergies Home Medications Medication Instructions Recorded Confirmed Type FLUoxetine HCL [PROzac] 40 mg PO DAILY 06/26/20 07/22/24 History Venlafaxine HCl [Effexor XR] 150 mg PO DAILY 06/26/20 07/22/24 History amLODIPine [Norvasc] 2.5 mg PO DAILY 10/08/20 07/22/24 History Albuterol Inhaler [Ventolin Hfa 2 puff INHALATION RT-Q4H PRN 02/10/24 07/22/24 History Inhaler] Omeprazole 20 mg PO DAILY 07/22/24 07/22/24 History Allergies Allergy/AdvReac Type Severity Reaction Status Date / Time No Known Allergies Allergy Verified 07/22/24 11:08 Physical Exam Osteopathic Statement: *. No significant issues noted on an osteopathic structural exam other than those noted in the History and Physical/Consult. Vitals: Vital Signs Temp Pulse Resp BP Pulse Ox 07/22/24 13:18 90 16 149/100 95 07/22/24 11:24 81 16 139/83 96 07/22/24 10:39 80 07/22/24 10:32 78 07/22/24 09:04 18 07/22/24 08:59 73 18 140/92 95 07/22/24 08:44 88 07/22/24 08:26 75 07/22/24 07:51 97.2 F L 82 24 157/100 94 L Intake and Output 07/21/24 07/22/24 07/22/24 22:59 06:59 14:59 Other: Weight 97.522 kg No acute distress, oriented 3. Currently on room air. Can speak in full sentences. No audible wheezing or use of accessory muscles. HEENT examination is grossly unremarkable. Mucous membranes are moist. No oral lesions. Neck supple. Full range of motion. No adenopathy thyromegaly or neck vein dis tention. Cardiovascular examination reveals regular rhythm rate. S1-S2 normal. No S3 or S4. No discernible murmur noted. Lungs reveal bilateral expiratory rhonchi and wheezes. Breath sounds are equal. No crackles. Saturations are 97% on room air. Abdomen soft bowel sounds are heard. No masses or tenderness. Extremities are intact. No cyanosis clubbing or edema. Skin is without rash or lesion. Neurologic examination is brief but nonfocal. Results - Laboratory Findings CBC and BMP: 07/22/24 08:55 07/22/24 09:01 Abnormal lab findings: Abnormal Labs 07/22/24 07/22/24 08:55 09:01 Hgb 15.3 H Eosinophils # 0.38 H Potassium 3.0 L Glucose 100 H ALT 39 H - Diagnostic Findings Chest x-ray: image reviewed Assessment and Plan Assessment: Acute exacerbation of COPD/asthma, without evidence of pneumonia, or active infection. History of ongoing vaping, and prior to that, 8 years of tobacco use. History of anxiety/depression. History of gastroesophageal reflux disease. History of hypertension. History of vitamin D deficiency. Plan: Plan dated July 22, 2024. The patient is seen today in the emergency department, room 25. The patient is laying on her left side. No acute distress. No audible wheezing, or conversational dyspnea. No use of accessory muscles. She is on room air. The patient has a history of COPD/asthma, and does continue to vape. Prior to that she smoked cigarettes for about 8 years. She does not have a family doctor. She does not have a student services director. She only takes albuterol MDI, 2 puffs as needed, and albuterol in the nebulizer machine as needed. No maintenance drugs. She was admitted back in February of this year. Her other medical history includes anxiety/depression, GERD, hypertension, vitamin D deficiency, and obesity. The patient is currently on DuoNebs, Solu-Medrol, and Tylenol. Will a dd Symbicort to the regimen. Additional recommendations and suggestions are forthcoming. Hopeful rapid turnaround. Dictation was produced using Simplebookletation software. Please excuse any grammatical, word or spelling errors. Time with Patient: Greater than 30
[2024-07-22] MEDS ORDERED: methylPREDNISolone SOD SUCCI 40 MG/ML 1 ML VIAL IV SCH (16:00)
[2024-07-22] MEDS: methylPREDNISolone SOD SUCCI 125 MG/2 ML VIAL IV SCH (17:25)
[2024-07-22] MEDS: SYMBICORT 160-4.5 MCG INHALER INHALATION SCH (19:32)
[2024-07-23 08:11] LABS: Basophils # (A) 0.01 X 10*3/uL (0.00-0.10); Basophils % (A) 0.1 %; Eosinophils # (A) 0 X 10*3/uL (0.04-0.35); Eosinophils % (A) 0 %; HCT 46.5 % (37.2-46.3); HGB 15.7 g/dL (12.0-15.0); Lymphocytes % (A) 5.4 %; MCH 30.3 pg (27.0-32.0); MCHC 33.8 g/dL (32.0-37.0); MCV 89.8 FL (80.0-97.0); Mean Platelet Volume 11.8 FL (9.5-12.2); Monocytes # (A) 0.17 X 10*3/uL (0.20-1.00); Monocytes % (A) 1.1 %; NRBC Per 100 WBC 0 X 10*3/uL (0.00-0.01); Neutrophils # (A) 13.73 X 10*3/uL (1.80-7.70); Neutrophils % (A) 92.7 %; Platelet Count 231 X 10*3/uL (140-440); RBC 5.18 X 10*6/uL (4.10-5.20); RDW 12.8 % (11.5-14.5); WBC 14.81 X 10*3/uL (4.50-10.00)
[2024-07-23 08:26] LABS: Calcium 9.5 mg/dL (8.7-10.3); Carbon Dioxide 19.2 mmol/L (21.6-31.8); Chloride 104 mmol/L (96-109); Glucose 150 mg/dL (70-110); Potassium 3.6 mmol/L (3.5-5.5); Sodium 137 mmol/L (135-145)
--- NOTE | 2024-07-23 12:07 | P.PN ---
Subjective Progress Note Date: 07/23/24 43-year-old female seen in the ER, room 25. The patient came into the emergency room complaining of 2 to 3 days worth of increasing shortness of breath, headache, and cough, occasionally productive of clear phlegm, white phlegm, or yellow phlegm. The patient apparently has a history of chronic lung disease, from smoking and vaping. She states that she does not have insurance, does not have a family doctor, does not see a nutrition services assistant. She apparently is only on albuterol inhaler, as needed, and albuterol and a nebulizer machine, as needed. The patient states that she smoked tobacco for 8 years, has been vaping for 3 years. She apparently has a history of asthma/COPD, anxiety/depression, GERD, hypertension, vitamin D deficiency, and chronic and ongoing vaping. The patient was admitted to the hospital back in February 2024. She apparently gets her medications from the emergency department. Current labs include a white count of 5.7, hemoglobin 15.3, hematocrit 43.1, and a normal platelet count. Sodium 138, potassium 3, chlorides 105, CO2 26, BUN 11, creatinine 0.56. Viral studies are negative. Chest x-ray shows nothing acute. The patient is seen today July 23, 2024 in follow-up on the regular medical floor. She is currently sitting up at the bedside. Awake and alert in no acute distress. Maintaining good O2 saturations in the 90s on room air oxygen. She is afebrile. Hemodynamically stable. She is still somewhat bronchospastic and wheezing. She remains on DuoNeb inhalations, Symbicort, Solu-Medrol. White count 14.8. Hemoglobin 15.7. Platelets 231. Sodium 137. Potassium 3.6. Bicarb 19. BUN 12. Creatinine 0.5. Glucose 150. Objective - Vital Signs Vital signs: Vital Signs Temp 97.9 F 07/23/24 07:01 Pulse 92 07/23/24 08:58 Resp 17 07/23/24 09:03 BP 146/85 07/23/24 07:01 Pulse Ox 95 07/23/24 07:01 FiO2 Intake & Output 07/22/24 07/23/24 07/23/24 18:59 06:59 18:59 Weight 97.522 kg Other: Voiding Method Toilet # Voids 1 - Exam GENERAL EXAM: Alert, active, pleasant 43-year-old female, on room air oxygen, comfortable in no apparent distress. HEAD: Normocephalic. EYES: Normal reaction of pupils, equal size. NOSE: Clear with pink turbinates. THROAT: No erythema or exudates. NECK: No masses, no JVD. CHEST: No chest wall deformity. LUNGS: Equal air entry with bilateral end expiratory wheeze, few scattered rhonchi. CVS: S1 and S2 normal with no audible murmur, regular rhythm. ABDOMEN: No hepatosplenomegaly, normal bowel sounds, no guarding or rigidity. SPINE: No scoliosis or deformity SKIN: No rashes CENTRAL NERVOUS SYSTEM: No focal deficits, tone is normal in all 4 extremities. EXTREMITIES: There is no peripheral edema. No clubbing, no cyanosis. Peripheral pulses are intact. - Labs CBC & Chem 7: 07/23/24 03:30 07/23/24 03:30 Labs: Abnormal Lab Results - Last 24 Hours (Table) 07/23/24 07/23/24 Range/Units 03:30 03:30 WBC 14.81 H (4.50-10.00) X 10*3/uL Hgb 15.7 H (12.0-15.0) g/dL Hct 46.5 H (37.2-46.3) % Immature Gran # 0.10 H (0.00-0.04) X 10*3/uL Neutrophils # 13.73 H (1.80-7.70) X 10*3/uL Lymphocytes # 0.80 L (0.90-5.00) X 10*3/uL Monocytes # 0.17 L (0.20-1.00) X 10*3/uL Eosinophils # 0 L (0.04-0.35) X 10*3/uL Carbon Dioxide 19.2 L (21.6-31.8) mmol/L Anion Gap 13.80 H (4.00-12.00) mmol/L Creatinine 0.5 L (0.6-1.5) mg/dL BUN/Creatinine Ratio 24.00 H (12.00-20.00) Ratio Glucose 150 H (70-110) mg/dL Assessment and Plan Assessment: Acute exacerbation of COPD/asthma, without evidence of pneumonia, or active infection. History of ongoing vaping, and prior to that, 8 years of tobacco use. History of anxiety/depression. History of gastroesophageal reflux disease. History of hypertension. History of vitamin D deficiency. Plan: The patient was seen and evaluated Labs and medications reviewed Stable on room air oxygen Not quite back to baseline Continue DuoNeb inhalations Continue Symbicort Continue Solu-Medrol Educated regarding complete smoking cessation Educated regarding complete vaping cessation Increase her activity as tolerated Probable discharge in the a.m. This patient was seen independently by the pulmonary nurse practitioner addressing pulmonary issues I have personally seen and examined the patient, performed the documentation and the assessment and plan as written. Number of minutes spent on the visit: 25 Dictation was produced using [employer] dictation software. Please excuse any grammatical, word or spelling errors.
--- NOTE | 2024-07-23 19:42 | P.PN ---
Subjective Goal course This is a pleasant 43 years old female with past medical history of multiple medical problems as below including her history of asthma. She presents because of worsening dyspnea over the last 2 to 3 days Associated with coughing and phlegm sometimes yellow sometimes clear or white She has chest pain with coughing No other specific GI/ symptoms, no dizziness weakness or numbness She has some headache She denies smoking but she vapes nicotine and she was counseled to quit and she agrees and request nicotine patch. No alcohol. 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 Well developed, well nourished. HEENT: Pupils are round and equally reacting to light. EOMI. No scleral icterus. No conjunctival pallor. Normocephalic, atraumatic. No pharyngeal erythema. No thyromegaly. CARDIOVASCULAR: S1 and S2 present. No murmurs, rubs, or gallops. -PULMONARY: Chest is clear to auscultation, bilateral wheezing , no crackles. ABDOMEN: Soft, nontender, nondistended, normoactive bowel sounds. No palpable organomegaly. MUSCULOSKELETAL: No joint swelling or deformity. EXTREMITIES: No cyanosis, clubbing, or pedal edema. NEUROLOGICAL: Gross neurological examination did not reveal any focal deficits. SKIN: No rashes. no petechiae. - Labs CBC & Chem 7: 07/23/24 03:30 07/23/24 03:30 Labs: Abnormal Lab Results - Last 24 Hours (Table) 07/23/24 07/23/24 Range/Units 03:30 03:30 WBC 14.81 H (4.50-10.00) X 10*3/uL Hgb 15.7 H (12.0-15.0) g/dL Hct 46.5 H (37.2-46.3) % Immature Gran # 0.10 H (0.00-0.04) X 10*3/uL Neutrophils # 13.73 H (1.80-7.70) X 10*3/uL Lymphocytes # 0.80 L (0.90-5.00) X 10*3/uL Monocytes # 0.17 L (0.20-1.00) X 10*3/uL Eosinophils # 0 L (0.04-0.35) X 10*3/uL Carbon Dioxide 19.2 L (21.6-31.8) mmol/L Anion Gap 13.80 H (4.00-12.00) mmol/L Creatinine 0.5 L (0.6-1.5) mg/dL BUN/Creatinine Ratio 24.00 H (12.00-20.00) Ratio Glucose 150 H (70-110) mg/dL Assessment and Plan Assessment: Acute asthma attack Acute hypoxic respiratory failure Obesity with BMI of 33.7 follow-up with Nicotine dependence Hypokalemia History of GERD Hypertension Anxiety and depression Plan: continue with the steroids IV Solu-Medrol Bronchodilator breathing treatments Pulmonary team consult Labs and medication were reviewed.. Continue same treatment. Continue with symptomatic treatment. Resume home medication. Monitor labs and vitals. DVT and GI prophylaxis. Further recommendations as per clinical course of the patient DVT prophylaxis: Subcutaneous heparin GI Prophylaxis: Pepcid Prognosis is fair
--- NOTE | 2024-07-24 12:46 | P.PN ---
Subjective Progress Note Date: 07/24/24 43-year-old female seen in the ER, room 25. The patient came into the emergency room complaining of 2 to 3 days worth of increasing shortness of breath, headache, and cough, occasionally productive of clear phlegm, white phlegm, or yellow phlegm. The patient apparently has a history of chronic lung disease, from smoking and vaping. She states that she does not have insurance, does not have a family doctor, does not see a patron attendant. She apparently is only on albuterol inhaler, as needed, and albuterol and a nebulizer machine, as needed. The patient states that she smoked tobacco for 8 years, has been vaping for 3 years. She apparently has a history of asthma/COPD, anxiety/depression, GERD, hypertension, vitamin D deficiency, and chronic and ongoing vaping. The patient was admitted to the hospital back in February 2024. She apparently gets her medications from the emergency department. Current labs include a white count of 5.7, hemoglobin 15.3, hematocrit 43.1, and a normal platelet count. Sodium 138, potassium 3, chlorides 105, CO2 26, BUN 11, creatinine 0.56. Viral studies are negative. Chest x-ray shows nothing acute. The patient is seen today July 23, 2024 in follow-up on the regular medical floor. She is currently sitting up at the bedside. Awake and alert in no acute distress. Maintaining good O2 saturations in the 90s on room air oxygen. She is afebrile. Hemodynamically stable. She is still somewhat bronchospastic and wheezing. She remains on DuoNeb inhalations, Symbicort, Solu-Medrol. White count 14.8. Hemoglobin 15.7. Platelets 231. Sodium 137. Potassium 3.6. Bicarb 19. BUN 12. Creatinine 0.5. Glucose 150. The patient is seen today July 24, 2024 in follow-up on the regular medical floor. She is awake and alert in no acute distress. Sitting up in bed. Continues with a loose congested cough. Clear phlegm. Continues with some wheezing. She is maintaining good O2 saturations in the 90s on room air. No IV fluids. No new labs today. She is continued on DuoNeb and elations, Symbicort, Solu-Medrol. Objective - Vital Signs Vital signs: Vital Signs Temp 97.6 F 07/24/24 07:45 Pulse 84 07/24/24 12:38 Resp 18 07/24/24 07:45 BP 153/89 07/24/24 07:45 Pulse Ox 94 L 07/24/24 07:45 FiO2 Intake & Output 07/23/24 07/24/24 07/24/24 18:59 06:59 18:59 Intake Total 118 Balance 118 Intake: Oral 118 Other: Voiding Method Toilet Toilet # Voids 3 2 - Exam GENERAL EXAM: Alert, 43-year-old female, on room air oxygen, comfortable in no apparent distress. HEAD: Normocephalic. EYES: Normal reaction of pupils, equal size. NOSE: Clear with pink turbinates. THROAT: No erythema or exudates. NECK: No masses, no JVD. CHEST: No chest wall deformity. LUNGS: Equal air entry with bilateral end expiratory wheeze, few scattered rhonchi. CVS: S1 and S2 normal with no audible murmur, regular rhythm. ABDOMEN: No hepatosplenomegaly, normal bowel sounds, no guarding or rigidity. SPINE: No scoliosis or deformity SKIN: No rashes CENTRAL NERVOUS SYSTEM: No focal deficits, tone is normal in all 4 extremities. EXTREMITIES: There is no peripheral edema. No clubbing, no cyanosis. Per ipheral pulses are intact. - Labs CBC & Chem 7: 07/23/24 03:30 07/23/24 03:30 Assessment and Plan Assessment: Acute exacerbation of COPD/asthma, without evidence of pneumonia, or active infection. History of ongoing vaping, and prior to that, 8 years of tobacco use. History of anxiety/depression. History of gastroesophageal reflux disease. History of hypertension. History of vitamin D deficiency. Plan: The patient was seen and evaluated Labs and medications reviewed Stable on room air oxygen Not quite back to baseline Not quite ready for discharge Continue DuoNeb inhalations Continue Symbicort Continue Solu-Medrol Educated regarding complete vaping cessation Increase her activity as tolerated This patient was seen independently by the pulmonary nurse practitioner addressing pulmonary issues I have personally seen and examined the patient, performed the documentation and the assessment and plan as written. Number of minutes spent on the visit: 24 Dictation was produced using [employer] dictation software. Please excuse any grammatical, word or spelling errors.
[2024-07-24] MEDS ORDERED: guaiFENesin-DM 100-10MG/5ML 10 ML CUP PO PRN (13:11)
[2024-07-24] MEDS: NICOTINE 21MG/24HR PATCH TRANSDERM SCH (15:18)
[2024-07-24] MEDS: FLUoxetine HCL 20 MG CAP PO SCH (15:18)
[2024-07-24] MEDS: VENLAFAXINE HCL ER 150 MG CAP PO SCH (15:18)
[2024-07-24] MEDS: amLODIPine 2.5 MG TAB PO SCH (15:18)
--- NOTE | 2024-07-24 20:49 | P.PN ---
Subjective Goal course This is a pleasant 43 years old female with past medical history of multiple medical problems as below including her history of asthma. She presents because of worsening dyspnea over the last 2 to 3 days Associated with coughing and phlegm sometimes yellow sometimes clear or white She has chest pain with coughing No other specific GI/ symptoms, no dizziness weakness or numbness She has some headache She denies smoking but she vapes nicotine and she was counseled to quit and she agrees and request nicotine patch. No alcohol. 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 07/23 Patient still wheezing but significantly improved Not cleared for discharge 07/24 Patient still have extensive wheezing Still needs IV Solu-Medrol Chest film is bronchodilator She has significant cough and Robitussin added Objective - Vital Signs Vital signs: Vital Signs Temp 97.6 F 07/24/24 07:45 Pulse 84 07/24/24 12:38 Resp 18 07/24/24 07:45 BP 153/89 07/24/24 07:45 Pulse Ox 94 L 07/24/24 07:45 FiO2 Intake & Output 07/23/24 07/24/24 07/24/24 18:59 06:59 18:59 Intake Total 118 Balance 118 Intake: Oral 118 Other: Voiding Method Toilet Toilet # Voids 3 2 - Exam GENERAL: The patient is alert and oriented x3, not in any acute distress. Well developed, well nourished. HEENT: Pupils are round and equally reacting to light. EOMI. No scleral icterus. No conjunctival pallor. Normocephalic, atraumatic. No pharyngeal erythema. No thyromegaly. CARDIOVASCULAR: S1 and S2 present. No murmurs, rubs, or gallops. -PULMONARY: Chest is clear to auscultation, bilateral wheezing , no crackles. ABDOMEN: Soft, nontender, nondistended, normoactive bowel sounds. No palpable organomegaly. MUSCULOSKELETAL: No joint swelling or deformity. EXTREMITIES: No cyanosis, clubbing, or pedal edema. NEUROLOGICAL: Gross neurological examination did not reveal any focal deficits. SKIN: No rashes. no petechiae. - Labs CBC & Chem 7: 07/23/24 03:30 07/23/24 03:30 Assessment and Plan Assessment: Acute asthma attack Acute hypoxic respiratory failure Obesity with BMI of 33.7 follow-up with Nicotine dependence Hypokalemia History of GERD Hypertension Anxiety and depression Plan: continue with the steroids IV Solu-Medrol Bronchodilator breathing treatments Pulmonary team consult Labs and medication were reviewed.. Continue same treatment. Continue with symptomatic treatment. Resume home medication. Monitor labs and vitals. DVT and GI prophylaxis. Further recommendations as per clinical course of the patient DVT prophylaxis: Subcutaneous heparin GI Prophylaxis: Pepcid Prognosis is fair
[2024-07-24] MEDS: HEPARIN SODIUM,PORCINE 5,000 UNIT/ML 1 ML VIAL SQ SCH (20:50)
[2024-07-24] MEDS: FAMOTIDINE 20 MG/2 ML VIAL IV SCH (20:50)
[2024-07-25] MEDS: FAMOTIDINE 20 MG TAB PO SCH (08:46)
[2024-07-25] MEDS: predniSONE 20 MG TAB PO SCH (08:46)
--- NOTE | 2024-07-25 12:00 | P.PN ---
Subjective Progress Note Date: 07/25/24 43-year-old female seen in the ER, room 25. The patient came into the emergency room complaining of 2 to 3 days worth of increasing shortness of breath, headache, and cough, occasionally productive of clear phlegm, white phlegm, or yellow phlegm. The patient apparently has a history of chronic lung disease, from smoking and vaping. 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 She apparently is only on albuterol inhaler, as needed, and albuterol and a nebulizer machine, as needed. The patient states that she smoked tobacco for 8 years, has been vaping for 3 years. She apparently has a history of asthma/COPD, anxiety/depression, GERD, hypertension, vitamin D deficiency, and chronic and ongoing vaping. The patient was admitted to the hospital back in February 2024. She apparently gets her medications from the emergency department. Current labs include a white count of 5.7, hemoglobin 15.3, hematocrit 43.1, and a normal platelet count. Sodium 138, potassium 3, chlorides 105, CO2 26, BUN 11, creatinine 0.56. Viral studies are negative. Chest x-ray shows nothing acute. The patient is seen today July 23, 2024 in follow-up on the regular medical floor. She is currently sitting up at the bedside. Awake and alert in no acute distress. Maintaining good O2 saturations in the 90s on room air oxygen. She is afebrile. Hemodynamically stable. She is still somewhat bronchospastic and wheezing. She remains on DuoNeb inhalations, Symbicort, Solu-Medrol. White count 14.8. Hemoglobin 15.7. Platelets 231. Sodium 137. Potassium 3.6. Bicarb 19. BUN 12. Creatinine 0.5. Glucose 150. The patient is seen today July 24, 2024 in follow-up on the regular medical floor. She is awake and alert in no acute distress. Sitting up in bed. Continues with a loose congested cough. Clear phlegm. Continues with some wheezing. She is maintaining good O2 saturations in the 90s on room air. No IV fluids. No new labs today. She is continued on DuoNeb and elations, Symbicort, Solu-Medrol. The patient is seen today July 25, 2024 in follow-up on the regular medical floor. She is sitting up having breakfast. Awake and alert in no acute distress. Maintaining good O2 saturations in the 90s on room air oxygen. Breathing easier today compared to yesterday. She remains on DuoNeb inhalations, Symbicort, Solu-Medrol. Heparin for DVT prophylaxis. NicoDerm patch in place. No new labs today. Objective - Vital Signs Vital signs: Vital Signs Temp 97.5 F L 07/25/24 07:15 Pulse 80 07/25/24 09:04 Resp 18 07/25/24 08:00 BP 159/91 07/25/24 07:15 Pulse Ox 96 07/25/24 07:15 FiO2 Intake & Output 07/24/24 07/25/24 07/25/24 18:59 06:59 18:59 Intake Total 868 360 Balance 868 360 Intake: Oral 868 360 Other: Voiding Method Toilet Toilet # Voids 2 3 - Exam GENERAL EXAM: Alert, 43-year-old female, sitting up having breakfast, on room air oxygen, comfortable in no apparent distress. HEAD: Normocephalic. EYES: Normal reaction of pupils, equal size. NOSE: Clear with pink turbinates. THROAT: No erythema or exudates. NECK: No masses, no JVD. CHEST: No chest wall deformity. LUNGS: Equal air entry with few scattered rhonchi. CVS: S1 and S2 normal with no audible murmur, regular rhythm. ABDOMEN: No hepatosplenomegaly, normal bowel sounds, no guarding or rigidity. SPINE: No scoliosis or deformity SKIN: No rashes CENTRAL NERVOUS SYSTEM: No focal deficits, tone is normal in all 4 extremities. EXTREMITIES: There is no peripheral edema. No clubbing, no cyanosis. Peripheral pulses are intact. - Labs CBC & Chem 7: 07/23/24 03:30 07/23/24 03:30 Assessment and Plan Assessment: Acute exacerbation of COPD/asthma, without evidence of pneumonia, or active infection. History of ongoing vaping, and prior to that, 8 years of tobacco use. History of anxiety/depression. History of gastroesophageal reflux disease. History of hypertension. History of vitamin D deficiency. Plan: The patient was seen and evaluated Medications reviewed Stable on room air oxygen Cleared for discharge Continue her albuterol HFA Continue Symbicort Complete a prednisone taper starting at 40 mg daily x 4 days Again educated regarding complete smoking/vaping cessation Continue on NicoDerm patches Follow-up in our office in 1 week This patient was seen independently by the pulmonary nurse practitioner addressing pulmonary issues I have personally seen and examined the patient, performed the documentation and the assessment and plan as written. Number of minutes spent on the visit: 23 Dictation was produced using [employer] dictation software. Please excuse any grammatical, word or spelling errors.
[2024-07-25 13:41] VITALS: RESP 16
[2024-07-25 13:46] VITALS: BP 157/89; PULSE 87; TEMP 98.3
== END 2024-07-25 16:04 | disposition home or self-care (01) | DRG 190 ==
LOC: EC 07:41 → OBSVTOIN 10:23 → 6NMEDSUR 10:23
PROVIDERS: ADMIT Hospitalist; ATTEND Hospitalist
DX: J44.1 Chronic obstructive pulmonary disease with (acute) exacerbation (principal); J96.01 Acute respiratory failure with hypoxia; J45.31 Mild persistent asthma with (acute) exacerbation; F32.A Depression, unspecified; I10 Essential (primary) hypertension; E66.9 Obesity, unspecified; Z68.33 Body mass index [BMI] 33.0-33.9, adult; E87.6 Hypokalemia; F41.9 Anxiety disorder, unspecified; K21.9 Gastro-esophageal reflux disease without esophagitis; F17.290 Nicotine dependence, other tobacco product, uncomplicated; Z59.71 Insufficient health insurance coverage; Z79.899 Other long term (current) drug therapy
CPT/HCPCS: 36415; 71046; 80048; 80053; 83605; 85025; 87636; 93005; 94640; 96365; 96372; 96374; 96375; 96376; 99285

== ENCOUNTER 2024-09-23 15:32 | Emergency (ER) | payer OTHER ==
--- NOTE | 2024-09-23 15:54 | ED ---
Syncope HPI - General Chief Complaint: Syncope Stated Complaint: Syncope Time Seen by Provider: 09/23/24 15:38 Source: patient, EMS Mode of arrival: EMS - History of Present Illness Initial Comments: This patient is a 43-year-old woman who presents to have evaluation after she wang d syncopal episode. The patient states she was working at the local [employer]. 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 She next remembers waking up on the floor. She states she did not have any prodromal symptoms. She does feel like she struck the left anterior part of her head, her left shoulder and her right knee. The patient denies neck, chest, back, abdomen pains. MD Complaint: collapsed Onset/Timin -: minutes(s) Prodromal Symptoms: none -: second(s) Witnessed: yes - by bystander Injuries Sustained Associated with Event: Head Current Symptoms: headache Treatments Prior to Arrival: none - Related Data On Hormonal Control: No Home Medications Medication Instructions Recorded Confirmed FLUoxetine HCL [PROzac] 40 mg PO DAILY 06/26/20 09/23/24 Venlafaxine HCl [Effexor XR] 150 mg PO DAILY 06/26/20 09/23/24 Omeprazole 20 mg PO DAILY 07/22/24 09/23/24 Ipratropium-Albuterol Nebulize 3 ml INHALATION RT-QID 09/23/24 09/23/24 [Duoneb 0.5 mg-3 mg/3 ml Soln] Previous Rx's Medication Instructions Recorded Albuterol Inhaler [Ventolin Hfa 2 puff INHALATION RT-Q4H PRN #1 07/25/24 Inhaler] each Budesonide-Formot 160-4.5 Mcg 2 puff INHALATION RT-BID #1 each 07/25/24 [Symbicort 160-4.5 Mcg Inhaler] predniSONE 60 mg PO DAILY #30 tab 09/23/24 Allergies Allergy/AdvReac Type Severity Reaction Status Date / Time No Known Allergies Allergy Verified 09/23/24 18:31 Review of Systems ROS Statement: Those systems with pertinent positive or pertinent negative responses have been documented in the HPI. ROS Other: All systems not noted in ROS Statement are negative. Constitutional: Denies: fever, chills Eyes: Denies: vision change ENT: Denies: epistaxis Respiratory: Denies: cough, dyspnea Cardiovascular: Reports: syncope. Denies: chest pain, palpitations, edema Gastrointestinal: Denies: abdominal pain, nausea, vomiting, diarrhea Genitourinary: Denies: dysuria, hematuria Musculoskeletal: Reports: as per HPI, arthralgia. Denies: back pain Skin: Denies: rash Neurological: Reports: headache. Denies: weakness, numbness, confusion Psychiatric: Reports: anxiety Past Medical History Past Medical History: Asthma, GERD/Reflux, Hypertension Additional Past Medical History / Comment(s): Irregular heart beat at times, past syncope, hypokalemia, orthostatic hypotension, bronchitis, anemia, vitamin D deficiency, UTIs, R shoulder pain d/t tendonitis R rotator cuff. History of Any Multi-Drug Resistant Organisms: None Reported Past Surgical History: Tubal Ligation Additional Past Surgical History / Comment(s): TTT, cyst removed from L knee Past Anesthesia/Blood Transfusion Reactions: No Reported Reaction Additional Past Anesthesia/Blood Transfusion Reaction / Comment(s): unknown Past Psychological History: Anxiety, Depression Smoking Status: Former smoker Past Alcohol Use History: Rare Past Drug Use History: Marijuana - Past Family History Mother Family Medical History: No Reported History Additional Family Medical History / Comment(s): Mother is healthy Father Additional Family Medical History / Comment(s): Vitamin D deficiency. General Exam General appearance: alert, in no apparent distress Head exam: Present: atraumatic, normocephalic Eye exam: Present: normal appearance. Absent: scleral icterus, conjunctival injection ENT exam: Present: normal oropharynx Neck exam: Present: normal inspection, full ROM. Absent: tenderness, meningismus Respiratory exam: Present: wheezes. Absent: respiratory distress, rales, rhonchi, stridor, accessory muscle use Cardiovascular Exam: Present: regular rate, normal rhythm, normal heart sounds. Absent: systolic murmur, diastolic murmur, rubs, gallop GI/Abdominal exam: Present: soft. Absent: distended, tenderness, guarding, rebound, rigid, mass Extremities exam: Present: normal inspection, normal capillary refill. Absent: pedal edema, calf tenderness Back exam: Present: normal inspection. Absent: CVA tenderness (R), CVA tenderness (L) Neurological exam: Present: alert, oriented X3, CN II-XII intact. Absent: motor sensory deficit Skin exam: Present: warm, dry, intact, normal color. Absent: rash Course Vital Signs 09/23/24 09/23/24 09/23/24 15:34 16:13 16:25 Temperature 97.8 F Pulse Rate 74 62 60 Respiratory 18 Rate Blood Pressure 138/87 O2 Sat by Pulse 96 Oximetry 09/23/24 09/23/24 17:34 19:04 Temperature 97.9 F Pulse Rate 67 66 Respiratory 22 18 Rate Blood Pressure 129/75 136/93 O2 Sat by Pulse 95 99 Oximetry EKG Findings - EKG Results: EKG: interpreted by ERMD, sinus rhythm (Rate 66 bpm), normal axis, normal QRS, normal ST/T, no acute changes - RI, Pacemaker, Normal: Normal tracing: normal tracing Medical Decision Making - Medical Decision Making The patient had chest x-ray that I interpreted as negative for acute infiltrate, pneumothorax, congestive heart failure Was pt. sent in by a medical professional or institution (, PA, [employer], urgent care, hospital, or [facility]...) When possible be specific @ -[No] Did you speak to anyone other than the patient for history (EMS, parent, family, police, friend...)? What history was obtained from this source @ -[No] Did you review nursing and triage notes (agree or disagree)? Why? @ -[I reviewed and agree with nursing and triage notes] Were old charts reviewed (outside hosp., previous admission, EMS record, old EKG, old radiological studies, urgent care reports/EKG's, [facility] records)? Report findings @ -[No old charts were reviewed] Differential Diagnosis (chest pain, altered mental status, abdominal pain women, abdominal pain men, vaginal bleeding, weakness, fever, dyspnea, syncope, headache, dizziness, GI bleed, back pain, seizure, CVA, palpatations, mental health, musculoskeletal)? @ -[Differential Syncope: Valvular disease, hypertrophic cardiomyopathy, pulmonary embolism, tamponade, tachycardia, bradycardia, RI, hypovolemia, hemorrhage, dissection, anemia, intracranial hemorrhage, seizure, hypoglycemia, carbon monoxide poisoning, this is not meant to be an all-inclusive list. EKG interpreted by me (3pts min.). @ -[I interpreted as above] X-rays interpreted by me (1pt min.). @ -[I interpreted as above CT interpreted by me (1pt min.). @ -[None done] U/S interpreted by me (1pt. min.). @ -[None done] What testing was considered but not performed or refused? (CT, X-rays, U/S, la bs)? Why? @ -[None] What meds were considered but not given or refused? Why? @ -[None] Did you discuss the management of the patient with other professionals (professionals i.e. [facility], PA, [employer], lab, RT, psych nurse, psychologist social, nutrition worker, teacher, loan review officer, major case detective)? Give summary @ -[No] Was smoking cessation discussed for >3mins.? @ -[No] Was critical care preformed (if so, how long)? @ -[No] Were there social determinants of health that impacted care today? How? (Homelessness, low income, unemployed, alcoholism, drug addiction, transportation, low edu. Level, literacy, decrease access to med. care, longterm, rehab)? @ -[No] Was there de-escalation of care discussed even if they declined (Discuss DNR or withdrawal of care, Hospice)? DNR status @ -[No] What co-morbidities impacted this encounter? (DM, HTN, Smoking, COPD, CAD, Cancer, CVA, ARF, Chemo, Hep., AIDS, mental health diagnosis, sleep apnea, morbid obesity)? @ -[ Was patient admitted / discharged? Hospital course, mention meds given and route, prescriptions, significant lab abnormalities, going to OR and other per tinent info. @ -[Patient is 43-year-old woman here to have evaluation after acute syncopal episode. Her history and physical exam are not concerning for underlying cardiac etiology. She is feeling better after IV fluids and stable to continue as outpatient Undiagnosed new problem with uncertain prognosis? @ -[No] Drug Therapy requiring intensive monitoring for toxicity (Heparin, Nitro, Insuli n, Cardizem)? @ -[No] Were any procedures done? @ -[No] Diagnosis/symptom? @ -[Acute syncopal episode Acute, or Chronic, or Acute on Chronic? @ -[Acute Uncomplicated (without systemic symptoms) or Complicated (systemic symptoms)? @ -[Uncomplicated Side effects of treatment? @ -[No] Exacerbation, Progression, or Severe Exacerbation? @ -[No] Poses a threat to life or bodily function? How? (Chest pain, USA, RI, pneumonia, PE, COPD, DKA, ARF, appy, cholecystitis, CVA, Diverticulitis, Homicidal, Suicidal, threat to staff... and all critical care pts) @ -[No] All treatments are based on ideal body weight as in ED triage - Lab Data Result diagrams: 09/23/24 17:34 09/23/24 17:34 Lab Results 09/23/24 09/23/24 09/23/24 Range/Units 17:34 17:34 17:34 WBC 5.68 (4.50-10.00) 10*3/uL RBC 4.03 L (4.10-5.20) 10*6/uL Hgb 12.4 (12.0-15.0) g/dL Hct 36.1 L (37.2-46.3) % MCV 89.6 (80.0-97.0) fL MCH 30.8 (27.0-32.0) pg MCHC 34.3 (32.0-37.0) g/dL Plt Count 165 (140-440) 10*3/uL MPV 12.3 H (9.5-12.2) fL Immature Gran % (Auto) 0.2 % Neutrophils % 53.7 % Lymphocytes % 25.9 % Monocytes % 8.6 % Eosinophils % 11.4 % Basophils % 0.2 % Immature Gran # 0.01 (0.00-0.04) 10*3/uL Neutrophils # 3.05 (1.80-7.70) 10*3/uL Lymphocytes # 1.47 (0.90-5.00) 10*3/uL Monocytes # 0.49 (0.20-1.00) 10*3/uL Eosinophils # 0.65 H (0.04-0.35) 10*3/uL Basophils # 0.01 (0.00-0.10) 10*3/uL Sodium 139 (137-145) mmol/L Potassium 3.4 L (3.5-5.1) mmol/L Chloride 106 (98-107) mmol/L Carbon Dioxide 25 (22-30) mmol/L Anion Gap 8 mmol/L BUN 16 (7-17) mg/dL Creatinine 0.64 (0.52-1.04) mg/dL Est GFR (CKD-EPI)AfAm >90 (>60 ml/min/1.73 sqM) Est GFR (CKD-EPI)NonAf >90 (>60 ml/min/1.73 sqM) Glucose 84 (74-99) mg/dL Calcium 9.0 (8.4-10.2) mg/dL Total Bilirubin 0.5 (0.2-1.3) mg/dL AST 36 (14-36) U/L ALT 46 H (4-34) U/L Alkaline Phosphatase 73 (38-126) U/L Troponin I <0.012 (0.000-0.034) ng/mL Total Protein 6.2 L (6.3-8.2) g/dL Albumin 3.8 (3.5-5.0) g/dL Disposition Clinical Impression: Syncope, Asthma with acute exacerbation Disposition: HOME SELF-CARE Condition: Good Instructions (If sedation given, give patient instructions): Syncope (ED) Prescriptions: predniSONE 60 mg PO DAILY #30 tab Is patient prescribed a controlled substance at d/c from ED?: No Referrals: None,Stated [Primary Care Provider] - 1-2 days
[2024-09-23] MEDS: ACETAMINOPHEN TAB 325 MG TAB PO STA (16:02)
[2024-09-23] MEDS: IBUPROFEN 400 MG TAB PO STA (16:03)
[2024-09-23] MEDS: ALBUTEROL NEBULIZED 2.5 MG/3 ML INHALATION STA (16:10)
[2024-09-23 17:42] LABS: Basophils # (A) 0.01 10*3/uL (0.00-0.10); Basophils % (A) 0.2 %; Eosinophils # (A) 0.65 10*3/uL (0.04-0.35); Eosinophils % (A) 11.4 %; HCT 36.1 % (37.2-46.3); HGB 12.4 g/dL (12.0-15.0); Lymphocytes # (A) 1.47 10*3/uL (0.90-5.00); Lymphocytes % (A) 25.9 %; MCH 30.8 pg (27.0-32.0); MCHC 34.3 g/dL (32.0-37.0); MCV 89.6 fL (80.0-97.0); Monocytes # (A) 0.49 10*3/uL (0.20-1.00); Monocytes % (A) 8.6 %; Neutrophils # (A) 3.05 10*3/uL (1.80-7.70); Neutrophils % (A) 53.7 %; Platelet Count 165 10*3/uL (140-440); RBC 4.03 10*6/uL (4.10-5.20); RDW 13.9 % (11.5-14.5); WBC 5.68 10*3/uL (4.50-10.00)
[2024-09-23 18:02] LABS: ALT 46 U/L (4-34); AST 36 U/L (14-36); African American GFR (CKD) >90 (>60 ml/min/1.73 sqM); Albumin 3.8 g/dL (3.5-5.0); Alkaline Phosphatase 73 U/L (38-126); Anion Gap 8 mmol/L; Blood Urea Nitrogen 16 mg/dL (7-17); Calcium 9.0 mg/dL (8.4-10.2); Carbon Dioxide 25 mmol/L (22-30); Chloride 106 mmol/L (98-107); Glucose 84 mg/dL (74-99); Non-African American GFR(CKD) >90 (>60 ml/min/1.73 sqM); Potassium 3.4 mmol/L (3.5-5.1); Sodium 139 mmol/L (137-145); Total Protein 6.2 g/dL (6.3-8.2)
[2024-09-23] MEDS: predniSONE 20 MG TAB PO STA (18:59)
[2024-09-23 19:05] VITALS: BP 136/93; PULSE 66; RESP 18; TEMP 97.9
--- NOTE | 2024-09-23 19:57 | XR ---
EXAMINATION TYPE: XR chest 1V portable DATE OF EXAM: 09/23/2024 5:57 PM COMPARISON: Chest radiographs from 07/22/2024. CLINICAL INDICATION: Female, 43 years old with history of syncope; [facility] TECHNIQUE: XR chest 1V portable Frontal view of the chest. FINDINGS: Lungs/Pleura: Prominent interstitial lung markings are seen scattered throughout the lungs with jaron ening of the diaphragm and increased lucency of the lung apices. No evidence of focal consolidation, pneumothorax or pleural effusion. Pulmonary vascularity: Unremarkable. Heart/mediastinum: Cardiomediastinal silhouette is mildly enlarged. Musculoskeletal: No acute osseous pathology. IMPRESSION: 1. Mild cardiomegaly. 2. Chronic interstitial markings with emphysematous appearance of the lungs. [facility], , 09/23/2024 7:54 PM
== END 2024-09-23 19:05 | disposition home or self-care (01) ==
LOC: EC 15:32
DX: R55 Syncope and collapse (principal); J45.901 Unspecified asthma with (acute) exacerbation; Z87.891 Personal history of nicotine dependence
CPT/HCPCS: 36415; 94640; 93005; 80053; 84484; 85025; 71045; 99285; J7512